=== PATIENT | female | born 1980 | race Caucasian/White ===

== ENCOUNTER 2017-06-01 10:01 | Emergency (ER) | payer OTHER ==
[~2017-06-01] VITALS: Ht 154.9 cm; Wt 78.9 kg
[~2017-06-01 10:01] MED LIST: MOBIC7.5 MG PO; NAPROXEN500 MG PO; NORCO 5-325 TA1 EACH PO
[2017-08-28] MEDS ORDERED: NORCO 5-325 TA1 EACH PO ×3 (14:32→14:46)
== END 2017-06-01 10:23 | disposition home or self-care (01) ==
LOC: ED 10:01
DX: Z00.8 Encounter for other general examination (principal)

== ENCOUNTER 2017-08-28 11:29 | Emergency (ER) | payer OTHER ==
[~2017-08-28] VITALS: Ht 154.9 cm; Wt 78.9 kg
[2017-08-28] MEDS ORDERED: NORCO 5-325 TA1 EACH PO ×5 (14:32→14:46)
== END 2017-08-28 11:49 | disposition home or self-care (01) ==
LOC: ED 11:29
DX: M79.672 Pain in left foot (principal); W22.8XXA Striking against or struck by other objects, initial encounter

== ENCOUNTER 2017-08-28 12:50 | Emergency (ER) | payer OTHER ==
[~2017-08-28] VITALS: Ht 154.9 cm; Wt 78.9 kg
[2017-08-28] MEDS ORDERED: NORCO 5-325 TA1 EACH PO ×5 (14:32→14:46)
== END 2017-08-28 15:28 | disposition home or self-care (01) ==
LOC: ED 12:50
DX: S92.355A Nondisplaced fracture of fifth metatarsal bone, left foot, initial encounter for closed fracture (principal); Z98.51 Tubal ligation status; W18.31XA Fall on same level due to stepping on an object, initial encounter; Y99.0 Civilian activity done for income or pay
CPT/HCPCS: 73630; 99283

== ENCOUNTER 2018-06-12 07:23 | Emergency (ER) | payer OTHER ==
[~2018-06-12] VITALS: Ht 154.9 cm; Wt 63.0 kg
--- OUTSIDE RECORDS SUMMARY | ~2018-06-12 | XMS | Clinical Summary ---
Demographics + + + | Address | [address] | | | [place] [address] | + + + | Home Phone [...] Author | [facility] | | | and Ianana | + + + | Organization | [facility] | | | and Ianana | + + + | Address | Unknown | + + + | Phone | Unavailable | + + + Support + + +---------+ + | Name | Relationship | Address | Phone | + + +---------+ + | Placido BESS | ECON | Unknown | | + + +---------+ + Care Team Providers + +------+ + | Care Stationary Engineer Name | Role | Phone | + +------+ + PP | Unavailable | + +------+ + Allergies Not on [...] | + + + Plan of Treatment + + + + + | Health Maintenance | Due Date | Last Done | Comments | + + + + + | Vaccine: | | | | | Dtap/Tdap/Td (1 - | 9 | | | | Tdap) | | | | + + + + + | Cervical Cancer | | | | | Screening (Pap) | 0 | | | + + + + + | Vaccine: Influenza | | | | | (#1) | 8 | | | + + + + + Results Not on filefrom Last 3 Months"
--- OUTSIDE RECORDS SUMMARY | ~2018-06-12 | XMS | Clinical Summary ---
Demographics + + + | Address | [address] | | | [place] [address] | + + + | Home Phone | | + + + | Preferred Language | Unknown | + + + | Marital Status | Single | + + + | Gnosticist Affiliation | 1041 | + + + | Race | Unknown | + + + | Ethnic Group | Unknown | + + + Author + + + | Author | [facility] | | | and Ianana | + + + | Organization | [facility] | | | and [...] Team Providers + +------+ + | Care Roll Or Tape Edge Machine Operator Name | Role | Phone [...]
[~2018-06-12 07:23] MED LIST changes: +CYCLOBENZAPRINE10 MG PO; +FERROUS SULFAT325 MG PO; +RED YEAST RICE600 MG PO; +VITAMIN C500 M5 PO
--- OUTSIDE RECORDS SUMMARY | 2018-06-12 07:28 | XMS ---
PreManage Notification: LAURA MAGDALENO Security Hunter Guide Events No recent Security Events currently on file CRITERIA MET - [facility] - 2 Visits in 30 Days CARE PROVIDERS Sara Mtz Primary Care Current [place] PHONE: Unknown Maryann has no Care Guidelines for this patient. E.Renee VISIT COUNT (12 MO.) 1 Sunday [facility] [address] [place] [address] TOTAL 4 NOTE: Visits indicate total known visits. ED/C VISIT TRACKING (12 MO.) 06/12/2018 07:24 [facility] [place] TYPE: Emergency COMPLAINT: - R KNEE PAIN/INJURY 06/01/2018 12:01 Sunday [facility] TYPE: Emergency 08/28/2017 12:50 [facility] [place] TYPE: Emergency COMPLAINT: - FOOT INJURY DIAGNOSES: - Fall on same level due to stepping on an object, initial encounter - Unspecified injury of left foot, initial encounter - Nondisplaced fracture of fifth metatarsal bone, left foot, initial encounter for closed fracture - Civilian activity done for income or pay - Tubal ligation status 08/28/2017 11:[address] [facility] [place] TYPE: Emergency COMPLAINT: - L FOOT PAIN/INJURY/MSE DIAGNOSES: - Striking against or struck by other objects, initial encounter - Pain in left foot INPATIENT VISIT TRACKING (12 MO.) No inpatient visits to display in this time frame [email or web address]
[2018-06-12] MEDS ORDERED: IBUPROFEN600 MG PO ×2 (07:33→07:43)
[2018-06-12] MEDS ORDERED: GEMFIBROZIL600 MG PO (07:33)
== END 2018-06-12 08:08 | disposition home or self-care (01) ==
LOC: ED 07:23
DX: S89.91XA Unspecified injury of right lower leg, initial encounter (principal); Z88.8 Allergy status to other drugs, medicaments and biological substances; Z79.899 Other long term (current) drug therapy; X50.9XXA Other and unspecified overexertion or strenuous movements or postures, initial encounter; Y92.89 Other specified places as the place of occurrence of the external cause; Y99.0 Civilian activity done for income or pay
CPT/HCPCS: 73560; 99283

== ENCOUNTER 2018-11-08 18:33 | Emergency (ER) | payer OTHER ==
[~2018-11-08] VITALS: Ht 154.9 cm; Wt 62.1 kg
[~2018-11-08 18:33] MED LIST changes: +GEMFIBROZIL600 MG PO; +IBUPROFEN600 MG PO; +ULTRAM50 MG PO
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
[2018-11-08] MEDS ORDERED: CYCLOBENZAPRINE10 MG PO (18:44)
== END 2018-11-08 20:27 | disposition home or self-care (01) ==
LOC: ED 18:33
DX: G89.29 Other chronic pain (principal); M54.2 Cervicalgia; M54.6 Pain in thoracic spine; Z79.899 Other long term (current) drug therapy
CPT/HCPCS: 99283

== ENCOUNTER 2018-12-21 17:30 | Emergency (ER) | payer OTHER ==
[~2018-12-21] VITALS: Ht 154.9 cm; Wt 61.2 kg
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
--- OUTSIDE RECORDS SUMMARY | ~2018-12-21 | XMS | Encounter Summary ---
Demographics + + + | Address | [address] | | | [place] [address] | + + + | Home Phone | | + + + | Preferred Language | Unknown | + + + | Marital Status | Single | + + + | Yarsani Affiliation | 1041 | + + + | Race | Unknown | + + + | Ethnic Group | Unknown | + + + Author + + + | Author | [facility] | | | and Ianana | + + + | Organization | [facility] | | | and Ianana [...] Team Providers + +------+ + | Care Tactical Air Control Party Name | Role | Phone | + +------+ + PCP | Unavailable | + +------+ + Encounter Details +--------+ + + + + | Date | Type | Department | Care Team | Description | +--------+ + + + + | 10/02/ | Imaging | [facility] | Provider, | | | 2019 | Exam | MED CTR EXTERNAL | MD [address] | | | | | IMAGING | [place] | | | | | [phone] | [place] [address] | | +--------+ + + + + [...] 2018 | Visit | and Rehabilitation | [address] | | | | | | [place] | | | | | | [address] | | | | | | | | +--------+---------+ + + + as of this encounter Procedures + +--------+ [...] section. | + +--------+ + + + in this encounter Results MRI Shoulder Left wo Contrast (10/02/2018714) + + + | Narrative | Performed [...]
--- OUTSIDE RECORDS SUMMARY | ~2018-12-21 | XMS | Clinical Summary ---
Demographics + + + | Address | [address] | | | [place] [address] | + + + | Home Phone | | + + + | Preferred Language | Unknown | + + + | Marital Status | Single | + + + | Uatsdin Affiliation | 1041 | + + + | Race | Unknown | + + + | Ethnic Group | Unknown | + + + Author + + + | Author | [facility] | | | and Ianana | + + + | Organization | [facility] | | | and Ianana [...] Team Providers + +------+ + | Care Computer Operations Analyst Name | Role | Phone | + [...] [place] | | | | | | [address] | | | | | | | [...] | STATE [employer] | STATE | [id number] | Indemn | [phone] | | | | FARM | | [...] | [address] | | | Green Party | | 1979 | [phone] | [place] [address] | | | Liabil | | | [phone] | | | | ity | | | | | + +--------+ +--------+ + + | MARINE LAGOS | Person | Self | [birth year] | Home: | [address] | | | al/Fam | | 1979 | [phone] | [place] | | | [place] | | | [phone] | [phone] | + +--------+ +--------+ + +"
--- OUTSIDE RECORDS SUMMARY | ~2018-12-21 | XMS | Encounter Summary ---
Demographics + + + | Address | [address] | | | [place] [address] | + + + | Home Phone | | + + + | Preferred Language | Unknown | + + + | Marital Status | Single | + + + | Taoist Affiliation | 1041 | + + + | Race | Unknown | + + + | Ethnic Group | Unknown | + + + Author + + + | Author | [facility] | | | and Ianana | + + + | Organization | [facility] | | | and Ianana [...] Team Providers + +------+ + | Care Concrete Wall Grinder Operator Name | Role | Phone | [...] Verito [place] | | | | | [phone] | [place] [address] | | +--------+ + + + + [...] | | | | | [place] | | | | | | [address] | | | | | | | [...]
--- OUTSIDE RECORDS SUMMARY | ~2018-12-21 | XMS | Encounter Summary ---
Demographics + + + | Address | [address] | | | [place] [address] | + + + | Home Phone | | + + + | Preferred Language | Unknown | + + + | Marital Status | Single | + + + | Mosque Affiliation | 1041 | + + + | Race | Unknown | + + + | Ethnic Group | Unknown | + + + Author + + + | Author | [facility] | | | and Ianana | + + + | Organization | [facility] | | | and Ianana | [...] Team Providers + +------+ + | Care Appraisal Technician Name | Role | Phone | + +------+ + PCP | Unavailable | + +------+ + Encounter Details +--------+ + + + + | Date | Type | Department | Care Team | Description | +--------+ + + + + | 09/24/ | Imaging | [facility] | Provider, | | | 2019 | Exam | MED CTR EXTERNAL | MD [address] | | | | | IMAGING | [place] | | | | | [phone] | [place] [address] | | +--------+ + + + + [...] | | | | | [place] | | | | | | [address] | | | | | | | [...] + + + in this encounter Results CT Cervical Spine wo Contrast (09/24/2018 1335) [...]
--- OUTSIDE RECORDS SUMMARY | ~2018-12-21 | XMS | Encounter Summary ---
Demographics + + + | Address | [address] | | | [place] [address] | + + + | Home Phone | | + + + | Preferred Language | Unknown | + + + | Marital Status | Single | + + + | Yarsanism Affiliation | 1041 | + + + | Race | Unknown | + + + | Ethnic Group | Unknown | + + + Author + + + | Author | [facility] | | | and Ianana | + + + | Organization | [facility] | | | and Ianana | [...] Team Providers + +------+ + | Care Consulting Psychologist Name | Role | Phone | + [...] IMAGING | | | | | | [phone] | | | +--------+ + + + [...] [place] | | | | | | [address] | | | | | | | | +--------+---------+ + + + as of this encounter Visit Diagnoses Not on filein this encounter"
--- OUTSIDE RECORDS SUMMARY | ~2018-12-21 | XMS | Encounter Summary ---
Demographics + + + | Address | [address] | | | [place] [address] | + + + | Home Phone [...] + | Author | [facility] | | | and Ianana | + + + | Organization | [facility] | | | and [...] Team Providers + +------+ + | Care Bilingual Research Interviewer Name | Role | Phone | + [...] IMAGING | | | | | | [phone] | | | +--------+ + + + [...] [place] | | | | | | [address] | | | | | | | | +--------+---------+ + + + as of this encounter Visit Diagnoses Not on filein this encounter"
--- OUTSIDE RECORDS SUMMARY | ~2018-12-21 | XMS | Encounter Summary ---
Demographics + + + | Address | [address] | | | [place] [address] | + + + | Home Phone | | + + + | Preferred Language | Unknown | + + + | Marital Status | Single | + + + | Episcopalian Affiliation | 1041 | + + + | Race | Unknown | + + + | Ethnic Group | Unknown | + + + Author + + + | Author | [facility] | | | and Ianana | + + + | Organization | [facility] | | | and Ianana [...] Team Providers + +------+ + | Care Bell Neck Hammerer Name | Role | Phone | + [...] Verito [place]ILLOS | | | | | [phone] | [place] [address] | | +--------+ + + + + [...] Visit | and Rehabilitation | [address] | | | | | | [place] | | | | | | [address] | | | | | | | [...] + CT Cervical Spine wo Contrast (09/24/2018 7005) + + + | Narrative | Performed [...] XR Cervical Spine 2 or 3 Views (09/03/20188) + + + | Narrative | Performed [...]
--- OUTSIDE RECORDS SUMMARY | ~2018-12-21 | XMS | Encounter Summary ---
Demographics + + + | Address | [address] | | | [place] [address] | + + + | Home Phone | | + + + | Preferred Language | Unknown | + + + | Marital Status | Single | + + + | Adventism Affiliation | 1041 | + + + | Race | Unknown | + + + | Ethnic Group | Unknown | + + + Author + + + | Author | [facility] | | | and Ianana | + + + | Organization | [facility] | | | and [...] Team Providers + +------+ + | Care Material Mover Name | Role | Phone | + [...] Verito BUSTILLOS | | | | | [phone] | [place] [address] | | +--------+ + + + + [...] | | | | | [place] | | | | | | [address] | | | | | | | [...]
--- OUTSIDE RECORDS SUMMARY | ~2018-12-21 | XMS | Encounter Summary ---
Demographics + + + | Address | [address] | | | [place] [address] | + + + | Home Phone | | + + + | Preferred Language | Unknown | + + + | Marital Status | Single | + + + | Hindu Affiliation | 1041 | + + + | Race | Unknown | + + + | Ethnic Group | Unknown | + + + Author + + + | Author | [facility] | | | and Ianana | + + + | Organization | [facility] | | [...] Team Providers + +------+ + | Care Sugar Cane Planting Equipment Operator Name | Role | Phone | [...] | MED CTR EXTERNAL | MD Elpidio [address] | | | | | IMAGING | Verito BUSTILLOS | | | | | [phone] | [place] [address] | | +--------+ + + + + [...] Visit | and Rehabilitation | [address] | | | | | | [place] | | | | | | [address] | | | | | | | [...] + CT Cervical Spine wo Contrast (09/24/2018 8724) + + + | Narrative | Performed [...]
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
[2018-12-21] MEDS ORDERED: GABAPENTIN300 MG PO (17:45)
[2018-12-21] MEDS ORDERED: PREDNISONE20 MG PO ×2 (17:58→18:23)
[2018-12-21] MEDS ORDERED: BENADRYL25 MG PO (17:58)
== END 2018-12-21 18:35 | disposition home or self-care (01) ==
LOC: ED 17:30
DX: L50.0 Allergic urticaria (principal); Z79.899 Other long term (current) drug therapy
CPT/HCPCS: 99282; J7512

== ENCOUNTER 2018-12-25 18:48 | Emergency (ER) | payer OTHER ==
[~2018-12-25] VITALS: Ht 154.9 cm; Wt 61.2 kg
--- OUTSIDE RECORDS SUMMARY | ~2018-12-25 | XMS | Encounter Summary ---
Demographics + + + | Address | [address] | | | [place] [address] | + + + | Home Phone | | + + + | Preferred Language | Unknown | + + + | Marital Status | Single | + + + | Orthodox Affiliation | 1041 | + + + | Race | Unknown | + + + | Ethnic Group | Unknown | + + + Author + + + | Author | [facility] | | | and Ianana | + + + | Organization | [facility] | | | and Ianana [...] Team Providers + +------+ + | Care Molecular Technologist Name | Role | Phone | + +------+ + | Hai Webb MD | PCP | | + +------+ + Encounter Details +--------+ + + + + | Date | Type | Department | Care Team | Description | +--------+ + + + + | 12/10/ | Ancillary | [facility] | Provider, | | | 2019 | Orders | [facility] EXTER[facility] | MD El[id number] | | | | | IMAGING | Verito BUSTILLOS | | | | | [phone] | [place] [address] | | +--------+ + + + + [...] on file | | + + + as of this encounter Plan of Treatment +--------+---------+ + + + | Date | Type | Specialty | Care Team | Description | +--------+---------+ + + + | 02/05/ | Office | Physical Medicine | Robert Castillo, | | | 2018 | Visit | and Rehabilitation | [address] | | | | | | [place] | | | | | | [address] | | | | | | | | +--------+---------+ + + + as of this encounter Results MRI Shoulder Left wo Contrast (10/02/201815) [...] + CT Cervical Spine wo Contrast (09/24/2018 8534) + + + | Narrative | Performed [...] | | | + +---------+ + + XR Shoulder Left 2 + Vw (09/09/20181649) + + + | Narrative | Performed [...] | | | + +---------+ + + XR Cervical Spine 2 or 3 Views (09/03/20181) + + + | Narrative | Performed [...] | | | + +---------+ + + XR Cervical Spine 2 or 3 Views (10/23/20161919) + + + | Narrative | Performed [...] | | | + +---------+ + + in this encounter Visit Diagnoses Not on filein this encounter"
--- OUTSIDE RECORDS SUMMARY | ~2018-12-25 | XMS | Encounter Summary ---
Demographics + + + | Address | [address] | | | [place] [address] | + + + | Home Phone | | + + + | Preferred Language | Unknown | + + + | Marital Status | Single | + + + | Spiritism Affiliation | 1041 | + + + | Race | Unknown | + + + | Ethnic Group | Unknown | + + + Author + + + | Author | [facility] | | | and Ianana | + + + | Organization | [facility] | | | and Ianana [...] Team Providers + +------+ + | Care Rn Stars Name | Role | Phone | + [...] Verito BUSTILLOS | | | | | [phone] | [place] [address] | | +--------+ + + + + [...] Visit | and Rehabilitation | [address] | | | | | | [place] | | | | | | [address] | | | | | | | [...] + CT Cervical Spine wo Contrast (09/24/2018 3987) + + + | Narrative | Performed [...] XR Cervical Spine 2 or 3 Views (09/03/20186) + + + | Narrative | Performed [...]
--- OUTSIDE RECORDS SUMMARY | ~2018-12-25 | XMS | Clinical Summary ---
Demographics + + + | Address | [address] | | | [place] [address] | + + + | Home Phone | | + + + | Preferred Language | Unknown | + + + | Marital Status | Single | + + + | Spiritism Affiliation | 1041 | + + + | Race | Unknown | + + + | Ethnic Group | Unknown | + + + Author + + + | Author | [facility] | | | and Ianana | + + + | Organization | [facility] | | | and Ianana [...] Team Providers + +------+ + | Care Occ Therapy Asst Name | Role | Phone | + [...] | | 2018 | Visit | | MD [address] | | | | | | [place] | | | | | | [address] | | | | | | | [...] Months Results MRI Shoulder Left wo Contrast (10/02/2018714) [...] | STATE [employer] | STATE | [id number] | Indemn | [phone] | | | | FARM | | [...] | [address] | | | [employer] | | 1979 | +- | [place] [address] | | | [place] | | | [address] | | | | ity | | | | | + +--------+ +--------+ + + | MARINE LAGOS | Person | Self | [birth year] Home: | [address] | | | al/Fam | | 1979 | +- | [place] | | | conrad | | | [phone] | [phone] | + +--------+ +--------+ + +"
--- OUTSIDE RECORDS SUMMARY | ~2018-12-25 | XMS | Encounter Summary ---
Demographics + + + | Address | [address] | | | [place] [address] | + + + | Home Phone | | + + + | Preferred Language | Unknown | + + + | Marital Status | Single | + + + | Restorationism Affiliation | 1041 | + + + | Race | Unknown | + + + | Ethnic Group | Unknown | + + + Author + + + | Author | [facility] | | | and Ianana | + + + | Organization | [facility] | | | and [...] Providers + +------+ + | Care Senior Fire Protection Engineer Name | Role | Phone | + +------+ + | Hai Webb MD | PCP | | + +------+ + Encounter Details +--------+ + + + + | Date | Type | Department | Care Team | Description | +--------+ + + + + | 12/10/ | Procedure | [facility] | | | | 2018 | Pass | MED CTR EXTERNAL | | | | | | IMAGING | | | | | | [phone] | | | +--------+ + + + [...] Medicine | Robert Castillo, | | | 2019 | Visit | and Rehabilitation | MD [address] | | | | | | [place] | | | | | | [address] | | | | | | | | +--------+---------+ + + + as of this encounter Visit Diagnoses Not on filein this encounter"
--- OUTSIDE RECORDS SUMMARY | ~2018-12-25 | XMS | Encounter Summary ---
Demographics + + + | Address | [address] | | | [place] [address] | + + + | Home Phone | | + + + | Preferred Language | Unknown | + + + | Marital Status | Single | + + + | Rastafarian Affiliation | 1041 | + + + | Race | Unknown | + + + | Ethnic Group | Unknown | + + + Author + + + | Author | [facility] | | | and Ianana | + + + | Organization | [facility] | | | and [...] Team Providers + +------+ + | Care Quality Assurance Specialist Name | Role | Phone | + [...] Verito BUSTILLOS | | | | | [phone] | [place] [address] | | +--------+ + + + + [...] | | | | | [place] | | | | | | [address] | | | | | | | [...]
--- OUTSIDE RECORDS SUMMARY | ~2018-12-25 | XMS | Encounter Summary ---
Demographics + + + | Address | [address] | | | [place] [address] | + + + | Home Phone [...] Author | [facility] | | | and Ianana | + + + | Organization | [facility] | | | [...] Team Providers + +------+ + | Care Bank Accountant Name | Role | Phone | + [...] IMAGING | | | | | | [phone] | | | +--------+ + + + [...] [place] | | | | | | [address] | | | | | | | | +--------+---------+ + + + as of this encounter Visit Diagnoses Not on filein this encounter"
--- OUTSIDE RECORDS SUMMARY | ~2018-12-25 | XMS | Encounter Summary ---
Demographics + + + | Address | [address] | | | [place] [address] | + + + | Home Phone [...] Author + + + | Author | [facility] | | | and Ianana | + + + | Organization | [facility] | | | and Ianana [...] Team Providers + +------+ + | Care Toll Testboard Worker Name | Role | Phone | [...] Verito BUSTILLOS | | | | | [phone] | [place] [address] | | +--------+ + + + + [...] | | | | | [place] | | | | | | [address] | | | | | | | [...]
--- OUTSIDE RECORDS SUMMARY | ~2018-12-25 | XMS | Clinical Summary ---
Demographics + + + | Address | [address] | | | [place] [address] | + + + | Home Phone [...] + + + | Author | [facility] | | | and Ianana | + + + | Organization | [facility] | | | and Ianana [...] Team Providers + +------+ + | Care Big Data Software Engineer Name | Role | Phone | [...] [place] | | | | | | [address] | | | | | | | [...] | STATE [employer] | STATE | [id number] | Indemn | [phone] | | | | FARM | | [...] | [employer] | | 1979 | +- | [place] [address] | | | [place] | | | [address] | | | | ity | | | | | + +--------+ +--------+ + + | MARINE LAGOS | Person | Self | [birth year] | Home: | [address] | | | al/Fam | | 1979 | +- | [place] | | | [place] | | | [phone] | [phone] | + +--------+ +--------+ + +"
[~2018-12-25 18:48] MED LIST changes: +BENADRYL25 MG PO; +GABAPENTIN300 MG PO; +PREDNISONE20 MG PO
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
[2018-12-25] MEDS ORDERED: DAYTIME-COLD N1 EACH PO (19:22)
[2018-12-25] MEDS ORDERED: MEDROL4 M1 PO (20:26)
== END 2018-12-25 20:38 | disposition home or self-care (01) ==
LOC: ED 18:48
DX: L50.9 Urticaria, unspecified (principal); Z79.52 Long term (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 systemic steroids; Z79.899 Other long term (current) drug therapy
CPT/HCPCS: 99282

== ENCOUNTER 2019-09-16 10:49 | Emergency (ER) | payer OTHER ==
[~2019-09-16] VITALS: Ht 154.9 cm; Wt 60.3 kg
--- OUTSIDE RECORDS SUMMARY | ~2019-09-16 | XMS | Encounter Summary ---
Demographics + + + | Address | [address] | | | [place] [address] | + + + | Home Phone | | + + + | Preferred Language | Unknown | + + + | Marital Status | Single | + + + | Sabianist Affiliation | [id number] | + + + | Race | Unknown | + + + | Ethnic Group | Unknown | + + + Author + + + | Author | [facility] | | | and [place] | + + + | Organization | [facility] | | | and [place] | + + + | Address | Unknown | + + + | Phone | Unavailable | + + + Support + + +---------+ + | Name | Relationship | Address | Phone | + + +---------+ + | Placido Thakur | ECON | Unknown | | + + +---------+ + Care Team Providers + +------+ + | Care Member Certification Manager Name | Role | Phone | + +------+ + | Hai Webb MD | PCP | | + +------+ + Reason for Referral Evaluate & Treat (Routine) +--------+ + + + + + | Status | Reason | Specialty | Diagnoses / | Referred By | Referred To | | | | | Procedures | Contact | Contact | +--------+ + + + + + | Closed | Specialty | Psychology | Diagnoses | Jonathan | [facility] | | | Services | | Situational | Robert Thakkar MD | HELPING | | | Required | | anxiety | [address] | | | | | | [address] | [place] | | | | | | [place], | [address] | | | | | | [place] [address] | [place], | | | | | | Phone: | [place] [address] | | | | | | [phone] | Phone: | | | | | | Fax: | [phone] | | | | | | [phone] | Fax: | | | | | | | [phone] | +--------+ + + + + + Diagnostic/Screening (Routine) +--------+--------+ + + + + | Status | Reason | Specialty | Diagnoses / | Referred By | Referred To | | | | | Procedures | Contact | Contact | +--------+--------+ + + + + | Closed | | Radiology | Diagnoses | Castillo, | [facility] | | | | | Intractable | Robert Thakkar MD | [address] | | | | | migraine | [address] | [place], | | | | | with aura | [address] | [place] | | | | | without | [place], | [address] | | | | | status | [place] [address] | Phone: | | | | | migrainosus | Phone: | [phone] | | | | | Chronic | [phone] | Fax: | | | | | daily | Fax: | [phone] | | | | | headache | [phone] | | | | | | Procedures | | | | | | | MRI Brain wo | | | | | | | Contrast | | | +--------+--------+ + + + + Diagnostic/Screening (Routine) +--------+--------+ + + + + | Status | Reason | Specialty | Diagnoses / | Referred By | Referred To | | | | | Procedures | Contact | Contact | +--------+--------+ + + + + | Closed | | Radiology | Diagnoses | Castillo, | [facility] | | | | | Cervicalgia | Robert Thakkar MD | [address] | | | | | Numbness | [address] | [place], | | | | | of left hand | [address] | [place] | | | | | Chronic | [place], | [address] | | | | | left | [place] [address] | Phone: | | | | | shoulder | Phone: | [phone] | | | | | pain | [phone] | Fax: | | | | | Procedures | Fax: | [phone] | | | | | MRI Cervical | [phone] | | | | | | Spine wo | | | | | | | Contrast | | | +--------+--------+ + + + + Encounter Details +--------+---------+ + + + | Date | Type | Department | Care Team | Description | +--------+---------+ + + + | 03/18/ | Office | [facility] | Robert Castillo, | Intractable migraine | | 2019 | Visit | PHYSIATRY [address] | MD [address] | with aura without | | | | [address] [place], | [place], [place] | status migrainosus | | | | [place] [address] | [address] | (Primary Dx); | | | | [phone] | | Situational anxiety; | | | | | | Cervicalgia; | | | | | | Numbness of left | | | | | | hand; Chronic daily | | | | | | headache; Chronic | | | | | | left shoulder pain | +--------+---------+ + + + Social History + +-------+ +--------+------+ | Tobacco Use | Types | Packs/Day | Years | Date | | | | | Used | | + +-------+ +--------+------+ | Never Smoker | | | | | + +-------+ +--------+------+ + +---+---+---+ | Smokeless Tobacco: | | | | | Never Used | | | | + +---+---+---+ + + +---------+ + | Alcohol Use | Drinks/Week | oz/Week | Comments | + + +---------+ + | Not Currently | | | | + + +---------+ + + + + | Sex Assigned at | Date Recorded | | | | + + + | Not on file | | + + + + + + + | Job Start Date | Occupation | Industry | + + + + | Not on file | Not on file | Not on file | + + + + + + + + | Travel History | Travel Start | Travel End | + + + + + + | No recent travel history available. | + + documented as of this encounter Last Filed Vital Signs + + + + + | Vital Sign | Reading | Time Taken | Comments | + + + + + | Blood Pressure | 111/69 | 03/18/2019 10:42 AM | | | | | PDT | | + + + + + | Pulse | 68 | 03/18/2019 10:42 AM | | | | | PDT | | + + + + + | Temperature | - | - | | + + + + + | Respiratory Rate | - | - | | + + + + + | Oxygen Saturation | - | - | | + + + + + | Inhaled Oxygen | - | - | | | Concentration | | | | + + + + + | Weight | 61.7 kg (136 lb) | 03/18/2019 10:42 AM | | | | | PDT | | + + + + + | Height | 154.9 cm (5' 1") | 03/18/2019 10:42 AM | | | | | PDT | | + + + + + | Body Mass Index | 25.7 | 03/18/2019 10:42 AM | | | | | PDT | | + + + + + documented in this encounter Patient Instructions Patient Instructions Valery Aguirre, Indoor Landscape Architect - 03/18/2019 10:20 AM PDTDiscon tinue the use of Caffeine. Take Topamax as prescribed. A MRI has been requested. Please complete the requested imaging. Within one week, you hever akanksha receive a call to schedule your MRI. If you have not heard from anyone within one week, please call the clinic. The results of your MRI will be reviewed at your next appointment. If your MRI demonstrates any emergent results, the clinic will contact you. Laboratory tests have been requested. Please go to the lab to complete your laboratory sagar ting. The results of your laboratory testing will be reviewed at your next appointment. If your labratory results demonstrate any emergent results the clinic will contact you. Risks of Botox injection include, but are not limited to: bruising, bleeding, infection, da mage to adjacent structures, disability and . There is risk of developing upper respira tory symptoms (e.g. Rhinorrhea). There is risk of focal weakness and/or generalized weaknes s. There is risk of developing immunity to botulinum toxin with repeat injections. There i s risk of respiratory failure, need for hospitalization and being placed on a ventilator. T here is risk of dysphagia, aspiration and the possible need for alternative mechanism of fee ding (e.g. Feeding tube). There is risk of developing an asymmetric facial features. There is risk of disconjugate gaze and double vision. There is risk of dysphonia. The effects of botulinum toxin take several days to take effect (approximately one week). T he effects of botulinum toxin usually reach peak effect at one month after injection. The e ffects of botulinum toxin are semi-permanent. This means that once botulinum toxin is injec lula there is no way to reverse the effects of the botulinum toxin. The effects of botulinum toxin may last from three to six months, (four months on average). documented in this encounter Progress Notes Robert Castillo MD - 03/18/2019 10:20 AM PDTFormatting of this note might be different fro m the original. Robert Castillo MD [address] [place] [address], [address] [place] [address] FAX: PHYSICAL MEDICINE AND REHABILITATION H&P CHIEF COMPLAINT: No chief complaint on file. HISTORY OF PRESENT ILLNESS: Marine Lagos is a 38 y.o. female being seen today in follow-up for complaints of headach es, neck and shoulder pain. Marine Lagos was last seen on 03/09/19. Previously it was recommended that she return to clinic to evaluate for botox injections. Marine Lagos reports daily headaches. She reports headaches 7 times per week located in the frontal lobe worse on the right. Marine Lagos reports nausea with headaches. Marine Lagos reports vision changes with headaches. Marine Lagos reports that she has disconti nued the use of abortive medications. Marine Lagos reports that headaches are there all day everyday. Marine Lagos reports that headaches are worse in the evening. Marine Lagos reports that she is using her CPAP machine for the treatment of sleep apnea. Marine Lagos reports that she has been using CP AP machine for a couple of months. Marine Lagos reports left shoulder pain. Marine Lagos reports that she is not able to lift left upper extremity without pain. Marine Lagos reports that physical therapy has h elped improve neck pain. Marine Lagos reports left upper extremity hand numbness. Marine Lagos's medications, allergies, past medical, surgical, social and family histori es were reviewed and updated as appropriate. CURRENT MEDICATIONS: Current Outpatient Medications Medication Sig Dispense Refill citalopram (CELEXA) 10 mg tablet Take 1 tablet by mouth Daily. 30 tablet 1 diclofenac (VOLTAREN) 75 mg EC tablet LORazepam (ATIVAN) 1 mg tablet Take 1 tablet 30 minutes before procedure. If still ner vous take second tablet 10 minutes before procedure. 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 2 tablet 0 No current facility-administered medications for this visit. ALLERGIES: No Known Allergies REVIEW OF SYSTEMS: ROS GENERALLY: No fever, no night sweats, no anemia, no fatigue, no recent profound weight ch anges. EYES: No eye problems, no use of corrective lenses, no eye injury, no double vision, no bl indness. EARS, NOSE, AND THROAT: No changes in taste or smell, no hearing difficulty, no ringing in the ears, no ear drainage, no dizziness, no voice changes, no difficulty swallowing, no sig nificant snoring, no sleep apnea, no sinus problems, no major dental work. NEUROLOGICALLY:The patient has + numbness/pain of arms, no numbness/pain of legs, no awake with numbness/pain, no weakness, no muscle aching, no coordination difficulty, no change in walk, no head injury, no neck injury, no back injury, + pain in neck, no pain in back, no st roke, no fainting spells, no loss of consciousness, no tremor/shaking, no seizures, no heada ches, no migraine, no memory loss, no speech difficulty, no confusion and no numbness of fac e. PSYCHIATRIC: No depression, no sleep disorders, no anxiety, no bipolar disorder, no psycho tic episodes. CARDIOVASCULAR: No heart attacks, no heart murmur, no heart fluttering, no chest pain, no ankle swelling. LUNG DISEASE: No shortness of breath, no cough, no tuberculosis, no bloody cough, no asth ma, no emphysema/COPD. GASTROINTESTINAL: No bowel disease, no nausea or vomiting, no rectal bleeding, no constipa tion, no stool incontinence, no liver disease, no gallbladder disease, no abdominal pain, no ulcers. KIDNEY DISEASE: No urinary frequency, no painful or difficult urination, no incontinence. ENDOCRINE: No diabetes, no thyroid disease, no osteopenia or osteoporosis, no breast drain age. SKIN: No breast lumps, no skin changes, no rashes, no itches. HEMATOLOGIC/LYMPHATIC: No enlarged lymph nodes, no easy or unusual bleeding, no personal h istory of cancer. RHEUMATOLOGIC: No joint arthritis, no rheumatoid arthritis. PHYSICAL EXAMINATION: Blood pressure 111/69, pulse 68, height 1.549 m (5' 1"), weight 61.7 kg (136 lb). Body mass index is 25.7 kg/m. GENERAL: The patient is well developed and well nourished. HEENT: Normocephalic and atraumatic. Normal sclerae without icterus. NECK (ANTERIOR): There is no apparent cervical lymphadenopathy or thyromegaly. PULMONARY: The patient is in no acute respiratory distress with unlabored respirations. CARDIOVASCULAR: Regular rate and rhythm. ABDOMEN: Non-distended. SKIN: Limited skin exam shows no significant rashes or lesions. NEUROLOGIC: The patient is awake, alert, and oriented. She follows simple and complex commands. Her speech is fluent. She comprehends speech well. She has no apparent deficits with short or intermediate memory. The cranial nerves appear grossly intact. MUSCULOSKELETAL : Anterior neck posture Marine Lagos sits with left shoulder abducted impingement positive left shoulder DATABASE: Shoulder MRI completed 10/02/18 was reviewed personally by me in detail during today's visi t. I concur with the results as reported by the Radiologist. Cervical CT and x-rays were reviewed by me. No brain imaging available for review. Concur and defer to radiology repor ts. ASSESSMENT: 1. Intractable migraine with aura without status migrainosus 2. Situational anxiety 3. Cervicalgia 4. Numbness of left hand 5. Chronic daily headache 6. Chronic left shoulder pain PLAN: 1. Marine Lagos presents to clinic today to discuss botox injections for the treatment o f chronic daily headaches. Marine Lagos has tried occipital nerve blocks in the past. Zuly Lagos has persisting chronic daily headaches, 15+ headache days per month. Headache i s constant in nature. 2. Order for brain MRI was placed today to evaluate for underlying condition that may be co ntributing to Intractable migraine with aura without status migrainosus. Pain is interfering with quality of life and function. 3. Today we discussed the risks of Botox injection including, but are not limited to: bruis ing, bleeding, infection, damage to adjacent structures, disability and . There is risk of developing upper respiratory symptoms (e.g. Rhinorrhea). There is risk of focal weaknes s and/or generalized weakness. There is risk of developing immunity to botulinum toxin with repeat injections. There is risk of respiratory failure, need for hospitalization and bein g placed on a ventilator. There is risk of dysphagia, aspiration and the possible need for alternative mechanism of feeding (e.g. Feeding tube). There is risk of developing an asymme tric facial features. There is risk of disconjugate gaze and double vision. There is risk of dysphonia. 4. We discussed that the effects of botulinum toxin take several days to take effect (appro ximately one week). The effects of botulinum toxin usually reach peak effect at one month af ter injection. Marine Lagos was advised effects of botulinum toxin are semi-permanent, meaning that once botulinum toxin is injected there is no way to reverse the effects of the botulinum toxin. The effects of botulinum toxin may last from three to six months, (four mo nths on average). We may consider botox injections in the future if headaches persist follow ing physical therapy and medication treatment options. 5. Marine Lagos was advised to discontinue intake of caffeine as caffeine may be a contr ibuting factor to headaches. Discussed that initially headaches may be worse. Marine thakkar has only used abortive medication intermittently for severe headache. Marine Lagos was advised to limit the use of abortive medications to no more than 3 doses per week and no mor e than 9 doses per month. In hopes of reducing severity and frequency of headaches Topamax 25 mg was prescribed today . Marine Lagos will have a CMP to establish a baseline bicarbonate level, as Topamax ma y cause a decrease in bicarbonate, which may lead to osteoporosis later in life. 6. There may be component of cervical strain and cervical radiculopathy contributing to cer vical dystonia. Marine Lagos was encouraged to continue with at home exercises as outline d by physical therapy and completed physical therapy. Today we emphasized the importance of maintaining range of motion. Pain is not a marker for damage. The damage that was done with initial injury will become worse with guarding due to pain. Today we discussed pathology of cervical strain. Recovery is variable, though research sugg ests 6 month recovery pattern. 7. Marine Lagos indicates anxiety with driving. Today we discussed the importance of ad dressing situational anxiety. Order for counseling was placed today. 8. Marine Lagos should return to clinic as scheduled to review medication and imaging. Marine Lagos reports that she is not . She reports no plans on becoming pregnan t. We reviewed that Topamax is not safe during . We discussed that if she is plan ruthie to get or thinks she might be she needs to let her doctors know immed iately. She was informed that she needs to use contraception while taking Topamax. Marine Lagos has chronic daily, intractable migraine with aura, without status migranous . Her headaches are likely cervicogenic in nature secondary to cervical strain and cervical dystonia. Since she is having localized continuous head pain that never lets up she has be en asked to complete brain MRI, to make sure she does not have intracranial pathology, such as tumor contributing to her head pain. Marine Lagos has pain, numbness into left arm. She has neck pain and limited neck range of motion. Cervical radiculopathy is likely based off of clinical presentation. She has h ad physical therapy. She has tried NSAIDs. She has completed neck x-rays. Her current sym ptoms are effecting function and quality of life. Cervical MRI has been requested to evalua te for disc herniation, neural foraminal narrowing or other etiologies that could be causing her cervical radiculopathy symptoms. Marine Lagos for now declines Botox for chronic daily headaches and cervical dystonia. She would like to see how much better she gets with continued physical therapy and time. Raymond tanner may consider Botox in the future. Today we reviewed the risks of Botox. If she had Botox we would use 200 units of Botox and we would inject head in standard migraine pattern, but we would include neck muscles, more on the left to treat associated cervical dystonia. In effort to better manage her headaches she will start Topamax at low dose and taper up. She will have CMP at baseline before starting Topamax. Marine Lagos reports anxiety associated with driving. She reports feeling panicky when there is a car stopped on a cross road. She reports that Celexa has been helpful, but she i s still routinely anxious when driving. She has been encouraged to have psychology consult to evaluate for PTSD or situational anxiety. I spent 45 minutes in visit with Marine Lagos today with the majority of time spent coun seling the patient on her diagnosis, options for her care, and coordinating her care. I, Robert Castillo MD personally performed the services described in this documentation, as scribed by in my presence, KRISHNA Aguirre and are both accurate and complete. Robert Castillo MD - 03/18/2019 documented in this en counter Plan of Treatment +--------+---------+ + + + | Date | Type | Specialty | Care Team | Description | +--------+---------+ + + + | 09/25/ | Office | Neurosurgery | Jim Mckoy | | | 2020 | Visit | | MD Ish [address] | | | | | | [address] | | | | | | [place] [address] | | | | | | [phone] | | | | | | | | +--------+---------+ + + + + + +--------+ + + | Name | Type | Priori | Associated Diagnoses | Order Schedule | | | | ty | | | + + +--------+ + + | Psychology, External | Outpatient | Routin | Situational | Ordered: 03/18/2019 | | - AMB Referral | Referral | e | anxiety | | + + +--------+ + + documented as of this encounter Results Comprehensive Metabolic Panel (04/06/2019 10:22 AM PDT) + + + + + + | Component | Value | Ref Range | Performed | Pathologist | | | | | At | Signature | + + + + + + | Na | 137 | 136 - 145 | [facility] | | | | | mmol/L | [facility] | | | | | [facility] | | | | | [facility] - | | | | | | LABORATORY | | + + + + + + | K | 3.6 | 3.4 - 5.1 | [facility] | | | | | mmol/L | [facility] | | | | | | [facility] | | | | | | [facility] - | | | | | | LABORATORY | | + + + + + + | Cl | 109 (H) | 98 - 107 mmol/L | [facility] | | | | | | [facility] | | | | | | [facility] | | | | | | [facility] - | | | | | | LABORATORY | | + + + + + + | CO2 | 26 | 20 - 31 mmol/L | [facility] | | | | | | [facility] | | | | | | [facility] | | | | | [facility] - | | | | | | LAB[facility]ATORY | | + + + + + + | Anion Gap | 2 (L) | 3 - 16 mmol/L | [facility] | | | | | | [facility] | | | | | [facility] | | | | | [facility] - | | | | | | LAB[facility]ATORY | | + + + + + + | Glucose | 74 | 60 - 106 mg/dL | [facility] | | | | | | [facility] | | | | | | [facility] | | | | | | [facility] - | | | | | | LABORATORY | | + + + + + + | BUN | 14 | 9 - 23 mg/dL | [facility] | | | | | | [facility] | | | | | | [facility] | | | | | | [facility] - | | | | | | LABORATORY | | + + + + + + | Creatinine | 0.49 (L) | 0.55 - 1.02 | [facility] | | | | | mg/dL | [facility] | | | | | | [facility] | | | | | | [facility] - | | | | | | LABORATORY | | + + + + + + | eGFR if not | >60Comment: GLOMERULAR | >=60 | [facility] | | | | FILTRATION | mL/min/1.73m2 | [facility] | | | [place] | RATE,ESTIMATED | | MEDICAL | | | | mL/min/1.24o6Sdgk than | | CENTER - | | | | 60 Chronic kidney | | LABORATORY | | | | disease,if found over a | | | | | | 3-month period.Less than | | | | | | 15 Kidney failureFor | | | | | | | | | | | | Americans,multiply the | | | | | | calculated GFR by 1.21. | | | | | | | | | | + + + + + + | Calcium | 9.0 | 8.7 - 10.4 | [facility] | | | | | mg/dL | [facility] | | | | | | [facility] | | | | | | [facility] - | | | | | | LABORATORY | | + + + + + + | Albumin | 4.1 | 3.2 - 4.8 g/dL | [facility] | | | | | | [facility] | | | | | | [facility] | | | | | | [facility] - | | | | | | LABORATORY | | + + + + + + | Bilirubin | 0.3 | 0.3 - 1.2 mg/dL | [facility] | | | Total | | | [facility] | | | | | | [facility] | | | | | | [facility] - | | | | | | LABORATORY | | + + + + + + | Total | 6.6 | 5.7 - 8.2 g/dL | [facility] | | | Protein | | | [facility] | | | | | | [facility] | | | | | | [facility] - | | | | | | LABORATORY | | + + + + + + | AST | 15 | 0 - 34 U/L | [facility] | | | | | | [facility] | | | | | | [facility] | | | | | | [facility] - | | | | | | LABORATORY | | + + + + + + | ALT | 14 | 10 - 49 U/L | [facility] | | | | | | [facility] | | | | | | [facility] | | | | | | [facility] - | | | | | | LABORATORY | | + + + + + + | Alkaline | 82 | 46 - 116 U/L | [facility] | | | Phosphatase | | | [facility] | | | | | | [facility] | | | | | | [facility] - | | | | | | LABORATORY | | + + + + + + | Globulin | 2.5 | 2.1 - 3.8 g/dL | [facility] | | | | | | [facility] | | | | | | [facility] | | | | | | [facility] - | | | | | | LABORATORY | | + + + + + + | Albumin/Mary Lou | 1.6 | 0.8 - 1.9 | [facility] | | | bulin Ratio | | | [facility] | | | | | | [facility] | | | | | | [facility] - | | | | | | LABORATORY | | + + + + + + | BUN/Creatin | 28.6 | | [facility] | | | ine Ratio | | | [facility] | | | | | | [facility] | | | | | | [facility] - | | | | | | LABORATORY | | + + + + + + + + | Specimen | + + | Blood | + + + + + + + | Performing | Address | City/State/Zipcode | Phone Number | | Organization | | | | + + + + + | [facility] | [address] | [place] | [phone] | | [facility] | | [address] | | | - LABORATORY | | | | + + + + + MRI Brain wo Contrast (04/06/2019 9:56 AM PDT) + + | Specimen | + + | | + + + + + | Narrative | Performed At | + + + | TECHNIQUE: MRI of the brain with sequences to include sagittal | [facility] | | T1, axial diffusion-weighted imaging and ADC maps, axial T2, axial T2 | | | FLAIR, axial susceptibility weighted imaging. CLINICAL | | | INFORMATION: chronic daily headaches COMPARISON: None available. | | | FINDINGS: Evaluation is limited due to metallic artifact related | | | to braces. Imaged paranasal sinuses and mastoid air cells are | | | clear. No intracranial blood product or abnormal extra-axial | | | fluid collection. No evidence of intracranial mass or mass effect. | | | No hydrocephalus. The cerebellar tonsils extend inferiorly through | | | the foramen magnum approximately 14 mm with associated crowding of | | | the posterior fossa and foramen magnum. Otherwise normal appearance | | | of the midline developmental anatomy. Normal signal | | | characteristics of the jay and white matter. GRE, diffusion | | | weighted imaging and ADC maps are nondiagnostic due to metallic | | | artifact. No focal vascular abnormality identified. 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 Artifact limits | | | evaluation as described above. Dictated and Signed by: Shlomo | | | MD Wm Electronically signed: 04/06/2019 11:08 AM | | + + + + + | Procedure Note | + + | Contreras, Rad Results In 04/06/2019 11:11 AM PDT | | TECHNIQUE: MRI of the brain with sequences to include sagittal T1, axial | | diffusion-weighted imaging and ADC maps, axial T2, axial T2 FLAIR, axial | | susceptibility weighted imaging. | | | | CLINICAL INFORMATION: chronic daily headaches | | | | COMPARISON: None available. | | | | FINDINGS: | | Evaluation is limited due to metallic artifact related to braces. | | | | Imaged paranasal sinuses and mastoid air cells are clear. | | | | No intracranial blood product or abnormal extra-axial fluid collection. No | | evidence of intracranial mass or mass effect. | | | | No hydrocephalus. The cerebellar tonsils extend inferiorly through the foramen | | magnum approximately 14 mm with associated crowding of the posterior fossa and | | foramen magnum. Otherwise normal appearance of the midline developmental | | anatomy. Normal signal characteristics of the jay and white matter. | | | | GRE, diffusion weighted imaging and ADC maps are nondiagnostic due to metallic | | artifact. | | | | No focal vascular abnormality identified. 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 | | | | Artifact limits evaluation as described above. | | | | Dictated and Signed by: Shlomo Burk MD | | Electronically signed: 04/06/2019 11:08 AM | + + + +---------+ + + | Performing | Address | City/State/Zipcode | Phone Number | | Organization | | | | + +---------+ + + | [facility] | | | | + +---------+ + + MRI Cervical Spine wo Contrast (04/06/2019 9:52 AM PDT) + + | Specimen | + + | | + + + + + | Narrative | Performed At | + + + | TECHNIQUE: MRI of the cervical spine with sequences to include | [facility] | | sagittal T2, sagittal T1, sagittal STIR, coronal T1 and axial T2. | | | CLINICAL INFORMATION: Neck pain COMPARISON: CT dated 09/24/2018 and | | | radiographs 09/03/2018 FINDINGS: Chiari type I malformation. | | | No evidence of hydrosalpinx. Normal signal characteristics of | | | the cervical spinal cord. Metallic artifact limits evaluation of | | | the anterior margin of C1, C2, and C3 on multiple sequences. No | | | bone marrow edema, fracture, or listhesis. Normal height of the | | | vertebral bodies. C2-3: No significant spinal canal or neural | | | foraminal stenosis. C3-4: No significant spinal canal or neural | | | foraminal stenosis. C4-5: No significant spinal canal or neural | | | foraminal stenosis. C5-6: No significant spinal canal or neural | | | foraminal stenosis. C6-7: No significant spinal canal or neural | | | foraminal stenosis. C7-T1: No significant spinal canal or neural | | | foraminal stenosis. No focal paraspinal soft tissue abnormality. | | | IMPRESSION - No significant cervical spondylosis. No spinal | | | canal or neural foraminal stenosis. Chiari type I malformation | | | without evidence of syrinx. Dictated and Signed by: Shlomo | | | MD Wm Electronically signed: 04/06/2019 11:16 AM | | + + + + + | Procedure Note | + + | Contreras, Rad Results In - 04/06/2019 11:19 AM PDT | | TECHNIQUE: MRI of the cervical spine with sequences to include sagittal T2, | | sagittal T1, sagittal STIR, coronal T1 and axial T2. | | | | CLINICAL INFORMATION: Neck pain | | | | COMPARISON: CT dated 09/24/2018 and radiographs 09/03/2018 | | | | FINDINGS: | | | | Chiari type I malformation. No evidence of hydrosalpinx. | | | | Normal signal characteristics of the cervical spinal cord. | | | | Metallic artifact limits evaluation of the anterior margin of C1, C2, and C3 on | | multiple sequences. No bone marrow edema, fracture, or listhesis. Normal | | height of the vertebral bodies. | | | | C2-3: No significant spinal canal or neural foraminal stenosis. | | | | C3-4: No significant spinal canal or neural foraminal stenosis. | | | | C4-5: No significant spinal canal or neural foraminal stenosis. | | | | C5-6: No significant spinal canal or neural foraminal stenosis. | | | | C6-7: No significant spinal canal or neural foraminal stenosis. | | | | C7-T1: No significant spinal canal or neural foraminal stenosis. | | | | No focal paraspinal soft tissue abnormality. | | | | | | IMPRESSION - | | No significant cervical spondylosis. No spinal canal or neural foraminal | | stenosis. | | | | Chiari type I malformation without evidence of syrinx. | | | | Dictated and Signed by: Shlomo Burk MD | | Electronically signed: 04/06/2019 11:16 AM | + + + +---------+ + + | Performing | Address | City/State/Zipcode | Phone Number | | Organization | | | | + +---------+ + + | [facility] | | | | + +---------+ + + documented in this encounter Visit Diagnoses + + | Diagnosis | + + | Intractable migraine with aura without status migrainosus - Primary Migraine with | | aura, with intractable migraine, so stated, without mention of status migrainosus | + + | Situational anxiety Other anxiety states | + + | Cervicalgia | + + | Numbness of left hand | + + | Chronic daily headache Headache | + + | Chronic left shoulder pain Pain in joint, shoulder region | + + documented in this encounter
--- OUTSIDE RECORDS SUMMARY | ~2019-09-16 | XMS | Encounter Summary ---
Demographics + + + | Address | [address] | | | [place] [address] | + + + | Home Phone | | + + + | Preferred Language | Unknown | + + + | Marital Status | Single | + + + | Temple Affiliation | 1041 | + + + | Race | Unknown | + + + | Ethnic Group | Unknown | + + + Author + + + | Author | [facility] | | | and [place] | + + + | Organization | [facility] | | | and [place] [...] Team Providers + +------+ + | Care Aging Box Hand Name | Role | Phone | + +------+ + | Hai Webb MD | PCP | | + +------+ + Reason for Visit + + + | Reason | Comments | + + + | Medication Refill | | | Assistance | | + + + Encounter Details +--------+ + + + + | Date | Type | Department | Care Team | Description | +--------+ + + + + | 03/10/ | Telephone | [facility] [place] | Talib White, | Medication Refill | | 2019 | | [address]SIATRY [address] | PA-C [address] | Assistance | | | | [place], | [address] [place] | | | | | [place] [address] | [place] [address] | | | | | [phone] | [phone] | | | | | | | | +--------+ + + + + Social History + +-------+ [...] + + documented as of this encounter Plan of Treatment +--------+---------+ + + + | Date | Type | Specialty | Care Team | Description | +--------+---------+ + + + | 09/25/ | Office | Neurosurgery | Jim Mckoy | | | 2019 | Visit | | MD Ish [address] | | | | | | [address] [place] | | | | | | [place] [address] | | | | | | [phone] | | | | | | | | +--------+---------+ + + + documented as of this encounter Visit Diagnoses Not on filedocumented in this encounter"
--- OUTSIDE RECORDS SUMMARY | ~2019-09-16 | XMS | Clinical Summary ---
Demographics + + + | Address | [address] | | | [place] [address] | + + + | Home Phone | | + + + | Preferred Language | Unknown | + + + | Marital Status | Single | + + + | Jehovah'S Witness Affiliation | Unknown | + + + | Race | Unknown | + + + | Ethnic Group | Other Race | + + + Author + + + | Author | [facility] | + + + | Organization | [facility] | + + + | Address | Unknown | + + + | Phone | Unavailable | + + + Care Team Providers + +------+ + | Care Reversing Mill Roller Name | Role | Phone | + +------+ + PCP | Unavailable | + +------+ + Source Comments LIZANDRO is fully live on both [facility] and [facility]Patient.[facility] Allergies Not on File Medications Not on file Active Problems Not on file Social History + +-------+ +--------+------+ | Tobacco Use | Types | Packs/Day | Years | Date | | | | | Used | | + +-------+ +--------+------+ | Never Assessed | | | | | + +-------+ +--------+------+ + + + | Sex Assigned at [...] recent travel history available. | + + Last Filed Vital Signs Not on file Plan of Treatment Not on file Results Not on filefrom Last 3 Months Insurance + +--------+ +--------+-------+---------+--------+ | Payer | Benefi | Subscriber | Effect | Phone | Address | Type | | | t Plan | ID | ryne | | | | | | / | | Dates | | | | | | Group | | | | | | + +--------+ +--------+-------+---------+--------+ | STICKER OPERATOR MEDICAID | STICKER OPERATOR | [id number] | Effect | | | Medica | | | EASTER | | ryne | | | id | | | N [place] | | for | | | | | | | | all | | | | | | | | dates | | | | + +--------+ +--------+-------+---------+--------+ + +--------+ +--------+ + + | Guarantor Name | Accoun | Relation to | Date | Phone | Billing Address | | | t Type | Patient | of | | | | | | | | | | + +--------+ +--------+ + + | Marine [place] | Person | Self | [birth year] | [address] | | | al/Fam | | 1980 | [phone] | [place] | | | [place] | | | [address] (Home) | [address] | + +--------+ +--------+ + +"
--- OUTSIDE RECORDS SUMMARY | ~2019-09-16 | XMS | Encounter Summary ---
Demographics + + + | Address | [address] | | | [place] [address] | + + + | Home Phone | | + + + | Preferred Language | Unknown | + + + | Marital Status | Single | + + + | Jain Affiliation | 1041 | + + + | Race | Unknown | + + + | Ethnic Group | Unknown | + + + Author + + + | Author | [facility] | | | and [place] | + + + | Organization | [facility] | | | and [place] | [...] Team Providers + +------+ + | Care Baseboard Heating Installer Name | Role | Phone | + +------+ + | Argelia Lim | PCP | | + +------+ + Reason for Visit + + + | Reason | Comments | + + + | Medication Refill | | + + + Encounter Details +--------+--------+ + + + | Date | Type | Department | Care Team | Description | +--------+--------+ + + + | 07/29/ | Refill | [facility] [place] | Robert Castillo, | Medication Refill | | 2019 | | [address]RY [address] | MD [address] | | | | | [place], | [place], [place] | | | | | [place] [address] | [address] | | | | | [phone] | | | +--------+--------+ + + + Social History + +-------+ [...] | | | | | | [address] [place] | | | | | | [place] [address] | | | | | | [phone] | | | | | | | | +--------+---------+ + + + documented as of this encounter Visit Diagnoses Not on filedocumented in this encounter"
--- OUTSIDE RECORDS SUMMARY | ~2019-09-16 | XMS | Encounter Summary ---
Demographics + + + | Address | [address] | | | [place] [address] | + + + | Home Phone | | + + + | Preferred Language | Unknown | + + + | Marital Status | Single | + + + | Church Affiliation | 1041 | + + + | Race | Unknown | + + + | Ethnic Group | Unknown | + + + Author + + + | Author | [facility] | | | and [place] | + + + | Organization | [facility] | | | and [place] [...] Team Providers + +------+ + | Care Collection Advisor Name | Role | Phone | + [...] [address] | | | | | [address] | [address] | | | | | [phone] | [place] [address] | | +--------+ + + + + [...] | | | | | [place] [address] | | | | | | [phone] | | | | | | | | +--------+---------+ + + + documented as of this encounter Procedures + +--------+ + + + | Procedure Name | Priori | Date/Time | Associated Diagnosis | Comments | | | ty | | | | + +--------+ + + + | XR CERVICAL SPINE 2 | Routin | 10/23/2016 | | Results for this | | OR 3 VIEWS | e | 7:20 PM | | procedure are in the | | | | PST | | results section. | + +--------+ + + + documented in this encounter Results XR Cervical Spine 2 or 3 Views (10/23/2016 7:20 PM PST) + + | Specimen | + [...]
--- OUTSIDE RECORDS SUMMARY | ~2019-09-16 | XMS | Encounter Summary ---
Demographics + + + | Address | [address] | | | [place] [address] | + + + | Home Phone | | + + + | Preferred Language | Unknown | + + + | Marital Status | Single | + + + | Restoration Affiliation | 1041 | + + + | Race | Unknown | + + + | Ethnic Group | Unknown | + + + Author + + + | Author | [facility] | | | and [place] | + + + | Organization | [facility] | | | and [place] [...] Team Providers + +------+ + | Care Pai Gow Manager Name | Role | Phone | [...] [address] [place] | | | | | [phone] | [place] [address] | | +--------+ + + + + [...] | | | | | [place] [address] | | | | | | [phone] | | | | | | | | +--------+---------+ + + + documented as of this encounter Procedures + +--------+ + + + | Procedure Name | Priori | Date/Time | Associated Diagnosis | Comments | | | ty | | | | + +--------+ + + + | XR CERVICAL SPINE 2 | Routin | 09/03/2018 | | Results for this | | OR 3 VIEWS | e | 6:45 PM | | procedure are in the | | | | PST | | results section. | + +--------+ + + + documented in this encounter Results XR Cervical Spine 2 or 3 Views (09/03/2018 6:45 PM PST) + + | Specimen | [...]
--- OUTSIDE RECORDS SUMMARY | ~2019-09-16 | XMS | Encounter Summary ---
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 If you have any ques tions regarding the care of your patient please don't hesitate to call. Approximately 60 minutes was spent face to face with Marine Lagos, over half of which wa s spent formulating and discussing their medical treatment plan. I, Robert Castillo MD personally performed the services described in this documentation, as scribed by in my presence, Roseline Monson RN and are both accurate and complete. Robert Castillo MD - 01/20/2019 Cc: Jaugar Matthews MD, Hai Webb MD documented in this en counter Plan of Treatment +--------+---------+ + + + | Date | Type | Specialty | Care Team | Description | +--------+---------+ + + + | 09/25/ | Office | Neurosurgery | Jim Mkcoy | | | 2019 | Visit | | MD Maxime Deng [address] | | | | | | [place] | | | | | | [place] [address] | | | | | | [phone] | | | | | | | | +--------+---------+ + + + + + +--------+ + + | Name | Type | Priori | Associated Diagnoses | Order Schedule | | | | ty | | | + + +--------+ + + | * [facility] [place] | Outpatient | Routin | Chronic daily | Ordered: 01/20/2019 | | Physiatry - AMB | Referral | e | headache Concussion | | | Referral | | | without loss of | | | | | | consciousness, | | | | | | subsequent encounter | | | | | | Migraine with aura | | | | | | and without status | | | | | | migrainosus, not | | | | | | intractable | | | | | | Medication overuse | | | | | | headache | | | | | | Post-concussion | | | | | | headache Bilateral | | | | | | occipital neuralgia | | | | | | Strain of neck | | | | | | muscle, subsequent | | | | | | encounter Cervical | | | | | | dystonia Memory | | | | | | deficit Emotional | | | | | | lability Insomnia | | | | | | due to medical | | | | | | condition | | | | | | Post-concussion | | | | | | vertigo | | + + +--------+ + + | Physical Therapy - | Outpatient | Routin | Chronic daily | Ordered: 01/20/2019 | | Ambulatory Referral | Referral | e | headache Concussion | | | | | | without loss of | | | | | | consciousness, | | | | | | subsequent encounter | | | | | | Migraine with aura | | | | | | and without status | | | | | | migrainosus, not | | | | | | intractable | | | | | | Medication overuse | | | | | | headache | | | | | | Post-concussion | | | | | | headache Bilateral | | | | | | occipital neuralgia | | | | | | Strain of neck | | | | | | muscle, subsequent | | | | | | encounter Cervical | | | | | | dystonia Memory | | | | | | deficit Emotional | | | | | | lability Insomnia | | | | | | due to medical | | | | | | condition | | | | | | Post-concussion | | | | | | vertigo | | + + +--------+ + + documented as of this encounter Visit Diagnoses + + | Diagnosis | + + | Chronic daily headache - Primary Headache | + + | Concussion without loss of consciousness, subsequent encounter | + + | Migraine with aura and without status migrainosus, not intractable Migraine with | | aura, without mention of intractable migraine without mention of status migrainosus | + + | Medication overuse headache Drug induced headache, not elsewhere classified | + + | Post-concussion headache Post-traumatic headache, unspecified | + + | Bilateral occipital neuralgia Other syndromes affecting cervical region | + + | Strain of neck muscle, subsequent encounter | + + | Cervical dystonia Spasmodic torticollis | + + | Memory deficit Memory loss | + + | Emotional lability | + + | Insomnia due to medical condition Insomnia due to medical condition classified | | elsewhere | + + | Post-concussion vertigo Postconcussion syndrome | + + documented in this encounter
--- OUTSIDE RECORDS SUMMARY | ~2019-09-16 | XMS | Encounter Summary ---
Demographics + + + | Address | [address] | | | [place] [address] | + + + | Home Phone | | + + + | Preferred Language | Unknown | + + + | Marital Status | Single | + + + | Sabianist Affiliation | 1041 | + + + | Race | Unknown | + + + | Ethnic Group | Unknown | + + + Author + + + | Author | [facility] | | | and Ianana | + + + | Organization | [facility] | | | and Ianana [...] Team Providers + +------+ + | Care Diecast Machine Operator Name | Role | Phone | + +------+ + | Hai Webb MD | PCP | | + +------+ + Reason for Referral Evaluate & Treat (Routine) + + + + + + + | Status | Reason | Specialty | Diagnoses / | Referred By | Referred To | | | | | Procedures | Contact | Contact | + + + + + + + | Authorized | Specialty | Neurosurgery | Diagnoses | Jonathan | Nadine Dykes | | | Services | | Deon | Robert Norris MD | Neurosurgery | | | Required | | malformation | [address] | | | | | type I | [address] | [address] | | | | | ([facility]) | [place], | [place], | | | | | | [place] [address] | [place] [address] | | | | | | Phone: | Phone: | | | | | | [phone] | [phone] | | | | | | Fax: | Fax: | | | | | | [phone] | [phone] | + + + + + + + Reason for Visit + + + | Reason | Comments | + + + | Results, Imaging | | + + + Encounter Details +--------+ + + + + | Date | Type | Department | Care Team | Description | +--------+ + + + + | 04/06/ | Telephone | [facility] [place] | Robert Castillo, | Results, Imaging | | 2019 | | PHYSIATRY [address] | MD [address] | | | | | [place], | [place], [place] | | | | | [place] [address] | [address] | | | | | [phone] | | | +--------+ + + + [...] | | | | | [place] [address] | | | | | | [phone] | | | | | | | | +--------+---------+ + + + + + +--------+ + + | Name | Type | Priori | Associated Diagnoses | Order Schedule | | | | ty | | | + + +--------+ + + | * [facility] [place] | Outpatient | Routin | Chiari | Ordered: 04/14/2019 | | Neurosurgery - AMB | Referral | e | malformation type I | | | Referral | | | (HCC) | | + + +--------+ + + documented as of this encounter Visit Diagnoses + + | Diagnosis | + + | 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
--- OUTSIDE RECORDS SUMMARY | ~2019-09-16 | XMS | Encounter Summary ---
Demographics + + + | Address | [address] | | | [place] [address] | + + + | Home Phone | | + + + | Preferred Language | Unknown | + + + | Marital Status | Single | + + + | Uatsdin Affiliation | 1041 | + + + | Race | Unknown | + + + | Ethnic Group | Unknown | + + + Author + + + | Author | [facility] | | | and Ianana | + + + | Organization | [facility] | | | and Ianana [...] Team Providers + +------+ + | Care Refrigerator Cabinetmaker Name | Role | Phone | + [...] [place] | | | | | [phone] | [place] [address] | | +--------+ + + + + [...] | | | | | [place] [address] | | | | | | [phone] | | | | | | | [...]
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
--- OUTSIDE RECORDS SUMMARY | ~2019-09-16 | XMS | Encounter Summary ---
Demographics + + + | Address | [address] | | | [place] [address] | + + + | Home Phone | | + + + | Preferred Language | Unknown | + + + | Marital Status | Single | + + + | Mormon Affiliation | Unknown | + + + | Race | Unknown | + + + | Ethnic Group | Other Race | + + + Author + + + | Author | [facility] | + + + | Organization | [facility] | + + + | Address | Unknown | + + + | Phone | Unavailable | + + + Care Team Providers + +------+ + | Care Change Analyst Name | Role | Phone | [...] | PATHOLOGY [address] | MD [place] | | | | | [address] | Ortho & Fractur | | | | | [place], [place] | [address] | | | | | [address] | [place] [address] | | | | | | [phone] | | | | | | | [...] PathologistPathology, | | | | | | [facility] | | | | | | [facility] electronic | | | [...] | Institution: [facility] | | DEPARTMENT | | | | [facility], | | | | | | [place] [address] | | PATHOLOGY | | | | Accession Number: | | | | | | [id number] | | | | | | Collection [...] | + + + + + | [facility] | [address] | [place] [address] | | | PATHOLOGY | [address] | | | + + + + + documented in this encounter Visit Diagnoses + + | Diagnosis | + + | Neoplasm of uncertain behavior of connective and other soft tissue | + + documented in this encounter"
--- OUTSIDE RECORDS SUMMARY | ~2019-09-16 | XMS | Encounter Summary ---
Demographics + + + | Address | [address] | | | [place] [address] | + + + | Home Phone | | + + + | Preferred Language | Unknown | + + + | Marital Status | Single | + + + | Jainism Affiliation | 1041 | + + + | Race | Unknown | + + + | Ethnic Group | Unknown | + + + Author + + + | Author | [facility] | | | and Ianana | + + + | Organization | [facility] | | | and Ianana | [...] Team Providers + +------+ + | Care Nutrition Internship Name | Role | Phone | + [...] | | | | type I | [address] | [address] | | | | | ([facility]) | [place], | [place], | | | | | | [place] [address] | [place] [address] | | | | | | Phone: | Phone: | | | | | | [phone] | [phone] | | | | | | Fax: | Fax: | | | | | | [phone] | [phone] | + + + + + + [...] PHYSIATRY [address] | MD [address] | | | | | [place], | [place], [place] | | | | | [place] [address] | [address] | | | | | [phone] | | | +--------+ + + + [...] | | | | | [place] [address] | | | | | | [phone] | | | | | | | [...]
--- OUTSIDE RECORDS SUMMARY | ~2019-09-16 | XMS | Encounter Summary ---
Demographics + + + | Address | [address] | | | [place] [address] | + + + | Home Phone [...] Author | [facility] | | | and Ianana | + + + | Organization | [facility] | | | and Ianana | [...] Team Providers + +------+ + | Care Credit Authorizer Name | Role | Phone | + [...] | Robert Norris MD | [address] | | | | | Numbness | [address] | [place], | | | | | of left hand | [address] | [place] | | | | | Chronic | [place], | [address] | | | | | left | [place] [address] | Phone: | | | | | shoulder | Phone: | [phone] | | | | | pain | [phone] | Fax: | | | | | Procedures | Fax: | [phone] | | | | | MRI Cervical | [phone] | | | | | | Spine [...] | Robert Norris MD | [address] | | | | | Numbness | [address] | [place], | | | | | of left hand | [address] | [place] | | | | | Chronic | [place], | [address] | | | | | left | [place] [address] | Phone: | | | | | shoulder | Phone: | [phone] | | | | | pain | [phone] | Fax: | | | | | Procedures | Fax: | [phone] | | | | | MRI Cervical | [phone] | | | | | | Spine wo | | | | | | | Contrast | | | +--------+--------+ + + + + Encounter Details +--------+ + + + + | Date | Type | Department | Care Team | Description | +--------+ + + + + | 04/06/ | Hospital | [facility] | Robert Castillo, | Cervicalgia; | | 2019 | Encounter | MED CTR MRI [address] | MD [address] | Numbness of left | | | | [address] [place], | [place], [place] | hand; Chronic left | | | | [place] [address] | [address] | shoulder pain | | | | [phone] | | | +--------+ + + + [...] | | | 19 | | | capsule | | | | | | + + + +---------+ + + | topiramate | 1 capsule by mouth | 90 | 1 | 03/18/20 | | | (TOPAMAX) 25 mg | at bedtime for 7 | tablet | | 19 | | | tablet | days; then 2 [...] | | | | | [place] [address] | | | | | | [phone] | | | | | | | [...] | Procedure Note | + + | Ignacio Chairez Results In - 04/06/2019 11:19 AM PDT [...]
--- OUTSIDE RECORDS SUMMARY | ~2019-09-16 | XMS | Encounter Summary ---
Demographics + + + | Address | [address] | | | [place] [address] | + + + | Home Phone | | + + + | Preferred Language | Unknown | + + + | Marital Status | Single | + + + | Scientology Affiliation | 1041 | + + + | Race | Unknown | + + + | Ethnic Group | Unknown | + + + Author + + + | Author | [facility] | | | and Ianana | + + + | Organization | [facility] | | | and Ianana [...] Team Providers + +------+ + | Care Store Receiving Clerk Name | Role | Phone | [...] | Robert Norris MD | [address] | | | | | Numbness | [address] | [place], | | | | | of left hand | [address] | [place] | | | | | Chronic | [place], | [address] | | | | | left | [place] [address] | Phone: | | | | | shoulder | Phone: | [phone] | | | | | pain | [phone] | Fax: | | | | | Procedures | Fax: | [phone] | | | | | MRI Cervical | [phone] | | | | | | Spine [...] | Robert Norris MD | [address] | | | | | Numbness | [address] | [place], | | | | | of left hand | [address] | [place] | | | | | Chronic | [place], | [address] | | | | | left | [place] [address] | Phone: | | | | | shoulder | Phone: | [phone] | | | | | pain | [phone] | Fax: | | | | | Procedures | Fax: | [phone] | | | | | MRI Cervical | [phone] | | | | | | Spine wo | | | | | | | Contrast | | | +--------+--------+ + + + + Encounter Details +--------+ + + + + | Date | Type | Department | Care Team | Description | +--------+ + + + + | 04/06/ | Hospital | [facility] | Robert Castillo, | Cervicalgia; | | 2019 | Encounter | MED CTR MRI [address] | MD [address] | Numbness of left | | | | [address] [place], | [place], [place] | hand; Chronic left | | | | [place] [address] | [address] | shoulder pain | | | | [phone] | | | +--------+ + + + [...] | | | | | [place] [address] | | | | | | [phone] | | | | | | | [...]
--- OUTSIDE RECORDS SUMMARY | ~2019-09-16 | XMS | Encounter Summary ---
Demographics + + + | Address | [address] | | | [place] [address] | + + + | Home Phone | | + + + | Preferred Language | Unknown | + + + | Marital Status | Single | + + + | Hoahaoism Affiliation | 1041 | + + + | Race | Unknown | + + + | Ethnic Group | Unknown | + + + Author + + + | Author | [facility] [place] | | | and Ianana | + + + | Organization | [facility] | | | and Ianana [...] Team Providers + +------+ + | Care Contact Representative Name | Role | Phone | + +------+ + | Hai Webb MD | PCP | | + +------+ + Encounter Details +--------+ + + + + | Date | Type | Department | Care Team | Description | +--------+ + + + + | 01/13/ | Abstract | [facility] | Matt, | | | 2019 | | PHYSIATRY [address] | [address] | | | | | [place], | [place] | | | | | [place] [address] | [place] [address] | | | | | [phone] | | | +--------+ + + + + Social History + +-------+ +--------+------+ | Tobacco Use | Types | Packs/Day | Years | Date | | | | | Used | | + +-------+ +--------+------+ | Never Smoker | | | | | + +-------+ +--------+------+ + + +---------+ + | Alcohol Use [...] | | | | | [place] [address] | | | | | | [phone] | | | | | | | | +--------+---------+ + + + documented as of this encounter Visit Diagnoses Not on filedocumented in this encounter"
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
--- OUTSIDE RECORDS SUMMARY | ~2019-09-16 | XMS | Encounter Summary ---
Demographics + + + | Address | [address] | | | [place] [address] | + + + | Home Phone | | + + + | Preferred Language | Unknown | + + + | Marital Status | Single | + + + | Anglican Affiliation | 1041 | + + + | Race | Unknown | + + + | Ethnic Group | Unknown | + + + Author + + + | Author | [facility] | | | and Ianana | + + + | Organization | [facility] | | | and Ianana [...] Providers + +------+ + | Care Senior Hr Manager Name | Role | Phone | [...] [place] | | | | | [phone] | [place] [address] | | +--------+ + + + + [...] | | | | | [place] [address] | | | | | | [phone] | | | | | | | [...]
--- OUTSIDE RECORDS SUMMARY | ~2019-09-16 | XMS | Encounter Summary ---
Demographics + + + | Address | [address] | | | [place] [address] | + + + | Home Phone | | + + + | Preferred Language | Unknown | + + + | Marital Status | Single | + + + | Sabianist Affiliation | 1041 | + + + | Race | Unknown | + + + | Ethnic Group | Unknown | + + + Author + + + | Author | [facility] | | | and Ianana | + + + | Organization | [facility] | | | and Ianana [...] Team Providers + +------+ + | Care Product Management Manager Name | Role | Phone | + +------+ + PCP | Unavailable | + +------+ + Encounter Details +--------+ + + + + | Date | Type | Department | Care Team | Description | +--------+ + + + + | 09/25/ | Hospital | [facility] | | | | 2000 | Encounter | [facility] EMERGENCY | | | | | | CENTER [address] | | | | | | [place] | | | | | | [address] | | | | | | [phone] | | | +--------+ + + + [...] | | | | | [place] [address] | | | | | | [phone] | | | | | | | | +--------+---------+ + + + documented as of this encounter Visit Diagnoses Not on filedocumented in this encounter"
--- OUTSIDE RECORDS SUMMARY | ~2019-09-16 | XMS | Encounter Summary ---
Demographics + + + | Address | [address] | | | [place] [address] | + + + | Home Phone | | + + + | Preferred Language | Unknown | + + + | Marital Status | Single | + + + | Anabaptism Affiliation | 1041 | + + + | Race | Unknown | + + + | Ethnic Group | Unknown | + + + Author + + + | Author | [facility] | | | and Ianana | + + + | Organization | [facility] | | | and Ianana [...] Team Providers + +------+ + | Care Allied Health Instructor Name | Role | Phone | + +------+ + | Hai Webb MD | PCP | | + +------+ + Reason for Visit + + + | Reason | Comments | + + + | Procedure | BGONB | + + + Evaluate & Treat [...] | Medicine and | Chronic | Robert E MD Jr | E MD Jr [address] | | | Required | Rehabilitatio | daily | [address] | | | | n | headache | [address] | [place], | | | | | Concussion | [place], | [place] [address] | | | | | without loss | [place] [address] | Phone: | | | | | of | Phone: | [phone] | | | | | consciousnes | [phone] | Fax: | | | | | s, | Fax: | [phone] | | | | | subsequent | [phone] | | | | | | encounter [...] | +--------+ + + + + + Encounter Details +--------+ + + + + | Date | Type | Department | Care Team | Description | +--------+ + + + + | 01/27/ | Procedure | [facility] | Robert Castillo, | Bilateral occipital | | 2019 | visit | PHYSIATRY [address] | [address] | neuralgia (Primary | | | | [place] [address] [place], | [place] | Dx) | | | | [place] [address] | [id number] | | | | | [phone] | | | +--------+ + + + [...] +---------+ + + | Blood Pressure | 118/70 | 01/27/2019 1:14 PM | | | | | PDT | | + +---------+ + + | Pulse | 70 | 01/27/2019 1:14 PM | | | | | PDT [...] encounter Patient Instructions Patient Instructions Valery Aguirre, Spa Attendant - 01/27/2019 1:00 PM PDTIf you develop any signs of infection (e.g. Fever, chills, redness, warmth, drainage) seek emergen t medical attention and inform the clinic. Feel free to use ice, massage, and stretch after your injections today. Please avoid direct heat, over the injections site, for 3 days foll owing injection. documented in this encounter Progress Notes Robert Castillo MD - 01/27/2019 1:00 PM PDTPM&R PROCEDURE NOTE Diagnosis: Bilateral Greater Occipital Neuralgia Procedure: Bilateral Greater Occipital Nerve Blocks Procedure Detail: Informed consent was obtained. Risks, benefits, and alterative treatments were reviewed. Risks reviewed included but not limited to: bruising, bleeding, infection, damage to adjacen t structures, disability and . Risk of spinal block, need for hospitalization, and sheridan tilation was reviewed. Risk of stroke was reviewed. Risk of skin discoloration was reviewe d. Once informed consent was obtained two separate syringes were prepared. Each syringe containing 2 ml of lidocaine 1%, 2 ml of ropivacaine 0.5%, and 1 ml of Celesto ne 6 mg/ml. Each syringe contained a total medication volume of 5 ml. The left greater occipital nerve was identified anatomically, by palpation and reproduction of headache symptoms. The contents of the first syringe was injected into the proximity of the left greater occipital nerve using a 25 gauge 1-1/2 inch needle. The injection was edmund erated without complication. The right greater occipital nerve was identified anatomically, by palpation and reproductio n of headache symptoms. The contents of the second syringe was injected into the proximity of the right greater occipital nerve using a 25 gauge 1-1/2 inch needle. The injection was tolerated without complication. The patient was observed in the clinic for a total of 30 minutes after the injections were completed. Their vital signs remained stable. Anesthesia of the bilateral greater occipita l nerves was obtained. The patient was discharged from the clinic with the instructions molly t; should they have any alarming symptoms they should seek emergent medical care as well as inform me in my clinic. [place]os was encouraged to continue working toward breaking the rebound medication c ycle. She reports stopping abortive medications after her last visit. Robert Castillo MD (Jr.) documented in this en counter Plan of Treatment +--------+---------+ + + + | Date | Type | Specialty | Care Team | Description | +--------+---------+ + + + | 09/25/ | Office | Neurosurgery | Jim Mckoy | | | 2020 | Visit | | MD Ish [address] | | | | | | [address] [place] | | | | | | [place] [address] | | | | | | [phone] | | | | | | | | +--------+---------+ + + + documented as of this encounter Visit Diagnoses + + | Diagnosis | + + | Bilateral occipital neuralgia - Primary Other syndromes affecting cervical region | + + documented in this encounter Administered Medications + + + +-------+------+ + | Medication Order | MAR | Action | Dose | Rate | Site | | | Action | Date | | | | + + + +-------+------+ + | betamethasone (CELESTONE | Given by | 01/29/20 | 12 mg | | Other | | SOLUSPAN) injection 12 mg 12 mg, | Other | 19 9:16 | | | (Comment | | Intramuscular, ONCE, Sat01/27/19 | | AM PDT | | | ) | | at 1815, For 1 dose, Shake well. | | | | | | | Not for IV use., | | | | | | + + + +-------+------+ + +---+---+ | | | +---+---+ + + + +-------+---+ + | lidocaine (PF) 1% injection 4 | Given by | 01/29/20 | 4 mLs | | Other | | mL 4 mL, Intramuscular, ONCE, | Other | 19 9:18 | | | (Comment | | Sat01/27/19 at 1815, For 1 dose | | AM PDT | | | ) | + + + +-------+---+ + +---+---+ | | | +---+---+ + + + +-------+---+ + | ropivacaine (NAROPIN) 5 mg/mL | Given by | 01/29/20 | 4 mLs | | Other | | (0.5%) injection 4 mL 4 mL, | Other | 19 9:19 | | | (Comment | | Infiltration, ONCE, Yolanda 01/27/19 at | | AM PDT | | | ) | | 1815, For 1 dose | | | | | | + + + +-------+---+ + +---+---+ | | | +---+---+ documented in this encounter"
--- OUTSIDE RECORDS SUMMARY | ~2019-09-16 | XMS | Encounter Summary ---
Demographics + + + | Address | [address] | | | [place] [address] | + + + | Home Phone [...] + | Author | [facility] | | | and Ianana | + + + | Organization | [facility] | | [...] Team Providers + +------+ + | Care Materials And Processes Manager Name | Role | Phone | [...] Verito BUSTILLOS | | | | | [phone] | [place] [address] | | +--------+ + + + + [...] | | | | | [place] [address] | | | | | | [phone] | | | | | | | [...] this | | CONTRAST | e | 1:35 PM | | procedure are in the | | | | PST | | results section. | + +--------+ + + + documented in this encounter Results CT Cervical Spine wo Contrast (09/24/2018 1:35 PM PST) + + | Specimen | [...]
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
--- OUTSIDE RECORDS SUMMARY | ~2019-09-16 | XMS | Encounter Summary ---
Demographics + + + | Address | [address] | | | [place] [address] | + + + | Home Phone | | + + + | Preferred Language | Unknown | + + + | Marital Status | Single | + + + | Sikhism Affiliation | 1041 | + + + | Race | Unknown | + + + | Ethnic Group | Unknown | + + + Author + + + | Author | [facility] | | | and Ianana | + + + | Organization | [facility] | | | and Ianana | [...] Team Providers + +------+ + | Care Clerk Operator Name | Role | Phone | [...] | Specialty | Neurosurgery | Diagnoses | Castillo, | [facility] [place] | | | Services | | Deon | Robert Norris MD | Neurosurgery | | | Required | | malformation | [address] | | | | | type I | [address] | [address] | | | | | ([facility]) | [place], | [place], | | | | | | [place] [address] | [place] [address] | | | | | | Phone: | Phone: | | | | | | [phone] | [phone] | | | | | | Fax: | Fax: | | | | | | [phone] | [phone] | + + + + + + + Encounter Details +--------+---------+ + + + | Date | Type | Department | Care Team | Description | +--------+---------+ + + + | 04/28/ | Office | [facility] | Leelee, Jim | Slade | | 2019 | Visit | NEUROSURGERY [address] | MD Ish [address] | syndrome (HCC) | | | | [address] | [address] [place] | (Primary Dx); Acute | | | | [place], [place] | [place] [address] | deep vein thrombosis | | | | [address] | [phone] | (DVT) of right | | | | [phone] | | lower extremity, | | | [...] encounter Patient Instructions Patient Instructions Mayte Wills Senior Developer - 04/28/2019 8:30 AM PDT 1. 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 2. Please contact us once you have healed from your knee surgery and have resolved the bloo d clots. 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 CRANIAL NERVES: II: Acuity is intact. [...] Intrinsics 5 5 Ulnar Intrinsics 5 5 Sewer Maintenance Supervisor Strength 5 5 Hip Flexion 5 5 [...] it is both accurate and complete. Jim Mcoky MD 04/28/19 ELECTRONICALLY SIGNED BY: Jim Mckoy [...] | | | | | | [place] [address] | | | | | | [phone] | | | | | | | [...]
--- OUTSIDE RECORDS SUMMARY | ~2019-09-16 | XMS | Encounter Summary ---
Demographics + + + | Address | [address] | | | [place] [address] | + + + | Home Phone | | + + + | Preferred Language | Unknown | + + + | Marital Status | Single | + + + | Bahai Affiliation | 1041 | + + + | Race | Unknown | + + + | Ethnic Group | Unknown | + + + Author + + + | Author | [facility] | | | and Ianana | + + + | Organization | [facility] | | | and Ianana [...] Team Providers + +------+ + | Care Occupational Health Technician Name | Role | Phone | [...] | daily | [address] | | | | n | headache | [address] | [place], | | | | | Concussion | [place], | [place] [address] | | | | | without loss | [place] [address] | Phone: | | | | | of | Phone: | [phone] | | | | | consciousnes | [phone] | Fax: | | | | | s, | Fax: | [phone] | | | | | subsequent | [phone] | | | | | | encounter [...] | 01/27/ | Procedure | [facility] | Robert Castillo, | Bilateral occipital | | 2019 | visit | PHYSIATRY [address] | [address] | neuralgia (Primary | | | | [place], | [place] | Dx) | | | | [place] [address] | [id number] | | | | | [phone] | | | +--------+ + + + [...] encounter Patient Instructions Patient Instructions Valery Aguirre, Technical Operator - 01/27/2019 1:00 PM PDTIf you develop [...] | | | | | | [place] [address] | | | | | | [phone] | | | | | | | [...]
--- OUTSIDE RECORDS SUMMARY | ~2019-09-16 | XMS | Encounter Summary ---
Demographics + + + | Address | [address] | | | [place] [address] | + + + | Home Phone | | + + + | Preferred Language | Unknown | + + + | Marital Status | Single | + + + | Yarsani Affiliation | Unknown | + + + | Race | Unknown | + + + | Ethnic Group | Other Race | + + + Author + + + | Author | [facility] | + + + | Organization | [facility] | + + + | Address | Unknown | + + + | Phone | Unavailable | + + + Care Team Providers + +------+ + | Care Senior Data Integration Developer Name | Role | Phone | + +------+ + PCP | Unavailable | + +------+ + Encounter Details +--------+ + + + + | Date | Type | Department | Care Team | Description | +--------+ + + + + | 04/06/ | Lab | LAB SURGICAL | Jaguar Matthews, | | | 2018 | Requisition | PATHOLOGY [address] | MD [place] | | | | | [address] | Ortho & Fractur | | | | | [place], [place] | [address] | | | | | [address] | [place] [address] | | | | | | [phone] | | | | | | | [...] PathologistPathology, | | | | | | [facility] | | | | | | [facility] electronic | | | | | | [...] [facility] | | | Received | Institution: [facility] | | DEPARTMENT | | | | [facility], | | | | | | [place] [address]Hxefvdu | | PATHOLOGY | | | | Accession Number: | | | | | | [id number] | | | | | | Collection [...] | + + + + + | [facility] | [address] | [place] [address] | | | PATHOLOGY | [address] | | | + + + + + documented in this encounter Visit Diagnoses + + | Diagnosis | + + | Neoplasm of uncertain behavior of connective and other soft tissue | + + documented in this encounter"
--- OUTSIDE RECORDS SUMMARY | ~2019-09-16 | XMS | Encounter Summary ---
Demographics + + + | Address | [address] | | | [place] [address] | + + + | Home Phone [...] Author + + + | Author | [facility] | | | and Ianana | + + + | Organization | [facility] | | | and Ianana [...] Team Providers + +------+ + | Care Lead Maintenance Technician Name | Role | Phone | [...] Verito [place]USTILL[place] | | | | | [phone] | [place] [address] | | +--------+ + + + + [...] | | | | | [place] [address] | | | | | | [phone] | | | | | | | [...]
--- OUTSIDE RECORDS SUMMARY | ~2019-09-16 | XMS | Encounter Summary ---
Demographics + + + | Address | [address] | | | [place] [address] | + + + | Home Phone | | + + + | Preferred Language | Unknown | + + + | Marital Status | Single | + + + | Baptism Affiliation | 1041 | + + + | Race | Unknown | + + + | Ethnic Group | Unknown | + + + Author + + + | Author | [facility] | | | and Ianana | + + + | Organization | [facility] | [...] Team Providers + +------+ + | Care Workers Compensation Claims Assistant Name | Role | Phone | [...] | | impairment | [place], | [address] | | | | | | [place] [address] | Phone: | | | | | | Phone: | [phone] | | | | | | [phone] | Fax: | | | | | | Fax: | [phone] | | | | | | [phone] | | +--------+ + + + + [...] | occipital | [address] | | | | n | neuralgia | [address] | [place], | | | | | Neck pain | [address] | [place] [address] | | | | | Post | [place], | Phone: | | | | | concussion | [place] [address] | [phone] | | | | | syndrome | Phone: | Fax: | | | | | Chronic | [phone] | [phone] | | | | | migraine | Fax: | | | | | | Cervical | [phone] | | | | | | dystonia [...] + + | 03/09/ | [facility] | Christopher, Talib, | Neck pain (Primary | | 2019 | Visit | PHYSIATRY [address] | PA-C [address] | Dx); Bilateral | | | | [place], | [address] [place] | occipital neuralgia; | | | | [place] [address] | [place] [address] | Post concussion | | | | [phone] | [phone] | syndrome; Chronic | | | | [...] resting in a quiet place and imagi urthie a peaceful scene. Relax your muscles by soaking in a hot bath or taking a hot shower. Take [id number] acetaminophen to relieve headache pain. Take them [...] treatment y ou need. Date Last Reviewed: 09/23/201719999942-0277 [employer]. [address], [place] [address]. All righ ts reserved. This information is not intended as a substitute for professional medical care. Always follow your healthcare professional's instructions. documented in this encounter Progress Notes Talib White PA-C - 03/09/2019 1:40 PM PDTFormatting of this note might be different fro m the original. Talib White PA-C [address] [place], [place] [id number] FAX: CHIEF COMPLAINT: Chief Complaint Patient presents [...] tablet 10 minutes before procedure. Must have front loader residential driver. 2 tablet 0 No current facility-administered [...] has no apparent deficits with short or exterminator termite memory. She has appropriate fund of knowledge [...] | | | | | | [place] [address] | | | | | | [phone] | | | | | | | [...]
--- OUTSIDE RECORDS SUMMARY | ~2019-09-16 | XMS | Encounter Summary ---
Demographics + + + | Address | [address] | | | [place] [address] | + + + | Home Phone | | + + + | Preferred Language | Unknown | + + + | Marital Status | Single | + + + | Jainism Affiliation | 1041 | + + + | Race | Unknown | + + + | Ethnic Group | Unknown | + + + Author + + + | Author | [facility] | | | and Ianana | + + + | Organization | [facility] | | | and Ianana [...] Providers + +------+ + | Care Director Of Home Health Services Name | Role | Phone | + +------+ + PCP | Unavailable | + +------+ + Encounter Details +--------+ + + + + | Date | Type | Department | Care Team | Description | +--------+ + + + + | 09/25/ | Hospital | [facility] | | | | 2000 | Encounter | MED CTR EMERGENCY | | | | | | CENTER [address] | | | | | | [place] | | | | | | [address] | | | | | | [phone] | | | +--------+ + + + [...] | | | | | [place] [address] | | | | | | [phone] | | | | | | | | +--------+---------+ + + + documented as of this encounter Visit Diagnoses Not on filedocumented in this encounter"
--- OUTSIDE RECORDS SUMMARY | ~2019-09-16 | XMS | Encounter Summary ---
Demographics + + + | Address | [address] | | | [place] [address] | + + + | Home Phone | | + + + | Preferred Language | Unknown | + + + | Marital Status | Single | + + + | Holiness Affiliation | 1041 | + + + | Race | Unknown | + + + | Ethnic Group | Unknown | + + + Author + + + | Author | [facility] | | | and Ianana | + + + | Organization | [facility] | | | and Ianana | [...] Team Providers + +------+ + | Care Apartment Maintenance Supervisor Name | Role | Phone | [...] Verito BUSTILLOS | | | | | [phone] | [place] [address] | | +--------+ + + + + [...] | | | | | [place] [address] | | | | | | [phone] | | | | | | | [...]
--- OUTSIDE RECORDS SUMMARY | ~2019-09-16 | XMS | Encounter Summary ---
Demographics + + + | Address | [address] | | | [place] [address] | + + + | Home Phone | | + + + | Preferred Language | Unknown | + + + | Marital Status | Single | + + + | Methodist Affiliation | 1041 | + + + | Race | Unknown | + + + | Ethnic Group | Unknown | + + + Author + + + | Author | [facility] | | | and Ianana | + + + | Organization | [facility] | [...] Team Providers + +------+ + | Care Furnace Operator And Tender Name | Role | Phone | + [...] | Robert Norris MD | [address] | | | | | migraine | [address] | [place], | | | | | with aura | [address] | [place] | | | | | without | [place], | [address] | | | | | status | [place] [address] | Phone: | | | | | migrainosus | Phone: | [phone] | | | | | Chronic | [phone] | Fax: | | | | | daily | Fax: | [phone] | | | | | headache | [phone] | | | | | | Procedures [...] | Robert Norris MD | [address] | | | | | migraine | [address] | [place], | | | | | with aura | [address] | [place] | | | | | without | [place], | [address] | | | | | status | [place] [address] | Phone: | | | | | migrainosus | Phone: | [phone] | | | | | Chronic | [phone] | Fax: | | | | | daily | Fax: | [phone] | | | | | headache | [phone] | | | | | | Procedures | | | | | | | MRI Brain wo | | | | | | | Contrast | | | +--------+--------+ + + + + Encounter Details +--------+ + + + + | Date | Type | Department | Care Team | Description | +--------+ + + + + | 04/06/ | Hospital | [facility] | Robert Castillo, | Intractable migraine | | 2019 | Encounter | MED CTR MRI [address] | MD [address] | with aura without | | | | [address] [place], | [place], [place] | status migrainosus; | | | | [place] [address] | [address] | Chronic daily | | | | [phone] | | headache | +--------+ + + [...] | | | | | [place] [address] | | | | | | [phone] | | | | | | | [...]
--- OUTSIDE RECORDS SUMMARY | ~2019-09-16 | XMS | Encounter Summary ---
Demographics + + + | Address | [address] | | | [place] [address] | + + + | Home Phone [...] | Author | [facility] | | | and Ianana | + + + | Organization | [facility] | [...] Team Providers + +------+ + | Care Livestock Handler Name | Role | Phone | + [...] [place] | | | | | [place] [address] | [place] [address] | | | | | [phone] | | | +--------+ + + + [...] | | | | | [place] [address] | | | | | | [phone] | | | | | | | | +--------+---------+ + + + documented as of this encounter Visit Diagnoses Not on filedocumented in this encounter"
--- OUTSIDE RECORDS SUMMARY | ~2019-09-16 | XMS | Encounter Summary ---
Demographics + + + | Address | [address] | | | [place] [address] | + + + | Home Phone [...] | Author | [facility] | | | and Ianana | + + + | Organization | [facility] | | | and [...] PHYSIATRY [address] | MD [address] | | | | | [place], | [place], [place] | | | | | [place] [address] | [address] | | | | | [phone] | | | +--------+--------+ + + + [...] | | | | | [place] [address] | | | | | | [phone] | | | | | | | | +--------+---------+ + + + documented as of this encounter Visit Diagnoses Not on filedocumented in this encounter"
--- OUTSIDE RECORDS SUMMARY | ~2019-09-16 | XMS | Encounter Summary ---
Demographics + + + | Address | [address] | | | [place] [address] | + + + | Home Phone [...] | Author | [facility] | | | and Ianana | + + + | Organization | [facility] | | | and [...] Team Providers + +------+ + | Care Cross Cut Sawyer Name | Role | Phone | + +------+ + | Argelia Lim | PCP | | + +------+ + Reason for Visit + + + | Reason | Comments | + + + | Procedure | | + + + Encounter Details +--------+ + + + + | Date | Type | Department | Care Team | Description | +--------+ + + + + | 08/31/ | Telephone | [facility] [place] | Jim Mckoy | Procedure | | 2019 | | [address] | MD Ish [address] | | | | [address] | [address] [place] | | | | | [place], [place] | [place] [address] | | | | | [address] | [phone] | | | | | [phone] | | | +--------+ + + + [...] | | | | | | [address] [place] | | | | | | [place] [address] | | | | | | [phone] | | | | | | | | +--------+---------+ + + + documented as of this encounter Visit Diagnoses Not on filedocumented in this encounter"
--- OUTSIDE RECORDS SUMMARY | ~2019-09-16 | XMS | Encounter Summary ---
Demographics + + + | Address | [address] | | | [place] [address] | + + + | Home Phone [...] Author | [facility] | | | and Ianana | + + + | Organization | [facility] | | | and [...] Team Providers + +------+ + | Care Grinder Operator External Tool Name | Role | Phone | + [...] | Psychology | Diagnoses | Jonathan | [employer] | | | Services | | Situational | Robert Thkakar MD | HELPING | | | Required | | anxiety | [address] | [address] AT | | | | | | [address] | [place] | | | | | | [place], | [address] | | | | | | [place] [address] | [place], | | | | | | Phone: | [place] [address] | | | | | | [phone] | Phone: | | | | | | Fax: | [phone] | | | | | | [phone] | Fax: | | | | | | | [phone] | +--------+ + + + + + [...] | Robert Thakkar MD | [address] | | | | | migraine | [address] | [place], | | | | | with aura | [address] | [place] | | | | | without | [place], | [address] | | | | | status | [place] [address] | Phone: | | | | | migrainosus | Phone: | [phone] | | | | | Chronic | [phone] | Fax: | | | | | daily | Fax: | [phone] | | | | | headache | [phone] | | | | | | Procedures [...] | Robert Thakkar MD | [address] | | | | | Numbness | [address] | [place], | | | | | of left hand | [address] | [place] | | | | | Chronic | [place], | [address] | | | | | left | [place] [address] | Phone: | | | | | shoulder | Phone: | [phone] | | | | | pain | [phone] | Fax: | | | | | Procedures | Fax: | [phone] | | | | | MRI Cervical | [phone] | | | | | | Spine wo | | | | | | | Contrast | | | +--------+--------+ + + + + Encounter Details +--------+---------+ + + + | Date | Type | Department | Care Team | Description | +--------+---------+ + + + | 03/18/ | Office | [facility] | Robert Castillo, | Intractable migraine | | 2019 | Visit | PHYSIATRY [address] | MD [address] | with aura without | | | | [place], | [place], [place] | status migrainosus | | | | [place] [address] | [address] | (Primary Dx); | | | | [phone] | | Situational anxiety; | | | [...] encounter Patient Instructions Patient Instructions Valery Aguirre, Geothermal Installer - 03/18/2019 10:20 AM PDTDiscon tinue the [...] fro m the original. Robert Castillo MD [address] [place] [address], [address] [place] [address] FAX: PHYSICAL MEDICINE AND REHABILITATION [...] tablet 10 minutes before procedure. Must have set key driver. 2 tablet 0 No current facility-administered [...] has no apparent deficits with short or senior living memory. The cranial nerves appear grossly intact. 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 | | | [facility] | RATE,ESTIMATED | | MEDICAL | | | | mL/min/1.78d2Ihhe than | | CENTER - | | [...] [address] | [place] | [phone] | | [facility] | | [address] | | | - LABORATORY | | [...]
--- OUTSIDE RECORDS SUMMARY | ~2019-09-16 | XMS | Encounter Summary ---
Demographics + + + | Address | [address] | | | [place] [address] | + + + | Home Phone | | + + + | Preferred Language | Unknown | + + + | Marital Status | Single | + + + | Scientology Affiliation | 1041 | + + + | Race | Unknown | + + + | Ethnic Group | Unknown | + + + Author + + + | Author | [facility] | | | and Ianana | + + + | Organization | [facility] | | | and [...] Team Providers + +------+ + | Care Wireless Sales Consultant Name | Role | Phone | [...] [place]ito [place] | | | | | [phone] | [place] [address] | | +--------+ + + + + [...] | | | | | [place] [address] | | | | | | [phone] | | | | | | | [...]
--- OUTSIDE RECORDS SUMMARY | ~2019-09-16 | XMS | Encounter Summary ---
Demographics + + + | Address | [address] | | | [place] [address] | + + + | Home Phone [...] + + + | Author | [facility] | | | and Ianana | + + + | Organization | [facility] | | | and [...] Team Providers + +------+ + | Care Drug Worker Name | Role | Phone | [...] | | | | type I | [address] | [address] | | | | | ([facility]) | [place], | [place], | | | | | | [place] [address] | [place] [address] | | | | | | Phone: | Phone: | | | | | | [phone] | [phone] | | | | | | Fax: | Fax: | | | | | | [phone] | [phone] | + + + + + + [...] (Primary Dx); Acute | | | | [place], [place] | [place] [address] | deep vein thrombosis | | | | [address] | [phone] | (DVT) of right | | | | [phone] | | lower extremity, | | | [...] encounter Patient Instructions Patient Instructions Mayte Wills Solderer Assembler - 04/28/2019 8:30 AM PDT 1. 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 2. Please contact us once you have healed from your knee surgery and have resolved the bloo d clots. documented in this encounter Progress Notes Jim Mckoy MD - 04/28/2019 8:30 AM PDT Jim Mckoy MD [address] [place] [address], [address] [place] [id number] FAX: [phone] NEUROSURGERY HISTORY AND PHYSICAL EXAMINATION CHIEF COMPLAINT: [...] SURGERY Left 12/2017 KNEE SURGERY Right 03/25/2019 [facility] OVARIAN CYST REMOVAL Right 2008 TUBAL LIGATION [...] has no apparent deficits with short or middle or intermediate school principal memory. CRANIAL NERVES: II: Acuity is intact. [...] Intrinsics 5 5 Ulnar Intrinsics 5 5 Pouncer Strength 5 5 Hip Flexion 5 5 [...] | | | | | | [place] [address] | | | | | | [phone] | | | | | | | [...]
--- OUTSIDE RECORDS SUMMARY | ~2019-09-16 | XMS | Encounter Summary ---
Demographics + + + | Address | [address] | | | [place] [address] | + + + | Home Phone [...] + + + | Author | [facility] | | | and Ianana | + + + | Organization | [facility] | | | and [...] Team Providers + +------+ + | Care Rider Ticket Worker Name | Role | Phone | [...] Verito [place] | | | | | [phone] | [place] [address] | | +--------+ + + + + [...] | | | | | [place] [address] | | | | | | [phone] | | | | | | | [...]
--- OUTSIDE RECORDS SUMMARY | ~2019-09-16 | XMS | Encounter Summary ---
Demographics + + + | Address | [address] | | | [place] [address] | + + + | Home Phone | | + + + | Preferred Language | Unknown | + + + | Marital Status | Single | + + + | Cheondoism Affiliation | 1041 | + + + | Race | Unknown | + + + | Ethnic Group | Unknown | + + + Author + + + | Author | [facility] | | | and Ianana | + + + | Organization | [facility] | | | and Ianana [...] Team Providers + +------+ + | Care Home Energy Consultant Name | Role | Phone | [...] | | | | | headache | [place] [address] | [address] | | | | | Concussion | [place], | [place] | | | | | without loss | [place] [address] | [place], [place] | | | | | of | Phone: | [phone] | | | | | consciousnes | [phone] | Phone: | | | | | s, | Fax: | [phone] | | | | | subsequent | [phone] | Fax: | | | | | encounter | | [phone] | | | | | Migraine | [...] | daily | [address] [place] [address] | | | | n | headache | [place] [address] | [place], | | | | | Concussion | [place], | [place] [address] | | | | | without loss | [place] [address] | Phone: | | | | | of | Phone: | [phone] | | | | | consciousnes | [phone] | Fax: | | | | | s, | Fax: | [phone] | | | | | subsequent | [phone] | | | | | | encounter [...] | Blurred | [address] [place] [address] | | | | n | vision | Edita [address] | [place], | | | | | | [place], | [place] [address] | | | | | | [place] | Phone: | | | | | | [address] | [phone] | | | | | | Phone: | Fax: | | | | | | [phone] | [phone] | | | | | | Fax: | | | | | | | [phone] | | +--------+--------+ + + + + Encounter Details +--------+---------+ + + + | Date | Type | Department | Care Team | Description | +--------+---------+ + + + | 01/20/ | Office | [facility] | Robert Castillo, | Chronic daily | | 2019 | Visit | PHYSIATRY [address] | [address] [place] [address] | headache (Primary | | | | [place], | [place], [place] | Dx); Concussion | | | | [place] [address] | [address] | without loss of | | | | [phone] | | consciousness, | | | | [...] fro m the original. Robert Castillo MD [address] [place] [address], [address] [place], [place] [address] FAX: PHYSICAL MEDICINE AND REHABILITATION H&P Referring [...] the headaches are usually frontal, occipital, parietal, mandaen, orbital, re tro-orbital and band-like. The headaches [...] not remember that the nations [place] is [place], [place]). Concentration: Able to maintain concentration with [...] Extension 5 5 Finger Abduction 5 5 Manager Heavy Equipment Strength 5 5 Hip Flexion 5 5 [...] | | | | | [place] [address] | | | | | | [phone] | | | | | | | [...]
--- OUTSIDE RECORDS SUMMARY | ~2019-09-16 | XMS | Encounter Summary ---
Demographics + + + | Address | [address] | | | [place] [address] | + + + | Home Phone | | + + + | Preferred Language | Unknown | + + + | Marital Status | Single | + + + | Latter Day Affiliation | 1041 | + + + | Race | Unknown | + + + | Ethnic Group | Unknown | + + + Author + + + | Author | [facility] | | | and Ianana | + + + | Organization | [facility] | | | [...] Team Providers + +------+ + | Care Freight Elevator Erector Name | Role | Phone | + [...] Verito [place] | | | | | [phone] | [place] [address] | | +--------+ + + + + [...] | | | | | [place] [address] | | | | | | [phone] | | | | | | | [...]
--- OUTSIDE RECORDS SUMMARY | ~2019-09-16 | XMS | Encounter Summary ---
Demographics + + + | Address | [address] | | | [place] [address] | + + + | Home Phone | | + + + | Preferred Language | Unknown | + + + | Marital Status | Single | + + + | Confucianist Affiliation | 1041 | + + + | Race | Unknown | + + + | Ethnic Group | Unknown | + + + Author + + + | Author | [facility] | | | and Ianana | + + + | Organization | [facility] | | [...] Team Providers + +------+ + | Care General Road Production Manager Name | Role | Phone | [...] [address] [place] | | | | | [place], [place] | [place] [address] | | | | | [address] | [phone] | | | | | [phone] | | | +--------+ + + + [...] | | | | | [place] [address] | | | | | | [phone] | | | | | | | | +--------+---------+ + + + documented as of this encounter Visit Diagnoses Not on filedocumented in this encounter"
--- OUTSIDE RECORDS SUMMARY | ~2019-09-16 | XMS | Clinical Summary ---
Demographics + + + | Address | [address] | | | [place] [address] | + + + | Home Phone | | + + + | Preferred Language | Unknown | + + + | Marital Status | Single | + + + | Mu-Ism Affiliation | Unknown | + + + [...] + +------+ + | Care Director Of Strategic Marketing Name | Role | Phone | + +------+ + PCP | Unavailable | + +------+ + Source Comments LIZANDRO is fully live on both [facility] Ambulatory and [facility] InPatient.[facility] Allergies Not on File Medications [...] | | | + +--------+ +--------+-------+---------+--------+ | SAMPLE STEAMER MEDICAID | SAMPLE STEAMER | [id number] | Effect | | | [...] conrad | | | 1 (Home) | [id number] | + +--------+ +--------+ + +"
--- OUTSIDE RECORDS SUMMARY | ~2019-09-16 | XMS | Encounter Summary ---
Demographics + + + | Address | [address] | | | [place] [address] | + + + | Home Phone | | + + + | Preferred Language | Unknown | + + + | Marital Status | Single | + + + | Caodaism Affiliation | 1041 | + + + | Race | Unknown | + + + | Ethnic Group | Unknown | + + + Author + + + | Author | [facility] | | | and Ianana | + + + | Organization | [facility] | | | and Ianana [...] Team Providers + +------+ + | Care Clinical Counselor Name | Role | Phone | + [...] [address] | Assistance | | | | [place], | [address] [place] | | | | | [place] [address] | [place] [address] | | | | | [phone] | [phone] | | | | | | | [...] | | | | | [place] [address] | | | | | | [phone] | | | | | | | | +--------+---------+ + + + documented as of this encounter Visit Diagnoses Not on filedocumented in this encounter"
--- OUTSIDE RECORDS SUMMARY | ~2019-09-16 | XMS | Encounter Summary ---
Demographics + + + | Address | [address] | | | [place] [address] | + + + | Home Phone | | + + + | Preferred Language | Unknown | + + + | Marital Status | Single | + + + | Druze Affiliation | 1041 | + + + | Race | Unknown | + + + | Ethnic Group | Unknown | + + + Author + + + | Author | [facility] | | | and Ianana | + + + | Organization | [facility] | | | and Ianana [...] Team Providers + +------+ + | Care C Consultant Name | Role | Phone | [...] | Robert Norris MD | [address] | | | | | migraine | [address] | [place], | | | | | with aura | [address] | [place] | | | | | without | [place], | [address] | | | | | status | [place] [address] | Phone: | | | | | migrainosus | Phone: | [phone] | | | | | Chronic | [phone] | Fax: | | | | | daily | Fax: | [phone] | | | | | headache | [phone] | | | | | | Procedures [...] | Robert Norris MD | [address] | | | | | migraine | [address] | [place], | | | | | with aura | [address] | [place] | | | | | without | [place], | [address] | | | | | status | [place] [address] | Phone: | | | | | migrainosus | Phone: | [phone] | | | | | Chronic | [phone] | Fax: | | | | | daily | Fax: | [phone] | | | | | headache | [phone] | | | | | | Procedures | | | | | | | MRI Brain wo | | | | | | | Contrast | | | +--------+--------+ + + + + Encounter Details +--------+ + + + + | Date | Type | Department | Care Team | Description | +--------+ + + + + | 04/06/ | Hospital | [facility] | Robert Castillo, | Intractable migraine | | 2019 | Encounter | [facility] MRI [address] | MD [address] | with aura without | | | | [address] [place], | [place], [place] | status migrainosus; | | | | [place] [address] | [address] | Chronic daily | | | | [phone] | | headache | +--------+ + + [...] | | | | | [place] [address] | | | | | | [phone] | | | | | | | [...]
[~2019-09-16 10:49] MED LIST changes: +CELECOXIB200 MG PO; +CITALOPRAM HBR10 MG PO; +DAYTIME-COLD N1 EACH PO; +DICLOFENAC SODI75 MG PO; +HYDROCODON-ACE1 EA11 PO; +MEDROL4 M1 PO; +TOPAMAX25 M1 PO; +XARELTO15 MG PO; +XARELTO20 MG PO
--- OUTSIDE RECORDS SUMMARY | 2019-09-16 10:52 | XMS ---
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 Care History Medical/Surgical 11/10/2018 [facility] - Patient is currently established with [facility]. If patient is seen in the ED during business hours. Please contact [facility] at [facility]. Care Recommendation: This patient has had 5 [...] providing care. E.D. VISIT COUNT (12 MO.) 5 [facility] TOTAL 5 NOTE: Visits indicate total known visits. ED/UCC VISIT TRACKING (12 MO.) 09/16/2019 10:49 [facility] [place] TYPE: Emergency COMPLAINT: - DIZZINESS 03/29/2019 10:23 [facility] [place] TYPE: Emergency COMPLAINT: - POST OP PROBLEM, RIGHT KNEE PAIN DIAGNOSES: - Pain in right knee - Personal history of nicotine dependence - Acute embolism and thombos unsp deep veins of r low extrem 12/25/2018 18:48 [facility] [place] TYPE: Emergency COMPLAINT: - RASH DIAGNOSES: - Rash and other nonspecific skin eruption - Urticaria, unspecified - Other residential (current) drug therapy - detention (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 systemic steroids 12/21/2018 17:30 [facility] [place] TYPE: Emergency COMPLAINT: - RASH ON ARMS DIAGNOSES: - Other intermodal dispatcher (current) drug therapy - Rash and other nonspecific skin eruption - Allergic urticaria 11/08/2018 18:34 [facility] [place] TYPE: Emergency COMPLAINT: - SHOULDER/BACK PAIN DIAGNOSES: - Pain in thoracic spine - Cervicalgia - Other intermodal dispatcher (current) drug therapy - Other chronic pain - Pain in left shoulder INPATIENT VISIT TRACKING (12 MO.) No inpatient visits to display in this time frame [email or web address]
[2019-09-16] MEDS ORDERED: CYMBALTA60 MG PO (11:02)
[2019-09-16] MEDS ORDERED: PROPRANOLOL HCL10 MG PO (11:02)
[2019-09-16] MEDS ORDERED: HYDROXYZINE HCL25 MG PO (11:03)
[2019-09-16] MEDS ORDERED: CATAPRES0.1 MG PO (11:03)
[2019-09-16] MEDS ORDERED: VALIUM10 MG PO (14:19)
== END 2019-09-16 14:36 | disposition home or self-care (01) ==
LOC: ED 10:49
DX: R42 Dizziness and giddiness (principal)
CPT/HCPCS: 80053; 81001; 83690; 84703; 85025; 96361; 96374; 96375; 99284-25; J2405; J3360; J7030

== ENCOUNTER 2019-11-10 20:32 | Inpatient (IN) | payer OTHER ==
[~2019-11-10] VITALS: Ht 154.9 cm; Wt 72.6 kg
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
[~2019-11-10 20:32] MED LIST changes: +CATAPRES0.1 MG PO; +CYMBALTA60 MG PO; +HYDROXYZINE HCL25 MG PO; +PROPRANOLOL HCL10 MG PO; +VALIUM10 MG PO
--- OUTSIDE RECORDS SUMMARY | 2019-11-10 20:36 | XMS ---
PreManage Notification: LAURA MAGDALENO Security Forensics Analyst Events No recent Security Events currently on file CRITERIA MET - [facility] Guidelines - [facility] LISA HERMOSILLO [facility] 11/10/2018-Current PHONE: [phone] RIYA KUMAR Physician Real Estate Closing Coordinator 09/17/2019-Current PHONE: [phone] [facility] Jayne Guzman PHONE: Unknown Guidelines Source: [facility] Guidelines Date: 09/18/2019 Care Coordination: Mental health services are being provided by [facility].\T\nbsp; Please contact [facility] with mental health concerns.\T\nbsp; [place]: \T\nbsp; Nettie: [phone]. Mark VISIT COUNT (12 MO.) 5 [facility] [place] TOTAL 5 NOTE: Visits indicate total known visits. ED/UCC VISIT TRACKING (12 MO.) 11/10/2019 20:33 [facility] [place] TYPE: Emergency COMPLAINT: - CHILLS, NAUSEA 09/16/2019 10:49 [facility] [place] TYPE: Emergency COMPLAINT: - DIZZINESS DIAGNOSES: - Dizziness and giddiness 03/29/2019 10:23 [facility] [place] TYPE: Emergency COMPLAINT: - POST OP PROBLEM, RIGHT KNEE PAIN DIAGNOSES: - Pain in right knee - Personal history of nicotine dependence - Acute embolism and thombos unsp deep veins of r low extrem 12/25/2018 18:48 [facility] [place] TYPE: Emergency COMPLAINT: - RASH DIAGNOSES: - Rash and other nonspecific skin eruption - Urticaria, unspecified - Other alf (current) drug therapy - detention (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 systemic steroids 12/21/2018 17:30 [facility] [place] TYPE: Emergency COMPLAINT: - RASH ON ARMS DIAGNOSES: - Other long term care administrator (current) drug therapy - Rash and other nonspecific skin eruption - Allergic urticaria INPATIENT VISIT TRACKING (12 MO.) No inpatient visits to display in this time frame [email or web address]
[2019-11-10] MEDS ORDERED: TRAZODONE HCL50 MG PO (20:44)
--- NOTE | 2019-11-11 00:10 | NUR ---
PT ADMITTED FROM ED, A/O, SELF TRANSFERED FROM STRETCHER TO BED. ACCOMPAINIED BY MOTHER, AND SISTER. DENIES NAUSEA, STATES PAIN IS OK AT THIS TIME.
[2019-11-11] MEDS ORDERED: FLAGYL500 MG PO (00:22)
--- NOTE | 2019-11-11 02:10 | NUR ---
ROUNDED ON PT, PT WITH EYES CLOSED, RESP EVEN AND UNLABORED. PT FAMILY MEMBER ASLEEP ON THE COUCH.
--- NOTE | 2019-11-11 03:33 | NUR ---
ROUNDED ON PT. PT WITH EYES CLOSED, RESP 16.
--- NOTE | 2019-11-11 08:30 | NUR ---
REPORT RECEIEVED FROM ANA SALGADO. WHITE BOARD UPDATED BY RITA MAURICIO. PATIENT AWAKE AT 0830. LAST BM REPORTED YESTERDAY. NO DIARRHEA. DENIES NAUSEA AND PAIN AT THIS TIME. IVF INFUSING. MOTHER AT BEDSIDE. NO NEEDS AT THIS TIME.
--- NOTE | 2019-11-11 10:51 | NUR ---
REPORTS 8/10 PAIN IN RLQ ABD. HEAT PACK AND TORADOL GIVEN. LIGHTS DIMMED. BELONGINGS AND CALL LIGHT WITHIN REACH. DENIES NAUSEA.
--- NOTE | 2019-11-11 11:15 | NUR ---
Spoke kiki Hawthorne. She lives in [place] with her children and sister. Uses a CPAP, denies other equipment. 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 Plans on discharging to home when discharged. States she has good family support.
--- NOTE | 2019-11-11 12:42 | NUR ---
PT SITTING UP IN BED SMILING, LAUGHING. ON TELEPHONE AT THIS TIME. PROVIDED CHAPSTICK.
--- NOTE | 2019-11-11 16:24 | NUR ---
PT SLEEPING WITH LIGHTS OFF IN ROOM. 3 FAMILY MEMBERS AT BEDSIDE. ASKED FAMILY IF THEY NEEDED ANYTHING. DENIED ANY NEEDS.
--- NOTE | 2019-11-11 17:58 | NUR ---
PATIENT RESTING IN BED. FAMILY IN ROOM. VITAL SIGNS AND I&O DONE. PATIENT DID NOT VOID DURING THIS PERIOD. RN NOTIFIED. CALL LIGHT WITHIN REACH. NO OTHER NEEDS AT THIS TIME
[2019-11-11] MEDS ORDERED: HYDROXYZINE HCL25 MG PO (18:11)
--- NOTE | 2019-11-11 18:19 | NUR ---
DILAUDID X1, TORADOL X1. NO NAUSEA. TOLERATING CLEAR LIQUIDS. NPO AT MIDNIGHT FOR COLONOSCOPY. PLAN FOR 2 TAP WATER ENEMAS PRIOR TO PROCEDURE TOMORROW. BM TODAY. CONSENT ON CHART. INDEPENDENT IN ROOM. FAMILY AT BEDSIDE.
[2019-11-11] MEDS ORDERED: REPLESTA50000 UNIT PO (18:23)
--- NOTE | 2019-11-11 20:44 | NUR ---
ROUNDED CHARGE. PATIENT IS RESTING IN BED. IV FLUIDS HOOKED BACK UP. PATIENT IS REQUESTING PAIN AND NAUSEA MEDICATION. NOTIFIED JAE PRIMARY RN. NO FURTHER NEEDS NOTED. CALL LIGHT IN REACH.
--- NOTE | 2019-11-11 20:45 | NUR ---
c/o 04/01 abd pain and feeliing nauseated, med with zofran 8mgiv
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
--- NOTE | 2019-11-11 21:59 | NUR ---
Coop with assessment, no further c/o n/v. Medicated with scheduled Tylenol 1000mg. Up to br, voided, back to bed, ivf infusing. Trazadone 100mg po scheduled given per insomnia. Pt aware of NPO status after midnight
--- NOTE | 2019-11-12 00:49 | NUR ---
RESTING, NO FURTHER C/O PAIN OR N/V, IVF INFUSING, W/O PROBLEMS, PT NPO FOR AM PROCEDURE
--- NOTE | 2019-11-12 02:41 | NUR ---
Awakens easily, denies c/o pain or n/v, NPO, IVF infusing w/o problems. call light at bedside, scds in place. family rooming in
--- NOTE | 2019-11-12 05:00 | NUR ---
Up to br, voided, large amounts of dark yellow urine. No furhter c/o pain or n/v. 1st of 2 tap water enemas completed. Procedure explained. Cooperative.350cc tap water inerted. return water came back clean. no bm smears noted in tube. BSC at bedside. call ight at hands reach
--- NOTE | 2019-11-12 05:23 | NUR ---
Pt c/o abd cramping, was medicated with Toradol, effecive, c/o dry heaving, Zofran given, effective, takes tRAZADONE FOR SLEEPING, EFFECTIVE, HAS SLEPT OFF AND ON, AWAKES EASILY. NO DISTRESS. ivf INFUSING, NO C/O ADVERSE REACTION TO ABX. PT HAS BEEN NPO SINCE MIDNIGHT FOR AM COLONOSCOPY. HAS BEEN ABLE TO TOLERATE 350CC LUKEWARM TAP WATER ENEMA SINCE 0500. NO RESULTS YET. PT IS TO RECEIVED 2 TAP WATER ENEMAS PRIOR TO 0900 AM ABD XR. PROCEDURE EXPLAINED PT WAS VERY COOP, WILL COANTIUE TO WAIT FOR RESULTS AND DO SECOND ENEMA PRIOR TO ONCOMING SHIFT/PRIOR TO XRAY. PT SBA. FAMILY IN ROOM
--- NOTE | 2019-11-12 07:02 | NUR ---
HAD 600CC URINE AND SCANT AMOUNT OF LIQUID BM NOTED, BACK TO BED
--- NOTE | 2019-11-12 07:22 | NUR ---
REPORT RECEIVED FROM DAMIAN ROWE. PT RESTING IN BED, BED RAILS UP. PT DENIES REQUESTS OR COMPLAINTS. PT UPDATED ON PLAN OF CARE. NO REQUESTS OR COMPLAINTS AT THIS TIME. CALL LIGHT WITHIN REACH.
--- NOTE | 2019-11-12 08:09 | NUR ---
MORNING ASSESSMENT AND MEDICATION DUE. PT RESTING WITH EYES CLOSED. AWAKENS TO MOVMENT IN ROOM. TAP WATER ENEMA GIVEN, APROXIMATELY 800ML WARM TAP WATER INSTILLED PT ERPOTS 4/10 DISCOMFORT WITH PROCEEDURE BUT DENIES NEED FOR PAIN MEDICAITION. ASSESSMENT DONE. BOWEL TONES HYPOACTIVE. ABDOMEN SOFT, PAINFUL IN LEFT UPPER QUADRANT WITH PALPITATION. VITALS TAKEN. MEDICATIONS GIVEN WITH A SMALL SIP OF WATER. PT ABLE TO HOLD TAP WATER IN. NO ADDITIONAL REQUESTS OR COMPLAINTS. PT UPDATED ON PLAN OF CARE. PT VERBALIZES UNDERSTANDING. CALL LIGHT WITHIN REACH. MOTHER AT BEDSIDE.
--- NOTE | 2019-11-12 09:14 | NUR ---
PT SALINE LOCK TO LEAVE FLOOR FOR IMAGING.
--- NOTE | 2019-11-12 09:48 | NUR ---
Med rec completed.
--- NOTE | 2019-11-12 10:18 | NUR ---
THIS RN TO ROOM TO CHECK ON PT. PT REPORTS 5/10 PAIN AND DECLINES FURTHER PAIN MEDICAITON. PT REPORTS STOOLS ARE LOOSE AND RELITIVELY CLEAR, THIS RN HAS NOT YET VIEWED STOOLS. CATTLE BROKER WORKING WITH PT. PT DECLINES ADDITIONAL REQUESTS OR COMPLAINTS.
--- NOTE | 2019-11-12 11:12 | NUR ---
PT TO ENDOSCOPY. REPORT GIVEN TO DAMIAN CARR.
--- NOTE | 2019-11-12 12:10 | NUR ---
11/12/19 1210 [facility],[place] [id number]-PT ARRIVES TO PACU ON 2 L VIA NC. PT RESPONSIVE TO VERBAL STIMULUS. PT REPORTS SOME CRAMPING IN ABD. ENC PT TO PASS GAS AND PT ABLE TO PASS SOME AND REPORTS DECREASE IN ABD CRAMPING. VSS
--- NOTE | 2019-11-12 12:45 | NUR ---
PT ARRIVED FROM COLOSTOMY. PT AMBULATES WITH SBA TO RESTROOM. FEELS URGE TO HAVE BOWEL MOVMENT. MINIMAL RESULTS. PT PASSING GAS. PT UPDATED ON PLAN OF CARE. FAMILY TO BEDSIDE. VITALS TAKEN. ASSESSMENT DONE. PT REPORTS 9/10 "CRAMPING, STABBING" PAIN AND NAUSEA. SEE MAR FOR MEDICATION GIVEN. BOWEL TONES HYPO ACTIVE. PT CONTINUES TO REPEAT HER QUESTIONS ABOUT PLAN OF CARE. EDUCATION REINFORCED. FLUIDS RESTARTED (SEE MAR). NO ADDITIONAL REQUESTS OR COMPLAINTS AT THIS TIME. CALL LIGHT WITHIN REACH.
--- NOTE | 2019-11-12 12:57 | NUR ---
WENT TO CHECK ON PT-SHE HAS BEEN TAKEN TO OR FOR SCOPE. WILL CONTINUE TO FOLLOW NEEDED
--- NOTE | 2019-11-12 14:04 | NUR ---
MEDICATION ARRIVED FROM PHARMACY. VITALS DUE. PT RESTING IN BED. REPORTS PAIN IS "MUCH BETTER." NOW 11/30. PT DENIES NEED FOR ADDITIONAL PAIN MEDICATION. MIRLAX MIXED IN GATORADE GIVEN. PT SIPPING ON MEDICATION AND VERBALIZES UNDERSTANDING THAT SHE WILL TRY TO FINISH MEDICAITON BY DINNER TIME. NO ADDITIONAL REQUESTS OR COMPLAINTS AT THIS TIME. CALL LIGHT WITHIN REACH.
--- NOTE | 2019-11-12 16:22 | NUR ---
Spoke with Marine. She is resting with mom in room. Denies needs. States she is sleepy.
--- NOTE | 2019-11-12 16:27 | NUR ---
Pt. cont. with prep for possible further surgery. Denies nausea.
--- NOTE | 2019-11-12 16:37 | NUR ---
AFTERNOON ASSESSMENT DUE. PT HAS REPORTED DIFFICULTY SLEEPING IN CURRENT ROOM (119). PT MOVED TO ROOM 113 TO ALLOW FOR COMFORT AT NIGHT AND A BETTER VIEW. PT REPORTS 4/10 "CRAMPING, GASSY" PAIN. PT DENIES NEED FOR PAIN MEDICATION. PT ENCORUAGED TO AMBULATE. PT AMBUALTES TO NEW ROOM AND REPORTS FEELING BETTER AND NEEDING TO USE THE RESTROOM. PT UP TO SHOWER IN NEW ROOM. IV SALINE LOCKED FOR SHOWER. ASSESSMENT DONE. BOWEL TONES HEARD IN UPPER QUADRANTS BUT NOT IN LOWER QUADRANTS. PT DENIES NAUSEA AND ASKS FOR CLEAR LIQUIDS. CLEAR LIQUID TRAY ORDERED FOR PT. NO ADDITIONAL REQUESTS OR COMPLAINTS AT THIS TIME. CALL LIGHT WITHIN REACH.
--- NOTE | 2019-11-12 17:49 | NUR ---
COLONOSCOPY DONE THIS SHIFT. PT STARTING BOWEL PREP FOR POSSIBLE COLECTOMY TOMORROW. TOLERATING BOWEL PREP AT THIS TIME. PRN PAIN MEDICATION GIVEN FOR 3-9/10 PAIN. AMBULATION AND SHOWER THIS SHIFT. IV HYDRATION, CLEAR LIQUID DIET, NPO AT MIDNIGHT. FAMILY AT BEDSIDE. VOIDING QUANTITY SUFFICIENT. PT USES CALL LIGHT APPROPRIATLY.
--- NOTE | 2019-11-12 18:34 | NUR ---
MEDICATIONS DUE. PT WORKING ON BOWEL PREP, NOW ABOUT 75% DONE WITH PREP. PT HAS YET TO HAVE BOWEL MOVEMENT. PO ABX GIVEN. NO ADDITIONAL REQUESTS OR COMPLAINTS AT THIS TIME. CALL LIGHT WITHIN REACH. FAMILY AT BEDSIDE.
--- NOTE | 2019-11-12 19:30 | NUR ---
c/o dry heaving, medicated with Phenergan 12.5mg IV. On room air, on clear liquids, awre of NPO after midnight for am procedure. call light at [facility], family rooming in
--- NOTE | 2019-11-12 20:33 | NUR ---
EMPTIED THE URINE FROM PT'S HAT. SHE NEEDS NOTHING MORE AT THIS TIME.
--- NOTE | 2019-11-12 22:33 | NUR ---
PT RESTING, AWAKES EASILY, COOP WITH ASSESSMENT, TOOK MEDS W/O PROBLEMS. IVF INFUSING, TOLERATING BOWEL PREP WELL, GETS UP TO B INDEPENDENT. HAD LIQUID BROWN-CLEAR COLORED BM. NO C/O PAIN. SCHEDULED TYLENOL. NO FURTHER C/O N/V. TURNS SELF IN BED. INFORMATION GIVEN VERBALLY AND WRITTEN R/T COLECTOMY VS COLOSTOMY. STATED UNDERSTANDING
--- NOTE | 2019-11-13 00:36 | NUR ---
Up to br, completed bowel prep, voiding and very liquid very lightly brown stools noted, No further c/o abd pain or n/v. IVf infusing, NPO at this time
--- NOTE | 2019-11-13 01:57 | NUR ---
RESTING, EYES CLOSED, NO RESP DISTRESS, IVF INFUSING, CALL LIGHT AT BEDSIDE. NO C/O OR S/SX PAINFAMILY IN ROOM
--- NOTE | 2019-11-13 02:27 | NUR ---
PT HAD EXPLOSSIVE SEMI LIQUID SOFT LARGE BROWN COLORED DIARRHEA. SHOWERED. BACK TO BED. HYPERACTIVE BT'S AUSCULTATED. DENIES C/O PAIN OR N/V AT THIS TIME. NPO FOR AM PROCEDURE, WILL LEVE SCDS OFF TO PREVENT ACCIDENTAL FALL WHEN SHE GETS OUT OF BED TO USE BSC THAT WAS PLACED AT BEDSIDE AT THIS TIME.
--- NOTE | 2019-11-13 04:32 | NUR ---
RESATING, EYES CLOSED, NO DISTRESS, NPO . CALL LIT AT BEDSIDE, IVF INFUSING
--- NOTE | 2019-11-13 06:52 | NUR ---
Resting, awakes easily, Up to br, had another soft semiliquid bm. Has been NPO since midnight. Does own mouth care. IV leaking, will restart.
--- NOTE | 2019-11-13 07:38 | NUR ---
PT IS AWAKE, IV RESTARTED EARLIER, PT DENIES ANY DISCOMFORT OR NEEDS AT THIS TIME. REMAINS NPO. CALL LIGHT IN EASY REACH.
--- NOTE | 2019-11-13 08:34 | NUR ---
CHECKED ON PATIENT. PATIENT IS SLEEPING. RECORDED THE VOID. WILL CHECK BACK LATER.
--- NOTE | 2019-11-13 11:19 | NUR ---
PT SITTING UP IN BED, DAMIAN RIZO IN. INTRO SELF, WILL RETURN
--- NOTE | 2019-11-13 11:26 | NUR ---
INTO BATHROOM AND HAD LARGE BROWN LOOSE STOOL, STATES SHE IS BEGINNING TO HAVE INCREASED CRAMPING, NO NAUSEA, TORADOL IV GIVEN, REMAINS NPO. FAMILY IN ROOM VISITING.
--- NOTE | 2019-11-13 13:52 | NUR ---
PT IS NAPPING ON BED, NO FURTHER C/O DISCOMFORT, FAMILY WATCHING TV IN ROOM.
--- NOTE | 2019-11-13 17:06 | PATH ---
[facility] [address] [place], [place] [address] Signed SPECIMEN(S): A SIGMOID SPECIMEN SOURCE: A. SIGMOID CLINICAL HISTORY: Left lower quadrant pain. MICROSCOPIC DESCRIPTION: Sections reveal a biopsy of colonic mucosa. The epithelial surface is intact and has retained mucus secreting ability. The basement membrane is not thickened. The glands are simple and tubular and reach all of the way to the muscularis mucosae. The lamina propria is not expanded and contains small numbers of plasma cells, lymphocytes and infrequent eosinophils. No acute inflammatory cells, excess intraepithelial lymphocytes, crypt abscesses, areas of fibrosis, granulomas or pseudomembranes are seen. There is no evidence of malignancy or atypia. LJA:cml FINAL PATHOLOGIC DIAGNOSIS: Mucosa, sigmoid colon, biopsy: - No microscopic pathologic diagnosis. LJA:cml:C2NR GROSS DESCRIPTION: The specimen, labeled "SB, 1" and "sigmoid" on the requisition, is received in formalin and consists of a 0.2 cm soft fountain tissue fragment that is submitted in toto in cassette A1. SS (under the direct supervision of a pathologist) The Gross Description was prepared using a voice recognition system. The report was reviewed for accuracy; however, sound-alike word errors, addition and/or deletions may occur. If there is any question about this report, please contact Client Services. PERFORMING LABORATORY: The technical component was performed by [facility], [address] [place] [id number] ([facility] [employer] Technician: Annette Sky MD; CLIA# [id number]). [facility] [address] [address] (CLIA# [id number]). PATIENT NAME: LAURA MAGDALENO PATHOLOGY DATE OF : [birth year] REPORT #: [id number] PHYSICIAN: MARY PATHOLOGY PCP: RIYA KUMAR PA-C REPORT IS CONFIDENTIAL AND NOT TO BE RELEASED WITHOUT AUTHORIZATION [address] [place], [place] [address] Signed Diagnostician: Manuel Matthews MD Pathologist Electronically Signed 11/13/2019 Copies: ~ PATIENT NAME: LAURA MAGDALENO PATHOLOGY DATE OF : [birth year] REPORT #: [id number] PHYSICIAN: MARY PATHOLOGY PCP: RIYA KUMAR PA-C REPORT IS CONFIDENTIAL AND NOT TO BE RELEASED WITHOUT AUTHORIZATION
--- NOTE | 2019-11-13 17:11 | NUR ---
DR LICONA IN TO SEE PT, DECISION TO ADVANCE TO CLEAR LIQUIDS FOR TONIGHT, PT CONT. TO HAVE LOOSE LIQUID STOOL. PT VISITING WITH FAMILY, DENIES ANY NEEDS AT THIS TIME.
--- NOTE | 2019-11-13 18:49 | NUR ---
TOLERATING CLEAR LIQUIDS, DENIES ANY NEEDS, VISITING WITH FAMILY
--- NOTE | 2019-11-13 19:21 | NUR ---
SHIFT REPORT RECIEVED FROM SALLIE SALGADO. PT SITTING ON BED, VISITING WITH FAMILY. PT DENIES PAIN. IV FLUIDS INFUSING PER ORDER. IV WNL. NO OTHER NEEDS, CALL LIGHT IN REACH.
--- NOTE | 2019-11-13 21:11 | NUR ---
ASSESSMENT COMPLETED. FAMILY IN ROOM. ABD SOFT, MILDLY DISTENDED, TENDER. PT REPORTS LIQUID STOOLS. LUNGS CLEAR. PT REPORTS PAIN 7-8/10 AND NAUSEA. PRN PAIN AND NAUSEA MED PROVIDED. SCHEDULED MEDS PROVIDED. PT DECLINES TO WEAR SCDs. NO OTHER NEEDS AT THIS TIME. CALL LIGHT IN REACH.
--- NOTE | 2019-11-13 21:55 | NUR ---
VITALS AND I&OS DONE AND CHARTED. FRESH ICE WATER GIVEN. BEDSIDE TABLE AND CALL LIGHT IN REACH.
--- NOTE | 2019-11-13 23:16 | NUR ---
SCHEDULED MEDS PROVIDED. NO OTHER NEEDS, CALL LIGHT IN REACH.
--- NOTE | 2019-11-14 00:36 | NUR ---
PT RESTING IN BED, EYES CLOSED RR 14, EVEN, UNLABORED. MOTHER SLEEPING IN ROOM. IV INFUSING PER ORDER, CALL LIGHT IN REACH.
--- NOTE | 2019-11-14 02:25 | NUR ---
PT RESTING IN BED, EYES CLOSED. MOTHER SLEEPING IN ROOM. RR 14, EVEN, UNLABORED. CALL LIGHT IN REACH.
--- NOTE | 2019-11-14 04:25 | NUR ---
PT RESTING IN BED, EYES CLOSED. RR 12, EVEN, UNLABORED. CALL LIGHT IN REACH.
--- NOTE | 2019-11-14 05:30 | NUR ---
PT SLEPT WELL THIS SHIFT. PAIN AND NAUSEA MANAGED BY PRN MEDS. STOOLS HAVE BEEN LIQUID. PT HAS BEEN NPO SINCE MIDNIGHT. NO REPORTS OF VERTIGO. VSS. UO SUFFICIENT.
--- NOTE | 2019-11-14 06:49 | NUR ---
SCHEDULED MED PROVIDED. NEW BAG IV FLUIDS PROVIDED. PT DENIES PAIN OR NAUSEA. ASSESSMENT COMPLETED. NO OTHER NEEDS, CALL LIGHT IN REACH.
--- NOTE | 2019-11-14 07:39 | NUR ---
PATIENT TAKING A SHOWER. REI AND RN IN ROOM. LINENS CHANGED. CALL LIGHT WITHIN REACH. NO OTHER NEEDS AT THIS TIME
--- NOTE | 2019-11-14 08:01 | NUR ---
PT ALERT AND INTERACTIVE DURING BEDSIDE REPORT. UP TO SHOWER AND PREP FOR SURGERY. PT DENIES QUESTIONS AT THIS TIME. MOTHER REMAINS IN THE ROOM. PT DENIES PAIN, NAUSEA, OR OTHER DISCOMFORTS
--- NOTE | 2019-11-14 09:27 | NUR ---
DR LICONA IN TO SEE PT QUESTIONS ANSWERED PLANS DISCUSSED PT DENIES CONCERNS OR FURTHER QUESTIONS
--- NOTE | 2019-11-14 09:39 | NUR ---
PT TO O/R VIA A BED
--- NOTE | 2019-11-14 10:05 | NUR ---
PATIENT IN SURGERY. I&O DONE.
--- NOTE | 2019-11-14 13:40 | NUR ---
11/14/19 1340 [address] 1322- PT ARRIVES TO PACU EASILY AROUSABLE TO VOICE. RESP EVEN AND UNLABORED. OXYGEN SAT HIGH 90'S TO 100% ON 6L VIA MASK. PT STATES, "I HURT A LOT" WHEN ASKED ABOUT HER PAIN. BESSY LY AVIATION SUPPORT EQUIPMENT REPAIRER AT THE BEDSIDE AND AWARE. GOING TO HANG IV TYLENOL. 1326- IV TYLENOL. SEE BLUE SHEET. 1329- PT IS INTERMITTENTLY RESTING WITH HER EYES CLOSED. WHEN PT AROUSES SHE STATES HER PAIN IS LESSENING, RATES IT A 9/10.
--- NOTE | 2019-11-14 14:20 | NUR ---
PT BACK FROM O/R SLEEPY BUT ALERT ANSWERS TO VOICE FOLLOWS COMMANDS. SATS 98% 02 REMOVED, PULSE OX IN PLACE./ PT FAMILY PRESENT X2 MET WITH DR LICONA FOR REPORT QUESTIONS ANSWERED
--- NOTE | 2019-11-14 14:51 | NUR ---
PT SATS 89-90% REPLACED 02 AT 1LPM SATS 100%. PT DOZING AT THIS TIME MORPHINE GIVEN SHE STATES IT DID NOT HELP. TORDOL ADMINISTERED, PT RESTING EYES CLOSED. SCD'S IN PLACE
--- NOTE | 2019-11-14 15:08 | NUR ---
PT CONTINUES RESTING EYES CLOSED FAMILY PRESENT IN THE ROOM. PT APPEARS RELAXED AND COMFORTABLE. SATS 100% PULSE OX IN PLACE
--- NOTE | 2019-11-14 16:57 | NUR ---
PT IS SLEEPING SOUNDLY AFTER ASSISTING HER TO HER SIDE AND APPLYING HEAT TO HER BACK APPEARS COMFORTABLE
--- NOTE | 2019-11-14 17:30 | NUR ---
PATIENT RESTING IN BED. FAMILY IN ROOM. VITAL SIGNS DONE. CALL LIGHT WITHIN REACH. NO OTHER NEEDS AT THIS TIME
--- NOTE | 2019-11-14 18:30 | NUR ---
ASSISTED PT TO STAND FOR A TIME, THEN RETURNS TO BED. WELL TOLERATED. MEDICATED FOR PAIN, PT TALKING ON THE PHONE, VISTORS REMAIN IN THE ROOM. PT TOLERATING ICE CHIPS. SATS HIGH 90'S ON RA, PULSE OX STILL IN PLACE
--- NOTE | 2019-11-14 19:15 | NUR ---
SHIFT REPORT RECIEVED FROM JERMAN SALGADO. TRANSPORTATION ENGINEERING TECHNICIAN NOT IN ROOM RN AND RESTAURANT DELIVERY DRIVER DECIDED NOT TO USE IT BECAUSE SHE HAS MS Q30M PRN. PT IN 06/02 PAIN. WARM PACK PROVIDED AND PT REPOSITIONED. RN WILL PROVIDE PRN PAIN MED. NO OTHER NEEDS, CALL LIGHT IN REACH.
--- NOTE | 2019-11-14 19:42 | NUR ---
PT COMPLAINS OF 9/10 ABD PAIN. PRN PAIN MED PROVIDED. NO OTHER NEEDS, CALL LIGHT IN REACH.
--- NOTE | 2019-11-14 20:05 | NUR ---
PT CALLED FOR ASSISTANCE BACK TO BED FROM BATHROOM. SHE WAS UNABLE TO VOID AT THIS TIME. MORE APPLEJUICE PROVIDED AND WARM BLANKET. SHE DENIES FURTHER NEEDS AT THIS TIME. CALL LIGHT IS CLOSE.
--- NOTE | 2019-11-14 21:07 | OR ---
[facility] [address] [facility] [place] [address] Signed DATE OF OPERATION: 11/12/2019 SURGEON: Bessy Licona MD PREOPERATIVE DIAGNOSES: 1. Left lower abdominal pain, progressive, chronic, with CT findings suggestive of possible intussusception or segmental colitis. 2. Morbid obesity. POSTOPERATIVE DIAGNOSES: 1. Incomplete intussusception of sigmoid colon. 2. Diverticular changes of sigmoid. 3. Morbid obesity. PROCEDURES PERFORMED: 1. Colonoscopy with biopsy. 2. Application of spot tattoo to colon. ANESTHESIA: Intravenous sedation, fentanyl 100 mcg, Versed 3.5 mg. INDICATION: This morbidly obese woman presents to the emergency room on November 10, 2019, with left lower abdominal pain. A CT scan was performed, which demonstrated a thickened area of sigmoid, some associated diverticula, and inflammatory changes of the colon proximal to the area. Consideration was made by Dr. Gamez, radiologist, that this may represent intussusception. The patient was admitted and given intravenous antibiotics on a presumption this may represent diverticulitis. She has a persistent discomfort, but no nausea or vomiting. No sign of complete colonic dilation. I have reviewed the CT scan findings with Dr. Huddleston, which indeed confirms a high possibility of intussusception or neoplasm. She is now to undergo colonoscopy to the extent possible as a means of differentiating the underlying problem. Risks of bleeding, infection, perforation have been reviewed with her. She understands and wished to proceed. Preparation for this involved only two tap water enemas. Electronically Signed By: BESSY LICONA MD 11/14/19 2107 PATIENT NAME: LAURA MAGDALENO OPERATIVE REPORT DATE OF : [birth year] REPORT #: [id number] PHYSICIAN: BESSY LICONA MD PCP: RIYA KUMAR PA-C REPORT IS CONFIDENTIAL AND NOT TO BE RELEASED WITHOUT AUTHORIZATION [facility] [address] [place], [place] [address] Signed FINDINGS: The colon is well prepped up to the level of in question at about 30 cm. There was indeed a finding suggestive of intussusception. There appeared to be a somewhat bulky submucosal abnormality with smooth mucosa over it. There also was an area that had some adenomatous appearance and there was some was surrounding diverticula. With all due care and manipulation and irrigation, the intussusception was able to be somewhat reduced and the scope passed around it. There was a fair amount of solid stool in the left colon and with various manipulations passage could be undertaken to some extent, but certainly total colonoscopy to cecum was not accomplished. The site in question was marked with Endomark tattoo dye anticipating probable resection in the near future. DESCRIPTION OF PROCEDURE: The patient was brought to the endoscopy suite and placed in lateral decubitus position, given intravenous sedation to the point of slurred speech and nystagmus. Digital rectal examination was normal. An Olympus video colonoscope was passed into the rectum and manipulated in the rectosigmoid to the cecum. There were diverticula noted in the sigmoid, but there did not appear to be any other abnormality. At approximately 30 cm from the anal verge was an area of a tanned bulging wall of the colon highly suggestive of intussusception. Upon approaching the area, was somewhat obstructed and with various manipulations including the irrigation, the scope was manipulated beyond this area showing semi-formed stool. Clearly, scope would pass beyond the area of intussusception. Scope was advanced as far as possible, but clearly in the left transverse colon enough stool burden was such that no further passage could be undertaken. The scope was then withdrawn and careful inspection in the area of the presumed intussusception undertaken. There was one glimpse of what appeared to be a polypoid change, but certainly did not appear to be a pedunculated polyp per se. The area in question was rather bulky. A biopsy was taken of the area to assess for inflammatory change of the mucosa mindful that submucosal nodularity including possibility of lymphoma, lipoma, or other lead point for intussusception would not be likely seen with it. Using a sclerotherapy needle, three point injection was undertaken in the region of the intussusception anticipating probable resection in the near future. The scope was further withdrawn. Retroflex view in the rectum showed mild inflammation, but no other problems. The scope was removed and the patient was taken to recovery room in good condition. CONCLUDING DIAGNOSES: Electronically Signed By: BESSY LICONA MD 11/14/192106 PATIENT NAME: LAURA MAGDALENO OPERATIVE REPORT DATE OF : [birth year] REPORT #: [id number] PHYSICIAN: BESSY LICONA MD PCP: RIYA KUMAR PA-C REPORT IS CONFIDENTIAL AND NOT TO BE RELEASED WITHOUT AUTHORIZATION [facility] [address] [place] [id number] Signed 1. Indeed probable intussusception without complete obstruction currently. Reducible with various manipulations. It may be related to submucosal nodule with overlying mucosal lesion. 2. Diverticulosis without obvious diverticulitis; no evidence of colitis. PLAN: Resection of this area is most likely going to be necessary whatever the underlying etiology is. On that basis, we will attempt a gentle bowel prep from above as incomplete intussusception has been noted. This may allow for segmental resection of the offending lesion without need for diverting ileostomy or colostomy under the circumstances of resection without bowel prep. MD HUE Corbett/YARELI /[id number] cc: EARLENE Christensen MD Charles R Leusner, MD Copies: RIYA KUMAR PA-C, CYNTHIA SUE MD LEUSNER, CHARLES R MD ~ Electronically Signed By: BESSY LICONA MD 11/14/19 2107 PATIENT NAME: LAURA MAGDALENO OPERATIVE REPORT DATE OF : [birth year] REPORT #: [id number] PHYSICIAN: BESSY LICONA MD PCP: RIYA KUMAR PA-C REPORT IS CONFIDENTIAL AND NOT TO BE RELEASED WITHOUT AUTHORIZATION
--- NOTE | 2019-11-14 21:07 | OR ---
[facility] [address] [place], [place] [address] Signed DATE OF OPERATION: 11/14/2019 SURGEON: Bessy Licona MD PREOPERATIVE DIAGNOSES: 1. Intussusception of sigmoid colon, incomplete colon obstruction. 2. Morbid obesity. POSTOPERATIVE DIAGNOSES: 1. Intussusception of sigmoid colon, incomplete colon obstruction. 2. Morbid obesity. 3. 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 No evidence of mucosal carcinoma. PROCEDURES: 1. Exploration of abdomen with anterior resection of sigmoid and rectum with side-to-end coloproctostomy. 2. Splenic flexure mobilization. ANESTHESIA: General endotracheal; Bessy Bell CRNA. INDICATION: This 39-year-old woman presented to the hospital on November 10, 2019 with complaints of left lower abdominal pain. She clinically had findings suggestive of diverticulitis. A CT scan was performed, which showed inflammatory thickening of the distal sigmoid and proximal thickening of the colon. It was unclear if this represented possible intussusception versus colitis versus diverticulitis. She was admitted to my service for presumptive diagnosis of acute diverticulitis and given intravenous antibiotics, bowel rest, and so on. She had no palpable mass, but she does have a very large abdominal wall pannus consistent with her morbid obesity. Review of the CT scan with Dr. Huddleston proved it was highly consistent with actual intussusception, however uncommon that is. There is no sign of mass described per se. On that basis, she underwent tap water enemas x2 and subsequent colonoscopy two days ago identifying indeed probable intussusception based on characteristic findings. With various manipulations, the scope was passed beyond the intussusception itself more proximally to unprepped bowel. A plan was made for resectional therapy yesterday. However, the bowel prep that we had Electronically Signed By: BESSY LICONA MD 11/14/19 2107 PATIENT NAME: LAURA MAGDALENO OPERATIVE REPORT DATE OF : [birth year] REPORT #: [id number] PHYSICIAN: BESSY LICONA MD PCP: RIYA KUMAR PA-C REPORT IS CONFIDENTIAL AND NOT TO BE RELEASED WITHOUT AUTHORIZATION [facility] [address] [place], [place] [address] Signed undertaken including a MiraLAX base prep and oral antibiotics was still ongoing at time of planned operation yesterday and therefore, she was deferred to operation today. Her prep is now considered complete and the obstructive process of the sigmoid colon unresolved. She is now to undergo resection of the colon and because of avoidance of tolerating a reasonable bowel prep, less chance of diverting ileostomy or colostomy itself allowing for planned primary anastomosis. The risks of bleeding, infection, anastomotic failure, cardiopulmonary complications, and other unforeseen complications were reviewed with her in detail. She understands and wished to proceed. FINDINGS: The dense mass was quite fibrotic and at initial evaluation highly suggestive of malignancy actually. Wide resection was undertaken including mesenteric resection on the presumption that this did represent malignancy with intussusception. Mobilization of the splenic flexure was undertaken with good result and a tension-free anastomosis was noted from the mid descending colon to the mid rectum. The gallbladder was somewhat distended but not chronically inflamed. There were no palpable stones. The liver was normal as were other intraabdominal organs including the small bowel. The ovaries and tubes were identified as normal as was the uterus. The specimen upon opening did NOT show mucosal malignancy to my surprise, but did show intussusception as previously noted and what appeared to be an intramural lipoma --likely forming the lead point for the intussussception. DESCRIPTION OF PROCEDURE: The patient was brought to the operating room, given a general endotracheal anesthetic. A Arzola catheter was placed. Sequential compression device stockings used and heparin already subcutaneously administered. A preoperative bowel prep had been undertaken including oral antibiotics and MiraLAX prep. The abdomen was prepared with a chlorhexidine solution and draped sterilely. She had a very dysmorphic abdomen due to large rolls of adipose tissue. An incision was made above the umbilicus extending around to it inferiorly. A very thick abdominal pannus was encountered. The midline fascia was incised. The abdomen was entered without problem. There was no sign of carcinomatosis. There was a small amount of intraabdominal fluid. The small bowel was entirely normal. There was no sign of dilation. The more proximal colon was not particularly dilated -- at least not pathologically so. It was free of any solid fecal matter. Palpation of the sigmoid showed a very firm hard and somewhat fixed to the left pelvic sidewall.This was highly suggestive of malignancy. A Bookwalter retractor was affixed to the table. Omental adhesions to the lower abdomen were taken down with electrocautery. The small bowel was packed to the right side of Electronically Signed By: BESSY LICONA MD 11/14/19 6043 PATIENT NAME: LAURA MAGDALENO OPERATIVE REPORT DATE OF : [birth year] REPORT #: [id number] PHYSICIAN: BESSY LICONA MD PCP: RIYA KUMAR PA-C REPORT IS CONFIDENTIAL AND NOT TO BE RELEASED WITHOUT AUTHORIZATION [address] [address] Signed the abdomen and omentum and transverse colon, were reflected cephalad. Mobilization of the white line of Toldt was undertaken with all due care using blunt and electrocautery dissection. Special care was taken in this area to avoid injury to surrounding left pelvic structures. The uterus, tubes, and ovaries were well out of harm's way. With considerable amount of time and effort, the sigmoid colon was freed from its pelvic dense attachments, maintaining an oncologic-type resection on the probability this represented a cancer. The sigmoid was then reflected medially and the sigmoid mesentery well identified. Previous application of Endo Roger tattoo dye during endoscopy to roger the lesion was notable and was found both within the colon wall and in the retroperitoneal soft tissues. Ultimately, the left iliac artery was well identified as was a crossing ureter, which was well out of harm's way. The white line of Toldt was mobilized using blunt electrocautery dissection. Special care taken in the region of the splenic hilum to allow for a tension-free anastomosis. Once the entire left colon, sigmoid and proximal rectum was mobilized to the midline, an area of the left colon far enough from the primary process from an oncologic perspective was defined and a LEON stapling device used to transect the mid to distal descending colon. The mesentery was scored with electrocautery and sequential application of hemostats and heavy Florecita clamps were applied to the mesentery to allow wide mesenteric resection. The root of the mesentery for sigmoidal complex was secured with heavy Florecita clamps and ligated with 0 silk ties doubly applied. Dissection was further taken in the presacral face area anticipating an anterior resection. The mid rectum was ultimately defined well and a right angle bronchus clamp applied over it. The abdominal cavity and pelvis were isolated with laparotomy packs and the colon transected in the mid rectum and passed off the table. The circulating nurse was able to open the specimen and its peculiar anatomy was consistent with intussusception. Further incision revealed that there was no mucosal lesion as had been suspected but rather an intramural lipomatous-appearing mass, most likely a lead point for intussusception after all. Attention was then turned towards anastomosis. Since the splenic flexure had been well mobilized, a side-to-end coloproctostomy was undertaken without tension. This was accomplished in a two-layer technique of interrupted 3-0 silk suture. The more proximal colon did have some residual fecal matter, but none of it was solid and she would be considered to having been quite well prepped overall. Isolating laparotomy packs were removed at Electronically Signed By: BESSY LICONA MD 11/14/19 2107 PATIENT NAME: LAURA MAGDALENO OPERATIVE REPORT DATE OF : [birth year] REPORT #: [id number] PHYSICIAN: BESSY LICONA MD PCP: RIYA KUMAR PA-C REPORT IS CONFIDENTIAL AND NOT TO BE RELEASED WITHOUT AUTHORIZATION [address] [address] Signed conclusion of the anastomosis, and gloves were changed to the entire operating team. Irrigation was undertaken in the low pelvis. Through a separate stab incision, a 7 mm Bowen drain was placed in the presacral space directed to the pelvis. Mesenteric defect was reapproximated with interrupted 2-0 and 3-0 silk sutures. The small bowel was allowed to return to its natural anatomic configuration. The omentum replaced of the abdominal contents. Attention was turned toward closure. The liver and gallbladder were inspected and found to be normal, although the gallbladder was somewhat distended and did not have inflammation and no palpable stones. The midline fascia was reapproximated with running bidirectional #1 PDS suture. Subcutaneous tissue irrigated with sterile saline once again and skin closed in a running subcuticular 3-0 Vicryl. Several 2-0 nylon sutures were used to secure areas of maximal tension at the ends of the wound and in the region of the umbilicus due to her thick abdominal wall pannus. A conforming dressing was applied to the wound. The drain had been secured to the skin with nylon suture and attached to bulb suction. Blood loss was estimated 100 mL. Sponge, needle, and instrument counts reported as correct x3. The operation was prolonged, complicated, and difficult lasting from 10:24 a.m. to 1:20 p.m. MD HUE Corbett/MODL /[id number] cc: MD Feroz Dailey MD Chloe K Norris, PA-C Copies: ALBINO SPENCER MD Electronically Signed By: BESSY LICONA MD 11/14/19 2107 PATIENT NAME: LAURA MAGDALENO OPERATIVE REPORT DATE OF : [birth year] REPORT #: [id number] PHYSICIAN: BESSY LICONA MD PCP: RIYA KUMAR PA-C REPORT IS CONFIDENTIAL AND NOT TO BE RELEASED WITHOUT AUTHORIZATION [facility] [address] [place], [place] [address] Signed FEROZ HUDDLESTON MD, CHLOE K PA-C ~ Electronically Signed By: BESSY LICONA MD 11/14/19 2107 PATIENT NAME: LAURA MAGDALENO OPERATIVE REPORT DATE OF : [birth year] REPORT #: [id number] PHYSICIAN: BESSY LICONA MD PCP: RIYA KUMAR PA-C REPORT IS CONFIDENTIAL AND NOT TO BE RELEASED WITHOUT AUTHORIZATION
--- NOTE | 2019-11-14 21:42 | NUR ---
PT CALLED IN PAIN. ADMINISTERED IV MORPHINE AND REMINDED PT TO CALL IN 30-45 MIN IF SHE NEEDS MORE. SHE DENIES FURTHER NEEDS AT THIS TIME. CALL LIGHT IS CLOSE.
--- NOTE | 2019-11-14 22:43 | NUR ---
ASSESSMENT COMPLETED. ABD PAIN 10/10 PRN PAIN MEDS PROVIDED. SCHEDULED MEDS PROVIDED. IV FLIUDS INFUSING PER ORDER. IV CDI, WNL, FLUSHED WELL. ABD TENDER, FIRM. INCISIONS CDI. SHAVON DRAIN SEROSANGUINOUS OUTPUT, WNL. NO OTHER NEEDS CALL LIGHT IN REACH.
--- NOTE | 2019-11-15 00:23 | NUR ---
16 IT[place] CONLEY CATHETER PLACED, NO RETURN. BLADDER SCAN SHOWS 609 ML. CATHETER FLUSHED BY ASCENCION SALGADO. URINE RETURN PRESENT. CLEAR AND LIGHT YELLOW. PT TOLERATED PROCEDURE WELL. NO OTHER NEEDS, CALL LIGHT IN REACH.
--- NOTE | 2019-11-15 01:22 | NUR ---
AFTER SEVERAL HOURS OF ATTEMPTING TO GET MOLD COOLER STARTED, IT WAS DETERMINED BY INSURANCE PLAN SPECIALIST AND PHARMACY THAT THE BARCODE ON THE MS WAS NOT READING. SEVERAL MOLD COOLER UNITS WERE TRIED AND 2 DIFFERENT MS VIALS SUPPLIED BY PHARMACY WERE TRIED. PT IS CURRENTLY RESTING COMFORTABLY WITH PRN PAIN MEDS MANAGING PAIN. RN WILL NOTIFY MD IN THE MORNING OF EQUIPMENT FAILURE.
--- NOTE | 2019-11-15 02:06 | NUR ---
PT CALLS STATING SHE HAS 6/10 ABD PAIN, PRN PAIN MED PROVIDED. SCHEDULED MED PROVIDED. HOT PACKS PROVIDED BY December. NEW BAG OF IV FLUIDS PROVIDED. VS AND I&O COMPLETED. NO OTHER NEEDS, CALL LIGHT IN REACH.
--- NOTE | 2019-11-15 03:41 | NUR ---
ADMINSTERED MORPHINE FOR PAIN. DISCUSSED PAIN MEDICINE OPTIONS. PT DENIES FURTHER NEEDS AT THIS TIME. CALL LIGHT IS CLOSE.
--- NOTE | 2019-11-15 04:40 | NUR ---
PT STATES SHE HAS 8/10 ABD PAIN. PRN PAIN MED PROVIDED. ASSESSMENT COMPLETED. ABD FIRM AND TENDER. BOWEL TONES ACTIVE. BANDAGES CDI. SHAVON WNL. CPOX TREDNING IN UPPER 90s ON RA. NO OTHER NEEDS, CALL LIGHT IN REACH.
--- NOTE | 2019-11-15 04:43 | NUR ---
PT HAS TOLERATED CLEARS AND SCDs WELL. PAIN HAS BEEN MODERATELY MANAGED WITH PRN PAIN MEDS. WHEN PROVIDED TYLENOL, TORADOL AND MS TOGETHER, PAIN IS WELL MANAGED FOR ABOUT 6 HOURS. AFTER THAT TIME, UP TO THE NEXT AVAILABLE DOSE OF TORADOL AND TYLENOL, PAIN IS MODERATELY MANAGED WITH MS BEING PROVIDED AT PT REQUEST, ABOUT HOURLY. FRUIT HARVESTER WAS NOT AVAILABLE DUE TO BARCODES NOT READING ON THE FRUIT HARVESTER UNIT. CONLEY WAS REPLACED PER MD ORDER AND UO HAS BEEN SUFFICIENT. DRESSINGS ARE CDI, WNL. SHAVON WNL WITH SANGUINOUS TO SEROSANGUINOUS OUTPUT OF 70 ML THIS SHIFT. VSS. ABD FIRM AND TENDER. PT HAD ONE REPORTED EPISODE OF NAUSEA, PRN NAUSEA MED PROVIDED. PT WAS AMBULATORY TO BR ONCE THIS SHIFT. CPOX HAS BEEN RANGING IN THE HIGH 90s, RA. IV CDI, WNL, FLUSHED WELL. PT TOLERATED IV FLUIDS AND MEDS WELL. PT DENIES PASSING GAS YET.
--- NOTE | 2019-11-15 05:25 | NUR ---
PT HAS THE HICCUPS AND COMPLAINS OF NAUSEA. PRN NAUSEA MED PROVIDED. NO OTHER NEEDS AT THIS TIME. CALL LIGHT IN REACH.
--- NOTE | 2019-11-15 05:56 | NUR ---
PT STATES PAIN IS 8/10 IN ABD. PRN AND SCHEDULED PAIN MEDS PROVIDED. HICCUPS HAVE STOPPED. IV FLUIDS INFUSING PER ORDER. NO OTHER NEEDS, CALL LIGHT IN REACH.
--- NOTE | 2019-11-15 06:41 | NUR ---
NOTIFIED OF POTASH FLAKER NOT BEING USED. ORDERED "HAVE PHARMACY GET ON IT RIGHT AWAY THIS MORNING." NOTE SENT TO PHARMACY.
--- NOTE | 2019-11-15 06:52 | NUR ---
SUJATHA FROM PHARMACY ARRIVES. NOTIFIED HER VERBALLY OF NEED FOR MANUAL EQUIPMENT MECHANIC MEDICATION WITH CORRECT BARCODES. SUJATHA AFFIRMS SHE IS HERE TO WORK ON IT IMMEDIATELY.
--- NOTE | 2019-11-15 07:53 | NUR ---
PATIENT RESTING IN BED. MOM IN ROOM. CALL LIGHT WITHIN REACH.
--- NOTE | 2019-11-15 08:16 | NUR ---
PT RESTING IN BED AWAKE, STATES SHE DOESN'T THINK MORPHINE IS HELPING HER PAIN. AGREES TORDOL AND TYLENOL HAVE BEEN HELPFUL. PT TOLERATING SIPS OF H20 DENIES NAUSEA.
--- NOTE | 2019-11-15 09:37 | NUR ---
PATIENT SITTING UP IN CHAIR. MOM IN ROOM. VITAL SIGNS AND I&O DONE. CALL LIGHT WITHIN REACH. NO OTHER NEEDS AT THIS TIME
--- NOTE | 2019-11-15 10:07 | NUR ---
PT AMBULATES ONE LAP BECOMES NAUSEATED UPON RETURN TO HER ROOM. PT SITS UP IN THE CHAIR, PHENERGAN GIVEN. NAUSEA PASSES, PT RETURNS TO RESTING IN BED. SCD'S IN PLACE, CONLEY DRAINING CLEAR YELLOW URINE, PULSE OX AT 94%
--- NOTE | 2019-11-15 13:09 | NUR ---
PATIENT RESTING IN BED. ELVIN SIGNS AND I&O DONE. LOW BLOOD PRESSURE. RN NOTIFIED. CALL LIGHT WITHIN REACH. NO OTHER NEEDS AT THIS TIME
--- NOTE | 2019-11-15 14:28 | NUR ---
PATIENT AMBULATING IN THE HALLWAY. ONE PERSON ASSISTING. PATIENT BACKS TO BED. CALL LIGHT WITHIN REACH. NO OTHER NEEDS AT THIS TIME
--- NOTE | 2019-11-15 14:29 | NUR ---
PT UP AMBULATES THE RICO, WELL TOLERATED. NO NAUSEA OR INCREASED PAIN. PT HAS USED SMALL ARMS ARTILLERY REPAIRER 3X ONLY SO FAR THIS SHIFT. VISITORS IN THE ROOM
--- NOTE | 2019-11-15 15:46 | NUR ---
DR LICONA IN TO SEE PT ADVANCES DIET TO FULL LIQUIDS. PT HAS ONLY USED 10 MG OF MORPHINE ENTIRE SHIFT. SHE HAS BEEN UP TO THE CHAIR AND AMBULATED THE HALLS SEVERAL TIMES. PT USING I/S APPROPRIATELY AND AT REGULAR INTERVALS
--- NOTE | 2019-11-15 17:35 | NUR ---
PATIENT SITTING UP IN BED. FAMILY AND RN IN ROOM. VITAL SIGNS AND I&O DONE. CALL LIGHT WITHIN REACH. NO OTHER NEEDS AT THIS TIME
--- NOTE | 2019-11-15 17:52 | NUR ---
PT UP TO AMBULATE THE RICO AGAIN, HAS SOME NAUSEA BUT IT PASSES WHEN SHE SITS IN THE CHAIR. IV SITE REPLACED PER HER REQUEST TO THE OTHER ARM. FAMILY REMAIN IN THE ROOM. PT AGREES SHE IS COMFORTABLE.
--- NOTE | 2019-11-15 19:10 | NUR ---
BEDSIDE REPORT RECEIVED FROM DAMIAN STOLL. SBA FROM CHAIR TO BED. IVF INFUSING WNL ORDERED. pt C/O 06/02 PAIN W MOVEMENT "PRESSURE, SHARP PAIN IN LOWER ABDOMEN, LIKE SOMETHING IS SPLITTING". HITTING LIBRARY SERVICES COORDINATOR BUTTON AT THIS TIME. SPO2 WNL ON RA, CPOX IN PLACE. ICE PACK PROVIDED FOR pt. CALL LIGHT IN REACH.
--- NOTE | 2019-11-15 21:00 | NUR ---
ROUNDED CHARGE. PATIENTS QUESTIONS ANSWERED ABOUT ACCOUNT MANAGEMENT ASSISTANT AND PAIN MANAGEMENT. PATIENT DENIES ANY FURTHER QUESTIONS. NO NEEDS NOTED. CALL LIGHT IN REACH.
--- NOTE | 2019-11-15 22:01 | NUR ---
pt ASSESSMENT COMPLETE. BOWEL TONES ACTIVE THROUGHOUT, ABD SOFT, TENDER THROUGHOUT W PALPATION. pt C/O NAUSEA, PRN MEDICATION ADMINISTERED. PRN TORADOL ADMINISTERED FOR 8/10 ABD PAIN. IV FLUSHED, INFUSING WNL ORDERED. WARM BLANKET, ICE PACKS PROVIDED. SHAVON DRAIN W SS DRAINAGE, TUBING STRIPPED. CALL LIGHT IN REACH.
--- NOTE | 2019-11-15 22:56 | NUR ---
PATIENT IN BED WITH EYES CLOSED, APPEARS ASLEEP. COMFORTABLE.
--- NOTE | 2019-11-16 02:43 | NUR ---
pt SLEEPING, AWAKENS TO VOICE. IV ANTIBIOTIC INFUSING WNL ORDERED. ASSESSMENT COMPLETE. pt RATES PAIN "REALLY LOW" 3/10 IN LOWER ABD. INCISION CDI. SHAVON DRAIN EMPTIED, 10 MLS SS FLUID. BOWEL TONES ACTIVE THROUGHOUT, ABD SOFT, TENDER W PALPATION. CONLEY EMPTIED. CALL LIGHT IN REACH.
--- NOTE | 2019-11-16 04:47 | NUR ---
CHECKED ON pt. RESTING IN BED WITH EYES CLOSED. SPO2 WNL ON RA. LIGHTS OFF IN ROOM. BREATHING IS UNLABORED.
--- NOTE | 2019-11-16 05:13 | NUR ---
pt RESTED WELL THIS SHIFT. PRN TORADOL, SCHEDULED TYLENOL FOR PAIN CONTROL. MORPHINE COMPRESSOR OPERATOR IN PLACE FOR BREAKTHROUGH PAIN. DRESSING CDI, NO DRAINAGE NOTED. SHAVON DRAIN WITH SS DRAINAGE. CONLEY IN PLACE, QS OUTPUT. CPOX IN PLACE, SPO2 WNL THROUGHOUT SHIFT ON RA. pt PASSING GAS, ACTIVE BOWEL TONES, ABMULATING SBA.
--- NOTE | 2019-11-16 06:11 | NUR ---
COMPLETE BED CHANGE. pt ASSISTED IN SHOWER BY HANG SELBY AND DAMIAN ESCALONA. IT WAS LOWER BODY SHOWER? pt DID NOT COMPLAIN OF TOO MUCH PAIN AT THIS TIME.
--- NOTE | 2019-11-16 06:32 | NUR ---
IN pt ROOM FOR SCHEDULED MEDICATION ADMINISTRATION. pt AWAKENS TO VOICE. RATES PAIN 3/10 AT REST. LARGE LIQUID INCONTINENCEN OF STOOL NOTED. ATTENDS, CHUX, LINENS, GOWN CHANGED. CONLEY CARE COMPLETE. SHAVON DRAIN EMPTIED, 5 MLS SS FLUID. pt RATES PAIN 6/10 W AMBULATION, RECEIVING WEIGHER PUMP IN USE, NEW SYRINGE IN PLACE. CALL LIGHT IN REACH. ICE WATER PROVIDED.
--- NOTE | 2019-11-16 07:12 | NUR ---
PHONE CALL TO MD, TELEPHONE ORDER TO D/C IV CEFOXITIN REPEATED BACK, PRN PO MEDICATION REPEATED BACK.
--- NOTE | 2019-11-16 07:42 | NUR ---
PT IN BED AT THIS TIME, RESP EVEN AND NON LABORED. PT'S RESP EVEN AND NON LABORED, SAT LEVEL 96% ON RA. 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 PT REPORTS PAIN IN ABD IT TOLERABLE. PT HAS NO NEEDS AT THIS TIME. PT'S MOM AT BEDSIDE. CALL LIGHT WITHIN REACH.
--- NOTE | 2019-11-16 09:32 | NUR ---
HYDROXAZINE 25MG PO ADMIN FOR REPORTS OF ANXIETY.
--- NOTE | 2019-11-16 10:15 | NUR ---
CONLEY CATHETER REMOVED AT THIS TIME PER DOC ORDER. REMOVED 9ML SALINE FROM CATHETER BALLOON. CATHETER TIP INTACT UPON REMOVAL. PT TOLERATED WELL. PT NOW DUE TO VOID. ABDOMINAL INCISION IS CDI. SHAVON DRAIN PATENT WITH SAROSANG DRAINAGE NOTED.
--- NOTE | 2019-11-16 10:19 | NUR ---
PATIENT UP TO BATHROOM AND BACK TO CHAIR, SBA. RN IN ROOM TO LAURENCE CONLEY. PATIENT DID AM AND ORAL CARE AT SINK. CALL LIGHT IN REACH. NO FURTHER NEEDS AT THIS TIME.
--- NOTE | 2019-11-16 10:49 | NUR ---
ADMIN ZOFRAN 4MG IVP FOR REPORTS OF NAUSEA.
--- NOTE | 2019-11-16 11:30 | NUR ---
Spoke with Marine. She is working on homework for college. States she is very busy with going to school, working, and raising two teenagers. Brother arrives and states she never sleeps. She denies needs. States she is feeling ok. Encourage to rest if she can.
--- NOTE | 2019-11-16 12:23 | NUR ---
ADMIN MOTRIN 600MG PO FOR REPORTS OF 6/10 ABD PAIN.
--- NOTE | 2019-11-16 13:19 | NUR ---
PT SITTING IN CHAIR, WORKING ON COMPUTER. APPEARED TO BE VERY OCCUPIED WITH WHAT SHE WAS DOING. PT ALERT AND ORIENTED, GAVE BLESSING, WILL ALSO FOLLOW NEEDED
--- NOTE | 2019-11-16 15:05 | NUR ---
PATIENT UP TO BATHROOM AND BACK TO BED, SBA. VISITORS IN ROOM. CALL LIGHT IN REACH. NO FURTHER NEEDS AT THIS TIME.
--- NOTE | 2019-11-16 15:45 | NUR ---
PT IN BED RESTING AT THIS TIME, EYES CLOSED, RESP EVEN AND NON LABORED. MEDICAL LABORATORY TECHNOLOGIST STILL IN USE, CONT IV FLUIDS RUNNING. CALL LIGHT WITHIN REACH. NO NEEDS AT THIS TIME.
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
--- NOTE | 2019-11-16 18:01 | NUR ---
ADMIN ZOFRAN 4MG IVP FOR C/O NAUSEA.
--- NOTE | 2019-11-16 18:04 | NUR ---
CLEARED SORTING GRAPPLE OPERATOR AT THIS TIME; 20MG TOTAL.
--- NOTE | 2019-11-16 18:20 | NUR ---
PATIENT RESTING IN BED. MOM IN ROOM. VITAL SIGNS AND I&O DONE. CALL LIGHT WITHIN REACH.NO OTHER NEEDS AT THIS TIME
--- NOTE | 2019-11-16 19:03 | NUR ---
admin ibuprofen 600mg po for reports of 5/10 abd pain.
--- NOTE | 2019-11-16 19:10 | NUR ---
BEDSIDE REPORT RECEIVED FROM DAMIAN SCHMID. PRN MOTRIN ADMINISTERED AT THIS TIME. pt UP AMBULATING IN HALLWAY SBA. ICE WATER PROVIDED.
--- NOTE | 2019-11-16 19:54 | NUR ---
PHONE CALL TO , NOTIFIED OF BRIDGE CREW MEMBER SYRINGE BEING OUT OF STOCK, PHARMACY TO COME IN. TELEPHONE ORDERS RECEIVED PO MEDICATION, REPEATED BACK, TO D/C BRIDGE CREW MEMBER. OKAY TO REMOVE DRESSING AND SHOWER.
--- NOTE | 2019-11-16 21:30 | NUR ---
pt ASSESSMENT COMPLETE. pt RATES PAIN 8/10 IN ABDOMEN AT INCISION SITE. PRN MEDICATION ADMINISTERED. DENIES NAUSEA. SHAVON DRAIN STRIPPED, SS DRAINAGE, 40 MLS EMPTIED. pt BACK IN BED AFTER VOID. SCDS ON. BOWEL TONES ACTIVE, ABD SOFT, NON-TENDER. IVF INFUSING WNL ORDERED. CALL LIGHT IN REACH. ICE PACK PROVIDED.
--- NOTE | 2019-11-17 00:09 | NUR ---
CHECKED ON pt. RESTING IN BED WITH EYES CLOSED, BREATHING UNLABORED. SCDS REMOVED BY pt AT THIS TIME.
--- NOTE | 2019-11-17 02:22 | NUR ---
CHECKED ON pt. RESTING IN BED WITH EYES CLOSED, RR 16.
--- NOTE | 2019-11-17 02:50 | NUR ---
CALL LIGHT ANSWERED. SBA TO RESTROOM AND BACK TO BED. pt STATES "I'M REALLY HURTING" RATES PAIN 8/10 IN ABDOMEN. PRN ANXIETY AND PAIN MEDICATION ADMINISTERED. ICE PACK PROVIDED AND IN PLACE. ASSESSMENT COMPLETE. BOWEL TONES ACTIVE X 4, ABD SOFT, TENDER W PALPATION. NO DRAINAGE NOTED ON DRESSING. CALL LIGHT IN REACH. SCDS ON.
--- NOTE | 2019-11-17 05:14 | NUR ---
pt RESTING IN BED, AWAKENS EASILY TO VOICE, RATES ABD PAIN 5/10 AT INCISION. DRESSING REMOVED FOR SHOWER THIS AM. STERI STRIPS IN PLACE, SCANT DRIED SANGUINOUS DRAINAGE, SUTURES, INCISION WELL APPROXIMATED. SHAVON EMPTIED 20 MLS SS FLUID. CALL LIGHT IN REACH. IVF INFUSING WNL. SCDS ON. VSS.
--- NOTE | 2019-11-17 06:05 | NUR ---
pt RESTED WELL THIS SHIFT. AMBULATING IN HALLWAY, SBA. PRN AND SCHEDULED PO MEDICATIONS ADMINISTERED. BOWEL TONES ACTIVE X 4, ABD SOFT, TENDER THROUGHOUT. SHAVON DRAIN WITH 83 MLS SS FLUID THIS SHIFT. DRESSING REMOVED ON ABDOMEN, INCISION WELL APPROXIMATED WITH STERI STRIPS, SUTURES. IVF INFUSING WNL THROUGHOUT SHIFT. LOOSE BM THIS SHIFT.
--- NOTE | 2019-11-17 07:39 | NUR ---
PT UP IN SHOWER AT THIS TIME. WILL CONTINUE TO MONITOR.
--- NOTE | 2019-11-17 10:30 | NUR ---
Spoke with Marine, she is tired today. Iv pain meds were changed to po and she states she is somewhat painful. She has not requested further po meds. Reminded to not wait and let her pain get out of control. Nurse notified of need for pain meds. Denies further needs at this time.
--- NOTE | 2019-11-17 10:36 | NUR ---
ADMIN ONE TAB OF PERCOCET 7.5/325MG PO FOR REPORTS OF 5/10 ABD PAIN.
--- NOTE | 2019-11-17 10:40 | NUR ---
PATIENT IN BED WATCHING TV. FRESH WATER GIVEN. PATIENT TOOK SHOWER THIS MORNING. CALL LIGHT IN REACH. NO FURTHER NEEDS AT THIS TIME.
--- NOTE | 2019-11-17 10:44 | NUR ---
PT WALKED IN THE HALLWAY, X1 LAP AROUND NURSES STATION WITH SBA. PT TOLERATED WELL. PT BACK TO BED AND REQUESTING TO TAKE A SMALL NAP AT THIS TIME. PERSONAL SUPPLIES AND CALL LIGHT WITHIN REACH. NO NEEDS AT THIS TIME.
--- NOTE | 2019-11-17 12:31 | NUR ---
ADMIN ONE TAB PERCOCET 7.25/325MG PO FOR REPORTS OF 6/10 ABD PAIN.
--- NOTE | 2019-11-17 12:35 | NUR ---
ADMIN HYDROXYZine 25mg po for reports of anxiety.
--- NOTE | 2019-11-17 13:52 | NUR ---
PATIENT IN BED EATING LUNCH, MOM IN ROOM. FRESH WATER GIVEN. CALL LIGHT IN REACH. NO FURTHER NEEDS AT THIS TIME.
--- NOTE | 2019-11-17 15:34 | PATH ---
[facility] [address], [place] [address] Signed SPECIMEN(S): A SIGMOID, INTUSSUSCEPTION SPECIMEN SOURCE: A. SIGMOID, INTUSSUSCEPTION CLINICAL HISTORY: Intussusception of sigmoid colon. FINAL PATHOLOGIC DIAGNOSIS: Colon, sigmoid, intussusception, resection: - Diverticulitis with abscess formation. - Serosal fibrous adhesions. - Previous biopsy site with reactive changes and tattoo ink. - Viable surgical margins with no histopathologic abnormality. - Three lymph nodes with no evidence of malignancy. - Negative for dysplasia or malignancy. COMMENT: The history of intussusception is noted; the specimen was received previously opened. Gross and microscopic examinations reveal diverticulitis with two areas of yulissa-diverticular abscesses. A third abscess cavity is present and associated with mucosal ulceration, granulation tissue formation and pericolonic fibrosis. The third abscess cavity is present at the site of previously opened wall, precluding evaluation of abscess to diverticulum. No dysplasia or malignancy is seen. As part of [facility]' Quality Improvement Program, a selected slide of this case was reviewed by another member of our pathology staff. NAL:cml:C2NR MICROSCOPIC EXAMINATION: Histologic sections of all submitted blocks are examined by light microscopy. These findings, together with the gross examination, support the pathologic diagnosis. GROSS DESCRIPTION: The specimen, labeled "SB, A" and "sigmoid colon" on the requisition, is received in formalin and consists of a 23 x 4 cm segment of colon with attached adipose tissue. The specimen has been previously opened. One surgical margin appears open (marked blue), while the opposite is secured by a staple line. The serosa demonstrates multiple PATIENT NAME: LAURA MAGDALENO PATHOLOGY DATE OF : 80 REPORT #: [id number] PHYSICIAN: MARY PATHOLOGY PCP: RIYA KUMAR PA-C REPORT IS CONFIDENTIAL AND NOT TO BE RELEASED WITHOUT AUTHORIZATION [facility] [address], [place] [address] Signed adhesions. There is an area of the bowel wall that shows black tattooing. This area measures 2.5 x 2 x 1.2 cm, and is located 3.2 cm from the blue inked surgical margin. The mucosa in this area demonstrates a 1 x 0.8 cm brown, crusted defect that is located 3.1 cm from the blue inked surgical margin. Located 0.6 cm from this crusted area is a 3.2 cm linear tear of the bowel wall. This tear is located 4.8 cm from the open surgical margin. This area is focally tattooed black, and does not show any associated blood clot. The mucosa otherwise is fountain with the normal intestinal folds, and numerous diverticula. There are two diverticula that communicate with two separate abscess cavities that measure 1.2 x 1 x 0.8 cm and 4.4 x 1.3 x 1.2 cm. Both abscess cavities traverse along the wall of the bowel within 7.5 cm of the secured margin and 8.5 cm of the open margin. Located along the wall of bowel that has been previously opened, is a 3 x 1.1 x 0.5 cm apparent abscess cavity containing soft fountain red material. This lesion is located 7 cm from the secured surgical margin. The bowel wall in this area measures up to 1.4 cm. The attached adipose tissue demonstrates occasional rubbery fountain to jay lymph nodes that measure up to 0.8 cm. Second Baker sections are submitted as follows: A1-open surgical margin A2-surgical margin M4-E4-ilchomv defect of mucosa A5-enrollment representative sections of tear of bowel wall V3-J5-aqncabbrnhdofa sections of diverticula that perforate and communicate with the two abscess cavities A8-enrollment representative section of exposed apparent abscess cavity A9-random section of colon O72-bndrvsiteryvyp lymph nodes. SS (under the direct supervision of a pathologist) The Gross Description was prepared using a voice recognition system. The report was reviewed for accuracy; however, sound-alike word errors, addition and/or deletions may occur. If there is any question about this report, please contact Client Services. PERFORMING LABORATORY: The technical component was performed by [facility], [address] [place] [id number] (Special Needs Librarian: Annette Sky MD; CLIA# [id number]). Professional interpretation was performed by PATIENT NAME: LAURA MAGDALENO PATHOLOGY DATE OF : [birth year] REPORT #: [id number] PHYSICIAN: MARY EGAN PCP: RIYA KUMAR PA-C REPORT IS CONFIDENTIAL AND NOT TO BE RELEASED WITHOUT AUTHORIZATION [facility] [address], [place] [address] Signed [facility] branch, [address] [facility]. [address] [place] [id number] (CLIA# [id number]). Diagnostician: No Escoto MD Pathologist Electronically Signed 11/17/2019 Copies: ~ PATIENT NAME: LAURA MAGDALENO PATHOLOGY DATE OF : [birth year] REPORT #: [id number] PHYSICIAN: MARY PATHOLOGY PCP: RIYA KUMAR PA-C REPORT IS CONFIDENTIAL AND NOT TO BE RELEASED WITHOUT AUTHORIZATION
--- NOTE | 2019-11-17 15:40 | NUR ---
ADMIN IBUPROFEN 600MG PO FOR REPORTS OF 6/10 ABD PAIN.
--- NOTE | 2019-11-17 15:45 | NUR ---
PT WALKED IN THE HALLWAY SBA; TOLERATED WELL.
--- NOTE | 2019-11-17 16:05 | NUR ---
TIM FROM DR. LICONA TO ADVANCE DIET TO REGULAR AND TO START GIVING SCHEDULED TYLENOL. WILL MONITOR TO NOT EXCEED TYLENOL DAILY DOSE LIMITS PT HAS SCHEDULED TYLENOL AND PECOCET.
--- NOTE | 2019-11-17 18:16 | NUR ---
PT AMBULATED IN HALLWAY WITH THIS RN, VIJAYA. PT TOLERATED WALK WELL. PESONAL SUPPLIES AND CALL LIGHT WITHIN REACH.
--- NOTE | 2019-11-17 18:24 | NUR ---
ADMIN MORPHINE 2MG IVP FOR 7/10 ABD PAIN.
--- NOTE | 2019-11-17 19:35 | NUR ---
BEDSIDE REPORT RECEIVED FROM DAMIAN SCHMID. pt AMBULTING IN HALLWAY, BACK IN ROOM, SITTING IN CHAIR. RATES PAIN 4/10 AT REST, 6/10 WITH AMBULATION. DENIES NEED FOR PRN MEDICATION AT THIS TIME. IVF INFUSING WNL ORDERED.
--- NOTE | 2019-11-17 21:22 | NUR ---
pt ASSESSMENT COMPLETE. BOWEL TONES ACTIVE X 4, ABD TENDER W PALPATION, MILD DISTENTION. SHAVON DRAIN EMPTIED 10 MLS SS FLUID. RATES PAIN 8/10 IN ABDOMEN. PRN AND SCHEDULED MEDICATION ADMINISTERED. CALL LIGHT IN REACH. ICE WATER PROVIDED. VSS.
--- NOTE | 2019-11-17 22:54 | NUR ---
CHECKED ON pt. RESTING IN BED WITH EYES CLOSED. BREATHING UNLABORED. LIGHTS OFF IN ROOM.
--- NOTE | 2019-11-18 00:46 | NUR ---
CALL LIGHT ANSWERED. pt RATES PAIN 6/10 IN ABDOMEN. PRN MOTRIN ADMINISTERED. SBA TO RESTROOM FOR VOID AND BACK TO BED. CALL LIGHT IN REACH. ICE PACK FOR ABDOMEN.
--- NOTE | 2019-11-18 01:45 | NUR ---
CHECKED ON pt. RESTING IN BED WITH EYES CLOSED. BREATHING UNLABORED.
--- NOTE | 2019-11-18 02:58 | NUR ---
CALL LIGHT ANSWERED. pt C/O PAIN WAKING HER UP. 03/02 IN ABDOMEN. PRN MEDICATION ADMINISTERED. ASSESSMENT COMPLETE. SHAVON DRAIN W SMALL AMT SS DRAINAGE IN BULB. DRESSING CDI, NO DRAINAGE NOTED. BOWEL TONES ACTIVE X 4. DENIES NAUSEA. CALL LIGHT IN REACH. IVF INFUSING WNL ORDERED. pt REQUESTING BREAK FROM SCDS.
--- NOTE | 2019-11-18 04:37 | NUR ---
CALL LIGHT ANSWERED. IV PUMP ALARMING DISTAL OCCLUSION, INFUSING WNL. VSS. pt RATES PAIN 6/10 IN ABDOMEN. ICE PACK AND SCHEDULED TYLENOL ADMINISTERED. pt REFUSING TO AMBULATE AT THIS TIME, REQUESTING TO REST. SHAVON EMPTIED 40 MLS SS FLUID. CALL LIGHT IN REACH.
--- NOTE | 2019-11-18 05:20 | NUR ---
pt AMBULATING IN HALLWAY AT START OF SHIFT. ABDOMINAL INCISION INTACT, WELL APPROXIMATED, NO DRAINAGE. SHAVON DRAIN WITH 75 MLS SS DRAINAGE THIS SHIFT. BOWEL TONES ACTIVE. THREE SEMI SOFT SMALL GREEN BMS THIS SHIFT. TOLERATING REGULAR DIET. SCHEDULED AND PRN PAIN MEDICATIONS FOR PAIN CONTROL. VOIDING QS.
--- NOTE | 2019-11-18 06:09 | NUR ---
PT AMBULATED 1 LOOP AROUND UNIT.
--- NOTE | 2019-11-18 07:15 | NUR ---
PT RESTING IN BED EYES CLOSED AND REPSIRATIONS EVEN AND UNLABORED ON VAPOTHERM PER RT AT 20L AND 30% FIO2. CALL LIGHT AND H2O IN REACH. NO NEEDS OR CONCERNS VOICED. BEDSIDE REPORT RECEIVED FROM DAMIAN ESCALONA.
--- NOTE | 2019-11-18 09:29 | NUR ---
PT SITTING UP IN CHAIR, ALERT AND ORIENTED. PT REPORTS PAIN OF 7/10 PER SALLIE RN PRN PO ANALGESIC RECENTLY ADMINISTERED. PT AGREES TO USE CALL LIGHT IF PAIN PERSISTS OR WORSENS. ASSESSMENT COMPLETED. CALL LIGHT AND H2O IN REACH. STUDENT NURSE AND INSTRUCTOR AT BEDSIDE ADMINISTERING AM MEDICATIONS. NO FURTHER NEEDS OR CONCERNS VOICED.
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
--- NOTE | 2019-11-18 12:42 | NUR ---
PT REPORTS 6/10 CONSTANT ACHING PAIN TO ABDOMEN. PRN PO ANALGESIC ADMINISTERED PER PT REQEUST. PT EDUCATED ON SIDE EFFECTS OF MED AND PT VERBALIZED UNDERSTANDING. CALL LIGHT AND H2O IN REACH. NO FURTHER NEEDS OR CONCERNS VOICED.
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
--- NOTE | 2019-11-18 14:35 | NUR ---
Pt back to bed from working with pt. Pt alert and oriented assessment completed. pt states pain now tolerable. No needs or concerns voiced. Call light and fresh h2o in reach.
--- NOTE | 2019-11-18 17:10 | NUR ---
PT REPORTS 9/10 SHARP ACHING PAIN TO ABDOMEN. PT REQUESTED AND RECEIVED PRN IV ANALGESIC ALONG WITH PRN PO IBUPROFEN. CALL LIGHT AND H2O IN REACH. NO NEEDS OR CONCERNS VOICED.
--- NOTE | 2019-11-18 18:10 | NUR ---
PT RESTING IN SEMIFOWLERS POSITION IN BED ALERT AND ORIENTED. CALL LIGHT AND H2O IN REACH. PT STATES PAIN IS TOLERABLE AND DENIES OTHER NEEDS OR CONCERNS.
--- NOTE | 2019-11-18 19:05 | NUR ---
SHIFT REPORT RECIEVED FROM RITA SALGADO. PT RESTING IN BED, EYES CLOSED. RR EVEN, UNLABORED. FAMILY IN ROOM. CALL LIGHT IN REACH.
--- NOTE | 2019-11-18 21:18 | NUR ---
ASSESSMENT, VS AND I&O COMPLETED. INCISIONS WNL, OPEN TO AIR. SHAVON WNL. IV CDI, WNL, FLUSHED WELL. NEW BAG OF IV FLUIDS PROVIDED. IV FLUIDS INFUSING PER ORDER. ICE WATER PROVIDED. NO OTHER NEEDS, CALL ILANA BEAVERS.
--- NOTE | 2019-11-18 23:25 | NUR ---
PT RESTING IN BED, EYES CLOSED. RR EVEN, UNLABORED. IV FLUIDS INFUSING PER ORDER. MOTHER IN ROOM. CALL LIGHT IN REACH.
--- NOTE | 2019-11-19 01:36 | NUR ---
PT RESTING IN BED, EYES CLOSED. RR EVEN, UNLABORED. MOM IN ROOM. SCDs ON. IV FLUIDS INFUSING PER ORDER. CALL LIGHT IN REACH.
--- NOTE | 2019-11-19 02:09 | NUR ---
PT CALLED. STATED SHE HAD EMPTIED HER SHAVON, AND NEEDED TO EMPTY MORE. HAD TOTAL OF 160 OUT AT THIS TIME. EVAN-ORANGE COLOR. HAS SOME MINOR DISCOMFORT R SIDE. VOIDED WITHOUT DIFFICULTY. NO OTHER NEEDS.
--- NOTE | 2019-11-19 03:13 | NUR ---
PT RESTING IN BED, EYES CLOSED. RR EVEN, UNLABORED. MOTHER IN ROOM. CALL LIGHT IN REACH.
--- NOTE | 2019-11-19 05:18 | NUR ---
PT COMPLAINS OF 4/10 ABD PAIN. PRN PAIN MED PROVIDED. VS, I&O AND ASSESSMENT COMPLETED. INCISIONS WNL. SHAVON EMPTIED OF SS FLUID. NO OTHER NEEDS, CALL LIGHT IN REACH.
--- NOTE | 2019-11-19 07:15 | NUR ---
PT RESTING SUPINE IN BED, EYES CLOSED AND RESPIRATIONS EVEN AND UNLABORED. CALL LGIHT AND H2O IN REACH. PT APPEARS TO BE SLEEPING COMFORTABLY. BEDSIDE REPORT RECEIVED FROM DAMIAN JOYCE.
--- NOTE | 2019-11-19 09:33 | NUR ---
PT RESTING SUPINE IN BED ALERT AND ORIENTED. PT DENIES NEEDS OR CONCERNS. PT DENIES PAIN, NAUSEA, DIZZINESS, SOB OR ANY OTHER SYMPTOMS. CALL LIGHT AND H2O IN REACH. PT TOLERATED HER BREAKFAST VERY WELL. PT STATES "I HOPE I GET TO GO HOME SOON". PT ASSESSMENT COMPLETED AND SHAVON DRAIN EMPTIED OF 25MLS OF SS.
--- NOTE | 2019-11-19 10:30 | NUR ---
Spoke with Marine. States she is feeling well today. No nausea and tolerating food. Wants to go home today and plans on dc when Dr. Solorzano writes orders. Denies any needs for equipment. Will dc home with family.
[2019-11-19] MEDS ORDERED: IBUPROFEN600 MG PO (10:44)
[2019-11-19] MEDS ORDERED: OFIRMEV1000 MG/10 IV (10:44)
[2019-11-19] MEDS ORDERED: OXYCODON-ACETA1 EAC2 PO (10:44)
--- NOTE | 2019-11-19 10:56 | NUR ---
SET PATIENT UP FOR A SHOWER. SHE ALREADY BRUSHED HER TEETH AND WASHED HER FACE. WHEN I DID PATIENT'S VITALS THIS MORNING PATIENT WAS SLEEPING. TOOK HER BREAKFAST TRAY OUT.
--- NOTE | 2019-11-19 11:06 | NUR ---
PT REQEUSTED IV BE REMOVIED SHE WOULD LIKE TO SHOWER PRIOR TO DISCHARGING. MD DISCHARGE ORDER IN SO IV DC'D, [facility]AS INTACT. PT UP TO SHOWER AND AGREES TO USE CALL LIGHT IF NEEDED. NO FURTHER NEEDS OR CONCERNS VOICED.
[2019-11-19] MEDS ORDERED: TYLENOL EXTRA500 MG PO (11:15)
== END 2019-11-19 12:30 | disposition home or self-care (01) | DRG 330 ==
LOC: ED 20:32 → MS 20:34
PROVIDERS: ADMIT Surgery
PROC: 0DBN8ZX Excision of Sigmoid Colon, Via Natural or Artificial Opening Endoscopic, Diagnostic (ICD-10-PCS; 2019-11-12)
PROC: 3E0H8KZ Introduction of Other Diagnostic Substance into Lower GI, Via Natural or Artificial Opening Endoscopic (ICD-10-PCS; 2019-11-12)
PROC: 0DBN0ZZ Excision of Sigmoid Colon, Open Approach (ICD-10-PCS; principal; 2019-11-14 10:30)
DX: K56.1 Intussusception (principal); K57.20 Diverticulitis of large intestine with perforation and abscess without bleeding; E66.01 Morbid (severe) obesity due to excess calories; F41.9 Anxiety disorder, unspecified; F43.10 Post-traumatic stress disorder, unspecified; Q07.00 Arnold-Chiari syndrome without spina bifida or hydrocephalus; V89.2XXS Person injured in unspecified motor-vehicle accident, traffic, sequela; Z79.899 Other long term (current) drug therapy; Z68.30 Body mass index [BMI] 30.0-30.9, adult
CPT/HCPCS: 00790; 36415; 51702; 51798; 74018; 74177; 80048; 80053; 81001; 83735; 84703; 85025; 87502; 88304; 88305; 94760; 94762; 96361; 96376; 99153; 99285-25; A9270; G0378; G0500; J0131; J0694; J1100; J1170; J1644; J1885; J2250; J2270; J2405; J2550; J2704; J3010; J7030; J7121; Q9967

== ENCOUNTER 2019-12-01 23:52 | Observation (INO) | payer OTHER ==
[~2019-12-01] VITALS: Ht 154.9 cm; Wt 73.9 kg
--- NOTE | ~2019-12-01 | HP ---
[facility] [address], [place] [address] Draft ADMISSION DATE: 12/01/2019 REASON FOR ADMISSION: Early small bowel obstruction. HISTORY OF PRESENT ILLNESS: This 39-year-old morbidly obese woman underwent operation by me on November 14, 2019 for intussusception of the sigmoid. Segmental resection with anastomosis was accomplished as a full bowel prep ultimately could be undertaken following the colonoscopic decompression of the colon. She had been doing well since her discharge on November 19, but last night began having mid abdominal and some left lower abdominal pain. Oral food intake did not help things and she began with frequent vomiting. She presented to the emergency room at approximately midnight where she was evaluated by Dr. Selby. A CT scan was performed showing what was considered possibly early small-bowel obstruction. A nasogastric tube was placed and she was admitted for further evaluation and care. She was noted to have a normal white count of 10.2, hematocrit 37.6, and electrolytes, which were normal. At present, the only thing bothering her is a nasogastric tube, which was in place. Notably, it has had essentially no output. A chest x-ray was used to confirm its presence in the stomach, which is noted. PAST MEDICAL HISTORY: Significant for Arnold-Chiari malformation, for which neurosurgical intervention is anticipated based on headaches related to it. MEDICATIONS: At time of admission included Percocet as well as taking Valium 10 mg every 8 hours as needed for vertigo. ALLERGIES: She has no known drug allergies. REVIEW OF SYSTEMS: She denies any chest pain or shortness of breath. She has had no hematemesis or blood per rectum. Denies any dysuria or hematuria. PHYSICAL EXAMINATION: PATIENT NAME: LAURA MAGDALENO HISTORY AND PHYSICAL DATE OF : 80 REPORT #: [id number] PHYSICIAN: BESSY LICONA MD PCP: ARGELIA LIM PA-C REPORT IS CONFIDENTIAL AND NOT TO BE RELEASED WITHOUT AUTHORIZATION [facility] [address], [place] [address] Draft GENERAL: A morbidly obese, white woman, who looks to be in no severe distress at this time. VITAL SIGNS: Her temperature is 97.7, pulse 65, blood pressure 133/76, pulse oximetry is 100% on room air. NECK: Shows no thyromegaly or cervical adenopathy. Trachea is midline. HEENT: Mucous membranes are reasonably moist. A nasogastric tube was in place, but shows no sign of output from it. Chest x-ray was reviewed, confirming the tube to be in the stomach. Plain x-ray shows no sign of distended loops of air-fluid levels or anything of that sort. CT scan was reviewed additionally showing area of small bowel dilation, particularly the right side of the abdomen. There are inflammatory changes of the incision as would be expected at this time since her operation. There is no sign of large bowel obstruction by any means. No sign of intraabdominal fluid or fluid collection. ABDOMEN: Examination shows a markedly obese abdomen. Midline incision is healing well. No sign of infection. Certainly, no sign of hernia. She has mild diffuse tenderness currently. EXTREMITIES: Show no clubbing, cyanosis, or edema. LABORATORY DATA: Lab studies at admission showed a white count of 10.2, hematocrit of 32.6, platelets 535,000. Electrolytes are normal. Creatinine 0.52, glucose 112. Liver enzymes are normal. Lipase is 12. Beta-hCG is negative. Urinalysis; specific gravity 1.037, otherwise normal. ASSESSMENT: The patient does appear to have an early postoperative bowel obstruction. She was doing quite well until yesterday. Inflammatory changes in the incision are indicative of what would be expected this time out from operation (essentially 19 days postop). The nasogastric tube decompression is showing no fluid being decompressed, but of course swallowed air is decompressed and that may be beneficial, allowing for resolution of her obstruction without operative intervention. We will continue with IV fluids, nasogastric tube for now, initiate ambulation for stimulation of the bowel. If things are not improving, a small-bowel follow-through with Gastrografin-based contrast may be a consideration. Bessy Licona MD PATIENT NAME: LAURA MAGDALENO HISTORY AND PHYSICAL DATE OF : 80 REPORT #: [id number] PHYSICIAN: BESSY LICONA MD PCP: ARGELIA LIM PA-C REPORT IS CONFIDENTIAL AND NOT TO BE RELEASED WITHOUT AUTHORIZATION [facility] [address], [place] [address] Draft HUE/YARELI /[id number] cc: Argelia Lim PA-C Copies: ARGELIA LIM PA-C ~ PATIENT NAME: LAURA MAGDALENO HISTORY AND PHYSICAL DATE OF : 80 REPORT #: [id number] PHYSICIAN: BESSY LICONA MD PCP: ARGELIA LIM PA-C REPORT IS CONFIDENTIAL AND NOT TO BE RELEASED WITHOUT AUTHORIZATION
[~2019-12-01 23:52] MED LIST changes: +FLAGYL500 MG PO; +OFIRMEV1000 MG/10 IV; +OXYCODON-ACETA1 EAC2 PO; +REPLESTA50000 UNIT PO; +TRAZODONE HCL50 MG PO; +TYLENOL EXTRA500 MG PO
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
--- NOTE | 2019-12-04 12:25 | EKG ---
[facility] [address] [facility] [place], [place] [address] Signed Normal sinus rhythm Normal ECG No previous ECGs available Confirmed by CJ CRAMER MD ([id number]) on 12/04/2019 12:25:29 PM Electronically Signed By: CJ CRAMER MD 12/04/19 1225 PATIENT NAME: LAURA MAGDALENO Electrocardiogram DATE OF : 80 PHYSICIAN: CJ CRAMER MD REPORT #: [id number] REPORT IS CONFIDENTIAL AND NOT TO BE RELEASED WITHOUT AUTHORIZATION
== END 2019-12-04 10:45 | disposition home or self-care (01) ==
LOC: ED 23:52 → MS 23:54
PROVIDERS: ADMIT Surgery
DX: K56.609 Unspecified intestinal obstruction, unspecified as to partial versus complete obstruction (principal); R07.9 Chest pain, unspecified; F41.9 Anxiety disorder, unspecified; F43.10 Post-traumatic stress disorder, unspecified; Z79.899 Other long term (current) drug therapy
CPT/HCPCS: 36415; 43752; 71045; 74018; 74177; 80053; 81001; 83690; 83735; 84484; 84703; 85025; 92950; 93005; 93010; 96361; 96372; 96375; 96376; 99285-25; A9270; G0378; J1170; J1644; J1885; J2060; J2405; J7040; J7121; Q0177; Q9967

== ENCOUNTER 2019-12-11 12:25 | Emergency (ER) | payer OTHER ==
[~2019-12-11] VITALS: Ht 154.9 cm; Wt 73.9 kg
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
--- NOTE | 2019-12-11 20:40 | EKG ---
[facility] [address] [facility] [place], [place] [address] Signed Normal sinus rhythm Normal ECG When compared with ECG of 02-DEC-2019 17:54, No significant change was found Confirmed by NELLA JOSEPH DO ([id number]) on 12/11/2019 8:40:05 PM Electronically Signed By: NELLA JOSEPH DO 12/11/192039 PATIENT NAME: LAURA MAGDALENO Electrocardiogram DATE OF : 80 PHYSICIAN: NELLA JOSEPH DO REPORT #: [id number] REPORT IS CONFIDENTIAL AND NOT TO BE RELEASED WITHOUT AUTHORIZATION
== END 2019-12-11 16:35 | disposition home or self-care (01) ==
LOC: ED 12:25
DX: R10.13 Epigastric pain (principal)
CPT/HCPCS: 74177; 80053; 81001; 83690; 84703; 85025; 93005; 93010; 99284-25; J2270; J2405; Q9967

== ENCOUNTER 2020-04-05 21:45 | Emergency (ER) | payer OTHER ==
[~2020-04-05] VITALS: Ht 154.9 cm; Wt 73.9 kg
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
--- OUTSIDE RECORDS SUMMARY | ~2020-04-05 | XMS | Encounter Summary ---
Demographics + + + | Address | [address] | | | [place] [address] | + + + | Home Phone | | + + + | Preferred Language | Unknown | + + + | Marital Status | Single | + + + | Faith Affiliation | 1041 | + + + | Race | Unknown | + + + | Ethnic Group | Unknown | + + + Author + + + | Author | [facility] | | | and [place] | + + + | Organization | [facility] | | | and [place] | + + + | Address | Unknown | + + + | Phone | Unavailable | + + + Support + + +---------+ + | Name | Relationship | Address | Phone | + + +---------+ + | Placdio Thakur | ECON | Unknown | | + + +---------+ + Care Team Providers + +------+ + | Care Band Reamer Machine Operator Name | Role | Phone | + +------+ + | Hai Webb MD | PCP | | + +------+ + Encounter Details +--------+ + + + + | Date | Type | Department | Care Team | Description | +--------+ + + + + | 12/10/ | Imaging | [facility] | Provider, | | | 2019 | Exam | [facility] | MD [address] | | | | | IMAGING [address] | [address] | | | | | [address] [place] | [place] [address] | | | | | [place] [address] | | | | | | [phone] | | | +--------+ + + + [...] [place] | | | | | | [place] [address] | | | | | | [phone] | | | | | | | | +--------+---------+ + + + | 05/04/ | Office | Neurosurgery | Jim Mckoy | | | 2019 | Visit | | MD Maxime Deng | | | | | | [address] [place] | | | | | | [place] [address] | | | | | | [phone] | | | | | | | | +--------+---------+ + + + documented as of this encounter Procedures + +--------+ + + + | Procedure Name | Priori | Date/Time | Associated Diagnosis | Comments | | | ty | | | | + +--------+ + + + | MRI SHOULDER LEFT WO | Routin | 10/02/2018 | | Results for this | | CONTRAST | e | 7:15 AM | | procedure are in the | | | | PST | | results section. | + +--------+ + + + documented in this encounter Results MRI Shoulder Left wo Contrast (10/02/2018 7:15 AM PST) + + | Specimen | + + | | + + + + + | Narrative | Performed At | + + + | External films for comparison only | [facility] | | | | | No results will be in the chart. | | + + + + +---------+ + + | Performing | Address | City/State/Zipcode | Phone Number | | Organization | | | | + +---------+ + + | [facility] | | | | + +---------+ + + documented in this encounter Visit Diagnoses Not on filedocumented in this encounter"
--- OUTSIDE RECORDS SUMMARY | ~2020-04-05 | XMS | Encounter Summary ---
Demographics + + + | Address | [address] | | | [place] [address] | + + + | Home Phone | | + + + | Preferred Language | Unknown | + + + | Marital Status | Single | + + + | Adventist Affiliation | 1041 | + + + | Race | Unknown | + + + | Ethnic Group | Unknown | + + + Author + + + | Author | [facility] | | | and [place] | + + + | Organization | [facility] | | | and [place] | [...] Team Providers + +------+ + | Care Ice Sculptor Name | Role | Phone | + +------+ + | Argelia Lim | PCP | | + +------+ + Encounter Details +--------+ + + + + | Date | Type | Department | Care Team | Description | +--------+ + + + + | 03/16/ | Preadmit | [facility] | Jim Mckoy | Chronic migraine; | | 2019 | Visit | [facility] | MD [facility] [address] | [place] | | | | CLINIC [address] | [address] [place] | malformation (HCC); | | | | [place], [place] | [place] [address] | Tinnitus of both | | | | [address] | [phone] | ears; Bilateral | | | | [phone] | | occipital neuralgia; | | | | | | Acute deep vein | | | | | | thrombosis (DVT) of | | | | | | right lower | | | | | | extremity, | | | | | | unspecified vein | | | | | | (HCC); Bilateral | | | | | | tinnitus; Vertigo | +--------+ + + + + Social [...] | Visit | | MD Maxime Deng Rene GARCÍA | | | | | | [address] [place] | | | | | | [place] [address] | | | | | | [phone] | | | | | | | | +--------+---------+ + + + | 05/04/ | Office | Neurosurgery | Jim Mckoy | | | 2019 | Visit | | MD Maxime Deng | | | | | | [address] [place] | | | | | | [place] [address] | | | | | | [phone] | | | | | | | | +--------+---------+ + + + documented as of this encounter Procedures + +--------+ + + + | Procedure Name | Priori | Date/Time | Associated Diagnosis | Comments | | | ty | | | | + +--------+ + + + | CULTURE, MRSA | Routin | 03/16/2020 | Chronic migraine | Results for this | | | e | 12:49 PM | Arnold-Chiari | procedure are in the | | | | PDT | malformation (HCC) | results section. | | | | | Tinnitus of both | | | | | | ears Bilateral | | | | | | occipital neuralgia | | + +--------+ + + + | PTT | Routin | 03/16/2020 | Chronic migraine | Results for this | | | e | 12:49 PM | Acute deep vein | procedure are in the | | | | PDT | thrombosis (DVT) of | results section. | | | | | right lower | | | | | | extremity, | | | | | | unspecified vein | | | | | | (HCC) Bilateral | | | | | | occipital neuralgia | | | | | | Bilateral tinnitus | | | | | | Vertigo | | + +--------+ + + + | PROTIME INR | Routin | 03/16/2020 | Chronic migraine | Results for this | | | e | 12:49 PM | Acute deep vein | procedure are in the | | | | PDT | thrombosis (DVT) of | results section. | | | | | right lower | | | | | | extremity, | | | | | | unspecified vein | | | | | | (HCC) Bilateral | | | | | | occipital neuralgia | | | | | | Bilateral tinnitus | | | | | | Vertigo | | + +--------+ + + + | CBC WITH | Routin | 03/16/2020 | Chronic migraine | Results for this | | DIFFERENTIAL | e | 12:49 PM | Acute deep vein | procedure are in the | | | | PDT | thrombosis (DVT) of | results section. | | | | | right lower | | | | | | extremity, | | | | | | unspecified vein | | | | | | (HCC) Bilateral | | | | | | occipital neuralgia | | | | | | Bilateral tinnitus | | | | | | Vertigo | | + +--------+ + + + | BASIC METABOLIC | Routin | 03/16/2020 | Arnold-Chiari | Results for this | | PANEL | e | 12:49 PM | malformation (HCC) | procedure are in the | | | | PDT | | results section. | + +--------+ + + + documented in this encounter Results CBC with Differential (03/16/2020 12:49 PM PDT) + + + + + + | Component | Value | Ref Range | Performed | Pathologist | | | | | At | Signature | + + + + + + | White Blood | 7.5 | 4.0 - 11.0 K/uL | [facility] | | | Cells | | | [facility] | | | | | | [facility] | | | | | | [facility] - | | | | | | LABORATORY | | + + + + + + | Red Blood | 4.73 | 3.70 - 5.20 | [facility] | | | Cells | | M/uL | [facility] | | | | | | [facility] | | | | | | C[facility] - | | | | | | LABORATORY | | + + + + + + | Hemoglobin | 9.7 (L) | 11.5 - 16.0 | [facility] | | | | | g/dL | [facility] | | | | | | [facility]ICAL | | | | | | CENTER - | | | | | | LABORATORY | | + + + + + + | Hematocrit | 32.2 (L) | 34.0 - 47.0 % | [facility] | | | | | | [facility] | | | | | | [facility] | | | | | | C[facility] - | | | | | | LABORATORY | | + + + + + + | MCV | 68.1 (L) | 83.0 - 101.0 fL | [facility] | | | | | | [facility] | | | | | | [facility] | | | | | | [facility] - | | | | | | LABORATORY | | + + + + + + | MCH | 20.5 (L) | 28.0 - 35.0 pg | [facility] | | | | | | [facility] | | | | | | [facility]ICAL | | | | | | CENTER - | | | | | | LABORATORY | | + + + + + + | MCHC | 30.1 (L) | 32.0 - 36.0 | [facility] | | | | | g/dL | [facility] | | | | | | MEDICAL | | | | | | CENTER - | | | | | | LABORATORY | | + + + + + + | RDW-CV | 19.4 (H) | <15.0 % | [facility] | | | | | | [facility] | | | | | | [facility] | | | | | | C[facility] - | | | | | | LABORATORY | | + + + + + + | RDW-SD | 45.5 | 35.1 - 46.3 fL | [facility] | | | | | | [facility] | | | | | | [facility] | | | | | | [facility] - | | | | | | LABORATORY | | + + + + + + | Platelet | 310 | 140 - 440 K/uL | [facility] | | | Count | | | [facility] | | | | | | [facility] | | | | | | CENTER - | | | | | | LABORATORY | | + + + + + + | MPV | 10.3 | 6.5 - 12.4 fL | [facility] | | | | | | [facility] | | | | | | [facility] | | | | | | C[facility] - | | | | | | LABORATORY | | + + + + + + | % | 56.0 | 45.0 - 82.0 % | [facility] | | | Neutrophils | | | [facility] | | | | | | MEDICAL | | | | | | CENTER - | | | | | | LABORATORY | | + + + + + + | % | 30.2 | 20.0 - 45.0 % | [facility] | | | Lymphocytes | | | [facility] | | | | | | MEDICAL | | | | | | CENTER - | | | | | | LABORATORY | | + + + + + + | % Monocytes | 8.2 | 4.0 - 12.0 % | [facility] | | | | | | [facility] | | | | | | [facility]ICAL | | | | | | CENTER - | | | | | | LABORATORY | | + + + + + + | % | 4.4 | 0.0 - 5.0 % | [facility] | | | Eosinophils | | | [facility] | | | | | | MEDICAL | | | | | | CENTER - | | | | | | LABORATORY | | + + + + + + | % Basophils | 0.5 | 0.0 - 1.0 % | [facility] | | | | | | [facility] | | | | | | MEDICAL | | | | | | CENTER - | | | | | | LABORATORY | | + + + + + + | % Immature | 0.7 (H)Comment: | 0.0 - 0.4 % | [facility] | | | Granulocyte | Preliminary studies have | | [facility] | | | s | indicated the IG% | | MEDICAL | | | | and/or IG# show promise | | CENTER - | | | | as an early indicator | | LABORATORY | | | | for infection. For | | | | | | patients, use | | | | | | the special reference | | | | | | ranges listed below. | | | | + + + + + + | Absolute | 4.22 | 1.80 - 8.50 | [facility] | | | Neutrophils | | K/uL | [facility] | | | | | | MEDICAL | | | | | | CENTER - | | | | | | LABORATORY | | + + + + + + | Absolute | 2.28 | 0.60 - 3.20 | [facility] | | | Lymphocytes | | K/uL | [facility] | | | | | | [facility] | | | | | | CENTER - | | | | | | LABORATORY | | + + + + + + | Absolute | 0.62 | 0.00 - 1.00 | [facility] | | | Monocytes | | K/uL | [facility] | | | | | | MEDICAL | | | | | | CENTER - | | | | | | LABORATORY | | + + + + + + | Absolute | 0.33 | 0.00 - 0.40 | [facility] | | | Eosinophils | | K/uL | [facility] | | | | | | [facility]ICAL | | | | | | CENTER - | | | | | | LABORATORY | | + + + + + + | Absolute | 0.04 | 0.00 - 0.10 | [facility] | | | Basophils | | K/uL | [facility] | | | | | [facility] | | | | | | C[facility] - | | | | | | LABORATORY | | + + + + + + | Absolute | 0.05 (H)Comment: For | 0.00 - 0.03 | [facility] | | | Immature | patients, use | K/uL | [facility] | | | Granulocyte | the special reference | | MEDICAL | | | s | ranges listed below. | | CENTER - | | | | | | LABORATORY | | + + + + + + | % nRBC | 0 | 0 - 2 per 100 | [facility] | | | | | WBCs | [facility] | | | | | | MEDICAL | | | | | | CENTER - | | | | | | LABORATORY | | + + + + + + | Absolute | 0.00 | 0.00 - 0.01 | [facility] | | | nRBC | | K/uL | [facility] | | | | | | MEDICAL | | | | | | CENTER - | | | | | | LABORATORY | | + + + + + + + + | Specimen | + + | Blood | + + + + + | Narrative | Performed At | + + + | IMMATURE GRANULOCYTES - For patients, use the following | [facility] | | reference ranges: Trim. Absolute (K/uL) Percentage (%) | [facility] | | 1st 0.003-0.091 K/uL 0.0-0.9% 2nd 0.007-0.247 K/uL | [facility] | | 0.1-2.0% 3rd 0.018-0.456 K/uL 0.1-2.0% | - LABORATORY | + + + + + + + + | Performing | Address | City/State/Zipcode | Phone Number | | Organization | | | | + + + + + | [facility] | [address] | [place] | [phone] | | [facility] | | [address] | | | - LABORATORY | | | | + + + + + PTT (03/16/2020 12:49 PM PDT) + +-------+ + + + | Component | Value | Ref Range | Performed | Pathologist | | | | | At | Signature | + +-------+ + + + | aPTT | 28 | 22 - 36 seconds | [facility] | | | | | | [facility] | | | | | | MEDICAL | | | | | | CENTER - | | | | | | LABORATORY | | + +-------+ + + + + + | Specimen | + + | Blood | + + + + + + + | Performing | Address | City/State/Zipcode | Phone Number | | Organization | | | | + + + + + | [facility] | [address] | [place] | [phone] | | [facility] | | [address] | | | - LABORATORY | | | | + + + + + Protime INR (03/16/2020 12:49 PM PDT) + + + + + + | Component | Value | Ref Range | Performed | Pathologist | | | | | At | Signature | + + + + + + | Prothrombin | 12.3 | 11.3 - 13.9 | [facility] | | | Time | | seconds | [facility] | | | | | | MEDICAL | | | | | | CENTER - | | | | | | LABORATORY | | + + + + + + | INR | 0.9Comment: Usual Oral | 0.9 - 1.1 | [facility] | | | | Anticoagulation Range: | | [facility] | | | | 2.0 - 3.0High | | MEDICAL | | | | Level Oral | | CENTER - | | | | Anticoagulation Range: | | LABORATORY | | | | 2.5 - 3.5 | | | | + + + + + + + + | Specimen | + + | Blood | + + + + + + + | Performing | Address | City/State/Zipcode | Phone Number | | Organization | | | | + + + + + | [facility] | [address] | [place], [place] | [phone] | | [facility] | | [address] | | | - LABORATORY | | | | + + + + + Basic Metabolic Panel (03/16/2020 12:49 PM PDT) + + + + + + | Component | Value | Ref Range | Performed | Pathologist | | | | | At | Signature | + + + + + + | Na | 139 | 136 - 145 | [facility] | | | | | mmol/L | [facility] | | | | | | MEDICAL | | | | | | CENTER - | | | | | | LABORATORY | | + + + + + + | K | 3.7 | 3.4 - 5.1 | [facility] | | | | | mmol/L | [facility] | | | | | | MEDICAL | | | | | | CENTER - | | | | | | LABORATORY | | + + + + + + | Cl | 105 | 98 - 107 mmol/L | [facility] | | | | | | [facility] | | | | | | MEDICAL | | | | | | CENTER - | | | | | | LABORATORY | | + + + + + + | CO2 | 27 | 20 - 31 mmol/L | [facility] | | | | | | [facility] | | | | | | MEDICAL | | | | | | CENTER - | | | | | | LABORATORY | | + + + + + + | Anion Gap | 7 | 3 - 16 mmol/L | [facility] | | | | | | [facility] | | | | | | MEDICAL | | | | | | CENTER - | | | | | | LABORATORY | | + + + + + + | Glucose | 94 | 60 - 106 mg/dL | [facility] | | | | | | [facility] | | | | | | MEDICAL | | | | | | CENTER - | | | | | | LABORATORY | | + + + + + + | BUN | 10 | 9 - 23 mg/dL | [facility] | | | | | | [facility] | | | | | | MEDICAL | | | | | | CENTER - | | | | | | LABORATORY | | + + + + + + | Creatinine | 0.44 (L) | 0.55 - 1.02 | [facility] | | | | | mg/dL | [facility] | | | | | | MEDICAL | | | | | | CENTER - | | | | | | LABORATORY | | + + + + + + | eGFR if not | >60Comment: GLOMERULAR | >=60 | [facility] | | | | FILTRATION | mL/min/1.73m2 | [facility] | | | PANA[place]IAN | RATE,ESTIMATED | | MEDICAL | | | | mL/min/1.41l3Lefa than | | CENTER - | | [...] | | | | | mg/dL | [facility] | | | | | | MEDICAL | | | | | | CENTER - | | | | | | LABORATORY | | + + + + + + | BUN/Creatin | 22.7 | | [facility] | | | ine Ratio | | | [facility] | | | | | | [...] | + + + + + | [facility] | [address] | [place] | [phone] | | [facility] | | [address] | | | - LABORATORY | | | | + + + + + Culture, MRSA (03/16/2020 12:49 PM PDT) + + + + + + | Component | Value | Ref Range | Performed | Pathologist | | | | | At | Signature | + + + + + + | Culture | Negative for MRSA by | | [facility] | | | | chromogenic agar method. | | [facility] | | | | | | MEDICAL | | | | | | CENTER - | | | | | | LABORATORY | | + + + + + + + + | Specimen | + + | Tissue - Both | | anterior nares (body | | structure) | + + + + + + + | Performing | Address | City/State/Zipcode | Phone Number | | Organization | | | | + + + + + | [facility] | [address] | [place] | [phone] | | [facility] | | [address] | | | - LABORATORY | | | | + + + + + documented in this encounter Visit Diagnoses + + | Diagnosis | + + | Chronic migraine Chronic migraine without aura, without mention of intractable | | migraine without mention of status migrainosus | + + | Arnold-Chiari malformation (HCC) Spina bifida with hydrocephalus, unspecified region | + + | Tinnitus of both ears Unspecified tinnitus | + + | Bilateral occipital neuralgia Other syndromes affecting cervical region | + + | Acute deep vein thrombosis (DVT) of right lower extremity, unspecified vein (HCC) | + + | Bilateral tinnitus | + + | Vertigo Dizziness and giddiness | + + documented in this encounter"
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
--- OUTSIDE RECORDS SUMMARY | ~2020-04-05 | XMS | Encounter Summary ---
Demographics + + + | Address | [address] | | | [place] [address] | + + + | Home Phone | | + + + | Preferred Language | Unknown | + + + | Marital Status | Single | + + + | Faith Affiliation | 1041 | + + + | Race | Unknown | + + + | Ethnic Group | Unknown | + + + Author + + + | Author | [facility] [place] | | | and [place] | + + + | Organization | [facility] [place] | | | and [place] [...] Team Providers + +------+ + | Care Air Brake Mechanic Name | Role | Phone | + +------+ + | Argelia Lim | PCP | | + +------+ + Encounter Details +--------+ + + + + | Date | Type | Department | Care Team | Description | +--------+ + + + + | 01/07/ | Orders Only | [facility] [place] | Wolfgang Harper | | | 2019 | | NEUROSURGERY [address] | MD Anuj [address] | | | | | [address] | [address] | | | | | [place] | [place] | | | | | [address] | [address] | | | | | [phone] | | | +--------+ + + + [...] [address] | | | | | | [address] [place] | | | | | | [place] [address] | | | | | | [phone] | | | | | | | | +--------+---------+ + + + | 05/04/ | Office | Neurosurgery | Jim Mckoy | | | 2019 | Visit | | MD Ish [address] | | | | | | [address] [place] | | | | | | [place] [address] | | | | | | [phone] | | | | | | | | +--------+---------+ + + + documented as of this encounter Visit Diagnoses Not on filedocumented in this encounter"
--- OUTSIDE RECORDS SUMMARY | ~2020-04-05 | XMS | Encounter Summary ---
Demographics + + + | Address | [address] | | | [place] [address] | + + + | Home Phone | | + + + | Preferred Language | Unknown | + + + | Marital Status | Single | + + + | Jehovah'S Witness Affiliation | 1041 | + + + | Race | Unknown | + + + | Ethnic Group | Unknown | + + + Author + + + | Author | [facility] [place] | | | and [place] | + + + | Organization | [facility] [place] | | | and [place] [...] Team Providers + +------+ + | Care Project Manager Process Development Name | Role | Phone | + +------+ + | Hai Webb MD | PCP | | + +------+ + Reason for Visit + +--------+ + | Reason | Onset | Comments | | | Date | | + +--------+ + | Medication Refill | 03/10/ | | | Assistance | 2019 | | + +--------+ + Encounter Details +--------+ + + + + | Date | Type | Department | Care Team | Description | +--------+ + + + + | 03/10/ | Telephone | [facility] [place] | Talib White, | Medication Refill | | 2019 | | PHYSIATRY [address] | PA-C [address] | Assistance | | | | [address] | [address] [place] | | | | | [place], [place] | [place] [address] | | | | | [address] | [phone] | | | | | [phone] | | | +--------+ + + + [...] + + documented as of this encounter Miscellaneous Notes Telephone Encounter - Pam Burk - 03/10/2019 4:31 PM PDTFYI per patient would lik e RX sent to [facility] in [place] for future refills documented in this encounter Plan of Treatment +--------+---------+ + + + | Date | Type | Specialty | Care Team | Description | +--------+---------+ + + + | 04/07/ | Office | Neurosurgery | Jim Mckoy | | | 2019 | Visit | | MD Maxime Deng | | | | | | [address] [place] | | | | | | [place] [address] | | | | | | [phone] | | | | | | | | +--------+---------+ + + + | 05/04/ | Office | Neurosurgery | Jim Mckoy | | | 2019 | Visit | | MD Maxime Deng | | | | | | [address] [place] | | | | | | [place] [address] | | | | | | [phone] | | | | | | | | +--------+---------+ + + + documented as of this encounter Visit Diagnoses Not on filedocumented in this encounter"
--- OUTSIDE RECORDS SUMMARY | ~2020-04-05 | XMS | Encounter Summary ---
Demographics + + + | Address | [address] | | | [place] [address] | + + + | Home Phone | | + + + | Preferred Language | Unknown | + + + | Marital Status | Single | + + + | Scientology Affiliation | 1041 | + + + | Race | Unknown | + + + | Ethnic Group | Unknown | + + + Author + + + | Author | [facility] [place] | | | and [place] | + + + | Organization | [facility] [place] | | | and [place] [...] Team Providers + +------+ + | Care Box Closing Machine Operator Name | Role | Phone | + +------+ + | Argelia Lim | PCP | | + +------+ + Reason for Visit + +--------+ + | Reason | Onset | Comments | | | Date | | + +--------+ + | Procedure | 08/31/ | | | | 2019 | | + +--------+ + Encounter Details +--------+ + + + + | Date | Type | Department | Care Team | Description | +--------+ + + + + | 08/31/ | Telephone | [facility] [place] | Jim Mckoy | Procedure | | 2019 | | NEUROSURGERY [address] | MD Ish [address] | | | | | [address] | [address] [place] | | | | | [place], [place] | [place] [address] | | | | | [address] | [phone] | | | | | [phone] | | | +--------+ + + + [...] this encounter Miscellaneous Notes Telephone Encounter - Katrin Gore - 09/01/2019 11:23 AM PSTPatient scheduled for Sep. elephone Chidio Lucy Oconnor CMA - 09/01/2019 11:[address] Leelee youssef to schedule with or PA. PSJenny updated and will be scheduling an appointment. elephone Encounter - Lucy Celaya CMA - 08/31/2019 3:03 PM PSTCall from patient stating she has healed from her knee surgery and will be off of the Xarelto as of 09/29/19. She would like to get the Arnold-Chiari procedure scheduled once she is off the Xarelto. Dr. Mckoy, would you like her to come in for a follow up prior to scheduling the procedur e? documented in this en counter Plan of Treatment +--------+---------+ + + + | Date | Type | Specialty | Care Team | Description | +--------+---------+ + + + | 04/07/ | Office | Neurosurgery | Jim Mckoy | | | 2019 | Visit | | MD Maxime Deng | | | | | | [facility] [address] [place] | | | | | | [place] [address] | | | | | | [phone] | | | | | | | | +--------+---------+ + + + | 05/04/ | Office | Neurosurgery | Jim Mckoy | | | 2019 | Visit | | MD Maxime Deng | | | | | | [address] [place] | | | | | | [place] [address] | | | | | | [phone] | | | | | | | | +--------+---------+ + + + documented as of this encounter Visit Diagnoses Not on filedocumented in this encounter"
--- OUTSIDE RECORDS SUMMARY | ~2020-04-05 | XMS | Clinical Summary ---
Demographics + + + | Address | [address] | | | [place] [address] | + + + | Home Phone | | + + + | Preferred Language | Unknown | + + + | Marital Status | Single | + + + | Orthodoxy Affiliation | Unknown | + + + [...] Team Providers + +------+ + | Care Director Clinical Pharmacology Name | Role | Phone | + +------+ + PCP | Unavailable | + +------+ + Source Comments LIZANDRO is fully live on both [facility] and [facility] InPatient.[facility] Allergies Not on File Medications Not on [...] Signs Not on file Plan of Treatment + + + + + | Health Maintenance | Due Date | Last Done | Comments | + + + + + | Influenza (Flu) | | | | | vaccination (#1) | 9 | | | + + + + + | Pneumococcal | Aged Out | | No longer eligible | | vaccination | | | based on patient's | | | | | age to complete this | | | | | topic | + + + + + Results Not on filefrom Last 3 Months Insurance + +--------+ +--------+-------+---------+--------+ | Payer | Benefi | Subscriber | Effect | Phone | Address | Type | | | t Plan | ID | ryne | | | | | | / | | Dates | | | | | | Group | | | | | | + +--------+ +--------+-------+---------+--------+ | [employer]ICA[employer] | SADDLE MECH[employer]IC | xxxxxxxx | Effect | | | [...] conrad | | | 1 (Home) | [id number] | + +--------+ +--------+ + +"
--- OUTSIDE RECORDS SUMMARY | ~2020-04-05 | XMS | Encounter Summary ---
Demographics + + + | Address | [address] | | | [place] [address] | + + + | Home Phone [...] Organization | [facility] [place] | | | and [...] Team Providers + +------+ + | Care Import Export Manager Name | Role | Phone | + +------+ + | Hai Webb MD | PCP | | + +------+ + Reason for Referral Diagnostic/Screening (Routine) +--------+--------+ + + + + | Status | Reason | Specialty | Diagnoses / | Referred By | Referred To | | | | | Procedures | Contact | Contact | +--------+--------+ + + + + | Closed | | Radiology | Diagnoses | Castillo, | [facility] | | | | | Cervicalgia | Robert Norris MD | [address] | | | | | Numbness | [address] | [place], | | | | | of left hand | [address] | [place] | | | | | Chronic | [place], | [address] | | | | | left | [place] [address] | Phone: | | | | | shoulder | Phone: | [phone] | | | | | pain | [phone] | Fax: | | | | | Procedures | Fax: | [phone] | | | | | MRI Cervical | [phone] | | | | | | Spine wo | | | | | | | Contrast | | | +--------+--------+ + + + + Reason for Visit Diagnostic/Screening (Routine) +--------+--------+ + + + + | Status | Reason | Specialty | Diagnoses / | Referred By | Referred To | | | | | Procedures | Contact | Contact | +--------+--------+ + + + + | Closed | | Radiology | Diagnoses | Castillo, | [facility] | | | | | Cervicalgia | Robert Norris MD | [address] | | | | | Numbness | [address] | [place], | | | | | of left hand | [address] | [place] | | | | | Chronic | [place], | [address] | | | | | left | [place] [address] | Phone: | | | | | shoulder | Phone: | [phone] | | | | | pain | [phone] | Fax: | | | | | Procedures | Fax: | [phone] | | | | | MRI Cervical | [phone] | | | | | | Spine wo | | | | | | | Contrast | | | +--------+--------+ + + + + Encounter Details +--------+ + + + + | Date | Type | Department | Care Team | Description | +--------+ + + + + | 04/06/ | Hospital | [facility] | Robert Castillo, | Cervicalgia; | | 2019 | Encounter | [facility] MRI [address] | MD [address] | Numbness of left | | | | [address] [place], | [place], [place] | hand; Chronic left | | | | [place] [address] | [address] | shoulder pain | | | | [phone] | | | +--------+ + + + [...] + + documented as of this encounter Medications at Time of Discharge + + + +---------+ + + | Medication | Sig | Dispensed | Refills | Start | End Date | | | | | | Date | | + + + +---------+ + + | citalopram | Take 1 tablet by | 30 | 1 | 03/09/20 | | | (CELEXA) 10 mg | mouth Daily. | tablet | | 19 | 9 | | tablet | | | | | | + + + +---------+ + + | diclofenac | | | 0 | 01/15/20 | 08/06/201 | | (VOLTAREN) 75 mg EC | | | | 19 | 9 | | tablet | | | | | | + + + +---------+ + + | gabapentin | | | 0 | 03/25/20 | | | (NEURONTIN) 300 mg | | | | 19 | 0 | | capsule | | | | | | + + + +---------+ + + | topiramate | 1 capsule by mouth | 90 | 1 | 03/18/20 | | | (TOPAMAX) 25 mg | at bedtime for 7 | tablet | | 19 | 0 | | tablet | days; then 2 at | | | | | | | bedtime for 7 days; | | | | | | | then 1 qAM and 2 qHS | | | | | + + + +---------+ + + documented as of this encounter [...] | | | | | | [place] [address] | | | | | | [phone] | | | | | | | | +--------+---------+ + + + | 05/04/ | Office | Neurosurgery | Jim Mckoy | | | 2020 | Visit | | MD Maxime Deng | | | | | | [address] [place] | | | | | | [place] [address] | | | | | | [phone] | | | | | | | | +--------+---------+ + + + documented as of this encounter Procedures + +--------+ + + + | Procedure Name | Priori | Date/Time | Associated Diagnosis | Comments | | | ty | | | | + +--------+ + + + | MRI CERVICAL SPINE | Routin | 04/06/2019 | Cervicalgia | Results for this | | WO CONTRAST | e | 9:52 AM | Numbness of left | procedure are in the | | | | PDT | hand Chronic left | results section. | | | | | shoulder pain | | + +--------+ + + + documented in this encounter Results MRI Cervical Spine wo Contrast (04/06/2019 9:52 [...] + | Diagnosis | + + | Cervicalgia | + + | Numbness of left hand | + + | Chronic left shoulder pain Pain in joint, shoulder region | + + documented in this encounter"
--- OUTSIDE RECORDS SUMMARY | ~2020-04-05 | XMS | Encounter Summary ---
Demographics + + + | Address | [address] | | | [place] [address] | + + + | Home Phone | | + + + | Preferred Language | Unknown | + + + | Marital Status | Single | + + + | Congregation Affiliation | 1041 | + + + | Race | Unknown | + + + | Ethnic Group | Unknown | + + + Author + + + | Author | [facility] [place] | | | and [place] | + + + | Organization | [facility] [place] | | | and [place] [...] Team Providers + +------+ + | Care Filler Shredder Machine Name | Role | Phone | + +------+ + | Argelia Lim | PCP | | + +------+ + Encounter Details +--------+ + + + + | Date | Type | Department | Care Team | Description | +--------+ + + + + | 09/25/ | Orders Only | [facility] [place] | Jim Mckoy | [place] | | 2020 | | NEUROSURGERY [address] | MD Ish [address] | malformation (HCC) | | | | [address] | [address] [place] | (Primary Dx); | | | | [place], [place] | [place] [address] | Tinnitus of both | | | | [address] | [phone] | ears; Vertigo | | | | [phone] | | | +--------+ + + + [...] | | | | | [address] [place] | | | | | | [place] [address] | | | | | | [phone] | | | | | | | | +--------+---------+ + + + | 05/04/ | Office | Neurosurgery | Jim Mckoy | | | 2019 | Visit | | MD Ish [address] | | | | | | [address] [place] | | | | | | [place] [address] | | | | | | [phone] | | | | | | | | +--------+---------+ + + + documented as of this encounter Visit Diagnoses + + | Diagnosis | + + | 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
--- OUTSIDE RECORDS SUMMARY | ~2020-04-05 | XMS | Encounter Summary ---
Demographics + + + | Address | [address] | | | [place] [address] | + + + | Home Phone | | + + + | Preferred Language | Unknown | + + + | Marital Status | Single | + + + | Oriental Orthodox Affiliation | 1041 | + + + | Race | Unknown | + + + | Ethnic Group | Unknown | + + + Author + + + | Author | [facility] [place] | | | and [place] | + + + | Organization | [facility] [place] | | | and [...] Team Providers + +------+ + | Care Conference Service Coordinator Name | Role | Phone | + +------+ + | Argelia Lim | PCP | | + +------+ + Reason for Visit + + + | Reason | Comments | + + + | Pain Management | preop and DC MEDD (DOS SUPERVISOR TUNNEL HEADING) | + + + Encounter Details +--------+ + + + + | Date | Type | Department | Care Team | Description | +--------+ + + + + | 03/28/ | Documentati | [facility] | Jim Mckoy | Pain Management | | 2020 | on | NEUROSURGERY [address] | MD Ish [address] | (preop and DC MEDD | | | | [address] | [address] [place] | (DOS SUPERVISOR TUNNEL HEADING)) | | | | [place] | [place] [address] | | | | | [address] | [phone] | | | | | [phone] | | | +--------+ + + + [...] + + documented as of this encounter Progress Notes Muna Vega RN - 03/28/2020 7:59 AM PDTPatient to discharge home today. DC MEDD= 90 Oxycocodone 5mg Take 1-2 tablets by mouth every 4 hours as needed for Pain maximum of 12 t abs in 24 hours #100 dwa Muna jones RN - 03/28/2020 7:59 AM PDTPDMP check r/t 03/28/20 Arnrachelle - Deon decompression by Dr. Mckoy PREOP MEDD=0 The following information was obtained from https://secureaccess.[employer].gov/myAccess/saw/select .do on 03/28/20. No results from [place] 3 month SUPERVISOR TUNNEL HEADING query Results from [facility] 3 month SUPERVISOR TUNNEL HEADING query documented in this enco unter Plan of Treatment +--------+---------+ + + + | Date | Type | Specialty | Care Team | Description | +--------+---------+ + + + | 04/07/ | Office | Neurosurgery | Jim Mckoy | | 2019 | Visit | | MD Maxime Deng | | | | | | [address] | | | | | | [place] [address] | | | | | | [phone] | | | | | | | | +--------+---------+ + + + | 05/04/ | Office | Neurosurgery | Jim Mckoy | | 2019 | Visit | | MD Maxime Deng | | | | | | [address] [place] [address] [place] | | | | | | [place] [address] | | | | | | [phone] | | | | | | | | +--------+---------+ + + + documented as of this encounter Visit Diagnoses Not on filedocumented in this encounter"
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
--- OUTSIDE RECORDS SUMMARY | ~2020-04-05 | XMS | Encounter Summary ---
Demographics + + + | Address | [address] | | | [place] [address] | + + + | Home Phone | | + + + | Preferred Language | Unknown | + + + | Marital Status | Single | + + + | Rastafarian Affiliation | 1041 | + + + | Race | Unknown | + + + | Ethnic Group | Unknown | + + + Author + + + | Author | [facility] | | | and [place] | + + + | Organization | [facility] | | | and [place] [...] Team Providers + +------+ + | Care Senior Enterprise Architect Name | Role | Phone | + [...] | | | | Intractable | Robert Norris MD | [address] | | | | | migraine | [address] | [place], | | | | | with aura | [address] | [place] | | | | | without | [place], | [address] | | | | | status | [place] [address] | Phone: | | | | | migrainosus | Phone: | [phone] | | | | | Chronic | [phone] | Fax: | | | | | daily | Fax: | [phone] | | | | | headache | [phone] | | | | | | Procedures [...] | | | | Intractable | Robert Norris MD | [address] | | | | | migraine | [address] | [place], | | | | | with aura | [address] | [place] | | | | | without | [place], | [address] | | | | | status | [place] [address] | Phone: | | | | | migrainosus | Phone: | [phone] | | | | | Chronic | [phone] | Fax: | | | | | daily | Fax: | [phone] | | | | | headache | [phone] | | | | | | Procedures | | | | | | | MRI Brain wo | | | | | | | Contrast | | | +--------+--------+ + + + + Encounter Details +--------+ + + + + | Date | Type | Department | Care Team | Description | +--------+ + + + + | 04/06/ | Hospital | [facility] | Robert Castillo, | Intractable migraine | | 2019 | Encounter | MED CTR MRI [address] | MD [address] | with aura without | | | | [address] [place], | [place], [place] | status migrainosus; | | | | [place] [address] | [address] | Chronic daily | | | | [phone] | | headache | +--------+ + + + + Social [...] | | | 0 | 01/15/20 | | | (VOLTAREN) 75 mg EC | [...] | | | | | [place] [address] | | | | | | [phone] | | | | | | | | +--------+---------+ + + + | 05/04/ | Office | Neurosurgery | Jim Mckoy | | | 2020 | Visit | | MD Maxime Deng | | | | | | [address] [place] | | | | | | [place] [address] | | | | | | [phone] | | | | | | | | +--------+---------+ + + + documented as of this encounter Procedures + +--------+ + + + | Procedure Name | Priori | Date/Time | Associated Diagnosis | Comments | | | ty | | | | + +--------+ + + + | MRI BRAIN WO | Routin | 04/06/2019 | Intractable | Results for this | | CONTRAST | e | 9:56 AM | migraine with aura | procedure are in the | | | | PDT | without status | results section. | | | | | migrainosus Chronic | | | | | | daily headache | | + +--------+ + + + documented in this encounter Results MRI Brain wo Contrast (04/06/2019 9:56 AM [...] | Contreras, Rad Results In - 04/06/2019 11:11 AM PDT | | TECHNIQUE: [...] Intractable migraine with aura without status migrainosus Migraine with aura, with | | intractable migraine, so stated, without mention of status migrainosus | + + | Chronic daily headache Headache | + + documented in this encounter"
--- OUTSIDE RECORDS SUMMARY | ~2020-04-05 | XMS | Encounter Summary ---
Demographics + + + | Address | [address] | | | [place] [address] | + + + | Home Phone | | + + + | Preferred Language | Unknown | + + + | Marital Status | Single | + + + | Oriental Orthodox Affiliation | Unknown | + + + | Race | Unknown | + + + | Ethnic Group | Other Race | + + + Author + + + | Author | [facility] | + + + | Organization | [facility] | + + + | Address | Unknown | + + + | Phone | Unavailable | + + + Care Team Providers + +------+ + | Care Wood Crew Supervisor Name | Role | Phone | + +------+ + PCP | Unavailable | + +------+ + Encounter Details +--------+ + + + + | Date | Type | Department | Care Team | Description | +--------+ + + + + | 04/06/ | Lab | LAB SURGICAL | Jaguar Matthews, | | | 2018 | Requisition | PATHOLOGY [address] | MD [place] | | | | | [address] | Ortho & Fractur | | | | | [place], [place] | [address] | | | | | [address] | [place] [address] | | | | | | [phone] | | | | | | | [...] as of this encounter Plan of Treatment Not on filedocumented as of this encounter Procedures + +--------+ + + + | Procedure Name | Priori | Date/Time | Associated Diagnosis | Comments | | | ty | | | | + +--------+ + + + | PATHOLOGY CONSULT - | Routin | 03/25/2019 | Neoplasm of | Results for this | | REVIEW OUTSIDE | e | 7:00 PM | uncertain behavior | procedure are in the | | SLIDES | | PDT | of connective and | results section. | | | | | other soft tissue | | + +--------+ + + + documented in this encounter Results PATHOLOGY CONSULT - REVIEW OUTSIDE SLIDES (03/25/2019 7:00 PM PDT) + + + + + + | Component | Value | Ref Range | Performed | Pathologist | | | | | At | Signature | + + + + + + | Final | A. Right knee, synovial | | [facility] | Electronically | | Pathologic | mass, excision | | DEPARTMENT | signed by | | Diagnosis | ([id number]; 03/25/19):- | | OF | Kendra A | | | Tenosynovial giant cell | | PATHOLOGY | MD Pee on | | | tumor (giant cell tumor | | | 04/14/2019 at | | | of tendon sheath), see | | | 10:20 AM | | | comment.Comment: Thank | | | | | | you for allowing us to | | | | | | participate in this | | | | | | patient's care. I am in | | | | | | agreement with the | | | | | | interpretation of the | | | | | | outside pathologist. The | | | | | | provided H+E stained | | | | | | slide shows a nodular | | | | | | lesion composed of | | | | | | sheets of uniform | | | | | | mononuclear cells with | | | | | | numerous admixed | | | | | | osteoclast-like giant | | | | | | cells. Within the | | | | | | lesion, there are also | | | | | | aggregates of foamy | | | | | | histiocytes and | | | | | | hemosiderin deposits. | | | | | | The morphologic features | | | | | | are that of a | | | | | | tenosynovial giant cell | | | | | | tumor. Although the | | | | | | majority of | | | | | | intra-articular | | | | | | tenosynovial giant cell | | | | | | tumors are best | | | | | | classified as | | | | | | diffuse-type (pigmented | | | | | | villonodular synovitis), | | | | | | localized forms can | | | | | | occur. Clinical and | | | | | | radiographic correlation | | | | | | is recommended to | | | | | | further characterize the | | | | | | extent of involvement | | | | | | in this case. Case seen | | | | | | by:Kendra Glasgow MD - | | | | | | PathologistPathology, | | | | | | [facility] | | | | | | [facility] electronic | | | | | | signature indicates that | | | | | | I have personally | | | | | | reviewed all diagnostic | | | | | | slides, the gross and/or | | | | | | microscopic portion of | | | | | | this report and | | | | | | formulated the final | | | | | | diagnosis. | | | | + + + + + + | Materials | Specimen AReferring | | [facility] | | | Received | Institution: [facility] | | DEPARTMENT | | | | [facility], | | | | | | [place] [address] | | PATHOLOGY | | | | Accession Number: | | | | | | [id number] | | | | | | Collection Date: | | | | | | 03/25/2019Sublabeled H&E | | | | | | A1 1 | | | | + + + + + + | Ancillary | Analyte specific | | [facility] | | | Information | reagents are used in | | DEPARTMENT | | | | many laboratory tests | | OF | | | | necessary for standard | | PATHOLOGY | | | | medical care. This test | | | | | | was developed and its | | | | | | performance | | | | | | characteristics | | | | | | determined by [facility] | | | | | | laboratories. It has | | | | | | not been cleared or | | | | | | approved by the [place] Food | | | | | | and Drug Administration | | | | | | (FDA). FDA does not | | | | | | require this test to go | | | | | | through premarket FDA | | | | | | review. This test is | | | | | | used for clinical | | | | | | purposes. It should not | | | | | | be regarded as | | | | | | investigational or for | | | | | | research. This | | | | | | laboratory is certified | | | | | | under the Clinical | | | | | | Laboratory Improvement | | | | | | Amendments (CLIA) as | | | | | | qualified to perform | | | | | | high complexity clinical | | | | | | laboratory testing. | | | | + + + + + + + + | Specimen | + + | Slide-Block | + + + + + + + | Performing | Address | City/State/Zipcode | Phone Number | | Organization | | | | + + + + + | [facility] | [address] | [place] [address] | | | PATHOLOGY | [address] | | | + + + + + documented in this encounter Visit Diagnoses + + | Diagnosis | + + | Neoplasm of uncertain behavior of connective and other soft tissue | + + documented in this encounter"
--- OUTSIDE RECORDS SUMMARY | ~2020-04-05 | XMS | Encounter Summary ---
Demographics + + + | Address | [address] | | | [place] [address] | + + + | Home Phone | | + + + | Preferred Language | Unknown | + + + | Marital Status | Single | + + + | Mormon Affiliation | 1041 | + + + | Race | Unknown | + + + | Ethnic Group | Unknown | + + + Author + + + | Author | [facility] [place] | | | and [place] | + + + | Organization | [facility] | | | and [place] [...] Team Providers + +------+ + | Care Courier Name | Role | Phone | + +------+ + | Argelia Lim | PCP | | + +------+ + Reason for Visit +---------+--------+ + | Reason | Onset | Comments | | | Date | | +---------+--------+ + | Post Op | 04/04/ | | | | 2020 | | +---------+--------+ + Encounter Details +--------+ + + + + | Date | Type | Department | Care Team | Description | +--------+ + + + + | 04/04/ | Telephone | [facility] [place] | Jim Mckoy | Post Op | | 2020 | | NEUROSURGERY [address] | MD Ish [address] | | | | | [address] | [address] [place] | | | | | [place], [place] | [place] [address] | | | | | [address] | [phone] | | | | | [phone] | | | +--------+ + + + [...] + + documented as of this encounter Functional Status + + + + | Functional Status | Response | Date of Assessment | + + + + | Are you deaf or do you have serious | No | 04/01/2020 | | difficulty hearing? | | | + + + + | Are you blind or do you have serious | No | 04/01/2020 | | difficulty seeing, even when wearing | | | | glasses? | | | + + + + | Do you have serious difficulty walking or | No | 04/01/2020 | | climbing stairs? (5 years old or older) | | | + + + + | Do you have difficulty dressing or bathing? | No | 04/01/2020 | | (5 years old or older) | | | + + + + | Because of a physical, mental, or emotional | No | 04/01/2020 | | condition, do you have difficulty doing | | | | errands alone such as visiting a doctor's | | | | office or shopping? [15 years old or | | | | older)] | | | + + + + + + + + | Cognitive Status | Response | Date of Assessment | + + + + | Because of a physical, mental, or emotional | No | 04/01/2020 | | condition, do you have serious difficulty | | | | concentrating, remembering, or making | | | | decisions? (5 years old or older) | | | + + + + documented as of this encounter Miscellaneous Notes Telephone Encounter - Nereyda Sanchez RN - 04/04/2020 10:30 AM PDTCalled Marine to clarify h er sister's FMLA paperwork, see other telephone encounter. Marine asked about what temperature to be concerned about because she felt hot yesterday a nd that her head was hot. I informed her that anything above 100.4 F to call our office. She also complained of a pounding headache this morning, although she states that she did not t seymour any pain medication since yesterday evening. elephone Encounter - Nereyda Sanchez RN - 04/04/2020 9:58 AM PDTProce dure: OPERATE ON THE HEAD FOR A COMPRESSION OF THE FORAMEN MAGNUM WITH DURAPLASTY Surgeon: Dr. Mckoy Date of Surgery: 03/28/2020 Date of Discharge: 04/01 Postop instructions specific to the surgeon and the procedure performed are reviewed prior to call (Neurosurgeon preference comparison table; operative note; discharge summary: pain c are agreement) Operative note reviewed yes. Staple/ suture removal needed? yes. 04/07/2020 @ 0845 with Renee Mckoy Follow up appointments: 05/04/2020 @ [address] Mckoy Questions or concerns: FMLA Paperwork clarification: She states that her previous FMLA paperwork will work She states that she is doing okay, some minor pain, she feels that the medication she is ta raoul is not helping her pain. Although she removed her dressing and it has helped with her p ain. She has not noticed any redness, swelling, drainage. Was advised as to what to watch fo r. She has not had any difficulties with bowel or bladder. All questions answered at this time. Patient is encouraged to call or send a My Chart mess age with any questions or concerns. documented in this encou nter Plan of Treatment +--------+---------+ + + + | Date | Type | Specialty | Care Team | Description | +--------+---------+ + + + | 04/07/ | Office | Neurosurgery | Jim Mckyo | | 2019 | Visit | | MD Maxime Deng | | | | | | [address] [place] | | | | | | [place] [address] | | | | | | [phone] | | | | | | | | +--------+---------+ + + + | 05/04/ | Office | Neurosurgery | Jim Mckoy | | | 2020 | Visit | | MD Maxime Deng | | | | | | [address] [place] | | | | | | [place] [address] | | | | | | [phone] | | | | | | | | +--------+---------+ + + + documented as of this encounter Visit Diagnoses Not on filedocumented in this encounter"
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
--- OUTSIDE RECORDS SUMMARY | ~2020-04-05 | XMS | Encounter Summary ---
Demographics + + + | Address | [address] | | | [place] [address] | + + + | Home Phone | | + + + | Preferred Language | Unknown | + + + | Marital Status | Single | + + + | Buddhism Affiliation | 1041 | + + + | Race | Unknown | + + + | Ethnic Group | Unknown | + + + Author + + + | Author | [facility] [place] | | | and [place] | + + + | Organization | [facility] | | | and [place] [...] Providers + +------+ + | Care Manager Of Case Name | Role | Phone | + +------+ + | Argelia Lim | PCP | | + +------+ + Encounter Details +--------+ + + + + | Date | Type | Department | Care Team | Description | +--------+ + + + + | 10/01/ | Orders Only | [facility] | Jim Mckoy | Chronic migraine | | 2020 | | NEUROSURGERY [address] | MD Ish [address] | (Primary Dx); Acute | | | | [address] | [address] [place] | deep vein thrombosis | | | | [place], [place] | [place] [address] | (DVT) of right | | | | [address] | [phone] | lower extremity, | | | | [phone] | | unspecified vein | | | | | | (HCC); Bilateral | | | | | | occipital neuralgia; | | | | | | Bilateral tinnitus; | | | | | | Vertigo | +--------+ + + + + [...] | | | | | [place] [address] | | | | | | [phone] | | | | | | | | +--------+---------+ + + + | 05/04/ | Office | Neurosurgery | Jim Mckoy | | 2019 | Visit | | MD Ish [address] | | | | | | [address] [place] | | | | | | [place] [address] | | | | | | [phone] | | | | | | | | +--------+---------+ + + + documented as of this encounter Results Jesse INR (03/16/2020 12:49 PM PDT) + + [...] | | Anticoagulation Range: | | [facility] | | | | 2.0 - 3.0High [...] + | [facility] | [address] | [place] | [phone] | | [facility] | | [address] | | | - LABORATORY | | [...] | + + + + + | [facility] | [address] | [place] | [phone] | | [facility] | | [address] | | | - LABORATORY | | [...] | | | | | g/dL | . [facility] | | | | [...] | Lymphocytes | | K/uL | [facility] | | | | | | MEDICAL | | | | | | CENTER - | | | | | | LABORATORY | | + + + + + + | Absolute | 0.62 | 0.00 - 1.00 | [facility] | | | Monocytes | | K/uL | [facility] | | | | | | MEDICAL | | | | | | CENTER - | | | | | | LABORATORY | | + + + + + + | Absolute | 0.33 | 0.00 - 0.40 | [facility] | | | Eosinophils | | K/uL | [facility] | [...] | | | | WBCs | [facility] | | | | | | MEDICAL | | | | | | CENTER - | | | | | | LABORATORY | | + + + + + + | Absolute | 0.00 | 0.00 - 0.01 | [facility] | | | nRBC | | K/uL | [facility] | | [...] ranges: Trim. Absolute (K/uL) Percentage (%) | . [facility] | | 1st 0.003-0.091 K/uL 0.0-0.9% 2nd 0.007-0.247 K/uL | MEDICAL CENTER | | 0.1-2.0% 3rd 0.018-0.456 K/uL 0.1-2.0% | - LABORATORY | + + + + + + + + | Performing | Address | City/State/Zipcode | Phone Number | | Organization | | | | + + + + + | [facility] | [address] | [place] | [phone] | | [facility] | | [address] | | | - LABORATORY | | | | + + + + + documented in this encounter Visit Diagnoses + + | Diagnosis | + + | Chronic migraine - Primary Chronic migraine without aura, without mention of | | intractable migraine without mention of status migrainosus | + + | Acute deep vein thrombosis (DVT) of right lower extremity, unspecified vein (HCC) | + + | Bilateral occipital neuralgia Other syndromes affecting cervical region | + + | Bilateral tinnitus | + + | Vertigo Dizziness and giddiness | + + documented in this encounter"
--- OUTSIDE RECORDS SUMMARY | ~2020-04-05 | XMS | Encounter Summary ---
Demographics + + + | Address | [address] | | | [place] [address] | + + + | Home Phone [...] + | Organization | [facility] [place] | | | and [place] [...] Team Providers + +------+ + | Care Death Clearance Coordinator Name | Role | Phone | + +------+ + | Argelia Lim | PCP | | + +------+ + Reason for Visit + +--------+ + | Reason | Onset | Comments | | | Date | | + +--------+ + | Pre-op Question | 10/13/ | | | | 2020 | | + +--------+ + Encounter Details +--------+ + + + + | Date | Type | Department | Care Team | Description | +--------+ + + + + | 10/13/ | Telephone | [facility] [place] | Jim Mckoy | Pre-op Question | | 2020 | | NEUROSURGERY [address] | JMD [address] | | | | | [address] | [address] [place] | | | | | [place], [place] | [place] [address] | | | | | [address] | [phone] | | | | | [phone] | | | +--------+ + + + [...] Telephone Encounter - Nereyda Sanchez RN - 10/13/2019 1:52 PM PSTLOV: 09/25/2019 Dr. Mckoy Scheduled for an Arnold-Chiari Decompression on 12/15/2019 Marine Lagos called in with questions about taking online college classes. She was wonde ring if she would be able to take online classes after her surgery or if the screen may affe ct her. Spoke with Dr. Mckoy and he said that taking online classes would be completely up to her and what she thinks she will be capable of. Relayed this message to the patient, she stated an understanding and that she will play is by ear after her surgery. documented in this encounter Plan of Treatment +--------+---------+ + + + | Date | Type | Specialty | Care Team | Description | +--------+---------+ + + + | 04/07/ | Office | Neurosurgery | Jim Mckoy | | | 2019 | Visit | | MD Maxime Deng | | | | | | [place] [address] [place] | | | | | | [place] [address] | | | | | | [phone] | | | | | | | | +--------+---------+ + + + | 05/04/ | Office | Neurosurgery | Jim Mckoy | | | 2019 | Visit | | MD Maxime Deng | | | | | | [address] [place] | | | | | | [place] [address] | | | | | | [phone] | | | | | | | | +--------+---------+ + + + documented as of this encounter Visit Diagnoses Not on filedocumented in this encounter"
--- OUTSIDE RECORDS SUMMARY | ~2020-04-05 | XMS | Encounter Summary ---
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 Outcome: Ongoing, progressing 04/01/2020 1124 by César Bains RN Outcome: Ongoing, progressing Problem: Mobility Impairment Goal: Optimal Mobility 04/01/2020 1124 by César Bains RN Outcome: Ongoing, progressing 04/01/2020 1124 by César Bains RN Outcome: Ongoing, progressing Problem: Self-Care Deficit Goal: Improved Ability to Complete Activities of Daily Living 04/01/2020 112 by César Bains RN Outcome: Ongoing, progressing 04/01/2020 1124 by César Bains RN Outcome: Ongoing, progressing lan of Chris Fernando RRT - 04/01/2020 9:58 AM PDTSpO2: 94 % on room air and BS clear. Patient has CPAP at home, but did not wear ours last night. Instructed patient that she could bring her s in and we would assist with it and she responded that she is likely going home today.Elect ronically signed by Chris Medrano RRT at 04/01/2020 10:00 AM PDTPlan of Zeferino Van ra, RN - 04/01/2020 3:43 AM PDTPt aaox4 calls for needs,sba to br with fww voiding withou t problems. Bs present reports flatus bm meds given no results at this times. Drsg to back o f neck c/d/I cms intact except pt reports chronic numbness. 10mg oxycodone covering pain at this time and ice bags per c/o of headache. denies nausea. Vss on ra, no falls this shift, f requent rounding maintained. A M PDTPlan of Teena Henriquez RN - 03/31/2020 5:36 PM [id number]% on RA. BP elevated with pain. Decreases with pain control. Has been up with walker to bathroom and walked to door and back. C/O dizziness at times. Increased MCFADDEN this afternoon. States down to a 5 n ow. Denies passing flatus. Fluids encouraged. Has had intermittent nausea with movement. No emesis. Did shower today but did not wash hair. lan of Care - RollYaritza PT - 03/31/2020 4:31 PM PD T Physical Therapy Plan of Care Treatment Note/D/C Summary: Marine has been participating in physical therapy for treatment of gait disturb ance and weakness. Emphasis of session included bed mobility , transfers and gait. Patient demonstrates progress towards functional goals as evidenced by good stability and safety wi th transfers and gait on level and steps but functional capacity still limited by pain. Pt i s safe to D/C home with family assist when deemed medically stable , no further PT needed at this time. Pt with occasional dizziness and would benefit from nursing supervision when up to BR or if walking in lange. RN cleared patient for participation in therapy. Patient was agreeable to therapy. Patient participated without adverse reaction. Patient is encouraged to ambulate into hallway with [facility] staff. Recommended mobility with nursing: Day Night into the bathroom and into the hallway into the bathroom and into the hallway Front Wheel Walker Front Wheel Walker supervision supervision / set-up Remaining barriers to discharge and functional limitations include decreased functional act ivity tolerance, decreased functional gait distance, decreased gait velocity, stairs at home , not yet able to mobilize at level safe for home discharge, spinal precautions, and medical status. Marine will benefit from continued therapeutic intervention to address ongoing impairments and increase safety and independence with activities necessary for safe discharge. Refer pj villanueva for specific details regarding functional levels. Physical Therapy Discharge Recommendations are: Recommended discharge disposition: home with assist Post discharge physical therapy recommendation: Equipment Recommendations: Planned Interventions: balance training, gait training, strengthening, stair training, tra nsfer training Recommended Frequency: (2-3) Patient Status/Goals: Reflects last filed data and may be from multiple contributors. Gait pt walked to and from BR, declined walking in lange due to MCFADDEN Level of [place]: stand by assist Assistive Device: 2 wheeled walker (FWW) Distance (feet): 2 x 40 ft Gait Deviations: kaylyn decreased Stairs Number of Stairs: 4 Handrail Location: both sides Level of [place]: supervised, verbal cues required PT transported pt to stairs due to diminished functional capacity due to pain Transfers Sit-Stand, Level of [place]: modified independent Stand-Sit, Level of [place]: modified independent [id number], Assistive Device: 2 wheeled walker (FWW) Toilet, Level of [place]: modified independent Toilet, Assistive Device: 2 wheeled walker (FWW) Safety Issues: balance decreased during turns, step length decreased Impairments: strength decreased, impaired balance, pain Bed Mobility Assistive Device: none Scoot/Bridge, Level of [place]: modified independent Supine to Sit, Level of [place]: modified independent Sit to Supine, Level of [place]: modified independent Impairments: strength decreased Balance Sitting is good Static stand is good Dynamic stand is fair Functional Endurance limited by MCFADDEN pain Instructed pt to breathe vs holding breath when performing activities ROM WFL x 4 Strength grossly 4/5 PT Goal Review Date Most Recent Value STG Review Date 04/06/20 at 03/30/2020 1157 [id number] Goal Most Recent Value STG Status met at 03/31/2020 1628 STG [place] Level modified independent at 03/30/2020 1157 Gait Goal Most Recent Value STG Status progressing at 03/31/2020 1628 STG [place] Level modified independent at 03/30/2020 1157 STG Distance (feet) 300 ft at 03/30/2020 1157 Stair Goal Most Recent Value STG Status met at 03/31/2020 1628 STG [place] Level supervised at 03/30/2020 1157 STG Assistive Device 1 rail at 03/30/2020 1157 STG Number of Stairs 13 at 03/30/2020 1157 PT Time Calculation Individual Start Time: 1555 Individual Stop Time: 1615 Individual Total Time: 20 Missed Treatment Time: 0 PT Total Treatment Time: 20 Timed TX Code Minutes: 20 Electronically signed by: Yaritza Morgan PT, 03/31/2020 4:31 PM PDT lan Daniel Darin Guajardo, SILVER DESIGNER - 03/31 10:51 AM PDTSaritta was 92% on RA with clear BS and unlabored RR 18. She is not using CPAP. lan of Care - Josiane Ferrell MSW - 03/31/2020 10:17 AM PDTMet with patient at bedside to discuss disc harge plan. Patient will go home with [place] with kids, has all DME that she needs. Her b oyfriend or sister will provide transportation. Plan: Home when medically stable Electronically signed by: BRIEN Hernandez 03/31/2020 4:28 PM PDT lan of Care - Gabriela Hodges RN - 03/31 3:49 AM PDT Problem: Adult Inpatient Plan of Care Goal: Plan of Care Review Outcome: Ongoing, progressing Goal: Patient-Specific Goal Outcome: Ongoing, progressing Goal: Absence of Hospital-Acquired Illness or Injury Outcome: Ongoing, progressing Goal: Optimal Comfort and Wellbeing Outcome: Ongoing, progressing Goal: Readiness for Transition of Care Outcome: Ongoing, progressing Goal: Rounds/Family Conference Outcome: Ongoing, progressing Problem: Bleeding (Surgery Nonspecified) Goal: Absence of Bleeding Outcome: Ongoing, progressing Problem: Bowel Elimination Impaired (Surgery Nonspecified) Goal: Effective Bowel Elimination Outcome: Ongoing, progressing Problem: Infection (Surgery Nonspecified) Goal: Absence of Infection Signs/Symptoms Outcome: Ongoing, progressing Problem: Pain (Surgery Nonspecified) Goal: Acceptable Pain Control Outcome: Ongoing, progressing Problem: Discharge Planning Goal: Patient's discharge needs will be identified in a timely manner Outcome: Ongoing, progressing Goal: Patient will be discharged in a safe manner Outcome: Ongoing, progressing Problem: Skin Injury Risk Increased Goal: Skin Health and Integrity Outcome: Ongoing, progressing Problem: Fall Injury Risk Goal: Absence of Fall and Fall-Related Injury Outcome: Ongoing, progressing Problem: Mobility Impairment Goal: Optimal Mobility Outcome: Ongoing, progressing Problem: Self-Care Deficit Goal: Improved Ability to Complete Activities of Daily Living Outcome: Ongoing, progressing Pt A/O X4, LBM 7/5, BP has been fluctuating up and down throughout the night, otherwise VS S, pt maintaining adequate 02 saturation levels on RA, on cranial post op precautions, dress ing on back of head/neck CDI, 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 lan of [facility] - Teena Hernandez RN - 03/30/2020 6:55 PM PDTVSS. This am severe pain when moving or eveline vating her head. Increased Oxy to 10mg with much better relief. Ambulated with PT, then am bulated with her sister but did get light headed after 40feet. Raising HOB to eat this afte rnoon which she would not do this am. Dressing C/D/I. Denies numbness/tingling. A/O x4. E lectronically signed by Teena Hernandez RN at 03/30/2020 6:57 PM PDTPlan of [facility] - Gisela Connelly SILVER DESIGNER - 03/30/2020 5:27 PM PDTBreath sounds clear. She is on room air, SpO2: 92 % on room air. She uses CPAP at night at home and requested a hospital unit. Will adjust CPA P appliance so there is no pressure on the surgical site. lan of [facility] - Barb English OT - 03/30/2020 1:20 PM PDTFormatting of this note might be different from t he original. Occupational Therapy Plan of Care Initial Evaluation, Treatment Note Summary: Marine presents to occupational therapy with Mildly impaired ADls, decreased fu nctional mobility following decompressive occipital craniectomy & C1 laminectomy w/ duraplas ty of symptomatic Arnold- Chiari syndrome.. Objective exam reveals impairments with aerobic capacity/endurance, functional endurance/activity tolerance, muscle performance, ergonomics and body mechanics, social dynamics, gait, locomotion, and balance. Pt mobilizing w/ SBA, pain is primary barrier. Would benefit from 1-2 addt'l OT visits to confirm needs, determin e further DME, ensure safety. RN cleared patient for participation in therapy. Patient was agreeable to therapy. RN debri efed on therapy session and patient status. Patient is encouraged to ambulate into hallway w ith nursing staff. It is encouraged that the patient be up in chair for all meals. Recommended toileting with nursing: Day Night toilet toilet Front Wheel Walker Front Wheel Walker stand by assistance stand by assistance Barriers to discharge and functional limitations include decreased functional activity tole lucy, decreased bed mobility, decreased functional transfers, decreased ability to perform ADLs, decreased ability to perform IADLs, not yet able to mobilize at level safe for home di scharko, and medical status. Marine will benefit from therapeutic intervention to address impairments and increase safe ty and independence with activities necessary for safe discharge. Refer below for specific details regarding functional levels. Precautions/Limitations: falls Precaution Comment: HOB 35*. No other known precautions. Previous Level of Function: pt stated she has been using walker for past 4 months due to vertigo, pt lives with sons an d SO ,has 13 steps to enter. Works [employer] Potential available assistance at discharge: Living Environment/Accessibility: Living Arrangements: house Home Accessibility: no concerns Financial Concerns: none Transportation Available: family or friend will provide Living Environment Comment: N/A Patient/Family s Goals: HOping to go home. Rehabilitation potential: good, to achieve stated therapy goals Occupational Therapy Discharge Recommendations are: Recommended discharge disposition: home with assist Post discharge occupational therapy recommendation: no further OT Equipment Recommendations: 2 wheeled walker (FWW), shower chair Planned Interventions:ADL retraining, transfer training, discharge planning, balance traini ng, bed mobility training, patient/family education Recommended Frequency: (1-2 addt'l OT visits, anticipate only 1) Patient Status/Goals: Reflects last filed data and may be from multiple contributors. ADLs Slowly and w/ mild-mod effort, donned underwear. Close SBA but no physical assist. LB Dressing, Level of [place]: stand by assist, set up required Assistive Device: none LB Dressing Assess/Train, Position: sitting, standing LB Dressing Impairments: strength decreased, impaired balance, pain Slowly & w/ mild-mod effort but w/o physical assist completed hygiene. Toileting, Level of [place]: stand by assist, verbal cues required Assistive Device: (FWW) Toileting Assess/Train, Position: sitting, standing Toileting Impairments: strength decreased, impaired balance, pain, impaired functional endu lucy/activity tolerance Standing @ sink to wash hands. Grooming, Level of [place]: supervised Grooming Assess/Train, Position: standing Grooming Impairments: impaired functional endurance/activity tolerance, impaired balance, s trength decreased Functional Endurance Fair, pain related. Cognitive Alert & oriented. Bed Mobility Assistive Device: bed rails Supine to Sit, Level of [place]: supervised Safety Issues: decreased use of arms for pushing/pulling Impairments: strength decreased, impaired balance Transfers Mobilizing w/ FWW for stability- has hx of vertigo. Sets FWW aside @ transitions to sitting surfaces. Balance observed to be steady. Bed-Chair, Level of [place]: stand by assist [id number], Assistive Device: 2 wheeled walker (FWW) Sit-Stand, Level of [place]: supervised Stand-Sit, Level of [place]: supervised [id number], Assistive Device: 2 wheeled walker (FWW) Toilet, Level of [place]: stand by assist Toilet, Assistive Device: 2 wheeled walker (FWW) Safety Issues: balance decreased during turns, step length decreased Impairments: strength decreased, impaired balance, pain ROM L UE ROM: WFL R UE ROM: WFL Strength L UE Strength: WFL R UE Strength: WFL Vision: Vision Comments: Intact Coordination: Coordination Comments: Intact OT Goal Review Date Most Recent Value LTG Review Date 04/02/20 at 03/30/2020 1320 Additional Goals #1 OT Most Recent Value LTG Status new at 03/30/2020 1320 LTG Pt will complete light ADLs w/ supervision. at 03/30/2020 1320 Additional Goals #2 OT Most Recent Value LTG Status new at 03/30/2020 1320 LTG Pt will complete functional mobility w/ supervision. at 03/30/2020 1320 OT Time Calculation OT Individual Start Time: 1253 OT Individual Stop Time: 1320 OT Individual Total Time: 27 OT Total Treatment Time: 27 Timed TX Code Minutes: 12 Electronically signed by: Barb Buck OT, 03/30/2020 2:46 PM PDT lan of Care - Yaritza Tejeda, PT - 03/30/2020 12:06 PM PDTFormatting of this note might be different from t he original. Physical Therapy Plan of Care Initial Evaluation Note Summary: Marine presents to physical therapy with gait disturbance and weakness. Object ryne exam reveals impairments with aerobic capacity/endurance, gait, locomotion, and balance, Pt with Decompressive occipital craniectomy and C1 laminectomy, with duraplasty for treatm ent of symptomatic Arnold-Chiari syndrome. Pt presents with continued MCFADDEN but able to work wi th PT for short duration walk in room/bathroom without LOB, using walker. She will need to a ddress stairs prior to D/C home with family assist. Pt has walker at home which she's been u sing for past 4 week due to vertigo. Indications for the Procedure: Marine Lagos is a 39 year-old woman with intractable hea dache due to cerebellar tonsillar herniation down to the level of C1 (Arnold-Chiari syndrome ).. RN cleared patient for participation in therapy. Patient was agreeable to therapy. Patient participated without adverse reaction. RN debriefed on therapy session and patient status. P atient is encouraged to ambulate into hallway with nursing staff. It is encouraged that the patient be up in chair for all meals. Recommended mobility with nursing: Day Night into the bathroom and into the hallway into the bathroom and into the hallway Front Wheel Walker Front Wheel Walker stand by assistance stand by assistance Barriers to discharge and functional limitations include decreased functional activity tole lucy, decreased functional transfers, decreased functional gait distance, decreased gait ve locity, stairs at home, not yet able to mobilize at level safe for home discharge, spinal pr ecautions, and medical status. Marine will benefit from therapeutic intervention to address impairments and increase safe ty and independence with activities necessary for safe discharge. Refer below for specific details regarding functional levels. Precautions/Limitations: falls Precaution Comment: HOB 35 degrees Previous Level of Function: Prior Functional Level Comment: pt stated she has been using walker for past 4 months due t o vertigo, pt lives with sons and SO ,has 13 steps to enter Potential available assistance at discharge: Living Environment/Accessibility: Living Arrangements: house Home Accessibility: no concerns Financial Concerns: none Transportation Available: family or friend will provide Living Environment Comment: N/A Patient/Family s Goals: home with assists of family Rehabilitation potential: good, to achieve stated therapy goals Physical Therapy Discharge Recommendations are: Recommended discharge disposition: home with assist Post discharge physical therapy recommendation: Equipment Recommendations: Planned Interventions: balance training, gait training, strengthening, stair training, tra nsfer training Recommended Frequency: (2-3) Patient Status/Goals: Reflects last filed data and may be from multiple contributors. Gait pt walked to and from BR, declined walking in lange due to MCFADDEN Level of [place]: stand by assist Assistive Device: 2 wheeled walker (FWW) Distance (feet): 3 x 30 ft Gait Deviations: kaylyn decreased Transfers assist needed with IV pole Sit-Stand, Level of [place]: stand by assist Stand-Sit, Level of [place]: stand by assist [id number], Assistive Device: 2 wheeled walker (FWW) Safety Issues: balance decreased during turns, step length decreased Impairments: strength decreased, impaired balance, pain Bed Mobility Assistive Device: bed rails, HOB elevated Scoot/Bridge, Level of [place]: stand by assist Supine to Sit, Level of [place]: stand by assist Sit to Supine, Level of [place]: stand by assist Impairments: strength decreased, impaired balance Balance Static and dynamic Sitting is good Static stand is fair Dynamic stand is fair Functional Endurance Fair, limited by MCFADDEN ROM WFL x 4 Strength grossly 4/5 PT Goal Review Date Most Recent Value STG Review Date 04/06/20 at 03/30/2020 1157 [id number] Goal Most Recent Value STG Status new at 03/30/2020 1157 STG [place] Level modified independent at 03/30/2020 1157 Gait Goal Most Recent Value STG Status new at 03/30/2020 1157 STG [place] Level modified independent at 03/30/2020 1157 STG Distance (feet) 300 ft at 03/30/2020 1157 Stair Goal Most Recent Value STG Status new at 03/30/2020 1157 STG [place] Level supervised at 03/30/2020 1157 STG Assistive Device 1 rail at 03/30/2020 1157 STG Number of Stairs 13 at 03/30/2020 1157 PT Time Calculation Individual Start Time: 1105 Individual Stop Time: 1125 Individual Total Time: 20 Missed Treatment Time: 0 PT Total Treatment Time: 20 Electronically signed by: Yaritza Morgan PT, 03/30/2020 12:08 PM PDT lan of [facility] - Gabriela Hodges RN - 020 4:10 AM PDT Problem: Adult Inpatient Plan of Care Goal: Plan of Care Review Outcome: Ongoing, progressing Goal: Patient-Specific Goal Outcome: Ongoing, progressing Goal: Absence of Hospital-Acquired Illness or Injury Outcome: Ongoing, progressing Goal: Optimal Comfort and Wellbeing Outcome: Ongoing, progressing Goal: Readiness for Transition of Care Outcome: Ongoing, progressing Goal: Rounds/Family Conference Outcome: Ongoing, progressing Problem: Bleeding (Surgery Nonspecified) Goal: Absence of Bleeding Outcome: Ongoing, progressing Problem: Bowel Elimination Impaired (Surgery Nonspecified) Goal: Effective Bowel Elimination Outcome: Ongoing, progressing Problem: Infection (Surgery Nonspecified) Goal: Absence of Infection Signs/Symptoms Outcome: Ongoing, progressing Problem: Ongoing Anesthesia Effects (Surgery Nonspecified) Goal: Anesthesia/Sedation Recovery Outcome: Ongoing, progressing Problem: Pain (Surgery Nonspecified) Goal: Acceptable Pain Control Outcome: Ongoing, progressing Problem: Postoperative Nausea and Vomiting (Surgery Nonspecified) Goal: Nausea and Vomiting Relief Outcome: Ongoing, progressing Problem: Postoperative Urinary Retention (Surgery Nonspecified) Goal: Effective Urinary Elimination Outcome: Ongoing, progressing Problem: Discharge Planning Goal: Patient's discharge needs will be identified in a timely manner Outcome: Ongoing, progressing Goal: Patient will be discharged in a safe manner Outcome: Ongoing, progressing Problem: Skin Injury Risk Increased Goal: Skin Health and Integrity Outcome: Ongoing, progressing Problem: Fall Injury Risk Goal: Absence of Fall and Fall-Related Injury Outcome: Ongoing, progressing Pt A/O X4, VSS, LBM 7/5, MCFADDEN Pain being controlled with prn morphine 2mg, and prn oxycodne 5-10mg, Denies n/v, was put on 1L of 02, pt 02 saturation was between 86-91 w/o oxygen, nuria ntaining adequate 02 Saturation levels now with 1L, neuro checks intact, CGS to the bedside commode, is to d/c , calls appropriately, call light within reach, will continue to monitor. lan of [facility] - Louise Earl RN - 03/29/2020 10:42 AM PDT Problem: Discharge Planning Goal: Patient's discharge needs will be identified in a timely manner Outcome: Ongoing, progressing Goal: Patient will be discharged in a safe manner Outcome: Ongoing, progressing This CM visited with patient this AM at her bedside to discuss her d/c plan. She reports that she lives with her 2 sons, ages 16 & 18 in [place]. Either her sister or boyfriend will be transporting her home at discharge anticipating on T sday, per patient. She confirms her PCP is Magaly Lim and her pharmacy is [facility] both in [place]. She does use a CPAP nocs and gets her supplies from [facility]. She does not use any home 02 but does use her 4WW. She reports she is independent with all her ADL's and shower's standing in her step in tub shower with no issues. Dispo: Home anticipating with either her sister or her boyfriend transporting. CM to follow closer to discharge to see if any discharge needs are identified. Electronically signed by: Louise Earl RN 03/29/2020 10:48 AM PDT lan of Daniel - Marcia Segundo RN - 03/29/2020 5:58 AM PDTSarittariane has been alert and oriented x 4 tonight, she has also been lethargic after pain medication dose and nausea medication doses. Neuro check s Q1H continued though the night. She has had a headache 8/10 to 10/10 tonight. PRN Morphine helpful. She also has had nausea and occasional dry heaving with some emesis x 3 tonight. P RN nausea medications helpful. She has remain in bed tonight with head of bed flat due to ex periencing headache. She is voiding clear, yellow urine into an external pure wick catheter. 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 She does have some numbness in her hands bilaterally with no tingling. She does feel my fingers on her hands. She has mila ined clear liquid diet overnight due to frequent nausea and some vomiting. Cool cloth on for ehead and fan help with nausea. She remains free from falls at this time. Electronically sig yfn by Nicci Segundo RN at 03/29/2020 6:10 AM PDTOp Note - Jim Mckoy MD - 0 03/28/2020 9:55 AM [facility] OP Note Patient Name: Marine Lagos March 28, 2020 Patient : 1980 Pre-op Diagnosis: Arnold-Chiari syndrome Post-op Diagnosis: Same Surgeon: Jim Mckoy MD Cyber Security Specialist: Zaid Baires PA-C Procedure: Decompressive occipital craniectomy and C1 laminectomy, with duraplasty for leslie tment of symptomatic Arnold-Chiari syndrome Indications for the Procedure: Marine Lagos is a 39 year-old woman with intractable hea dache due to cerebellar tonsillar herniation down to the level of C1 (Arnold-Chiari syndrome ). I have offered her decompression of her occipital cervical junction. Findings at Operation: Both cerebellar tonsils were herniated down to the level of the C1 p osterior arch. No other abnormalities were identified. A satisfactory decompression was ob tained. Description of the Procedure: After the institution of satisfactory general endotracheal an esthesia, I secured the Huntington headrest to the patient's skull and then we turned her from supine on the gurney to prone on the operating table. Her neck was flexed, and then I clip ped away an inch wide section of hair to just above the inion. The skin was then sterilely prepared and draped. I anesthetized the skin of the neck with 20 mL of 1% Xylocaine contain ing epinephrine. A timeout was accomplished. I made an approximately 10 cm long midline incision from just above the inion to the spinou s processes of C2. Hemostasis was obtained and then I divided the dorsal fascia down to the occipital bone and C1, taking care to leave the muscular attachments on C2. I elevated the muscles away from the occipital bone and C1 and placed self-retaining retractors. I then d issected the dura at the foramen magnum and needs the posterior arch of C1. I then created a midline bur hole craniectomy and dissected the dura down to the foramen magnum from this b ur hole. I then used the craniotome to cut away an approximately 3 to 4 cm wide section of the occipital bone including the posterior margin of the foramen magnum, and divided the pos terior arch of C1 on either side. These bone fragments were then dissected free of the dura and removed. Epidural hemostasis was obtained and then I created a approximately 4 cm long midline durot olamide from the posterior fossa down almost to the superior border of C2. I then tailored a du ral patch graft in an elliptical fashion, and sewed it in with continuous sutures of 4-0 Mayte olon. I had the anesthesiologist simulate a Valsalva maneuver and placed a few more stitche s at the rostral border to obtain a watertight closure. I then covered the entirety of the exposed dura and the patch graft with Tisseel, and then covered that in turn with FloSeal. The self-retaining retractors were removed. The occipit al cervical musculature was built up in successive layers with heavy Vicryl sutures. Superf icial fascia was brought together with 2-0 Vicryl sutures and the subcutis approximated with 3-0 Vicryl sutures. Final skin closure was accomplished with stainless steel clips. A dry sterile silver impregnated dressing was applied. Blood loss was less than 100 mL and no bl ood was replaced. No specimens were harvested. The patient was stable throughout, and was sent to the recovery room in a satisfactory state. Time of operation was approximately 1-1/ 2 hours. Electronically Signed by: Jim Mckoy MD, 03/28/2020 9:56 AM PDT [facility] documented in this encounter Plan of Treatment +--------+---------+ + + + | Date | Type | Specialty | Care Team | Description | +--------+---------+ + + + | 04/07/ | Office | Neurosurgery | Jim Mckoy | | 2019 | Visit | | MD Maxime Deng | | | | | | [address] [place] | | | | | | [place] [address] | | | | | | [phone] | | | | | | | | +--------+---------+ + + + | 05/04/ | Office | Neurosurgery | Jim Mckoy | | | 2019 | Visit | | JMD Maxime | | | | | | [address] [place] | | | | | | [place] [address] | | | | | | [phone] | | | | | | | [...] | | Open | +---+--------+ + +--------+ +---+ + | POC GLUCOSE | Routin | 03/28/2020 | | Results for this | | | e | 6:56 AM | | procedure are in the | | | | PDT | | results section. | + +--------+ +---+ + | POCT TEST, | Routin | 03/28/2020 | | Results for this | | URINE, QUAL | e | 6:54 AM | | procedure are in the | | | | PDT | | results section. | + +--------+ +---+ + documented in this encounter Results POC Glucose (03/28/2020 6:56 AM PDT) + +---------+ + + + | Component | Value | Ref Range | Performed | Pathologist | | | | | At | Signature | + +---------+ + + + | Glucose, | 115 (H) | 70 - 109 mg/dL | [facility] | | | POC | | | [facility] | | | | [...] [address] | [address] | [phone] | | [facility] | | [address] | | | - LABORATORY | | [...] Specific | | | | | | [place], | | | | | | POC | | | | | + + + + + + | Lot Number | [id number] | | | | + + + + + + | Expiration | 2020-12-25 | | | | | Date | | | | | + + + + + + + + | Specimen | + + | Urine | + + documented in this encounter Visit Diagnoses + + | Diagnosis | + + | Arnold-Chiari malformation (HCC) Spina bifida with hydrocephalus, unspecified region | + + | Tinnitus of both ears Unspecified tinnitus | + + | Vertigo Dizziness and giddiness | + + documented in this encounter Admitting Diagnoses + + | Diagnosis | + + | Arnold-Chiari malformation (HCC) Spina bifida with hydrocephalus, unspecified region | + + | Vertigo Dizziness and giddiness | + + | Tinnitus of both ears Unspecified tinnitus | + + documented in this encounter Administered Medications + +--------+ + +------+------+ | Medication Order | MAR | Action | Dose | Rate | Site | | | Action | Date | | | | + +--------+ + +------+------+ | acetaminophen (TYLENOL) tablet | Given | 03/31/20 | 1,000 mg | | | | 1,000 mg 1,000 mg, Oral, EVERY 6 | | 20 3:54 | | | | | HOURS PRN, Pain, Fever, Starting | | PM PDT | | | | | 03/28/20 at 1150, Start 8 | | | | | | | hours after pre-op dose., | | | | | | | Post-op/Phase II | | | | | | + +--------+ + +------+------+ +-------+ + +---+---+ | Given | 03/31/20 | 1,000 mg | | | | | 20 8:31 | | | | | | AM PDT | | | | +-------+ + +---+---+ | Given | 03/30/20 | 1,000 mg | | | | | 20 1:10 | | | | | | PM PDT | | | | +-------+ + +---+---+ +---+---+ | | | +---+---+ + +-------+ +---------+---+ + | bacitracin injection PRN, | Given | 03/28/20 | 50,000 | | Surgical | | Starting Sat03/28/20 at 0856, | | 20 8:56 | Units | | Site | | Intra-op | | AM PDT | | | | + +-------+ +---------+---+ + + +---+ | | | + +---+ | diphenhydrAMINE (BENADRYL) 12.5 | | | mg/5 mL liquid 25 mg 25 mg, | | | Oral, EVERY 4 HOURS PRN, Itching, | | | Starting 03/28/20 at 1150, | | | Oral route is preferred., | | | Post-op/Phase II | | + +---+ | | | + +---+ | diphenhydrAMINE (BENADRYL) | | | injection 12.5 mg 12.5 mg, | | | Intravenous, EVERY 4 HOURS PRN, | | | Itching, Starting 03/28/20 at | | | 1150, Oral route is preferred., | | | Post-op/Phase II | | + +---+ | | | + +---+ | diphenhydrAMINE (BENADRYL) | | | tablet 25 mg 25 mg, Oral, EVERY | | | 4 HOURS PRN, Itching, Starting | | | 03/28/20 at 1150, Oral route is | | | preferred., Post-op/Phase II | | + +---+ | | | + +---+ + +-------+ +--------+---+---+ | docusate sodium (COLACE) | Given | 07/10/20 | 100 mg | | | | capsule 100 mg 100 mg, Oral, 2 | | 20 8:48 | | | | | TIMES DAILY, First dose on Mon | | AM PDT | | | | | 03/28/20 at 1215, First line agent | | | | | | | for constipation, Post-op/Phase | | | | | | | II | | | | | | + +-------+ +--------+---+---+ +-------+ +--------+---+---+ | Given | 03/31/20 | 100 mg | | | | | 20 8:16 | | | | | | PM PDT | | | | +-------+ +--------+---+---+ | Given | 03/31/20 | 100 mg | | | | | 20 8:25 | | | | | | AM PDT | | | | +-------+ +--------+---+---+ +---+---+ | | | +---+---+ + +-------+ +-------+---+---+ | DULoxetine (CYMBALTA) DR | Given | 04/01/20 | 60 mg | | | | capsule 60 mg 60 mg, Oral, | | 20 8:48 | | | | | DAILY, First dose on 03/28/20 | | AM PDT | | | | | at 1215, Do not open capsule., | | | | | | | Post-op/Phase II | | | | | | + +-------+ +-------+---+---+ +-------+ +-------+---+---+ | Given | 03/31/20 | 60 mg | | | | | 20 8:25 | | | | | | AM PDT | | | | +-------+ +-------+---+---+ | Given | 03/30/20 | 60 mg | | | | | 20 9:06 | | | | | | AM PDT | | | | +-------+ +-------+---+---+ +---+---+ | | | +---+---+ + +-------+ +-------+---+---+ | hydrOXYzine hydrochloride | Given | 04/01/20 | 25 mg | | | | (ATARAX) tablet 25 mg 25 mg, | | 20 8:48 | | | | | Oral, 2 TIMES DAILY, First dose | | AM PDT | | | | | on Sat03/28/20 at 1215, | | | | | | | Post-op/Phase II | | | | | | + +-------+ +-------+---+---+ +-------+ +-------+---+---+ | Given | 03/31/20 | 25 mg | | | | | 20 8:16 | | | | | | PM PDT | | | | +-------+ +-------+---+---+ | Given | 03/31/20 | 25 mg | | | | | 20 8:25 | | | | | | AM PDT | | | | +-------+ +-------+---+---+ +---+---+ | | | +---+---+ + +-------+ +------+---+---+ | labetalol (TRANDATE) 5 mg/mL | Given | 03/28/20 | 5 mg | | | | injection 5-15 mg 5-15 mg, | | 20 1:17 | | | | | Intravenous, EVERY 1 HOUR PRN, to | | PM PDT | | | | | control systolic blood pressure, | | | | | | | Starting 03/28/20 at 1150, | | | | | | | Hold if Heart Rate < 60. Goal for | | | | | | | SBP is less than 140., | | | | | | | Post-op/Phase II | | | | | | + +-------+ +------+---+---+ +---+---+ | | | +---+---+ + +---------+ +--------+-------+---+ | lactated ringers (LR) infusion | New Bag | 03/31/20 | 1,000 | 100 | | | at 100 mL/hr, Intravenous, | | 20 2:04 | mLs | mL/hr | | | CONTINUOUS, Starting 03/28/20 | | AM PDT | | | | | at 1215, Post-op/Phase II | | | | | | + +---------+ +--------+-------+---+ +---------+ +--------+-------+---+ | New Bag | 03/30/20 | | 100 | | | | 20 4:05 | | mL/hr | | | | PM PDT | | | | +---------+ +--------+-------+---+ | New Bag | 03/30/20 | 1,000 | 100 | | | | 20 6:19 | mLs | mL/hr | | | | AM PDT | | | | +---------+ +--------+-------+---+ +---+---+ | | | +---+---+ + +-------+ +--------+---+---+ | lactulose liquid 30 mL 30 mL, | Given | 03/31/20 | 30 mLs | | | | Oral, DAILY PRN, Constipation, | | 20 8:16 | | | | | Starting Sat03/28/20 at 1150, If | | PM PDT | | | | | docusate, senna, and polyethylene | | | | | | | glycol ineffective x 24 hours or | | | | | | | not ordered, Post-op/Phase II | | | | | | + +-------+ +--------+---+---+ +---+---+ | | | +---+---+ + +-------+ +-------+---+---+ | lamoTRIgine (laMICtal) tablet | Given | 04/01/20 | 25 mg | | | | 25 mg 25 mg, Oral, DAILY, First | | 20 8:48 | | | | | dose on Sat03/28/20 at 1215, | | AM PDT | | | | | Post-op/Phase II | | | | | | + +-------+ +-------+---+---+ +-------+ +-------+---+---+ | Given | 03/31/20 | 25 mg | | | | | 20 8:25 | | | | | | AM PDT | | | | +-------+ +-------+---+---+ | Given | 03/30/20 | 25 mg | | | | | 20 9:06 | | | | | | AM PDT | | | | +-------+ +-------+---+---+ +---+---+ | | | +---+---+ + +-------+ +--------+---+ + | lidocaine 1%-EPINEPHrine | Given | 03/28/20 | 20 mLs | | Surgical | | 1:100,000 injection PRN, | | 20 8:22 | | | Site | | Starting 03/28/20 at 0822, | | AM PDT | | | | | Intra-op | | | | | | + +-------+ +--------+---+ + +---+---+ | | | +---+---+ + +-------+ + +---+---+ | methocarbamol (ROBAXIN) tablet | Given | 03/31/20 | 1,500 mg | | | | 1,500 mg 1,500 mg, Oral, EVERY 6 | | 20 12:33 | | | | | HOURS PRN, Muscle spasms, | | PM PDT | | | | | Starting 03/28/20 at 1100, | | | | | | | Post-op/Phase II | | | | | | + +-------+ + +---+---+ +-------+ + +---+---+ | Given | 03/29/20 | 1,500 mg | | | | | 20 9:41 | | | | | | AM PDT | | | | +-------+ + +---+---+ +---+---+ | | | +---+---+ + +-------+ +-------+---+---+ | metoclopramide (REGLAN) 5 mg/mL | Given | 03/29/20 | 10 mg | | | | injection 10 mg 10 mg, | | 20 6:42 | | | | | Intravenous, EVERY 4 HOURS PRN, | | AM PDT | | | | | Nausea, Vomiting, Starting Mon | | | | | | | 03/28/20 at 1150, Use if | | | | | | | ondansetron and prochlorperazine | | | | | | | ineffective after 30 minutes or | | | | | | | not ordered Use PO option unless | | | | | | | NPO status or unable to tolerate. | | | | | | | Protect from light., | | | | | | | Post-op/Phase II | | | | | | + +-------+ +-------+---+---+ +-------+ +-------+---+---+ | Given | 03/29/20 | 10 mg | | | | | 20 2:29 | | | | | | AM PDT | | | | +-------+ +-------+---+---+ | Given | 03/28/20 | 10 mg | | | | | 20 10:22 | | | | | | PM PDT | | | | +-------+ +-------+---+---+ +---+---+ | | | +---+---+ + +-------+ +------+---+---+ | morphine injection 1-2 mg 1-2 | Given | 03/30/20 | 2 mg | | | | mg, Intravenous, EVERY 1 HOUR | | 20 6:24 | | | | | PRN, Pain, Starting 03/28/20 at | | AM PDT | | | | | 1150, If oral route not an | | | | | | | option. Slow IV push, not faster | | | | | | | than 2mg/minute. First dose must | | | | | | | be lowest dose, titrate to | | | | | | | effective dose by repeat of | | | | | | | lowest dose every 30 minutes prn | | | | | | | pain, may not exceed maximum dose | | | | | | | ordered per interval. Use | | | | | | | Pasero Sedation Scale., | | | | | | | Post-op/Phase II | | | | | | + +-------+ +------+---+---+ +-------+ +------+---+---+ | Given | 03/29/20 | 2 mg | | | | | 20 10:22 | | | | | | PM PDT | | | | +-------+ +------+---+---+ | Given | 03/29/20 | 2 mg | | | | | 20 8:35 | | | | | | PM PDT | | | | +-------+ +------+---+---+ +---+---+ | | | +---+---+ + +-------+ +------+---+---+ | ondansetron (ZOFRAN ODT) | Given | 03/31/20 | 4 mg | | | | disintegrating tablet 4 mg 4 mg, | | 20 2:12 | | | | | Oral, EVERY 6 HOURS PRN, Nausea, | | PM PDT | | | | | Vomiting, Starting 03/28/20 at | | | | | | | 1150, First line agent., | | | | | | | Post-op/Phase II | | | | | | + +-------+ +------+---+---+ +-------+ +------+---+---+ | Given | 03/29/20 | 4 mg | | | | | 20 4:05 | | | | | | AM PDT | | | | +-------+ +------+---+---+ | Given | 03/28/20 | 4 mg | | | | | 20 9:30 | | | | | | PM PDT | | | | +-------+ +------+---+---+ +---+---+ | | | +---+---+ + +-------+ +------+---+---+ | ondansetron (ZOFRAN) injection | Given | 03/29/20 | 4 mg | | | | 4 mg 4 mg, Intravenous, EVERY 6 | | 20 9:41 | | | | | HOURS PRN, Nausea, Vomiting, | | AM PDT | | | | | Starting 03/28/20 at 1150, | | | | | | | First line agent Use PO option | | | | | | | unless NPO status or unable to | | | | | | | tolerate., Post-op/Phase II | | | | | | + +-------+ +------+---+---+ +-------+ +------+---+---+ | Given | 03/28/20 | 4 mg | | | | | 20 3:13 | | | | | | PM PDT | | | | +-------+ +------+---+---+ +---+---+ | | | +---+---+ + +-------+ +-------+---+---+ | oxyCODONE (ROXICODONE) tablet | Given | 04/01/20 | 10 mg | | | | 5-10 mg 5-10 mg, Oral, EVERY 4 | | 20 12:40 | | | | | HOURS PRN, Pain, Starting Tue | | PM PDT | | | | | 03/29/20 at 0804 | | | | | | + +-------+ +-------+---+---+ +-------+ +-------+---+---+ | Given | 04/01/20 | 10 mg | | | | | 20 8:48 | | | | | | AM PDT | | | | +-------+ +-------+---+---+ | Given | 04/01/20 | 10 mg | | | | | 20 2:18 | | | | | | AM PDT | | | | +-------+ +-------+---+---+ +---+---+ | | | +---+---+ + +-------+ +-------+---+---+ | prochlorperazine (COMPAZINE) | Given | 03/29/20 | 10 mg | | | | injection 10 mg 10 mg, | | 20 1:54 | | | | | Intravenous, EVERY 6 HOURS PRN, | | AM PDT | | | | | Nausea, Vomiting, Starting Mon | | | | | | | 03/28/20 at 1150, Use if | | | | | | | ondansetron ineffective after 30 | | | | | | | minutes or not ordered. Use PO | | | | | | | option unless NPO status or | | | | | | | unable to tolerate., | | | | | | | Post-op/Phase II | | | | | | + +-------+ +-------+---+---+ +-------+ +-------+---+---+ | Given | 03/28/20 | 10 mg | | | | | 20 7:52 | | | | | | PM PDT | | | | +-------+ +-------+---+---+ +---+---+ | | | +---+---+ documented in this encounter
--- OUTSIDE RECORDS SUMMARY | ~2020-04-05 | XMS | Encounter Summary ---
Demographics + + + | Address | [address] | | | [place] [address] | + + + | Home Phone | | + + + | Preferred Language | Unknown | + + + | Marital Status | Single | + + + | Jew Affiliation | 1041 | + + + | Race | Unknown | + + + | Ethnic Group | Unknown | + + + Author + + + | Author | [facility] | | | and [place] | + + + | Organization | [facility] | | | and [place] [...] Team Providers + +------+ + | Care Lion Tamer Name | Role | Phone | + +------+ + | Argelia Lim | PCP | | + +------+ + Reason for Visit + +--------+ + | Reason | Onset | Comments | | | Date | | + +--------+ + | Surgery Appointment | 11/29/ | | | | 2020 | | + +--------+ + Encounter Details +--------+ + + + + | Date | Type | Department | Care Team | Description | +--------+ + + + + | 11/29/ | Telephone | [facility] [place] | Jim Mckoy | Surgery Appointment | | 2020 | | [address] | MD [address] | | | | | [address] | [address] [place] | | | | | [place], [place] | [place] [address] | | | | | [phone] | [phone] | | | | | [phone] | | | +--------+ + + + [...] this encounter Miscellaneous Notes Telephone Encounter - Cassy Mehta Wrapper Cashier - 12/08/2019 9:33 AM PDTPatient b rought in a letter from Dr. Solorzano: Ms. Lagos had abdominal surgery on November 14, 2019 an d she has recovered from that surgery. On November 30, 2009 she has also had a small bowel obst ruction that resolved without surgery. She is okay for surgery form an abdominal surgery [facility]. P DTTelephone Encounter - Cassy Mehta Wrapper Cashier - 12/07/2019 2:36 PM PDTCalled Fernie Solorzano's office and they stated a letter was created and given to patient so that she can give to us. They will not give us information since the patient has not filled out a release of information. Called patient to notify her we have not received this letter through email. No answer, voi cemail left to return our call. Patient is scheduled for pre-op tomorrow and can bring the l kusum to us at that time. Electronically signed by Janie Tan Assistant at 11/21 2:40 PM PDTTelephone Encounter - Muna Vega RN - 12/04/2019 9:[address] Lewis's office states the doctor is unavailable until Saturday12/07/19. They will call at that time and give medical clearance in relation to the procedure they completed only.Elect ronically signed by Muna Vega RN at 12/04/2019 9:25 AM PDTTelephone Encounter - Muna Vega RN - 12/03/2019 2:[address] contact Dr Lewis, office closed early. Lef t message for call back. Telephone Encounter - Maeve Arias - 12/03/2019 1:55 PM PDTPatient called stated she s poke to Dr. Solorzano's office and they just need our office to call them and they will give us verbal clearance. elepho ne Encounter - Cassy Mehta Wrapper Cashier - 12/02/2019 12:58 PM PDTCalled Marine to verify she received our email. No answer, left voicemail to return our call if email needed . elep rashaad Encounter - Cassy Mehta Wrapper Cashier - 12/01/2019 4:12 PM PDTSaritta notifie d that per Dr. Mckoy: Okay to proceed with surgery. She has contacted Dr. Solorzano's office a nd they will be sending over clearance as well. elephone Encounter - Cassy Mehta, Medical Assi marybetht - 12/01/2019 12:00 PM PDTPatient returned our call to verify she was cleared to procee d with surgery. I notified her that Dr. Mckoy is out of the office until 12/11/19 but that I would send this message over to our physician yard assistant Zaid Baires. I asked Marine ray hat she contact her surgeon Dr. Solorzano and request that he give her clearance to proceed with Chairi decompression surgery on 12/15/2019. Marine will request this information and have this emailed to us. eleph one Encounter - Cassy Mehta, Wrapper Cashier - 11/30/2019 4:13 PM PDTSarittariane called o ur office today to notify us that on 11/13/2019 she had surgery of the small and large intes sundar (exploration of abdominal with anterior resection of sigmoid and rectal with coloprocto stomy splenic flexure mobilization) due to her diverticulitis with Dr. Solorzano in [place] . She would like to know if she can proceed with scheduled surgery for Chiari decompression on 12/15/2019. Marine is scheduled for pre-op on 12/08/2019. Notified the patient I would s end Dr. Mckoy and return her call once I received an update. Patient verbalized understand ing. do cumented in this encounter Plan of Treatment +--------+---------+ + + + | Date | Type | Specialty | Care Team | Description | +--------+---------+ + + + | 04/07/ | Office | Neurosurgery | Jim Mckoy | | | 2019 | Visit | | MD Maxime Deng | | | | | | [address] [place] | | | | | | [place] [address] | | | | | | [phone] | | | | | | | | +--------+---------+ + + + | 05/04/ | Office | Neurosurgery | Jim Mckoy | | | 2019 | Visit | | MD Maxime Deng | | | | | | [address] [place] | | | | | | [place] [address] | | | | | | [phone] | | | | | | | | +--------+---------+ + + + documented as of this encounter Visit Diagnoses Not on filedocumented in this encounter"
--- OUTSIDE RECORDS SUMMARY | ~2020-04-05 | XMS | Encounter Summary ---
Demographics + + + | Address | [address] | | | [place] [address] | + + + | Home Phone | | + + + | Preferred Language | Unknown | + + + | Marital Status | Single | + + + | Orthodox Affiliation | 1041 | + + + | Race | Unknown | + + + | Ethnic Group | Unknown | + + + Author + + + | Author | [facility] | | | and [place] | + + + | Organization | [facility] | | [...] Team Providers + +------+ + | Care Tank Builder Name | Role | Phone | + +------+ + | Argelia Lim | PCP | | + +------+ + Reason for Visit + + + | Reason | Comments | + + + | Pain Management | Preop CARDIOPULMONARY TECHNICIAN AND EEG TECH | + + + Encounter Details +--------+ + + + + | Date | Type | Department | Care Team | Description | +--------+ + + + + | 12/06/ | Documentati | [facility] [place] | Jim Mckoy | Pain Management | | 2020 | on | NEUROSURGERY [address] | MD [address] | (Preop CARDIOPULMONARY TECHNICIAN AND EEG TECH) | | | | [address] | [address] [place] | | | | | [place], [place] | [place] [address] | | | | | [address] | [phone] | | | | | [phone] | | | +--------+ + + + [...] + documented as of this encounter Progress Chato Botello RN - 12/07/2019 3:52 PM PDTPMP check r/t 12/08/19 Preop appointment with Zaid Baires PREOP MEDD= 67.5 The following information was obtained from [email or web address] on 12/07/19. No results from [place] 3 month CARDIOPULMONARY TECHNICIAN AND EEG TECH query Results from [facility] 3 month CARDIOPULMONARY TECHNICIAN AND EEG TECH query Oxycodone 7.5/325 20 tabs(3days supply by Dr Galindo) last refill 11/19/19 documented in this encounter Plan of Treatment [...] | | | | | [place] [address] | | | | | | [phone] | | | | | | | | +--------+---------+ + + + | 05/04/ | Office | Neurosurgery | Jim Mckoy | | | 2020 | Visit | | MD [address]ime Deng | | | | | | [address] [place] | | | | | | [place] [address] | | | | | | [phone] | | | | | | | | +--------+---------+ + + + documented as of this encounter Visit Diagnoses Not on filedocumented in this encounter"
--- OUTSIDE RECORDS SUMMARY | ~2020-04-05 | XMS | Encounter Summary ---
Demographics + + + | Address | [address] | | | [place] [address] | + + + | Home Phone | | + + + | Preferred Language | Unknown | + + + | Marital Status | Single | + + + | Latter-Day Affiliation | 1041 | + + + | Race | Unknown | + + + | Ethnic Group | Unknown | + + + Author + + + | Author | [facility] | | | and [place] | + + + | Organization | [facility] | | | and [...] Team Providers + +------+ + | Care Pitching Coach Name | Role | Phone | + +------+ + | Argelia Lim | PCP | | + +------+ + Reason for Visit + + + | Reason | Comments | + + + | Pain Management | PO MEDD | + + + Encounter Details +--------+ + + + + | Date | Type | Department | Care Team | Description | +--------+ + + + + | 04/05/ | Documentati | [facility] | Jim Mckoy | Pain Management (PO | | 2020 | on | NEUROSURGERY [address] | MD Ish [address] | MEDD) | | | | [address] | [address] [place] | | | | | [place], [place] | [place] [address] | | | | | [address] | [phone] | | | | | [phone] | | | +--------+ + + + [...] documented as of this encounter Progress Notes Nereyda Sanchez I, DAMIAN - 04/05/2020 8:59 AM PDTPDMP check r/t OPERATE ON THE HEAD FOR A COMPRESS ION OF THE FORAMEN MAGNUM WITH DURAPLASTY Post op appointment with Dr. Mckoy MEDD= 90 Oxycocodone 5mg Take 1-2 tablets by mouth every 4 hours as needed for Pain maximum of 12 t abs in 24 hours #100 The following information was obtained from https://secureaccess.Notegraphy.gov/myAccess/saw/select .do on 04/05/20. Results from [facility] 3 month DULITE MACHINE BLUER query documented in this encou nter Plan of Treatment +--------+---------+ + + + | Date | Type | Specialty | Care Team | Description | +--------+---------+ + + + | 04/07/ | Office | Neurosurgery | Jim Mckoy | | 2019 | Visit | | MD Maxime Deng | | | | | | [place] [address] [place] | | | | | | [place] [address] | | | | | | [phone] | | | | | | | | +--------+---------+ + + + | 05/04/ | Office | Neurosurgery | Jim Mckoy | | 2019 | Visit | | MD Maxime Deng | | | | | | [facility] [address] | | | | | | [place] [address] | | | | | | [phone] | | | | | | | | +--------+---------+ + + + documented as of this encounter Visit Diagnoses Not on filedocumented in this encounter"
--- OUTSIDE RECORDS SUMMARY | ~2020-04-05 | XMS | Encounter Summary ---
Demographics + + + | Address | [address] | | | [place] [address] | + + + | Home Phone | | + + + | Preferred Language | Unknown | + + + | Marital Status | Single | + + + | Congregational Affiliation | 1041 | + + + | Race | Unknown | + + + | Ethnic Group | Unknown | + + + Author + + + | Author | [facility] | | | and [place] | + + + | Organization | [facility] | | | and [place] [...] Team Providers + +------+ + | Care Certified Physician Assistant Name | Role | Phone | + [...] | [address] [place] | [place] [address] | | | | | [place] [address] | | | | | | [phone] | | | +--------+ + + + [...] | | | | | [place] [address] | | | | | | [phone] | | | | | | | | +--------+---------+ + + + | 05/04/ | Office | Neurosurgery | Jim Mckoy | | | 2019 | Visit | | MD Maxime Deng | | | | | | [address] [place] | | | | | | [place] [address] | | | | | | [phone] | | | | | | | | +--------+---------+ + + + documented as of this encounter Procedures + +--------+ + + + | Procedure Name | Priori | Date/Time | Associated Diagnosis | Comments | | | ty | | | | + +--------+ + + + | XR SHOULDER LEFT 2 + | Routin | 09/09/2018 | | Results for this | | VW | e | 4:50 PM | | procedure are in the | | | | PST | | results section. | + +--------+ + + + documented in this encounter Results XR Shoulder Left 2 + Vw (09/09/2018 4:50 PM PST) + + | Specimen | [...]
--- OUTSIDE RECORDS SUMMARY | ~2020-04-05 | XMS | Clinical Summary ---
Demographics + + + | Address | [address] | | | [place] [address] | + + + | Home Phone | | + + + | Preferred Language | Unknown | + + + | Marital Status | Single | + + + | Samaritan Affiliation | Unknown | + + + [...] Team Providers + +------+ + | Care Distribution District Supervisor Name | Role | Phone | + +------+ + PCP | Unavailable | + +------+ + Source Comments LIZANDRO is fully live on both [facility] Ambulatory and [facility] InPatient.[facility] Allergies Not on File Medications Not on [...] | | | + +--------+ +--------+-------+---------+--------+ | HAND CANDLE MOLDER MEDICAID | HAND CANDLE MOLDER | xxxxxxxx | Effect | | | [...] conrad | | | 1 (Home) | [id number] | + +--------+ +--------+ + +"
--- OUTSIDE RECORDS SUMMARY | ~2020-04-05 | XMS | Encounter Summary ---
Demographics + + + | Address | [address] | | | [place] [address] | + + + | Home Phone [...] + | Author | [facility] | | | and [place] | + + + | Organization | [facility] | | | and [place] [...] Team Providers + +------+ + | Care Election Supervisor Name | Role | Phone | [...] [address] [place] | | | | | ([facility]) | | [place] | | | | | Tinnitus of | | [address] Phone: | | | | | both ears | | [phone] | | | | | Vertigo | | Fax: | | | | | Procedures | | [phone] | | | | | [place] SUBOCCIPT | | | | | | [...] + + | 03/28/ | Anesthesia | [facility] | Jerrod Rivera | | | 2019 | Event | MED CTR OR INTRA OP | DO Angel [address] | | | | | [address] | [address] [place] | | | | | [place] | [place] [address] | | | | | [address] | [phone] | | | | | [phone] | | | +--------+ + + + + Anesthesia Record + + + + + | Procedure Name | Responsible | Anesthesia Start | Anesthesia Stop Time | | | Anesthesiologist | Time | | + + + + + | OPERATE ON THE HEAD | Jerrod Rivera, | 03/28/20 0749 | 03/28/20 1012 | | FOR A COMPRESSION OF | DO | | | | THE FORAMEN MAGNUM | | | | | WITH DURAPLASTY | | | | | (Posterior Head) | | | | + + + + + +----+---+ + + | Da | T | Event | Comment | | te | i | | | | | m | | | | | e | | | +----+---+ + + | 07 | 0 | An Checkout | Pre-use anesthesia machine/equipment checkout. | | /0 | 7 | | | | 6/ | 3 | | | | 20 | 1 | | | | 20 | | | | +----+---+ + + | | 0 | | | | | 7 | | | | | 4 | | | | | 0 | | | +----+---+ + + | | 0 | An Start | Reassessment prior to anesthesia induction/procedure. | | | 7 | | | | | 4 | | | | | 9 | | | +----+---+ + + | | 0 | Preoxygenat | | | | 7 | ed | | | | 5 | | | | | 1 | | | +----+---+ + + | | 0 | An | | | | 7 | Induction | | | | 5 | | | | | 3 | | | +----+---+ + + | | 0 | An | | | | 7 | Intubation | | | | 5 | | | | | 5 | | | +----+---+ + + | | 0 | AN Bite | | | | 7 | Block | | | | 5 | | | | | 7 | | | +----+---+ + + | | 0 | Antibiotic | | | | 7 | Given | | | | 5 | | | | | 7 | | | +----+---+ + + | | 0 | [place] | | | | 8 | 43-degrees | | | | 1 | | | | | 9 | | | +----+---+ + + | | 0 | Pre-Procedu | | | | 8 | ral Timeout | | | | 1 | Completed | | | | 9 | | | +----+---+ + + | | 0 | First | | | | 8 | Inc/Proc St | | | | 2 | | | | | 2 | | | +----+---+ + + | | 0 | [place] off | | | | 9 | | | | | 5 | | | | | 4 | | | +----+---+ + + | | 1 | Oropharynx | | | | 0 | Suctioned | | | | 0 | | | | | 3 | | | +----+---+ + + | | 1 | Breathing | | | | 0 | Spontaneous | | | | 0 | ly | | | | 6 | | | +----+---+ + + | | 1 | AN No | TOF 4/4 with sustained tetanus. | | | 0 | Residual | | | | 0 | NMB | | | | 6 | | | +----+---+ + + | | 1 | Moving | | | | 0 | Purposefull | | | | 0 | y | | | | 7 | | | +----+---+ + + | | 1 | Extubation/ | | | | 0 | Airway LDA | | | | 0 | Removal | | | | 7 | | | +----+---+ + + | | 1 | an stop | | | | 0 | data | | | | 0 | | | | | 8 | | | +----+---+ + + | | 1 | An Stop | Patient handed off to recovery nurse. | | | 1 | | | | | 2 | | | +----+---+ + + +------+ | Meds | +------+ + + + | Name | Total | + + + | midazolam | 2 mg | + + + | fentaNYL injection (2 mL) | 150 mcg | + + + | lidocaine 2% | 100 mg | + + + | propofol (DIPRIVAN) injection | 280 mg | | (bolus) (20 mL) | | + + + | propofol | 180.73 mg | + + + | rocuronium | 60 mg | + + + | ondansetron | 4 mg | + + + | dexamethasone | 10 mg | + + + | HYDROmorphone | 0.6 mg | + + + | phenylephrine (BIORPHEN) | 750 mcg | | injection 0.1 mg/mL (5 mL ampule) | | + + + | sugammadex (BRIDION) injection (2 | 200 mg | | mL vial) | | + + + | remifentanil | 383.24 mcg | + + + | ceFAZolin (ANCEF, KEFZOL) 2 g in | 2 g | | sterile water 20 mL syringe (100 | | | mg/mL) | | + + + | lactated ringers (LR) infusion | 750 mL | + + + | lactated ringers (LR) infusion | 0 mL | + + + | sodium chloride 0.9% (NS) | 1,000 mL | | infusion | | + + + + + | Name | + + | N2O Flow Rate (L/Min) | + + | O2 Flow Rate (L/Min) | + + | Insp O2 | + + | Exp SEV | + + | Air Flow Rate (L/Min) | + + + + | No blood administrations on file. | + + +--------+ + + + | Type | Details | Placement | Removal | +--------+ + + + | Periph | 03/28/20; 0700; Left; Forearm; | 03/28/20 0700 by | 03/31/20 08 by | | eral | [id number] catheter system; | Sena Smallwood RN | Teena Hernandez RN | | IV | 18 gauge, 1 1/2 in length; 2; | | | | | right forearm x 2; distraction, | | | | | intradermal injection, tolerated | | | | | well; site symptomatic, | | | | | catheter/device intact; 03/31/20; | | | | | 0805 | | | +--------+ + + + | Airway | Placement Date: 03/28/20; | 03/28/20754 by | 03/28/20 1007 by | | | Placement Time: 754 (created via | Jerrod Rivera, | Jerrod Rivera, | | | procedure documentation); Mask | DO | DO | | | Ventilation: EZ; Airway Grade: 1; | | | | | Successful Technique: video | | | | | scope; Laryngoscope Blade Size: | | | | | 3; Attempts: 1; Airway Type: | | | | | endotracheal; Size: 6.5; Airway | | | | | Tube Secured At: 21; Trauma: | | | | | none; Other Equipment: stylette; | | | | | Placement Check: exhaled CO2 | | | | | detection device; Removal Date: | | | | | 03/28/20; Removal Time: 1007 | | | +--------+ + + + | Wound | 03/28/20; 943; Incision; head; | 03/28/20943 by | 03/31/20 110 by | | | (duplicate charting. Incision is | Manuel Pacheco RN | Teena Hernandez RN | | | to neck); 03/31/20; 1106 | | | +--------+ + + + | Wound | 03/28/20; 0944; Incision; neck; | 03/28/20 0944 by | 04/01/20 1304 by | | | Healing; 04/01/20; 1304 | Manuel Pacheco RN | César Bains RN | +--------+ + + + documented in this encounter Social History + +-------+ +--------+------+ | Tobacco [...] + + documented as of this encounter OR Notes Anesthesia Postprocedure Evaluation - Jerrod Rivera DO - 03/28/2020 11:37 AM PDTFor matting of this note might be different from the original. ANESTHESIA POSTANESTHESIA EVALUATION [place] 39 y.o. female 1980 [id number] Procedure(s) OPERATE ON THE HEAD FOR A COMPRESSION OF THE FORAMEN MAGNUM WITH DURAPLASTY (Posterior Head) Cooperates? Yes Mental Status Performs simple tasks. Respiratory Satisfactory - Airway patent (self maintained). Cardiovascular Satisfactory - Blood pressure and heart rate acceptable Temperature Satisfactory Pain Satisfactory N/V Control Satisfactory Hydration Satisfactory - No signs of dehydration Adverse Events ADVERSE EVENTS: No adverse events Vitals Value Taken Time Temp 36.3 C (97.3 F) 03/28/20 1011 Pulse 79 03/28/20 1120 Resp 18 03/28/20 1120 BP 108/67 03/28/20 1120 Arterial Line BP Arterial Line BP 2 SpO2 99 % 03/28/20 1120 Electronically signed by Jerrod Rivera DO 03/28/2020 11:[address] [facility] nesthesia Procedure Notes - Jerrod Rivera DO - 03/28/2020 7:59 AM PDTAssociated Order(s): Anesthesia Airway NoteAnesthesia Airway Placement 03/28/2020 7:55 AM Preprocedure check: patient identified, oxygen, airway assessed, patient reassessment prior to induction, airway equipment checked and suction Rapid Sequence Induction: no Mask ventilation: easy Successful technique: videoscope Laryngoscope blade size: 3 Airway grade: 1 (Full view of glottis) Other equipment: stylette Attempts: 1 Airway type: endotracheal Size: 6.5 Cuffed: cuffed Route, reference point: right side of mouth Tube depth: 21 cm Tube secured with: adhesive tape Trauma: none Tube placement verification: carbon dioxide detection Performing provider: Jerrod Rivera DO Authorizing provider: Jerrod Rivera DO Please see intraoperative grid for any additional medication documentation. nesthesia Prepr ocedure Evaluation - Jerrod Rivera DO - 03/27/2020 6:51 PM PDTFormatting of this no te might be different from the original. ANESTHESIA PREANESTHESIA EVALUATION [place] 39 y.o. female 1980 [id number] Procedure(s): Arnold - Chiari decompression (Posterior Head) Review of Systems / Med History Anesthesia History (+) PONV. Pulmonary (+) sleep apnea.(+) Sleep apnea history/interventions: known. Renal Lab Results Component Value Date CREA 0.44 (L) 03/16/2020 BUN 10 03/16/2020 NA 139 03/16/2020 K 3.7 03/16/2020 CL 105 03/16/2020 CO2 27 03/16/2020 . Endocrine (+) obesity: BMI (30-39) Hematology/Other Lab Results Component Value Date WBC 7.5 03/16/2020 HCT 32.2 (L) 03/16/2020 MCV 68.1 (L) 03/16/2020 PLT 310 03/16/2020 . (+) deep vein thrombosis. (+) anemia. Neuromuscular Arnold-Chiari malformation . (+) history of headaches, chronic pain. Psychology (+) psychiatric history of depression. Physical Exam Airway MP II, TM >3 FB, Mouth opening >2 FB. Neck: full ROM, extends >30 degrees. Jaw protrus ion normal. Dental Patient denies loose, chipped or missing teeth (+) age appropriate dentition. CV Rhythm regular. Rate normal. (-) murmur. Pulm Clear to auscultation bilaterally. Neuro grossly normal. Anesthesia Plan ASA: 3 (Arnold-Chiari malformation, anemia, obesity, ashly ) Type: General. Induction: Intravenous. Potential problems: None anticipated. Monitors: Standard ASA monitors. Consent statement: Anesthetic plan, alternatives, risks and benefits discussed with patient. discussed risks t o teeth, nausea, pain, perioperative CV events, respiratory events, sore throat Blood transfusion concerns: None. Consenting person understands and agrees to proceed. PARQ. Patient wishes to keep facial/upper lip piercing in place - discussed theoretical increased risk of burn injury and trauma due to prone positioning, she understands and wants it to re main in place. Will place soft tape over it after induction. . Electronically Signed by: Jerrod Rivera DO ESig date/time: 03/27/2020 6:51 PM PDT documented in th is encounter Miscellaneous Notes Anesthesia Post-op Handoff - Jerrod Rivera DO - 03/28/2020 10:11 AM PDTFormatting o f this note might be different from the original. ANESTHESIA HANDOFF NOTE [place] 39 y.o. female 1980 [id number] OPERATE ON THE HEAD FOR A COMPRESSION OF THE FORAMEN MAGNUM WITH DURAPLASTY (Posterior Hea d) HANDOFF NOTE Handoff Protocol Used: post-procedure handoff checklist completed The following were completed during the transfer of care: 1. Identification of patient 2. Identification of responsible practitioner (primary service) 3. Discussion of pertinent medical history 4. Discussion of the surgical/procedure course (procedure, reason for surgery, procedure pe rformed) 5. Intraoperative anesthetic management and issues/concerns 6. Expectations/plans for the early post-procedure period 7. Opportunity for questions and acknowledgement of understanding of report from receiving team Patient Location: Phase I Condition: sedated Airway/O2: other (see comments) Multimodal analgesia: multimodal analgesia used between 6 hours prior to anesthesia start t o PACU discharge Comments: Supplemental Oxygen used as necessary to maintain Oxygen Saturation at or above 9 2% The significant anesthesia concerns and VS in Epic were reviewed with the receiving team. Jerrod Rivera DO 03/28/2020 10:[address] [facility] documented in this encounter Plan [...] | | | | | | [place] [address] | | | | | | [phone] | | | | | | | | +--------+---------+ + + + | 05/04/ | Office | Neurosurgery | Jim Mckoy | | | 2020 | Visit | | MD Maxime Deng | | | | | | [address] [place] | | | | | | [place] [address] | | | | | | [phone] | | | | | | | [...] + + documented in this encounter Results Anesthesia Airway Note (03/28/2020 7:59 AM [...] medication documentation. | | + + + documented in this encounter Visit Diagnoses Not on filedocumented in this encounter Administered Medications + +---------+ +------+------+------+ | Medication Order | MAR | Action | Dose | Rate | Site | | | Action | Date | | | | + +---------+ +------+------+------+ | ceFAZolin (ANCEF, KEFZOL) 2 g | New Bag | 03/28/20 | 2 g | | | | in sterile water 20 mL syringe | | 20 8:09 | | | | | (100 mg/mL) 2 g, Intravenous, | | AM PDT | | | | | Prior to Incision, Starting Mon | | | | | | | 03/28/20 at 0616, For 1 dose, Keep | | | | | | | in refrigerator. Give IV push | | | | | | | over 3-5 minutes., Pre-op, | | | | | | | Indications: Surgical Prophylaxis | | | | | | + +---------+ +------+------+------+ +---+---+ | | | +---+---+ + +-------+ +-------+---+---+ | dexamethasone (PF) 10 mg/mL | Given | 03/28/20 | 10 mg | | | | injection Intravenous, PRN, | | 20 8:09 | | | | | Starting 03/28/20 at 0809, | | AM PDT | | | | | Anesthesia Intra-op | | | | | | + +-------+ +-------+---+---+ +---+---+ | | | +---+---+ + +-------+ +--------+---+---+ | fentaNYL (PF) injection | Given | 03/28/20 | 50 mcg | | | | Intravenous, PRN, Starting Mon | | 20 8:00 | | | | | 03/28/20 at 0752, Anesthesia | | AM PDT | | | | | Intra-op | | | | | | + +-------+ +--------+---+---+ +-------+ +---------+---+---+ | Given | 03/28/20 | 100 mcg | | | | | 20 7:52 | | | | | | AM PDT | | | | +-------+ +---------+---+---+ +---+---+ | | | +---+---+ + +-------+ +--------+---+---+ | HYDROmorphone (DILAUDID) 2 | Given | 03/28/20 | 0.6 mg | | | | mg/mL injection Intravenous, | | 20 8:37 | | | | | PRN, Starting 03/28/20 at 0837, | | AM PDT | | | | | Anesthesia Intra-op | | | | | | + +-------+ +--------+---+---+ +---+---+ | | | +---+---+ + +---------+ +---+---+---+ | lactated ringers (LR) infusion | New Bag | 03/28/20 | | | | | at 100 mL/hr, Intravenous, | | 20 9:44 | | | | | CONTINUOUS, Starting 03/28/20 | | AM PDT | | | | | at 0645, Pre-op | | | | | | + +---------+ +---+---+---+ +---+---+ | | | +---+---+ + +---------+ +---+---+---+ | lactated ringers (LR) infusion | New Bag | 03/28/20 | | | | | at 10-100 mL/hr, Intravenous, | | 20 7:15 | | | | | CONTINUOUS, Starting 03/28/20 | | AM PDT | | | | | at 0645, Use this instead of NS | | | | | | | unless patient is on dialysis., | | | | | | | Pre-op | | | | | | + +---------+ +---+---+---+ +---+---+ | | | +---+---+ + +-------+ +--------+---+---+ | lidocaine (PF) 2% injection | Given | 03/28/20 | 100 mg | | | | Intravenous, PRN, Starting Mon | | 20 7:52 | | | | | 03/28/20 at 0752, Anesthesia | | AM PDT | | | | | Intra-op | | | | | | + +-------+ +--------+---+---+ +---+---+ | | | +---+---+ + +-------+ +------+---+---+ | midazolam (VERSED) 1 mg/mL | Given | 03/28/20 | 2 mg | | | | injection Intravenous, PRN, | | 20 7:45 | | | | | Starting 03/28/20 at 0745, | | AM PDT | | | | | Anesthesia Intra-op | | | | | | + +-------+ +------+---+---+ +---+---+ | | | +---+---+ + +-------+ +------+---+---+ | ondansetron (ZOFRAN) injection | Given | 03/28/20 | 4 mg | | | | Intravenous, PRN, Starting Mon | | 20 9:23 | | | | | 03/28/20 at 0923, Anesthesia | | AM PDT | | | | | Intra-op | | | | | | + +-------+ +------+---+---+ +---+---+ | | | +---+---+ + +-------+ +---------+---+---+ | phenylephrine (BIORPHEN) 0.1 | Given | 03/28/20 | 100 mcg | | | | mg/mL injection Intravenous, | | 20 9:42 | | | | | PRN, Starting 03/28/20 at 0808, | | AM PDT | | | | | Anesthesia Intra-op | | | | | | + +-------+ +---------+---+---+ +-------+ +---------+---+---+ | Given | 03/28/20 | 150 mcg | | | | | 20 9:02 | | | | | | AM PDT | | | | +-------+ +---------+---+---+ | Given | 03/28/20 | 100 mcg | | | | | 20 8:57 | | | | | | AM PDT | | | | +-------+ +---------+---+---+ +---+---+ | | | +---+---+ + +-------+ +-------+---+---+ | propofol (DIPRIVAN) injection | Given | 03/28/20 | 20 mg | | | | Intravenous, PRN, Starting Mon | | 20 9:57 | | | | | 03/28/20 at 0753, Anesthesia | | AM PDT | | | | | Intra-op | | | | | | + +-------+ +-------+---+---+ +-------+ +-------+---+---+ | Given | 03/28/20 | 30 mg | | | | | 20 9:54 | | | | | | AM PDT | | | | +-------+ +-------+---+---+ | Given | 03/28/20 | 30 mg | | | | | 20 9:51 | | | | | | AM PDT | | | | +-------+ +-------+---+---+ +---+---+ | | | +---+---+ + +---------+ + +-------+---+ | propofol (DIPRIVAN) injection | New Bag | 03/28/20 | 25 | 13.1 | | | Intravenous, CONTINUOUS PRN, | | 20 8:11 | mcg/kg/m | mL/hr | | | Starting Sat03/28/20 at 0811, | | AM PDT | in | | | | Anesthesia Intra-op | | | | | | + +---------+ + +-------+---+ +---+---+ | | | +---+---+ + +---------+ + +-------+---+ | remifentanil (ULTIVA) injection | New Bag | 03/28/20 | 0.05 | 0.3 | | | Intravenous, CONTINUOUS PRN, | | 20 8:11 | mcg/kg/m | mL/hr | | | Starting Sat03/28/20 at 0811, | | AM PDT | in | | | | Anesthesia Intra-op | | | | | | + +---------+ + +-------+---+ +---+---+ | | | +---+---+ + +-------+ +-------+---+---+ | rocuronium (ZEMURON) injection | Given | 03/28/20 | 10 mg | | | | Intravenous, PRN, Starting Mon | | 20 8:02 | | | | | 03/28/20 at 0753, Anesthesia | | AM PDT | | | | | Intra-op | | | | | | + +-------+ +-------+---+---+ +-------+ +-------+---+---+ | Given | 03/28/20 | 50 mg | | | | | 20 7:53 | | | | | | AM PDT | | | | +-------+ +-------+---+---+ +---+---+ | | | +---+---+ + + + +---+---+---+ | sodium chloride 0.9% (NS) | Continue | 03/28/20 | | | | | infusion at 10-100 mL/hr, | d by | 20 7:15 | | | | | Intravenous, CONTINUOUS, Starting | Anesthes | AM PDT | | | | | 03/28/20 at 0645, TKO. Use | ia | | | | | | this instead of LR if patient is | | | | | | | on dialysis., Pre-op | | | | | | + + + +---+---+---+ +---------+ +---+-------+---+ | New Bag | 03/28/20 | | 100 | | | | 20 6:58 | | mL/hr | | | | AM PDT | | | | +---------+ +---+-------+---+ +---+---+ | | | +---+---+ + +-------+ +--------+---+---+ | sugammadex (BRIDION) injection | Given | 03/28/20 | 200 mg | | | | Intravenous, PRN, Starting Mon | | 20 9:48 | | | | | 03/28/20 at 0948, Anesthesia | | AM PDT | | | | | Intra-op | | | | | | + +-------+ +--------+---+---+ +---+---+ | | | +---+---+ documented in this encounter"
--- OUTSIDE RECORDS SUMMARY | ~2020-04-05 | XMS | Encounter Summary ---
Demographics + + + | Address | [address] | | | [place] [address] | + + + | Home Phone | | + + + | Preferred Language | Unknown | + + + | Marital Status | Single | + + + | Mandaen Affiliation | 1041 | + + + | Race | Unknown | + + + | Ethnic Group | Unknown | + + + Author + + + | Author | [facility] | | | and [place] | + + + | Organization | [facility] | | | and [place] [...] Team Providers + +------+ + | Care Spa Consultant Name | Role | Phone | + +------+ + | Argelia Lim | PCP | | + +------+ + Encounter Details +--------+ + + + + | Date | Type | Department | Care Team | Description | +--------+ + + + + | 02/10/ | Orders Only | [facility] [place] | Jim Mckoy | [place] | | 2020 | | NEUROSURGERY [address] | MD Ish [address] | malformation (HCC) | | | | [address] | [address] [place] | (Primary Dx); Preop | | | | [place] | [place] [address] | examination | | | | [address] | [phone] | | | | | [phone] | | | +--------+ + + + [...] | | | | | [address] [place] | | | | | | [place] [address] | | | | | | [phone] | | | | | | | | +--------+---------+ + + + | 05/04/ | Office | Neurosurgery | Jim Mckoy | | | 2019 | Visit | | MD Ish [address] | | | | | | [address] [place] | | | | | | [place] [address] | | | | | | [phone] | | | | | | | | +--------+---------+ + + + documented as of this encounter Results Coronavirus (COVID-19) NAAT (03/24/2020 8:28 AM PDT) [...] + + | Performed at: 01 - [facility] [address] [place], [place] | REFERENCE LAB | | [id number] Streetcar Repairer Helper: Jorge Bryant MD, Phone: [phone] | [facility] | + + + + + + + + | Performing | Address | City/State/Zipcode | Phone Number | | Organization | | | | + + + + + | REFERENCE LAB | [address] | [place], [place] | [phone] | | [facility] | [place] | [address] | | + + + + + documented in this encounter Visit Diagnoses + + | Diagnosis | + + | Arnold-Chiari malformation (HCC) - Primary Spina bifida with hydrocephalus, | | unspecified region | + + | Preop examination Preoperative examination, unspecified | + + documented in this encounter"
--- OUTSIDE RECORDS SUMMARY | ~2020-04-05 | XMS | Encounter Summary ---
Demographics + + + | Address | [address] | | | [place] [address] | + + + | Home Phone | | + + + | Preferred Language | Unknown | + + + | Marital Status | Single | + + + | Alevism Affiliation | 1041 | + + + | Race | Unknown | + + + | Ethnic Group | Unknown | + + + Author + + + | Author | [facility] | | | and [place] | + + + | Organization | [facility] | | | and [place] | + + + | Address | Unknown | + + + | Phone | Unavailable | + + + Support + + +---------+ + | Name | Relationship | Address | Phone | + + +---------+ + | Plaicdo Thakur | ECON | Unknown | | + + +---------+ + Care Team Providers + +------+ + | Care Training Development Manager Name | Role | Phone | [...] | | | | | headache | [address] | [address] | | | | | Concussion | [place] | [place] | | | | | without loss | [place] [address] | [place], [place] | | | | | of | Phone: | [phone] | | | | | consciousnes | [phone] | Phone: | | | | | s, | Fax: | [phone] | | | | | subsequent | [phone] | Fax: | | | | | encounter | | [phone] | | | | | Migraine | [...] | daily | [address] | | | | n | headache | [address] | [place], | | | | | Concussion | [place], | [place] [address] | | | | | without loss | [place] [address] | Phone: | | | | | of | Phone: | [phone] | | | | | consciousnes | [phone] | Fax: | | | | | s, | Fax: | [phone] | | | | | subsequent | [phone] | | | | | | encounter [...] | Blurred | [address] | | | | n | vision | [address] | [place], | | | | | | [place], | [place] [address] | | | | | | [place] | Phone: | | | | | | [address] | [phone] | | | | | | Phone: | Fax: | | | | | | [phone] | [phone] | | | | | | Fax: | | | | | | | [phone] | | +--------+--------+ + + + + Encounter Details +--------+---------+ + + + | Date | Type | Department | Care Team | Description | +--------+---------+ + + + | 01/20/ | [facility] | [facility] | Robert Castillo, | Chronic daily | | 2019 | Visit | PHYSIATRY [address] | [address] | headache (Primary | | | | [address] | [place] | Dx); Concussion | | | | [place] | [address] | without loss of | | | | [address] | | consciousness, | | | | [phone] | | subsequent | | | | [...] fro m the original. Robert Castillo MD [address] [facility], [address] [place] [address] FAX: [facility]YSICAL MEDICINE AND REHABILITATION H&P Referring Provider: Jaguar Matthews MD Date of Service: 01/20/19 Patient ID: 38 y.o. female with chief complaint of headaches. ALESSANDRA Lagos reports that they first starting having [...] the headaches are usually frontal, occipital, parietal, advent, orbital, re tro-orbital and band-like. The headaches [...] not remember that the nations [place] is [place], [place]). Concentration: Able to maintain concentration with [...] Extension 5 5 Finger Abduction 5 5 Radiology Technician Strength 5 5 Hip Flexion 5 5 [...] headaches prophylaxis and aid with sleep. Marine Lgaos was advised to taper up the dose [...] guard against the pain or stiffness. Marine aLgos is encouraged to maintain physical activity. We [...] complete. Robert Castillo MD - 01/20/2019 Cc: Jaguar Matthews MD, Hai Webb MD documented in [...] | | | | | | [place] [address] | | | | | | [phone] | | | | | | | | +--------+---------+ + + + | 05/04/ | Office | Neurosurgery | Jim Mckoy | | | 2020 | Visit | | MD Maxime [address] | | | | | | [address] [place] | | | | | | [place] [address] | | | | | | [phone] | | | | | | | | +--------+---------+ + + + + + +--------+ + + | Name | Type | Priori | Associated Diagnoses | Order Schedule | | | | ty | | | + + +--------+ + + | * [facility] | Outpatient | Routin | Chronic daily [...]
--- OUTSIDE RECORDS SUMMARY | ~2020-04-05 | XMS | Encounter Summary ---
Demographics + + + | Address | [address] | | | [place] [address] | + + + | Home Phone | | + + + | Preferred Language | Unknown | + + + | Marital Status | Single | + + + | Orthodoxy Affiliation | 1041 | + + + | Race | Unknown | + + + | Ethnic Group | Unknown | + + + Author + + + | Author | [facility] | | | and [place] | + + + | Organization | [facility] | | | and [place] | + + + | Address | Unknown | + + + | Phone | Unavailable | + + + Support + + +---------+ + | Name | Relationship | Address | Phone | + + +---------+ + | Placido Thkaur | ECON | Unknown | | + + +---------+ + Care Team Providers + +------+ + | Care Web Operations Administrator Name | Role | Phone | + +------+ + PCP | Unavailable | + +------+ + Encounter Details +--------+ + + + + | Date | Type | Department | Care Team | Description | +--------+ + + + + | 09/25/ | Hospital | [facility] | | | | 2000 | Encounter | [facility] | | | | | | CENTER [address] | | | | | | [place] | | | | | | [address] | | | | | | [phone] | | | +--------+ + + + [...] | | | | | [place] [address] | | | | | | [phone] | | | | | | | | +--------+---------+ + + + | 05/04/ | Office | Neurosurgery | Jim Mckoy | | | 2019 | Visit | | MD Maxime Deng | | | | | | [address] [place] | | | | | | [place] [address] | | | | | | [phone] | | | | | | | | +--------+---------+ + + + documented as of this encounter Visit Diagnoses Not on filedocumented in this encounter"
--- OUTSIDE RECORDS SUMMARY | ~2020-04-05 | XMS | Encounter Summary ---
Demographics + + + | Address | [address] | | | [place] [address] | + + + | Home Phone | | + + + | Preferred Language | Unknown | + + + | Marital Status | Single | + + + | Voodoo Affiliation | 1041 | + + + | Race | Unknown | + + + | Ethnic Group | Unknown | + + + Author + + + | Author | [facility] | | | and [place] | + + + | Organization | [facility] | | | and [place] [...] Team Providers + +------+ + | Care Audio Visual Manager Name | Role | Phone | [...] | daily | [address] | | | | n | headache | [address] | [place], | | | | | Concussion | [place], | [place] [address] | | | | | without loss | [place] [address] | Phone: | | | | | of | Phone: | [phone] | | | | | consciousnes | [phone] | Fax: | | | | | s, | Fax: | [phone] | | | | | subsequent | [phone] | | | | | | encounter [...] | 01/27/ | Procedure | [facility] | Robert Castillo, | Bilateral occipital | | 2019 | visit | [address]YSIATRY [address] | MD [address] | neuralgia (Primary | | | | [address] | [place] | Dx) | | | | [place] | [address] | | | | | [address] | | | | | | [phone] | | | +--------+ + + + [...] encounter Patient Instructions Patient Instructions Valery Aguirre, Foreign Clerk - 01/27/2019 1:00 PM PDTIf you develop [...] | | | | | [place] [address] | | | | | | [phone] | | | | | | | | +--------+---------+ + + + | 05/04/ | Office | Neurosurgery | Jim Mckoy | | | 2020 | Visit | | MD Maxime Deng | | | | | | [address] [place] | | | | | | [place] [address] | | | | | | [phone] | | | | | | | [...] | | (Comment | | Intramuscular, ONCE, 01/27/19 | | AM PDT | | | [...] 9:18 | | | (Comment | | Yolanda 01/27/19 at 1815, For 1 dose | | [...] | | (Comment | | Infiltration, ONCE, 01/27/19 at | | AM PDT | | | ) | | 1815, For 1 dose | | | | | | + + + +-------+---+ + +---+---+ | | | +---+---+ documented in this encounter"
--- OUTSIDE RECORDS SUMMARY | ~2020-04-05 | XMS | Encounter Summary ---
Demographics + + + | Address | [address] | | | [place] [address] | + + + | Home Phone | | + + + | Preferred Language | Unknown | + + + | Marital Status | Single | + + + | Congregational Affiliation | 1041 | + + + | Race | Unknown | + + + | Ethnic Group | Unknown | + + + Author + + + | Author | [facility] | | | and [place] | + + + | Organization | [facility] | | | and [place] [...] Team Providers + +------+ + | Care Brazer Induction Name | Role | Phone | + +------+ + | Argelia Lim | PCP | | + +------+ + Encounter Details +--------+ + + + + | Date | Type | Department | Care Team | Description | +--------+ + + + + | 02/08/ | Orders Only | [facility] [place] | Jim Mckoy | Chronic migraine | | 2019 | | NEUROSURGERY [address] | MD Ish [address] | (Primary Dx); | | | | [address] | [address] [place] | Arnold-Chiari | | | | [place], [place] | [place] [address] | malformation (HCC); | | | | [address] | [phone] | Tinnitus of both | | | | [phone] | | ears; Bilateral | | | | | | occipital neuralgia | +--------+ + + + + Social [...] | | | | | [place] [address] | | | | | | [phone] | | | | | | | | +--------+---------+ + + + | 05/04/ | Office | Neurosurgery | Jim Mckoy | | 2019 | Visit | | MD Ish [address] | | | | | | [address] [place] | | | | | | [place] [address] | | | | | | [phone] | | | | | | | | +--------+---------+ + + + documented as of this encounter Results Culture, MRSA (03/16/2020 12:49 PM PDT) + + + + + + | Component | Value | Ref Range | Performed | Pathologist | | | | | At | Signature | + + + + + + | Culture | Negative for MRSA by | | [facility] | | | | chromogenic agar method. | | [facility] | | | [...] + + + + + | [facility]FF [facility] | [address] | [place] | [phone] | | [facility] | | [address] | | | - LABORATORY | | [...]
--- OUTSIDE RECORDS SUMMARY | ~2020-04-05 | XMS | Encounter Summary ---
Demographics + + + | Address | [address] | | | [place] [address] | + + + | Home Phone | | + + + | Preferred Language | Unknown | + + + | Marital Status | Single | + + + | Roman Catholic Affiliation | 1041 | + + + | Race | Unknown | + + + | Ethnic Group | Unknown | + + + Author + + + | Author | [facility] | | | and [place] | + + + | Organization | [facility] | | | and [place] [...] Team Providers + +------+ + | Care Face Man Name | Role | Phone | + [...] | [address] [place] | [place] [address] | | | | | [place] [address] | | | | | | [phone] | | | +--------+ + + + [...] | | | | | | [address] [place] | | | | | | [place] [address] | | | | | | [phone] | | | | | | | | +--------+---------+ + + + | 05/04/ | Office | Neurosurgery | Jim Mckoy | | | 2019 | Visit | | MD Maxime Deng | | | | | | [address] [place] | | | | | | [place] [address] | | | | | | [phone] | | | | | | | [...]
--- OUTSIDE RECORDS SUMMARY | ~2020-04-05 | XMS | Encounter Summary ---
Demographics + + + | Address | [address] | | | [place] [address] | + + + | Home Phone | | + + + | Preferred Language | Unknown | + + + | Marital Status | Single | + + + | Sabianism Affiliation | 1041 | + + + | Race | Unknown | + + + | Ethnic Group | Unknown | + + + Author + + + | Author | [facility] | | | and [place] | + + + | Organization | [facility] | | | and [place] [...] Team Providers + +------+ + | Care Support Services Rep Name | Role | Phone | + +------+ + | Argelia Lim | PCP | | + +------+ + Reason for Visit + +--------+ + | Reason | Onset | Comments | | | Date | | + +--------+ + | Medication Screening | 10/01/ | NS medications to stop prior to surgery | | | 2020 | | + +--------+ + Encounter Details +--------+ + + + + | Date | Type | Department | Care Team | Description | +--------+ + + + + | 10/01/ | Telephone | [facility] | Jim Mckoy | Medication Screening | | 2019 | | [address] [place] [address] MD [address] | (NS medications to | | | | [address] | [address] [place] | stop prior to | | | | [place] | [place] [address] | surgery) | | | | [address] | [phone] | | | | | [phone] | | | +--------+ + + + [...] Telephone Encounter - Nereyda Sanchez RN - 03/16/2020 11:25 AM PDTUpdated medication list, ho ld ibuprofen and [id number]-[id number]-[id number] 7 days prior to surgery, provide COVID testing information elephone Enco bear - Muna Vega RN - 12/08/2019 11:40 AM PDTUpdated medication list-advised to hold i buprofen and supplements 7 days prior to surgery. Surgery on hold for now. Will update patie nt on reschedule and medication management at that time. elephone Encounter - Muna Vega RN - 10/01/2019 4:32 P M PSTReviewed the patient's medication list. The following medications that the patient is currently taking are listed on the medications to avoid before surgery form as medications t hat may need to be held prior to surgery. Per Dr Mckoy request, hold as indicated below: Xarelto is on the list, but per the OV note, she was stopping it 09/29/19 No other medications need to be held per the list provided. Please review medication list again at preop appointment to make sure medication list has n ot changed and update as needed. Post op pain management by neurosurgery is expected for up to 2 weeks following the planne d procedure. elephone En counter - Haydee Gutierrez Textile Worker - 10/01/2019 4:25 PM PSTThis patient was sched uled for a Arnold Chiari Decompression for 12/15/2019. Pre-op appointment is scheduled on 12/08/2019. Please indicate the length of the pain agreement and review medication list to determine wh ich medications will need to be discontinued prior to surgery. Thank you Electronically sig yfn by Haydee Gutierrez Textile Worker at 10/01/2019 4:27 PM PSTdocumented in this encoun ter Plan of Treatment +--------+---------+ + + + | Date | Type | Specialty | Care Team | Description | +--------+---------+ + + + | 04/07/ | Office | Neurosurgery | Jim Mckoy | | | 2019 | Visit | | MD Maxime Deng | | | | | | [address] [place] | | | | | | [place] [address] | | | | | | [phone] | | | | | | | | +--------+---------+ + + + | 05/04/ | Office | Neurosurgery | Jim Mckoy | | | 2019 | Visit | | MD Maxime Deng | | | | | | [address] [place] | | | | | | [place] [address] | | | | | | [phone] | | | | | | | | +--------+---------+ + + + documented as of this encounter Visit Diagnoses Not on filedocumented in this encounter"
--- OUTSIDE RECORDS SUMMARY | ~2020-04-05 | XMS | Encounter Summary ---
Demographics + + + | Address | [address] | | | [place] [address] | + + + | Home Phone | | + + + | Preferred Language | Unknown | + + + | Marital Status | Single | + + + | Yazidi Affiliation | 1041 | + + + | Race | Unknown | + + + | Ethnic Group | Unknown | + + + Author + + + | Author | [facility] [place] | | | and [place] | + + + | Organization | [facility] | | | and [place] | [...] Team Providers + +------+ + | Care Building Engineer Name | Role | Phone | + +------+ + | Argelia Lim | PCP | | + +------+ + Reason for Visit + +--------+ + | Reason | Onset | Comments | | | Date | | + +--------+ + | Headache | 01/04/ | | | | 2020 | | + +--------+ + Encounter Details +--------+ + + + + | Date | Type | Department | Care Team | Description | +--------+ + + + + | 01/04/ | Telephone | [facility] [place] | Lizbethmayur Jim | Headache | | 2020 | | NEUROSURGERY [address] | MD [address] | | | | | [address] | [address] [place] | | | | | [place], [place] | [place] [address] | | | | | [address] | [phone] | | | | | [phone] | | | +--------+ + + + [...] documented as of this encounter Miscellaneous Notes Addendum Note - Muna Marcelino RN - 01/20/2020 11:04 AM PDT Addended by: MUNA MARCELINO on: 01/20/2020 11:04 AM Modules accepted: Orders elephone Encounter - Muna Marcelino RN - 01/20/2020 10:49 AM PDTSacandacettariane called and asked if it was ok to take fi orinal with the diamox. I asked her how she was doing on the diamox and she said she is feel ing a little better, but still having headaches, so she went to her PCP and got the fiorinal . She said she had a rash on her upper arms, but doesn't think its related to the diamox as she had this happen last year about this same time. I advised her to call her pcp to have at followed up on and reminded her that the diamox could cause some skin sensitivity to the sun so to be careful with that. Discussed it with Dr Harper and he said it should be ok if shane tanner only takes the fiorinal a few times a day. He also advised that she would need a BMP in a couple weeks to check her electrolytes. Order placed for BMP at [facility] to be completed 02/03/20 approximately. Advised Marine to call if she develops any other symptoms or hers worsen. Shane tanner verbalized understanding. elephone Encounter - Muna Marcelino RN - 01/14/2020 11:48 AM PDTReceived a call from Sa nash, and she said she was unable to get the diamox. Explained it was sent to [facility] in [place], [place]. She was trying to get it from [facility]. She forgot she had changed it as her preferred. She will go get it now and let us know how she responds. She asked if we could c all her PCP to let them know we weren't prescribing a pain medication. Attempted to notify h er PCP, but there was no answer. Left message explaining that diamox was prescribed but no p ain medication was prescribed and to call the clinic if they had any questions.Electronicall y signed by Muna Marcelino RN at 01/14/2020 11:59 AM PDTTelephone Encounter - Wolfgang Harper MD - 01/08/2020 5:14 PM PDTI called [phone] to speak with Argelia Azar today. I s poke with the campus receptionist and gave her my cell phone number and she indicated that she woul d forward the message and have her call me back. I spoke with on the telephone this evening and she states that her headaches hav e gotten quite a bit more severe in the past few weeks. She is wearing sunglasses most of t he time because the light hurts her eyes. She does not complain of significant nausea vomit ing. No pain weakness numbness paresthesias in the extremities or difficulty with ambulatio n or coordination. No lethargy, vertigo or significant dizziness. She states that she has had the headaches for quite some time and usually tolerates them but they have become quite a bit worse recently. She states that she has been seen by ophthalmology approximately 6 mo nths ago and there was no mention of papilledema or increased intraocular pressure. She buitrago s not feel that she has any new visual symptoms except for the light sensitivity. I discuss ed with her the option of a trial of Diamox, which she states that she is not tried previous ly. I cautioned her regarding the small risk of the medication actually worsening her sympt oms and the risk of developing a neurologic deficit on the medication. The signs and sympto ms to watch for were discussed in detail. She appears to understand and states that she wou ld like to try the medication which we will start at a relatively low dose. She is to notif y office to let us know how she does with the medication within the next week, and is to not casey her physicians or come to the emergency room if any significant neurologic changes or sy mptoms occur. elephone Encount jose antonio - Maeve Arias - 01/06/2020 2:55 PM PDTPatient's PCP called stated she spoke to Zuly montes de oca and Madelyn stated that Dr Mckoy had told her he would not prescribe pain meds but wo uld be willing to discuss other options to help with her pain. Argelia Lim would like a clyde l back to discuss these options. Her office number is [phone] elephone Encounter - Zaid Baires PA-C - 12:45 PM PDTThat sounds apporiate. I am fairly confident that her description of f eeling like her eyeballs are going to pop out is not of particular significance for Arnold-C hiari syndrome. However, out of precaution I will route this message to Dr. Harper. If he fe els that this history is of particular concern, we will have her come back in for an evaluat ion and decide if her Arnold-Chiari pathology needs more urgent attention. Otherwise, as fa r as her pain concerns ago, I completely agree with your recommendation that she contact her primary care doctor. elephone Encounter - Muna Marcelino RN - 01/05/2020 11:25 AM PDTLOV: 12/08/19 preop with Zaid Baires Surgery scheduled for arnold-chiari decompression surgery was cancelled due to covid 19 res trictions Marine Lagos called and said her headaches are worsening. She said that she "feels like her eyeballs are gonna pop out" due to the pain, and she is having pain in her neck. She sa id it is a big knot in her neck. She denies any other issues or concerns. She asked if we co uld prescribe her something for the pain. She said she has too much anxiety to try acupunctu re, so that wasn't an option for her as requested by CORNELL at her last office visit. I explaine d that we typically don't manage pain except in the post op phase, so it would be more appro priate to contact her PCP for pain medication or muscle relaxants at this time and just expl ain, surgery was postponed. Advised to try conservative measures such as heat/ice, massage, stretching and OTC medications as tolerated in the meantime. She said she would try them and would make an appointment with her PCP for pain management as well. Encouraged her to let u s know if she had any worsening symptoms. She is really wanting to schedule surgery as soon as possible. Explained we would reschedule as soon as we were able to. She verbalized unders tanding. Please advise further. d ocumented in this encounter Plan of Treatment +--------+---------+ + + + | Date | Type | Specialty | Care Team | Description | +--------+---------+ + + + | 04/07/ | Office | Neurosurgery | Jim Mckoy | | | 2019 | Visit | | MD Maxime [address] | | | | | | [address] [place] | | | | | | [place] [address] | | | | | | [phone] | | | | | | | | +--------+---------+ + + + | 05/04/ | Office | Neurosurgery | Jim Mckoy | | | 2019 | Visit | | MD [address]ime [address] | | | | | | [address] [place] | | | | | | [place] [address] | | | | | | [phone] | | | | | | | | +--------+---------+ + + + documented as of this encounter Results Basic Metabolic Panel (03/16/2020 12:49 PM PDT) + + + + + + | Component | Value | Ref Range | Performed | Pathologist | | | | | At | Signature | + + + + + + | Na | 139 | 136 - 145 | [facility] | | | | | mmol/L | [facility] | | | | | | [facility] - | | | | | | LABORATORY | | + + + + + + | K | 3.7 | 3.4 - 5.1 | [facility] | | | | | mmol/L | [facility] | | | [facility] | | [facility] | | | | | | C[facility] - | | | | | | LABORATORY | | + + + + + + | Cl | 105 | 98 - 107 mmol/L | [facility] | | | | | | [facility] | | | | | | [facility] | | | | | | C[facility] - | | | | | | LABORATORY | | + + + + + + | CO2 | 27 | 20 - 31 mmol/L | [facility] | | | | | | [facility] | | | [facility] | | [facility] | | | | | | CENTER - | | | | | | LABORATORY | | + + + + + + | Anion Gap | 7 | 3 - 16 mmol/L | [facility] | | | | | | [facility] | | [...] 10 | 9 - 23 mg/dL | [facility] | | | | | | [facility] | | | | | | MEDICAL | | | | | | CENTER - | | | | | | LABORATORY | | + + + + + + | Creatinine | 0.44 (L) | 0.55 - 1.02 | [facility] | | | | | mg/dL | [facility] | [facility] | [facility] | | | | | | C[facility] - | | | | | | LABORATORY | | + + + + + + | eGFR if not | >60Comment: GLOMERULAR | >=60 | [facility] | | | | FILTRATION | mL/min/1.73m2 | [facility] | | | [facility] [facility] [place] | RATE,ESTIMATED | | MEDICAL | | | | mL/min/1.51z9Okfw than | | CENTER - | | [...] | | | | | mg/dL | [facility] | | | | | | MEDICAL | | | | | | CENTER - | | | | | | LABORATORY | | + + + + + + | BUN/Creatin | 22.7 | | [facility] | | | ine Ratio | | | [facility] | | | | | | MEDICAL [...] ST. | [address] | [place], [place] | [phone] | | [facility] | | [address] | | | - LABORATORY | | | | + + + + + documented in this encounter Visit Diagnoses + + | Diagnosis | + + | Arnold-Chiari malformation (HCC) - Primary Spina bifida with hydrocephalus, | | unspecified region | + + documented in this encounter
--- OUTSIDE RECORDS SUMMARY | ~2020-04-05 | XMS | Encounter Summary ---
Demographics + + + | Address | [address] | | | [place] [address] | + + + | Home Phone | | + + + | Preferred Language | Unknown | + + + | Marital Status | Single | + + + | Amish Affiliation | 1041 | + + + | Race | Unknown | + + + | Ethnic Group | Unknown | + + + Author + + + | Author | [facility] | | | and [place] | + + + | Organization | [facility] | | | and [place] [...] Team Providers + +------+ + | Care Veneer Jointer Name | Role | Phone | + +------+ + | Hai Webb MD | PCP | | + +------+ + Encounter Details +--------+ + + + + | Date | Type | Department | Care Team | Description | +--------+ + + + + | 01/13/ | Abstract | [facility] | Matt, | | | 2018 | | PHYSIATRY [address] | [address] | | | | | [address] | [address] | | | | | [place] | [place] [address] | | | | | [address] | | | | | | [phone] | | | +--------+ + + + [...] [address] | | | | | | [address] [address] [place] | | | | | | [place] [address] | | | | | | [phone] | | | | | | | | +--------+---------+ + + + | 05/04/ | Office | Neurosurgery | Jim Mckoy | | | 2019 | Visit | | MD Maxime Deng | | | | | | [address] [place] | | | | | | [place] [address] | | | | | | [phone] | | | | | | | | +--------+---------+ + + + documented as of this encounter Visit Diagnoses Not on filedocumented in this encounter"
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
--- OUTSIDE RECORDS SUMMARY | ~2020-04-05 | XMS | Encounter Summary ---
Demographics + + + | Address | [address] | | | [place] [address] | + + + | Home Phone [...] | [facility] [place] | | | and [place] | + + + | Organization | [facility] [place] | | | and [...] Team Providers + +------+ + | Care Knockout Worker Name | Role | Phone | + +------+ + | Argelia Lim | PCP | | + +------+ + Reason for Visit + +--------+ + | Reason | Onset | Comments | | | Date | | + +--------+ + | Paperwork | 12/07/ | FMLA | | | 2020 | | + +--------+ + Encounter Details +--------+ + + + + | Date | Type | Department | Care Team | Description | +--------+ + + + + | 12/07/ | Telephone | [facility] [place] | Jim Mckoy | Paperwork (FMLA ) | | 2019 | | [address] | MD [address] | | | | | [address] | [address] [place] | | | | | [place] | [place] [address] | | | | | [address] | [phone] | | | | | [phone] | | | +--------+ + + + [...] Encounter - Nereyda Sanchez RN - 04/04/2020 10:28 AM PDTCalled and spoke with Anya melo, her sister is no longer taking care of her, and we can shred the [place] paperwork elephone Encounter - Lucy Wright CMA - 03/28/2020 9:54 AM PDTLA forms were for the sister as a caregiver. Form s had been pre-filled with November and December dates. Once the patient has been discharged from the hospital we will verify if she still needs these forms completed and/or if they have new forms. elephone Encoun Cassy Moreno Geospatial Extractor Analysis - 12/08/2019 1:28 PM PDTFamily Medical Leave Act p aperwork received. Surgery has been postponed. Reminder set to follow up. Electronically sig yfn by Jnaie Tan Assistant at 12/08/2019 1:31 PM PDTdocumented in this encoun ter Plan of Treatment +--------+---------+ + + + | Date | Type | Specialty | Care Team | Description | +--------+---------+ + + + | 04/07/ | Office | Neurosurgery | Jim Mckoy | | 2019 | Visit | | MD Maxime Deng | | | | | | [address] | | | | | | [place] [address] | | | | | | [phone] | | | | | | | | +--------+---------+ + + + | 05/04/ | Office | Neurosurgery | Jim Mckoy | | 2019 | Visit | | MD Maxime Deng | | | | | | [facility] [address] [place] | | | | | | [place] [address] | | | | | | [phone] | | | | | | | | +--------+---------+ + + + documented as of this encounter Visit Diagnoses Not on filedocumented in this encounter"
--- OUTSIDE RECORDS SUMMARY | ~2020-04-05 | XMS | Encounter Summary ---
Demographics + + + | Address | [address] | | | [place] [address] | + + + | Home Phone | | + + + | Preferred Language | Unknown | + + + | Marital Status | Single | + + + | Restorationism Affiliation | 1041 | + + + | Race | Unknown | + + + | Ethnic Group | Unknown | + + + Author + + + | Author | [facility] [place] | | | and [place] | + + + | Organization | [facility] [place] | | | and [place] [...] Team Providers + +------+ + | Care Hvac Field Service Technician Name | Role | Phone | [...] | [address] [place] | [place] [address] | | | | | [place] [address] | | | | | | [phone] | | | +--------+ + + + [...] | | | | | [place] [address] | | | | | | [phone] | | | | | | | | +--------+---------+ + + + | 05/04/ | Office | Neurosurgery | Jim Mckoy | | | 2019 | Visit | | MD Maxime Deng | | | | | | [address] [place] | | | | | | [place] [address] | | | | | | [phone] | | | | | | | [...]
--- OUTSIDE RECORDS SUMMARY | ~2020-04-05 | XMS | Encounter Summary ---
Demographics + + + | Address | [address] | | | [place] [address] | + + + | Home Phone | | + + + | Preferred Language | Unknown | + + + | Marital Status | Single | + + + | Adventist Affiliation | 1041 | + + + | Race | Unknown | + + + | Ethnic Group | Unknown | + + + Author + + + | Author | [facility] [place] | | | and [place] | + + + | Organization | [facility] [place] | | | and [place] [...] Team Providers + +------+ + | Care Compounding Pharmacy Technician Name | Role | Phone | [...] | Specialty | Neurosurgery | Diagnoses | Jonathan, | [facility] | | | Services | | Chidereje | Robert Norris MD | Neurosurgery | | | Required | | malformation | [address] | | | | | type I | [address] | [address] | | | | | ([facility]) | [place], | [place], | | | | | | [place] [address] | [place] [address] | | | | | | Phone: | Phone: | | | | | | [phone] | [phone] | | | | | | Fax: | Fax: | | | | | | [phone] | [phone] | + + + + + + + Reason for Visit + +--------+ + | Reason | Onset | Comments | | | Date | | + +--------+ + | Results, Imaging | 04/06/ | | | | 2018 | | + +--------+ + Encounter Details +--------+ + + + + | Date | Type | Department | Care Team | Description | +--------+ + + + + | 04/06/ | Telephone | [facility] [place] | Robert Castillo, | Results, Imaging | | 2019 | | PHYSIATRY [address] | MD [address] | | | | | [address] | [place], [place] | | | | | [place], [place] | [address] | | | | | [address] | | | | | | [phone] | | | +--------+ + + + [...] this encounter Miscellaneous Notes Telephone Encounter - Valery Aguirre Housecalls Nurse - 04/14/2019 10:35 AM PDTCalle d to inform [place] of imaging results. Results were relayed. [place] verbal ized understanding. Electronically signed by Valery Aguirre Housecalls Nurse at 2018 10:43 AM PDTTelephone Encounter - Valery Aguirre Housecalls Nurse - 04/06/2019 1:45 PM PDTPlease also see the note attached to her brain MRI. Her neck MRI again shows ch iari malformation, but otherwise her cervical MRI is unremarkable. Thank you, Robert Castillo MD (Jr.) Called to inform [place] of imaging results. Could not leave a voicemail message as [place] voicemail box has not been set up yet. elephone Encounter - Contreras Aguirre, Housecalls Nurse - 04/06/2019 1:45 PM PDT----- Message from Robert Castillo MD sent at 04/06/2019 12:13 PDT ----- Roseline, Please let [place] know that I have reviewed her brain and neck MRIs. There are no emergent findings. The MRI demonstrates chiari malformation type 1. This means that her b rain sits a bit low in her skull and is moving a bit into the opening at the base of the sku ll. It is possible that chiari malformation can be responsible for headaches, weakness, num bness, etc. I would like her to see a neurosurgeon. If she is willing, please place neuros urgery consult. Please see if our local neurosurgeons are treating chiari, or if they would recommend a referral elsewhere. Thank you, Robert Castillo MD (Jr.) ----- Message ----- From: Ignacio Chairez Results In Sent: 04/06/2019 11:11 To: Robert Castillo MD do cumented in this encounter Plan of [...] | | | | | | [place] [address] | | | | | | [phone] | | | | | | | | +--------+---------+ + + + | 05/04/ | Office | Neurosurgery | Jim Mckoy | | | 2019 | Visit | | MD Maxime Deng [address] | | | | | | [address] [place] | | | | | | [place] [address] | | | | | | [phone] | | | | | | | [...]
--- OUTSIDE RECORDS SUMMARY | ~2020-04-05 | XMS | Encounter Summary ---
Demographics + + + | Address | [address] | | | [place] [address] | + + + | Home Phone | | + + + | Preferred Language | Unknown | + + + | Marital Status | Single | + + + | Rastafarian Affiliation | [id number] | + + + | Race | Unknown | + + + | Ethnic Group | Unknown | + + + Author + + + | Author | [facility] | | | and [place] | + + + | Organization | [facility] | | | and [place] [...] Team Providers + +------+ + | Care Destination Coordinator Name | Role | Phone | [...] | | | | i | | [address] | | | | | malformation | | [address] | | | | | ([facility]) | | [place] | | | | | Tinnitus of | | [id number] Phone: | | | | | both ears | | [phone] | | | | | Vertigo | | Fax: | | | | | Procedures | | [phone] | | | | | DC SUBOCCIPT | | | | | | [...] + + | 03/28/ | Hospital | [facility] | Jim Mckoy | Tinnitus of both | | 2019 - | Encounter | MED [facility] SUR[facility] | MD Ish [address] | ears; [place] | | | | [address] [place] | [facility] [address] [place] | malformation (HCC) | | 04/01/ | | [place] [address] | [place] [address] | | | 2019 | | [phone] | [phone] | | | | | | | [...] daily bilateral tinnitus. 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 Hospital Course, including Complications: The patient was [...] that might have slowed her DC in [facility] but over all is doing well as [...] new patch.. aka: TRANSDERM-SCOP Unchanged Medications Details aywoerdwri-qbhbych-mffrogwf 50-325-40 mg per capsule TAKE ONE CAPSULE [...] Discontinued Medications ibuprofen 600 MG tablet aka: TRANG HARDIN Condition on Discharge: Stable Follow-Up Plans: Follow-up: Follow up in 1 week for suture/staple removal Follow-up with primary care physician as needed. Diet: Resume home diet Activity: Continue to follow guidelines and precautions as previously discussed. Bracing: No brace is required Electronically signed by: Zaid Baires PA-C, 04/01/2020 9:38 AM PDT [facility] documented in thi s encounter Discharge [...] red and hot or drainage from incision Dquqcnh550.4F(38C)or higher, or as directed by your healthcare [...] incision, nose, or ear Changes in behavior [id number] last reviewed this educational content on 12/22/201719996012-9633 [employer]. [address] [place] [address], [place] [address]. All righ ts reserved. This information is [...] | 0 | 02/03/20 | | | ddvpjaaino-mlvgnlc-s | MOUTH FOUR TIMES | | | [...] might be different from the origi nal. 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 There are no new medical issues. Heent exam ok.Neck ok. Chest clear; regular rate and rhythm w/o murmurs. Abdomen is protuberant but soft and nontender. Extremities unremarkable. Neurologically intact. For decompression of cervicocranial junctio n. Nereyda Gutierrez RN - 03/16/2020 10:00 AM PDTPatient was [...] César Bains RN Outcome: Ongoing, progressing 04/01/2020 112 by César Bains RN Outcome: Ongoing, progressing Goal: Optimal Comfort and Wellbeing 04/01/20201123 by César Bains RN Outcome: Ongoing, progressing 04/01/20201123 by César Bains RN Outcome: Ongoing, progressing Goal: Readiness for Transition of Care 04/01/20201123 by César Bains RN Outcome: Ongoing, progressing 04/01/20201123 by César Bains RN Outcome: Ongoing, progressing Goal: Rounds/Family Conference 04/01/20201123 by César Bains RN Outcome: Ongoing, progressing 04/01/20201123 by César Bains RN Outcome: Ongoing, progressing Problem: Bleeding (Surgery Nonspecified) Goal: Absence of Bleeding 04/01/20201123 by César Bains RN Outcome: Ongoing, progressing 04/01/20201123 by César Bains RN Outcome: Ongoing, progressing Problem: Bowel Elimination Impaired (Surgery Nonspecified) Goal: Effective Bowel Elimination 04/01/20201123 by César Bains RN Outcome: Ongoing, progressing 04/01/20201123 by César Baisn RN Outcome: Ongoing, progressing Problem: Infection (Surgery [...] Increased Goal: Skin Health and Integrity 04/01/2020 112 by César Bains RN Outcome: Ongoing, progressing 04/01/2020 112 by César Bains RN Outcome: Ongoing, progressing Problem: Fall Injury Risk Goal: Absence of Fall and Fall-Related Injury 04/01/20201123 by César Bains RN Outcome: Ongoing, progressing 04/01/2020 1124 by César Bains RN Outcome: Ongoing, progressing Problem: Mobility Impairment Goal: Optimal Mobility 04/01/2020 1124 by César Bains RN Outcome: Ongoing, progressing 04/01/2020 112 by César Bains RN Outcome: Ongoing, progressing Problem: Self-Care Deficit Goal: Improved Ability to Complete Activities of Daily Living 04/01/20201123 by César Bains RN Outcome: Ongoing, [...] Teena Henriquez RN - 03/31/2020 5:36 PM SBD71-69% on RA. BP elevated with pain. Decreases with pain control. Has been up with walker to bathroom and walked to door and back. C/O dizziness at times. Increased MCFADDEN this afternoon. States down to a 5 n ow. Denies passing flatus. Fluids encouraged. Has had intermittent nausea with movement. No emesis. Did shower today but did not wash hair. lan of Daniel - Yaritza Morgan PT - 03/31/2020 4:31 PM PD T [...] is encouraged to ambulate into hallway with [facility]. Recommended mobility with nursing: Day Night [...] in lange due to MCFADDEN Level of Guadalupe: stand by assist Assistive Device: 2 wheeled walker (FWW) Distance (feet): 2 x 40 ft Gait Deviations: kaylyn decreased Stairs Number of Stairs: 4 Handrail Location: both sides Level of [place]: supervised, verbal cues required PT transported pt to stairs due to diminished functional capacity due to pain Transfers Sit-Stand, Level of [place]: modified independent Stand-Sit, Level of [place]: modified independent Ebl-Srbnf-Brx, Assistive Device: 2 wheeled walker (FWW) Toilet, Level of [place]: modified independent Toilet, Assistive Device: 2 wheeled walker (FWW) Safety Issues: balance decreased during turns, step length decreased Impairments: strength decreased, impaired balance, pain Bed Mobility Assistive Device: none Scoot/Bridge, Level of [place]: modified independent Supine to Sit, Level of [place]: modified independent Sit to Supine, Level of [place]: modified independent Impairments: strength decreased Balance Sitting is good Static stand is good Dynamic stand is fair Functional Endurance limited by MCFADDEN pain Instructed pt to breathe vs holding breath when performing activities ROM WFL x 4 Strength grossly 4/5 PT Goal Review Date Most Recent Value STG Review Date 04/06/20 at 03/30/2020 1157 Dky-Ebgej-Eyz Goal Most Recent Value STG Status met at 03/31/2020 1628 STG [place]upe Level modified independent at 03/30/2020 1157 Gait Goal Most Recent Value STG Status progressing at 03/31/2020 1628 STG [place] Level modified independent at 03/30/2020 1157 STG Distance (feet) 300 ft at 03/30/2020 1157 Stair Goal Most Recent Value STG Status met at 03/31/2020 1628 STG [place] Level supervised at 03/30/2020 1157 STG Assistive Device 1 rail at 03/30/2020 1157 STG Number of Stairs 13 at 03/30/2020 1157 PT Time Calculation Individual Start Time: 1555 Individual Stop Time: 1615 Individual Total Time: 20 Missed Treatment Time: 0 PT Total Treatment Time: 20 Timed TX Code Minutes: 20 Electronically signed by: Yaritza Morgan PT, 03/31/2020 4:31 PM PDT lan of Care - Darin Guajardo RRT - 03/31 10:51 AM PDTSaritta was 92% on RA with clear BS and unlabored RR 18. She is not using CPAP. lan of [facility] - Josiane Ferrell MSW - 03/31/2020 10:17 AM PDTMet with patient at bedside to discuss disc harge plan. Patient will go home with Kavya with kids, has all DME that she needs. Her b oyfriend or sister will provide transportation. Plan: Home when medically stable Electronically signed by: BRIEN Hernandez 03/31/2020 4:28 PM PDT lan of [facility] - Gabriela Hodges RN - 03/31 3:49 [...] dress ing on back of head/neck CDI, racing board marker moderate, dorsi/plantar flexion strong, pain being treat ed with prn oxycodone, slept well between cares, states she felt dizzy as she got up from th e bedside commode to the bed,Calls appropriately, call light within reach, will continue to monitor. lan of Teena Henriquez RN - 03/30/2020 6:55 PM PDTVSS. This [...] RN at 03/30/2020 6:57 PM PDTPlan of Care - Godwin, Gisela Kennedy, [employer] - 03/30/2020 5:27 PM PDTBreath sounds clear. She is on room air, SpO2: 92 % on room air. She uses CPAP at night at home and requested a hospital unit. Will adjust CPA P appliance so there is no pressure on the surgical site. lan of Daniel - Barb English OT - 03/30/2020 1:20 [...] mobilize at level safe for home [facility], and medical status. aMrine will benefit from therapeutic intervention to address [...] SO ,has 13 steps to enter. 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 LB Dressing, Level of Guadalupe: stand by assist, set up required Assistive Device: none LB Dressing Assess/Train, Position: sitting, standing LB Dressing Impairments: strength decreased, impaired balance, pain Slowly & w/ mild-mod effort but w/o physical assist completed hygiene. Toileting, Level of [place]upe: stand by assist, verbal cues required Assistive Device: (FWW) Toileting Assess/Train, Position: sitting, standing Toileting Impairments: strength decreased, impaired balance, pain, impaired functional endu lucy/activity tolerance Standing @ sink to wash hands. Grooming, Level of Guadalupe: supervised Grooming Assess/Train, Position: standing Grooming Impairments: impaired functional endurance/activity tolerance, impaired balance, s trength decreased Functional Endurance Fair, pain related. Cognitive Alert & oriented. Bed Mobility Assistive Device: bed rails Supine to Sit, Level of [place]: supervised Safety Issues: decreased use of arms for pushing/pulling Impairments: strength decreased, impaired balance Transfers Mobilizing w/ FWW for stability- has hx of vertigo. Sets FWW aside @ transitions to sitting surfaces. Balance observed to be steady. Bed-Chair, Level of Guadalupe: stand by assist Ufd-Kvrrs-Bsd, Assistive Device: 2 wheeled walker (FWW) Sit-Stand, Level of [place]adalupe: supervised Stand-Sit, Level of [place]: supervised Okt-Bkgoj-Xyl, Assistive Device: 2 wheeled walker (FWW) Toilet, Level of Guadalupe: stand by assist Toilet, Assistive Device: 2 [...] 2:46 PM PDT lan of Care - Karen gradyTamirYaritza Placido, PT - 03/30/2020 12:06 PM PDTFormatting of [...] in lange due to MCFADDEN Level of Guadalupe: stand by assist Assistive Device: 2 wheeled walker (FWW) Distance (feet): 3 x 30 ft Gait Deviations: kaylyn decreased Transfers assist needed with IV pole Sit-Stand, Level of [place]upe: stand by assist Stand-Sit, Level of [place]: stand by assist Vlk-Nrguv-Kop, Assistive Device: 2 wheeled walker (FWW) Safety Issues: balance decreased during turns, step length decreased Impairments: strength decreased, impaired balance, pain Bed Mobility Assistive Device: bed rails, HOB elevated Scoot/Bridge, Level of [place]: stand by assist Supine to Sit, Level of [place]: stand by assist Sit to Supine, Level of [place]: stand by assist Impairments: strength decreased, impaired balance Balance Static and dynamic Sitting is good Static stand is fair Dynamic stand is fair Functional Endurance Fair, limited by MCFADDEN ROM WFL x 4 Strength grossly 4/5 PT Goal Review Date Most Recent Value STG Review Date 04/06/20 at 03/30/2020 1157 Vio-Fpozb-Bgn Goal Most Recent Value STG Status new at 03/30/2020 1157 STG Gu[place]upe Level modified independent at 03/30/2020 1157 Gait Goal Most Recent Value STG Status new at 03/30/2020 1157 STG [place] Level modified independent at 03/30/2020 1157 STG Distance (feet) 300 ft at 03/30/2020 1157 Stair Goal Most Recent Value STG Status new at 03/30/2020 1157 STG [place]upe Level supervised at 03/30/2020 1157 STG Assistive Device 1 rail at 03/30/2020 1157 STG Number of Stairs 13 at 03/30/2020 1157 PT Time Calculation Individual Start Time: 1105 Individual Stop Time: 1125 Individual Total Time: 20 Missed Treatment Time: 0 PT Total Treatment Time: 20 Electronically signed by: Yaritza Morgan, PT, 03/30/2020 12:08 PM PDT lan of [facility] - Gabriela Hodges RN - 020 4:10 [...] reach, will continue to monitor. lan of Care - Louise Earl RN - 03/29/2020 10:42 [...] 2 sons, ages 16 & 18 in [place]. Either her sister or boyfriend will be transporting her home at discharge anticipating on T sday, per patient. She confirms her PCP is Magaly Lim and her pharmacy is [facility] both in [place]. She does use a CPAP nocs and [...] RN 03/29/2020 10:48 AM PDT lan of Care - Marcia Segundo RN - 03/29/2020 5:58 AM PDTSarijennifer has been alert and oriented x 4 [...] pure wick catheter. She has moderate hand racing board marker, otherwise is strong throughout. She does have [...] Mckoy MD - 0 03/28/2020 9:55 AM [facility] OP Note Patient Name: Mraine Lagos March 28, 2020 Patient : 1980 Pre-op Diagnosis: Arnold-Chiari syndrome Post-op Diagnosis: Same Surgeon: Jim Mckoy MD [employer] Apprentice: Zaid Baires PA-C Procedure: Decompressive occipital craniectomy [...] general endotracheal an esthesia, I secured the [place] headrest to the patient's skull and then [...] Jim Mckoy MD, 03/28/2020 9:56 AM PDT [facility] documented in this encounter Plan of Treatment +--------+---------+ + + + | Date | Type | Specialty | Care Team | Description | +--------+---------+ + + + | 04/07/ | Office | Neurosurgery | Jim Mckoy | | 2019 | Visit | | MD Maxime Deng [address] | | | | | | [address] [place] | | | | | | [place] [address] | | | | | | [phone] | | | | | | | | +--------+---------+ + + + | 05/04/ | Office | Neurosurgery | Jim Mckoy | | | 2019 | Visit | | MD Maxime Deng [address] | | | | | | [address] [place] | | | | | | [place] [address] | | | | | | [phone] | | | | | | | [...] ST. | [address] | [place] | [phone] | | [facility] | | [address] | | | - LABORATORY | | [...] Specific | | | | | | [place], | | | | | | POC | | | | | + + + + + + | Lot Number | [id number] | | | | + + + + + + | Expiration | 2020-12-25 | | | | | Date | | | | | + + + + + + + + | Specimen | + + | Urine | + + documented in this encounter Visit Diagnoses + + | Diagnosis | + + | Tinnitus of both ears Unspecified tinnitus | + + | Arnold-Chiari malformation (HCC) Spina bifida with hydrocephalus, unspecified region | + + | Vertigo Dizziness and giddiness | + + | Obstructive sleep apnea on CPAP Obstructive sleep apnea (adult) (pediatric) | + + | Anemia Anemia, unspecified | + + documented in this encounter [...] | acetaminophen (TYLENOL) tablet | Given | 03/28/20 | 1,000 mg | | | | 1,000 mg 1,000 mg, Oral, SEE | | 20 6:57 | | | | | ADMIN INSTRUCTIONS, Starting Mon | | AM PDT | | | | | 03/28/20 at 0616, For 1 dose, | | | | | | | Nursing to give 60 minutes before | | | | | | | time of surgery, Pre-op | | | | | | + +--------+ + +------+------+ +---+---+ | | | +---+---+ + +-------+ + +---+---+ | acetaminophen (TYLENOL) tablet | Given | [...] +---+---+ +-------+ + +---+---+ | Given | 03/31/20 [...] +---+---+ | | | +---+---+ + +-------+ +-----+---+---+ | ceFAZolin (ANCEF, KEFZOL) 2 g | Given | 03/28/20 | 2 g | | | | in sterile water 20 mL syringe | | 20 10:22 | | | | | (100 mg/mL) 2 g, Intravenous, | | PM PDT | | | | | EVERY 8 HOURS INTERVAL, First | | | | | | | dose on Sat03/28/20 at 1400, For 2 | | | | | | | doses, Start 8 hours after | | | | | | | previous dose. Last dose to be | | | | | | | given within 24 hours of surgery | | | | | | | end time Keep in refrigerator. | | | | | | | Give IV push over 3-5 minutes., | | | | | | | Post-op/Phase II, Indications: | | | | | | | Surgical Prophylaxis | | | | | | + +-------+ +-----+---+---+ +-------+ +-----+---+---+ | Given | 03/28/20 | 2 g | | | | | 20 2:44 | | | | | | PM PDT | | | | +-------+ +-----+---+---+ + +---+ | | | + +---+ [...] | docusate sodium (COLACE) | Given | 04/01/20 | 100 mg | | | | [...] + +-------+ +--------+---+---+ | fentaNYL (PF) injection 25-50 | Given | 03/28/20 | 25 mcg | | | | mcg 25-50 mcg, Intravenous, | | 20 10:46 | | | | | EVERY 5 MIN PRN, Pain, Initial | | AM PDT | | | | | postop urgent pain or escalating | | | | | | | pain, Starting 03/28/20 at | | | | | | | 1035, For 4 doses, (2 doses | | | | | | | maximum for opioid naive, 4 doses | | | | | | | maximum for opioid tolerant) | | | | | | | First dose must be lowest dose. | | | | | | | Use Pasero Sedation Scale. | | | | | | | [Opioid tolerant = One week or | | | | | | | longer, ketsjs-ywu-vtrpj use of | | | | | | | at least the following DAILY | | | | | | | dose: 60mg oral morphine, 60mg | | | | | | | oral hydrocodone, 30mg oral | | | | | | | oxycodone, 8mg oral | | | | | | | hydromorphone, fentanyl patch | | | | | | | 25mcg/hr, or equivalent dose of | | | | | | | another opioid], Recovery/Phase I | | | | | | + +-------+ +--------+---+---+ +-------+ +--------+---+---+ | Given | 03/28/20 | 25 mcg | | | | | 20 10:36 | | | | | | AM PDT | | | | +-------+ +--------+---+---+ +---+---+ | | | +---+---+ + +-------+ +---------+---+---+ | HYDROcodone-acetaminophen | Given | 03/28/20 | 2 | | | | (NORCO) 10-325 mg per tablet 1-2 | | 20 6:24 | tablets | | | | tablet 1-2 tablet, Oral, EVERY 4 | | PM PDT | | | | | HOURS PRN, Pain, Starting Mon | | | | | | | 03/28/20 at 1150, Post-op/Phase II | | | | | | + +-------+ +---------+---+---+ +-------+ +---------+---+---+ | Given | 03/28/20 | 2 | | | | | 20 1:21 | tablets | | | | | PM PDT | | | | +-------+ +---------+---+---+ +---+---+ | | | +---+---+ + +-------+ +-------+---+---+ | hydrOXYzine hydrochloride | Given | 04/01/20 | 25 mg | | | | (ATARAX) tablet 25 mg 25 mg, | | 20 8:48 | | | | | Oral, 2 TIMES DAILY, First dose | | AM PDT | | | | | on 03/28/20 at 1215, | | | | | [...] | | | | | | Starting Sat03/28/20 at 1150, | | | | | [...] | mL/hr | | | CONTINUOUS, Starting Sat03/28/20 | | AM PDT | | | [...] 8:16 | | | | | Starting 03/28/20 at 1150, If | | PM PDT [...] | | | +---+---+ + +---------+ + +--------+---+ | methocarbamol (ROBAXIN) 1,000 | New Bag | 03/28/20 | 1,000 mg | 146.7 | | | mg in sodium chloride 0.9% 100 mL | | 20 11:07 | | mL/hr | | | IVPB 1,000 mg, Intravenous, | | AM PDT | | | | | Administer over 45 Minutes, ONCE, | | | | | | | 03/28/20 at 1100, For 1 dose, | | | | | | | Give IV dose immediately postop, | | | | | | | Post-op/Phase II | | | | | | + +---------+ + +--------+---+ +---+---+ | | | +---+---+ + +-------+ + +---+---+ | methocarbamol (ROBAXIN) tablet | Given | 03/31/20 | 1,500 mg | | | | 1,500 mg 1,500 mg, Oral, EVERY 6 | | 20 12:33 | | | | | HOURS PRN, Muscle spasms, | | PM PDT | | | | | Starting Sat03/28/20 at 1100, | | | | | [...] | | +-------+ +------+---+---+ | Given | 07/07/20 | 2 mg | | | | [...] | oxyCODONE (ROXICODONE) tablet | Given | 07/10/20 | 10 mg | | | | [...] +---+---+ | | | +---+---+ + +---------+ +---------+---+ + | scopolamine (TRANSDERM-SCOP) 1 | Patch | 03/28/20 | 1 patch | | Ear-Behi | | mg/3 days 1 patch 1 patch, | Applied | 20 6:58 | | | nd Right | | Transdermal, ONCE, 03/28/20 at | | AM PDT | | | | | 0645, For 1 dose, PRN for adults | | | | | | | <65 y/o with hx of PONV. Hold for | | | | | | | patients with glaucoma, | | | | | | | dementia, altered mental status, | | | | | | | or hx of allergy scopolamine. | | | | | | | Apply to mastoid process behind | | | | | | | ear. Each patch is designed to | | | | | | | deliver 1 mg over 3 days. DO NOT | | | | | | | CUT patch., Pre-op | | | | | | + +---------+ +---------+---+ + +---+---+ | | | +---+---+ + +---------+ +---------+---+ + | scopolamine (TRANSDERM-SCOP) 1 | Patch | 03/31/20 | 1 patch | | Ear-Behi | | mg/3 days 1 patch 1 patch, | Applied | 20 2:11 | | | nd Left | | Transdermal, ONCE, [facility] 03/31/20 at | | PM PDT | | | | | 1430, For 1 dose, If prophylaxis | | | | | | | fails, do not repeat dose. Use | | | | | | | drug from a different class. Each | | | | | | | patch is designed to deliver 1 | | | | | | | mg over 3 days. DO NOT CUT | | | | | | | patch., | | | | | | + +---------+ +---------+---+ + +---+---+ | | | +---+---+ + [...] +---------+ +---+-------+---+ +---+---+ | | | +---+---+ documented in this encounter
--- OUTSIDE RECORDS SUMMARY | ~2020-04-05 | XMS | Encounter Summary ---
Demographics + + + | Address | [address] | | | [place] [address] | + + + | Home Phone | | + + + | Preferred Language | Unknown | + + + | Marital Status | Single | + + + | Orthodox Affiliation | 1041 | + + + | Race | Unknown | + + + | Ethnic Group | Unknown | + + + Author + + + | Author | [facility] | | | and [place] | + + + | Organization | [facility] | | | and [place] [...] Team Providers + +------+ + | Care Remote Pilot Operator Name | Role | Phone | + +------+ + | Argelia Lim | PCP | | + +------+ + Reason for Visit + +--------+ + | Reason | Onset | Comments | | | Date | | + +--------+ + | Procedure | 03/24/ | Confirmaton Call for Sx 03/28/20 | | | 2020 | | + +--------+ + Encounter Details +--------+ + + + + | Date | Type | Department | Care Team | Description | +--------+ + + + + | 03/24/ | Telephone | [facility] [place] | Jim Mckoy | Procedure | | 2020 | | DRE[address] D[address] MD [address] | (Confirmaton Call | | | | [address] | [address] [place] | for Sx 03/28/20) | | | | [place], [place] | [place] [address] | | | | | [address] | [phone] | | | | | [phone] | | | +--------+ + + + [...] this encounter Miscellaneous Notes Telephone Encounter - Lucy CelayaVILMA - 03/24/2020 11:52 AM PDTAll presurgical check-in i nstructions given Surgery date: 03/28/20 Check-in Time: 6am (OR Schedule states procedure start time 745am) No solids or liquids after midnight the night before surgery. Follow the cleansing instructions provided beginning the night before surgery after you hever wer or bathe. No showering the morning of surgery. Please do not wear jewelry, contact lenses, nail vietnamese (on fingers or toes), or make-up to surgery check-in. If you have dentures, hearing aids, or glasses please bring the cases with you to check-in. Medications instructions: ibuprofen and bdriprngbf-fjkttxk-zjbrskuh 7 days prior to surgery Surgical Admit Anticipated Disposition reviewed and correct: yes Confirmation of procedure/approval: yes Has patient been seen in the ED or had surgery since last seen in our office?: no Confirm local pharmacy: [facility] documented in this enco unter Plan of Treatment +--------+---------+ + + + | Date | Type | Specialty | Care Team | Description | +--------+---------+ + + + | 04/07/ | Office | Neurosurgery | Jim Mckoy | | 2019 | Visit | | MD Ish [address] | | | | | | [place] [address] [place] | | | | | | [place] [address] | | | | | | [phone] | | | | | | | | +--------+---------+ + + + | 05/04/ | Office | Neurosurgery | Jim Mckoy | | | 2019 | Visit | | MD Ish [address] | | | | | | [place] | | | | | | [place] [address] | | | | | | [phone] | | | | | | | | +--------+---------+ + + + documented as of this encounter Visit Diagnoses Not on filedocumented in this encounter"
--- OUTSIDE RECORDS SUMMARY | ~2020-04-05 | XMS | Encounter Summary ---
Demographics + + + | Address | [address] | | | [place] [address] | + + + | Home Phone | | + + + | Preferred Language | Unknown | + + + | Marital Status | Single | + + + | Zoroastrian Affiliation | 1041 | + + + | Race | Unknown | + + + | Ethnic Group | Unknown | + + + Author + + + | Author | [facility] | | | and [place] | + + + | Organization | [facility] [place] | | | and [place] [...] Team Providers + +------+ + | Care Wire Annealer Name | Role | Phone | + [...] | Psychology | Diagnoses | Jonathan | [employer] | | | Services | | Situational | Robert Thakkar MD | HELPING | | | Required | | anxiety | [address] | [address] AT | | | | | | [address] | [place] | | | | | | [place] | [address] | | | | | | [place] [address] | [place], | | | | | | Phone: | [place] [address] | | | | | | [phone] | Phone: | | | | | | Fax: | [phone] | | | | | | [phone] | Fax: | | | | | | | [phone] | +--------+ + + + + + [...] | Robert Thakkar MD | [address] | | | | | migraine | [address] | [place], | | | | | with aura | [address] | [place] | | | | | without | [place], | [address] | | | | | status | [place] [address] | Phone: | | | | | migrainosus | Phone: | [phone] | | | | | Chronic | [phone] | Fax: | | | | | daily | Fax: | [phone] | | | | | headache | [phone] | | | | | | Procedures [...] | Robert Thakkar MD | [address] | | | | | Numbness | [address] | [place], | | | | | of left hand | [address] | [place] | | | | | Chronic | [place], | [address] | | | | | left | [place] [address] | Phone: | | | | | shoulder | Phone: | [phone] | | | | | pain | [phone] | Fax: | | | | | Procedures | Fax: | [phone] | | | | | MRI Cervical | [phone] | | | | | | Spine wo | | | | | | | Contrast | | | +--------+--------+ + + + + Encounter Details +--------+---------+ + + + | Date | Type | Department | Care Team | Description | +--------+---------+ + + + | 03/18/ | Office | [facility] | Robert Castillo, | Intractable migraine | | 2019 | Visit | PHYSIATRY [address] | MD [address] | with aura without | | | | [address] | [place] | status migrainosus | | | | [place] | [address] | (Primary Dx); | | | | [address] | | Situational anxiety; | | | | [phone] | | Cervicalgia; | | | | [...] encounter Patient Instructions Patient Instructions Valery Aguirre, Garageman - 03/18/2019 10:20 AM PDTDiscon tinue the use of Caffeine. Take Topamax as prescribed. A MRI has been requested. Please complete the requested imaging. Within one week, you hever vale receive a call to schedule your MRI. [...] m the original. Robert Castillo MD [address] [facility] [address] [place] [address] FAX: PHYSICAL MEDICINE AND REHABILITATION H&P CHIEF [...] reports left upper extremity hand numbness. Marine Jacksons medications, allergies, past medical, surgical, social and [...] tablet 10 minutes before procedure. Must have charter driver. 2 tablet 0 No current facility-administered [...] has no apparent deficits with short or fci memory. The cranial nerves appear grossly intact. [...] gets with continued physical therapy and time. Sh flores may consider Botox in the future. Today [...] have CMP at baseline before starting Topamax. Marnie Lagos reports anxiety associated with driving. She [...] [address] | | | | | | [place] [address] [place] | | | | | | [place] [address] | | | | | | [phone] | | | | | | | | +--------+---------+ + + + | 05/04/ | Office | Neurosurgery | Jim Mckoy | | 2019 | Visit | | MD Maxime Deng | | | | | | [address] [place] | | | | | | [place] [address] | | | | | | [phone] | | | | | | | [...] | | | | mg/dL | [facility] | | | | | | MEDICAL | | | | | | CENTER - | | | | | | LABORATORY | | + + + + + + | eGFR if not | >60Comment: GLOMERULAR | >=60 | [facility] | | | | FILTRATION | mL/min/1.73m2 | [facility] | | | SLOVENIAN | RATE,ESTIMATED | | MEDICAL | | | | mL/min/1.67l5Jspi than | | CENTER - | | [...] | | | | mg/dL | [facility] | | | | | | MEDICAL | | | | | | CENTER - | | | | | | LABORATORY | | + + + + + + | Albumin | 4.1 | 3.2 - 4.8 g/dL | [facility] | | | | | | [facility] | | | | | | MEDICAL | | | | | | CENTER - | | | | | | LABORATORY | | + + + + + + | Bilirubin | 0.3 | 0.3 - 1.2 mg/dL | [facility] | | | Total | | | [facility] | | [...] [address] | [place] | [phone] | | [facility] | | [address] | | | - LABORATORY | | [...] described above. Dictated and Signed by: Shlomo Hahn | | MD Wm Electronically signed: 04/06/2019 [...]
--- OUTSIDE RECORDS SUMMARY | ~2020-04-05 | XMS | Encounter Summary ---
Demographics + + + | Address | [address] | | | [place] [address] | + + + | Home Phone [...] + | Organization | [facility] | | | and [...] Team Providers + +------+ + | Care Four [place] Former Machine Operator Name | Role | Phone | + +------+ + | Argelia Lim | PCP | | + +------+ + Reason for Visit + + + | Reason | Comments | + + + | Screening For | pre op | | Communicable Disease | | + + + Encounter Details +--------+ + + + + | Date | Type | Department | Care Team | Description | +--------+ + + + + | 03/24/ | Clinical | [facility] [place] [facility] | Jim Bahena | Kamaljit-Deon | | 2020 | Support | CARE [address] | PATRICIA Wilkerson [address] | malformation ([facility]); | | | | [place] | [address] [place] | Preop examination | | | | [address] | [place] [address] | | | | | [phone] | [phone] | | | | | | | [...] + + + | Blood Pressure | - | - | | + + + + + | Pulse | 84 | 03/24/2020 8:30 AM | | | | | PDT | | + + + + + | Temperature | 36.7 C (98.1 F) | 03/24/2020 8:30 AM | | | | | PDT | | + + + + + | Respiratory Rate | - | - | | + + + + + | Oxygen Saturation | 99% | 03/24/2020 8:30 AM | | | | | PDT | | + + + + + | Inhaled Oxygen | - | - | | | Concentration | | | | + + + + + | Weight | - | - | | + + + + + | Height | - | - | | + + + + + | Body Mass Index | - | - | | + + + + + documented in this encounter Progress Notes Deann Rooney, Gis Developer - 03/24/2020 8:30 AM PDTPRE-PROCEDURE COVID TEST Affix Patient Label [] Photo ID Verified Patient Name:Marine Lagos Provider:TARSHA CHANG URGENT NURSE :1980 Date:03/24/20 MyChart: Activated Symptom Screen: Are you experiencing any of the following symptoms? [] Cough: duration of cough? ___ days ? If symptoms or cough >10 days, send to for provider evaluation [] Shortness of breath ? Confer with provider or send in to if obviously having labored breathing [] Fever >100.4 [] Chills and/or repeated shaking with chills [] Sore Throat [] Body Aches or Muscle Pain [] Headache [] Chest Pain, warm hand transfer to RN inside (Room 1 for triage) [] Abdominal Pain [] Nausea [] Vomiting [] Diarrhea [] Change in Sense of Smell and/or Taste Testing Protocol: MA/RN Proceed to testing if ANY of the following conditions are present: DRIVE THRU SWAB SCREENING [x] Asymptomatic, regardless of age, pre-procedure screening only [] Asymptomatic - testing requested by authorized [facility] personnel, [facility] Infection Prevention Nurse or Caregiver Health [] Asymptomatic, regardless of age, pre-travel screening only [] Age 15-70 with any symptoms indicated in MA screening [] Age >70 with Temp <100.4 F, O2 sat >95%, Pulse <100 bpm, without cough, Hx of fever, ch ills, chest pain, SOB, abdominal pain, vomiting or diarrhea. If only symptom is sore throat, body aches, headache and change in taste or smell ok for drive thru testing. PROVIDER EVALUATION REQUIRED [] Patient Requested [] Temp >102 F [] O2 Sat ? 95% [] Pulse > 100 [] Symptomatic with any listed comorbidities [] Dominant sore throat with little or no cough (strep rule out) [] Age <15 years old with symptoms Discharge: [x] Social Distancing/Quarantine Guidelines documented in this encounter Plan of Treatment +--------+---------+ + + + | Date | Type | Specialty | Care Team | Description | +--------+---------+ + + + | 04/07/ | Office | Neurosurgery | Jim Mckoy | | | 2019 | Visit | | MD Maxime [address] | | | | | | [address] [place] | | | | | | [place] [address] | | | | | | [phone] | | | | | | | | +--------+---------+ + + + | 05/04/ | Office | Neurosurgery | Jim Mckoy | | | 2019 | Visit | | MD Maxime [address] | | | | | | [address] [place] | | | | | | [place] [address] | | | | | | [phone] | | | | | | | | +--------+---------+ + + + documented as of this encounter Procedures + +--------+ + + + | Procedure Name | Priori | Date/Time | Associated Diagnosis | Comments | | | ty | | | | + +--------+ + + + | CORONAVIRUS | Routin | 03/24/2020 | Slade | Results for this | | (COVID-19) NAAT | e | 8:28 AM | malformation (HCC) | procedure are in the | | | | PDT | Preop examination | results section. | + +--------+ + + + documented in this encounter Results Coronavirus (COVID-19) NAAT (03/24/2020 [...] + + | Performed at: 01 - [facility] [address] [place], [place] | REFERENCE LAB | | [id number] Stripping Shovel Oiler: Jorge Bryant MD, Phone: [phone] | [facility] | + + + + + + + + | Performing | Address | City/State/Zipcode | Phone Number | | Organization | | | | + + + + + | REFERENCE LAB | [address] | [place], [place] | [phone] | | [facility] | [place] | [address] | | + + + + + documented in this encounter Visit Diagnoses + + | Diagnosis | + + | Arnold-Chiari malformation (HCC) Spina bifida with hydrocephalus, unspecified region | + + | Preop examination Preoperative examination, unspecified | + + documented in this encounter"
--- OUTSIDE RECORDS SUMMARY | ~2020-04-05 | XMS | Encounter Summary ---
Demographics + + + | Address | [address] | | | [place] [address] | + + + | Home Phone [...] | [facility] | | | and [place] | [...] Team Providers + +------+ + | Care Red Mud Thickener Operator Name | Role | Phone | [...] | [address] [place] | [place] [address] | | | | | [place] [address] | | | | | | [phone] | | | +--------+ + + + [...] | | | | | [place] [address] | | | | | | [phone] | | | | | | | | +--------+---------+ + + + | 05/04/ | Office | Neurosurgery | Jim Mckoy | | | 2019 | Visit | | MD Maxime Deng | | | | | | [address] [place] | | | | | | [place] [address] | | | | | | [phone] | | | | | | | [...]
--- OUTSIDE RECORDS SUMMARY | ~2020-04-05 | XMS | Encounter Summary ---
Demographics + + + | Address | [address] | | | [place] [address] | + + + | Home Phone | | + + + | Preferred Language | Unknown | + + + | Marital Status | Single | + + + | Mandaen Affiliation | 1041 | + + + | Race | Unknown | + + + | Ethnic Group | Unknown | + + + Author + + + | Author | [facility] | | | and [place] | + + + | Organization | [facility] | | | and [...] Team Providers + +------+ + | Care Classics Professor Name | Role | Phone | + +------+ + | Argelia Lim | PCP | | + +------+ + Reason for Visit + + + | Reason | Comments | + + + | Pain Management | PreOp MEDD | + + + Encounter Details +--------+ + + + + | Date | Type | Department | Care Team | Description | +--------+ + + + + | 03/14/ | Documentati | [facility] [place] | Zaid Baires, | Pain Management | | 2020 | on | NEUROSURGERY [address] | PA-C [address] | (PreOp MEDD) | | | | [address] | [address] [place] | | | | | [place], [place] | [place] [address] | | | | | [address] | [phone] | | | | | [phone] | | | +--------+ + + + [...] of this encounter Progress Notes Nereyda Sanchez RN - 03/14/2020 3:58 PM PDTPDMP check r/t Arnrachelle - Akhilari decompression Pre op appointment with Zaid PLATTOP MEDD= 0 The following information was obtained from [email or web address]://[email or web address]/myAccess/[email or web address]/select [email or web address] on 03/14/20. Results from [facility] 3 month GASOLINE ENGINE INSPECTOR query documented in this encou nter Plan of Treatment +--------+---------+ + + + | Date | Type | Specialty | Care Team | Description | +--------+---------+ + + + | 04/07/ | Office | Neurosurgery | Jim Mckoy | | | 2019 | Visit | | MD Maxime eDng | | | | | | [address] [place] | | | | | | [place] | | | | | | [phone] | | | | | | | | +--------+---------+ + + + | 05/04/ | Office | Neurosurgery | Jim Mckoy | | | 2019 | Visit | | MD Maxime Deng | | | | | | [address] [place] | | | | | | [place] [address] | | | | | | [phone] | | | | | | | | +--------+---------+ + + + documented as of this encounter Visit Diagnoses Not on filedocumented in this encounter"
--- OUTSIDE RECORDS SUMMARY | ~2020-04-05 | XMS | Encounter Summary ---
Demographics + + + | Address | [address] | | | [place] [address] | + + + | Home Phone | | + + + | Preferred Language | Unknown | + + + | Marital Status | Single | + + + | Buddhism Affiliation | Unknown | + + + | Race | Unknown | + + + | Ethnic Group | Other Race | + + + Author + + + | Author | [facility] | + + + | Organization | [facility] | + + + | Address | Unknown | + + + | Phone | Unavailable | + + + Care Team Providers + +------+ + | Care Consumer Affairs Director Name | Role | Phone | + +------+ + PCP | Unavailable | + +------+ + Encounter Details +--------+ + + + + | Date | Type | Department | Care Team | Description | +--------+ + + + + | 04/06/ | Lab | LAB SURGICAL | Jaguar Matthews, | | | 2018 | Requisition | PATHOLOGY [address] | MD [place] | | | | | [address] | Ortho & Fractur | | | | | [place], [place] | [address] | | | | | [address] | [place] [address] | | | | | | [phone] | | | | | | | [...] PathologistPathology, | | | | | | [facility] | | | | | | [facility] electronic | | | | | | [...] [facility] | | | Received | Institution: [facility] | | DEPARTMENT | | | | [facility], | | | | | | [place] [id number] | | PATHOLOGY | | | | Accession Number: | | | | | | [id number] | | | | | | Collection [...] | + + + + + | [facility] | [address] | [place] [address] | | | PATHOLOGY | [address] | | | + + + + + documented in this encounter Visit Diagnoses + + | Diagnosis | + + | Neoplasm of uncertain behavior of connective and other soft tissue | + + documented in this encounter"
--- OUTSIDE RECORDS SUMMARY | ~2020-04-05 | XMS | Encounter Summary ---
Demographics + + + | Address | [address] | | | [place] [address] | + + + | Home Phone | | + + + | Preferred Language | Unknown | + + + | Marital Status | Single | + + + | Confucianism Affiliation | 1041 | + + + | Race | Unknown | + + + | Ethnic Group | Unknown | + + + Author + + + | Author | [facility] | | | and [place] | + + + | Organization | [facility] | | | and [place] [...] Team Providers + +------+ + | Care Food And Beverage Outlets Manager Name | Role | Phone | [...] PHYSIATRY [address] | MD [address] | | | | | [address] | [place], [place] | | | | | [place], [place] | [address] | | | | | [address] | | | | | | [phone] | | | +--------+--------+ + + + [...] + + | 04/07/ | Office | [place] | Jim Mckoy | | | 2020 | Visit | | MD Maxime Deng | | | | | | [address] [place] | | | | | | [place] [address] | | | | | | [phone] | | | | | | | | +--------+---------+ + + + | 05/04/ | Office | Neurosurgery | Jim Mckoy | | | 2020 | Visit | | MD Ish [address] | | | | | | [address] [place] | | | | | | [place] [address] | | | | | | [phone] | | | | | | | | +--------+---------+ + + + documented as of this encounter Visit Diagnoses Not on filedocumented in this encounter"
--- OUTSIDE RECORDS SUMMARY | ~2020-04-05 | XMS | Encounter Summary ---
Demographics + + + | Address | [address] | | | [place] [address] | + + + | Home Phone [...] | [facility] | | | and [place] | + + + | Organization | [facility] | | | and [...] Providers + +------+ + | Care Manager Agricultural Name | Role | Phone | + +------+ + | Argelia Lim | PCP | | + +------+ + Reason for Visit + + + | Reason | Comments | + + + | Follow-up | Discuss surgery options | + + + Evaluate & Treat (Routine) + + + + + + + | Status | Reason | Specialty | Diagnoses / | Referred By | Referred To | | | | | Procedures | Contact | Contact | + + + + + + + | Authorized | Specialty | Neurosurgery | Diagnoses | Castillo, | [facility] | | | Services | | Chiari | Robert Norris MD | Neurosurgery | | | Required | | malformation | [address] | | | | | type I | [address] | [address] | | | | | ([facility]) | [place], | [place], | | | | | | [place] [address] | [place] [address] | | | | | | Phone: | Phone: | | | | | | [phone] | [phone] | | | | | | Fax: | Fax: | | | | | | [phone] | [phone] | + + + + + + + Encounter Details +--------+---------+ + + + | Date | Type | Department | Care Team | Description | +--------+---------+ + + + | 09/25/ | Office | [facility] | Jim Mckoy | Sl[place] | | 2019 | Visit | DREW [address] | MD Ish [address] | malformation (HCC) | | | | [address] | [address] [place] | (Primary Dx); | | | | [place], [place] | [place] [address] | Bilateral tinnitus; | | | | [phone] | [phone] | Vertigo | | | | [phone] | | | +--------+---------+ + + + [...] + + + | Blood Pressure | 128/80 | 09/25/2019 9:10 AM | | | | | PST | | + + + + + | Pulse | 86 | 09/25/2019 9:10 AM | | | | | PST | | + + + + + | Temperature | - | - | | + + + + + | Respiratory Rate | - | - | | + + + + + | Oxygen Saturation | 100% | 09/25/2019 9:10 AM | | | | | PST | | + + + + + | Inhaled Oxygen | - | - | | | Concentration | | | | + + + + + | Weight | 75.9 kg (167 lb 5.3 | 09/25/2019 9:10 AM | | | | oz) | PST | | + + + + + | Height | 154.9 cm (5' 1") | 09/25/2019 9:10 AM | | | | | PST | | + + + + + | Body Mass Index | 31.62 | 09/25/2019 9:10 AM | | | | | PST | | + + + + + documented in this encounter Patient Instructions Patient Instructions Gris Buck Cert MA - 09/25/2019 8:30 AM PST - Surgery was discussed today. It would be a decompressive of Arnold Chiari Syndrome to hel p your pain. This may have something to do with your vertigo and ringing in the ears. - Talk to your primary care physician regarding pain medications, try not to take opiates. You can take Tylenol. - Hospital stay is 1-3 days. - You will need to be off work for 2 months. - We will submit for surgery and contact you to schedule once approved. You can schedule at what is convenient for you and your schedule. documented in this encounter Progress Notes Jim Mckoy MD - 09/25/2019 8:30 AM PST Jim Mckoy MD [address] [facility], [address] [place] [address] FAX: [phone] NEUROSURGERY HISTORY AND PHYSICAL EXAMINATION CHIEF COMPLAINT: Chief Complaint Patient presents with Follow-up Discuss surgery options HISTORY OF PRESENT ILLNESS: Marine Lagos is a 39 y.o. female here today to discuss sche duling her surgery for Chiari Malformation. She states she is ready to proceed after having a recent knee surgery. Patient was last seen on 04/28/2019 and advised to follow up after her knee surgery. She is due to stop taking Xarelto within the next 5 days Today the patient complains of a pain level of 9/10. She was in the hospital over [place] with vertigo but unsure what caused it. She notes as well that she has persistent and scott y bilateral tinnitus. 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 PAST MEDICAL HISTORY: Past Medical History: Diagnosis [...] SURGERY Left 12/2017 KNEE SURGERY Right 03/25/2019 [facility] OVARIAN CYST REMOVAL Right 2008 TUBAL LIGATION [...] Systems Constitutional: Negative. HENT: Positive for tinnitus (chronic). Eyes: Positive for blurred vision and photophobia. Respiratory: Negative. Cardiovascular: Negative. Gastrointestinal: Positive for nausea and vomiting. Genitourinary: Negative. Musculoskeletal: Positive for myalgias and neck pain. Skin: Negative. Neurological: Positive for dizziness, tingling (bilateral hands), tremors (right 5th digit) and headaches. Endo/Heme/Allergies: Bruises/bleeds easily. Psychiatric/Behavioral: Positive for depression, hallucinations, memory loss, substance abu se and suicidal ideas. The patient is nervous/anxious (anxious). Has PTSD PHYSICAL EXAMINATION: Blood pressure 128/80, pulse 86, height 1.549 m (5' 1"), weight 75.9 kg (167 lb 5.3 oz), Sp O2 100 %. Body mass index is 31.62 kg/m. GENERAL: Marine Lagos is in no [...] has no apparent deficits with short or prison memory. CRANIAL NERVES: II: Acuity is intact. [...] cord. ASSESSMENT: Symptomatic Arnold-Chiari malformation. NEUROSURGICAL DIAGNOSES: Encounter Diagnoses Name Primary? Arnold-Chiari malformation (HCC) Yes Bilateral tinnitus Vertigo GENERAL DIAGNOSES: Past Medical History: Diagnosis Date [...] vertigo, and asymmetrical nystagmus all relate to this.. We had a lengthy discussion with the [...] completed and off of Xarelto beginning 09/29/2019. I would like this patient to follow up with me or neurosurgery PA for pre op. I, Jim Mckoy MD, personally performed the services described in this documentatio n, as scribed by KRISHNA Meyers in my presence, and it is both accurate and complete. Jim Mckoy MD 09/25/19 ELECTRONICALLY SIGNED BY: Jim Mckoy MD, 09/25/2019 9:47 AM documented in this encounter Plan of Treatment +--------+---------+ + + + | Date | Type | Specialty | Care Team | Description | +--------+---------+ + + + | 04/07/ | Office | Neurosurgery | Jim Mckoy | | 2019 | Visit | | MD Maxime Deng | | | | | | [place] [address] [place] | | | | | | [place] [address] | | | | | | [phone] | | | | | | | | +--------+---------+ + + + | 05/04/ | Office | Neurosurgery | Jim Mckoy | | 2019 | Visit | | MD Maxime Deng | | | | | | [facility] [address] [place] | | | | | | [place] [address] | | | | | | [phone] | | | | | | | | +--------+---------+ + + + documented as of this encounter Visit Diagnoses + + | Diagnosis | + + | Arnold-Chiari malformation (HCC) - Primary Spina bifida with hydrocephalus, | | unspecified region | + + | Bilateral tinnitus | + + | Vertigo Dizziness and giddiness | + + documented in this encounter
--- OUTSIDE RECORDS SUMMARY | 2020-04-05 21:48 | XMS ---
PreManage Notification: LAURA MAGDALENO Security Staff Occupational Therapist Events No recent Security Events currently on file CRITERIA MET - [facility] [place] 11/10/2018-Current PHONE: [phone] RIYA KUMAR Physician Emergency Spill Response Technician 09/17/2019-Current PHONE: [phone] Guidelines Source: [facility] Guidelines Date: 09/18/2019 Care Coordination: Mental health services are being provided by [facility].\T\nbsp; Please contact [facility] with mental health concerns.\T\nbsp; Kavya/Johan Hung: \T\nbsp; Nettie: [phone]. E.D. VISIT COUNT (12 MO.) [address] [facility] TOTAL 5 NOTE: Visits indicate total known visits. ED/UCC VISIT TRACKING (12 MO.) 04/05/2020 21:46 [facility] [place] TYPE: Emergency COMPLAINT: - POST OP FEVER 12/11/2019 12:25 [facility] [place] TYPE: Emergency COMPLAINT: - ABD PAIN DIAGNOSES: - Epigastric pain 12/01/2019 23:53 [facility] [place] TYPE: Emergency COMPLAINT: - ABD PAIN,VOMITING 11/10/2019 20:33 [facility] [place] TYPE: Emergency COMPLAINT: - CHILLS, NAUSEA 09/16/2019 10:49 [facility] [place] TYPE: Emergency COMPLAINT: - DIZZINESS DIAGNOSES: - Dizziness and giddiness INPATIENT VISIT TRACKING (12 MO.) 03/28/2020 05:41 [facility] [place] TYPE: Surgical Services DIAGNOSES: - Tinnitus, bilateral - 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 12/01/2019 23:54 [facility] [place] TYPE: Observation COMPLAINT: - SBO DIAGNOSES: - Unspecified intestinal obstruction, unspecified as to partial - Other usp (current) drug therapy - Chest pain, unspecified [...] intestine with perforation and absces - Other usp (current) drug therapy - Post-traumatic stress disorder, unspecified - Other usp (current) drug therapy - Body mass index (BMI) 30.0-30.9, adult - Diverticulitis of large intestine without perforation or absc [email or web address]
[2020-04-05] MEDS ORDERED: LAMICTAL25 MG PO (22:07)
[2020-04-05] MEDS ORDERED: TRANSDERM-SCOP1 EACH TD (22:08)
[2020-04-05] MEDS ORDERED: ROBAXIN-750750 MG PO (22:09)
[2020-04-06] MEDS ORDERED: KEFLEX500 MG PO (00:09)
--- NOTE | 2020-04-07 07:40 | NUR ---
RECORDS SENT TO [facility] FOR PTS APT TODAY.
== END 2020-04-06 00:26 | disposition home or self-care (01) ==
LOC: ED 21:45
DX: R50.82 Postprocedural fever (principal); F32.9 Major depressive disorder, single episode, unspecified; F41.9 Anxiety disorder, unspecified; Z79.899 Other long term (current) drug therapy
CPT/HCPCS: 71045; 80053; 81001; 83605; 85025; 85610; 85730; 99284-25

== ENCOUNTER 2020-09-04 14:55 | Emergency (ER) | payer OTHER ==
[~2020-09-04] VITALS: Ht 154.9 cm; Wt 78.9 kg
[~2020-09-04 14:55] MED LIST changes: +HYDROCODON-ACE1 EA10 PO; +KEFLEX500 MG PO; +LAMICTAL25 MG PO; +ROBAXIN-750750 MG PO; +TRANSDERM-SCOP1 EACH TD
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
[2020-09-04] MEDS ORDERED: ROBAXIN-750750 MG PO (15:09)
[2020-09-04] MEDS ORDERED: IBU600 MG PO (16:29)
== END 2020-09-04 16:40 | disposition home or self-care (01) ==
LOC: ED 14:55
DX: G89.18 Other acute postprocedural pain (principal); M79.605 Pain in left leg; Z87.891 Personal history of nicotine dependence; Z79.899 Other long term (current) drug therapy
CPT/HCPCS: 93971; 99283-25; A9270

== ENCOUNTER 2022-01-24 13:39 | Emergency (ER) | payer BC, OTHER ==
[~2022-01-24] VITALS: Ht 154.9 cm; Wt 76.7 kg
[~2022-01-24 13:39] MED LIST changes: +IBU600 MG PO
[2022-01-24] MEDS ORDERED: METRONIDAZOLE500 MG PO (14:09)
[2022-01-24] MEDS ORDERED: DOXYCYCLINE HY100 MG PO (14:09)
[2022-01-24] MEDS ORDERED: TOPIRAMATE25 MG PO (14:09)
[2022-01-24] MEDS ORDERED: OMEPRAZOLE20 MG PO (14:09)
[2022-01-24] MEDS ORDERED: WEGOVY2.4 MG/0.7 SUB-Q (14:10)
== END 2022-01-24 18:04 | disposition home or self-care (01) ==
LOC: ED 13:39
DX: U07.1 COVID-19 (principal); Z87.891 Personal history of nicotine dependence; Z79.899 Other long term (current) drug therapy
CPT/HCPCS: 87502; 96374; 99283-25; A9270; C9803; U0003

== ENCOUNTER 2023-09-02 00:57 | Emergency (ER) | payer BC, OTHER ==
[~2023-09-02] VITALS: Ht 154.9 cm; Wt 100.6 kg
[~2023-09-02 00:57] MED LIST changes: +DOXYCYCLINE HY100 MG PO; +IBU800 MG PO; +METRONIDAZOLE500 MG PO; +OMEPRAZOLE20 MG PO; +TOPIRAMATE25 MG PO; +WEGOVY2.4 MG/0.7 SUB-Q; +ZANAFLEX4 MG PO
[2023-09-02] MEDS ORDERED: ZESTRIL5 MG PO (01:34)
[2023-09-02] MEDS ORDERED: MELOXICAM7.5 MG PO (01:34)
[2023-09-02] MEDS ORDERED: CABERGOLINE0.5 MG PO (01:34)
[2023-09-02 02:18] LABS: BILIRUBIN, URINE NEGATIVE (negative); BLOOD/HGB, URINE TRACE-I (Negative); KETONE, URINE TRACE (Negative); LEUK ESTERASE, URINE NEGATIVE (negative); NITRITE, URINE NEGATIVE (negative)
[2023-09-02 02:18] LABS: BASOPHILS 0.5 % (0-2); EOSINOPHILS 2.7 % (0-6); HEMATOCRIT 43.8 % (35.0-50.0); HEMOGLOBIN 14.6 g/dL (12.0-18.0); LYMPHOCYTES 26.4 % (24-44); MCH 28.6 (27-36); MCHC 33.4 g/dl (30-36); MCV 85.6 fl (81-99); MONOCYTES 9.1 % (0-12); NEUTROPHILS 61.3 % (39-80); PLATELET COUNT 231 K/uL (140-440); RBC 5.11 M/ul (4.3-5.7); RDW 14.1 (10.5-15.0)
[2023-09-02 02:42] LABS: RED BLOOD CELLS, URINE 0-1 /hpf (0-5)
[2023-09-02 02:43] LABS: BACTERIA, URINE 1+ /hpf (negative); EPITHELIAL CELLS, URINE SQUAMOUS 3+ /lpf (0-1+)
[2023-09-02 02:44] LABS: REFLEX CULTURE, URINE Yes (No)
[2023-09-02 02:45] LABS: ALBUMIN 3.9 g/dL (3.4-5.0); ALBUMIN/GLOBULIN RATIO 0.89 (1.1-2.4); ANION GAP 14.6 (7-21); BILIRUBIN, TOTAL 0.3 ng/dL (0.2-1.0); BUN/CREATININE RATIO 18.84 (6.0-28.6); CALCIUM 9.1 mg/dL (8.5-10.1); CREATININE, SERUM 0.69 mg/dL (0.55-1.02); POTASSIUM 3.6 mmol/L (3.5-5.1); PROTEIN, TOTAL 8.3 g/dL (6.4-8.2)
[2023-09-02] MEDS ORDERED: LOMOTIL TABLET1 EACH PO (04:14)
[2023-09-02 04:30] VITALS: BP 119/67
[2023-09-03 14:15] LABS: TRIIODOTHYRONINE,FREE FREE T3 2.9 pg/mL (2.5-4.3)
[2023-09-04 12:40] LABS: C. DIFF TOXIN B GENE TCDB,PCR Not Detected (())
== END 2023-09-02 04:30 | disposition home or self-care (01) ==
LOC: ED 00:57
PROVIDERS: Internal Medicine
DX: R19.7 Diarrhea, unspecified (principal); R11.2 Nausea with vomiting, unspecified; Z87.891 Personal history of nicotine dependence; Z79.899 Other long term (current) drug therapy
CPT/HCPCS: 36415; 80053; 81001; 84439; 84443; 84481; 84703; 85025; 87045; 87046; 87088; 87493; 96360; 96361; 99284-25; J7121

== ENCOUNTER 2024-03-07 10:26 | Emergency (ER) | payer BC, OTHER ==
[~2024-03-07] VITALS: Ht 154.9 cm; Wt 84.8 kg
[~2024-03-07 10:26] MED LIST changes: +CABERGOLINE0.5 MG PO; +LOMOTIL TABLET1 EACH PO; +MELOXICAM7.5 MG PO; +ZESTRIL5 MG PO
--- OUTSIDE RECORDS SUMMARY | 2024-03-07 10:27 | XMS ---
[facility] Notification: LAURA MAGDALENO Security History Card Clerk Events No recent Security Events currently on file CRITERIA MET - [employer] CARE PROVIDERS [facility] 11/10/2018-Current PHONE: [phone] -, [facility] Dentist: Standards Engineer [facility] PHONE: [phone] -Kavya- Dentist: Standards Engineer Current [facility] Dental [facility] PHONE: [phone] Care Guidelines exist for the following facilities: [facility] ([facility] ( 09/18/2019 ) Mark VISIT COUNT (12 MO.) 2 [facility] TOTAL 2 NOTE: Visits indicate total known visits. ED/UCC VISIT TRACKING (12 MO.) 03/07/2024 10:26 [facility] [place] TYPE: Emergency COMPLAINT: - POST OP PROBLEM 09/02/2023 00:[address] [facility] [place] TYPE: Emergency COMPLAINT: - VOMITING,DIARRHEA DIAGNOSES: - Diarrhea, unspecified - Nausea with vomiting, unspecified - Other terminal gauger supervisor (current) drug therapy - Personal history of nicotine dependence INPATIENT VISIT TRACKING (12 MO.) No inpatient visits to display in this time frame [email or web address]
[2024-03-07] MEDS ORDERED: OXYCODONE HCL5 MG PO (10:44)
[2024-03-07] MEDS ORDERED: DOCUSATE SODIU100 MG PO (10:44)
[2024-03-07] MEDS ORDERED: IBUPROFEN600 MG PO (10:44)
[2024-03-07] MEDS ORDERED: VITAMIN D21250 MCG PO (10:45)
[2024-03-07] MEDS ORDERED: OZEMPIC1 MG/0.71 SQ (10:45)
[2024-03-07] MEDS ORDERED: AMITRIPTYLINE H25 MG PO (10:45)
[2024-03-07] MEDS ORDERED: METFORMIN HCL500 M1 PO (10:45)
[2024-03-07] MEDS ORDERED: SODIUM CHLORIDE 0.9% 1,000 ML IV PRN (11:30)
[2024-03-07 11:52] LABS: BASOPHILS 0.2 % (0-2); EOSINOPHILS 3.2 % (0-6); MCH 29.3 (27-36); MCHC 33.5 g/dl (30-36); MCV 87.4 fl (81-99); MONOCYTES 5.9 % (0-12); NEUTROPHILS 73.7 % (39-80); PLATELET COUNT 238 K/uL (140-440); RBC 2.75 M/ul (4.3-5.7); RDW 14.1 (10.5-15.0)
[2024-03-07 12:06] LABS: ALBUMIN 3.3 g/dL (3.4-5.0); ALBUMIN/GLOBULIN RATIO 0.89 (1.1-2.4); BILIRUBIN, TOTAL 0.9 ng/dL (0.2-1.0); BUN/CREATININE RATIO 14.54 (6.0-28.6); CALCIUM 8.6 mg/dL (8.5-10.1); CREATININE, SERUM 0.55 mg/dL (0.55-1.02)
[2024-03-07 12:26] LABS: ABO O; RH POSITIVE
[2024-03-07 12:27] LABS: ANTIBODY SCREEN NEGATIVE
[2024-03-07 13:17] LABS: BILIRUBIN, URINE NEGATIVE (negative); BLOOD/HGB, URINE NEGATIVE (Negative); KETONE, URINE NEGATIVE (Negative); LEUK ESTERASE, URINE NEGATIVE (negative); NITRITE, URINE NEGATIVE (negative); PH, URINE 7.5 (5-7)
[2024-03-07] MEDS ORDERED: HYDROmorphone HCL 1 MG/ML SYR IV ONE (14:30)
[2024-03-07 15:10] VITALS: BP 141/74
== END 2024-03-07 15:19 | disposition home or self-care (01) ==
LOC: ED 10:26
PROVIDERS: Emergency Medicine
DX: G89.18 Other acute postprocedural pain (principal); K66.1 Hemoperitoneum; F43.10 Post-traumatic stress disorder, unspecified; Z87.891 Personal history of nicotine dependence; Z79.899 Other long term (current) drug therapy; Z79.84 Long term (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 oral hypoglycemic drugs
CPT/HCPCS: 36415; 74177; 80053; 81003; 83690; 85025; 86850; 86900; 86901; 99284-25; J1170; J7030; Q9967

== ENCOUNTER 2024-09-25 18:17 | Inpatient (IN) | payer OTHER ==
[~2024-09-25] VITALS: Ht 154.9 cm; Wt 85.1 kg
[~2024-09-25 18:17] MED LIST changes: +AMITRIPTYLINE H25 MG PO; +DOCUSATE SODIU100 MG PO; +METFORMIN HCL500 M1 PO; +OXYCODONE HCL5 MG PO; +OZEMPIC1 MG/0.71 SQ; +VITAMIN D21250 MCG PO
[2024-09-25 18:56] LABS: BASOPHILS 0.5 % (0-2); EOSINOPHILS 2.6 % (0-6); HEMATOCRIT 40.7 % (35.0-50.0); HEMOGLOBIN 14.2 g/dL (12.0-18.0); LYMPHOCYTES 32.5 % (24-44); MCH 30.4 (27-36); MCHC 34.8 g/dl (30-36); MCV 87.2 fl (81-99); MONOCYTES 5.3 % (0-12); NEUTROPHILS 59.1 % (39-80); PLATELET COUNT 214 K/uL (140-440); RBC 4.67 M/ul (4.3-5.7); RDW 13.8 (10.5-15.0)
[2024-09-25 19:10] LABS: ALBUMIN 3.9 g/dL (3.4-5.0); ALBUMIN/GLOBULIN RATIO 0.93 (1.1-2.4); ANION GAP 8.6 (7-21); BILIRUBIN, TOTAL 0.2 ng/dL (0.2-1.0); BUN/CREATININE RATIO 22.58 (6.0-28.6); CALCIUM 9.5 mg/dL (8.5-10.1); CREATININE, SERUM 0.62 mg/dL (0.55-1.02); MAGNESIUM 2.1 mg/dL (1.8-2.4); POTASSIUM 3.6 mmol/L (3.5-5.1); PROTEIN, TOTAL 8.1 g/dL (6.4-8.2)
[2024-09-25] MEDS ORDERED: ondansetron HCL 4 MG/2 ML VIAL IV ONE ×2 (19:30→22:00)
[2024-09-25 20:51] LABS: BILIRUBIN, URINE NEGATIVE (negative); BLOOD/HGB, URINE TRACE-L (Negative); KETONE, URINE SMALL (Negative); LEUK ESTERASE, URINE NEGATIVE (negative); NITRITE, URINE NEGATIVE (negative)
[2024-09-25 20:57] LABS: BACTERIA, URINE NONE SEEN /hpf (negative); CASTS, URINE NONE SEEN \\lpf; COLLECTION TYPE, URINE CLEAN CATCH; CRYSTALS, URINE NONE SEEN (0-1+); EPITHELIAL CELLS, URINE SQUAMOUS 1+ /lpf (0-1+); REFLEX CULTURE, URINE No (No)
[2024-09-25] MEDS ORDERED: SODIUM CHLORIDE 0.9% 1,000 ML IV SCH ×2 (22:00→22:45)
[2024-09-25] MEDS ORDERED: HYDROmorphone HCL 1 MG/ML SYR IV PRN (22:00)
[2024-09-25] MEDS ORDERED: metroNIDAZOLE/SODIUM CHLORIDE 500 MG/100 ML PIGGYBACK IV ONE (22:45)
[2024-09-25] MEDS ORDERED: CEFAZOLIN SODIUM 2 GM/20 ML SYR IV ONE (22:45)
[2024-09-25] MEDS ORDERED: FAMOTIDINE 20 MG/ 2 ML VIAL IV ONE (23:00)
[2024-09-26] VITALS (12 sets, daily range): BP systolic 109–138; BP diastolic 63–84
[2024-09-26] MEDS ORDERED: ondansetron HCL 4 MG/2 ML VIAL ONE (00:18)
[2024-09-26] MEDS ORDERED: KETOROLAC TROMETHAMINE 30 MG/ML VIAL ONE (00:18)
[2024-09-26] MEDS ORDERED: ROCURONIUM BROMIDE 50 MG/5 ML SYR ONE (00:18)
[2024-09-26] MEDS ORDERED: DEXAMETHASONE SOD PHOS 4 MG/ML VIAL ONE ×2 (00:18→02:06)
[2024-09-26] MEDS ORDERED: dexmedeTOMIDine HCl 200 MCG/2 ML VIAL ONE (00:18)
[2024-09-26] MEDS ORDERED: LIDOCAINE HCL 2% 5 ML SDV ONE (00:18)
[2024-09-26] MEDS ORDERED: ACETAMINOPHEN 1,000 MG/100 ML VIAL ONE (00:18)
[2024-09-26] MEDS ORDERED: LIDOCAINE HCL 1% 30 ML SDV ONE (00:18)
[2024-09-26] MEDS ORDERED: propofoL 200 MG/20 ML VIAL ONE (00:18)
[2024-09-26] MEDS ORDERED: MIDAZOLAM HCL 2 MG/2 ML VIAL ONE (00:28)
[2024-09-26] MEDS ORDERED: fentaNYL citrate 100 MCG/2 ML VIAL ONE (00:29)
[2024-09-26] MEDS ORDERED: Ropivacaine HCl 0.5% 30 ML VIAL ONE (01:09)
[2024-09-26] MEDS ORDERED: SODIUM CHLORIDE 0.9% 60 ML IV ONE (01:09)
[2024-09-26] MEDS ORDERED: ePHEDrine sulfate 50 MG/ML AMP ONE (01:19)
[2024-09-26] MEDS ORDERED: SUGAMMADEX SODIUM 200 MG/2 ML ML ONE (02:26)
[2024-09-26] MEDS ORDERED: LACTATED RINGER'S 1,000 ML IV ONE (02:32)
[2024-09-26] MEDS ORDERED: ondansetron HCL 4 MG/2 ML VIAL IV PRN ×3 (03:15→04:45)
[2024-09-26] MEDS ORDERED: KETOROLAC TROMETHAMINE 30 MG/ML VIAL IV PRN (03:15)
[2024-09-26] MEDS ORDERED: LACTATED RINGER'S 1,000 ML IV SCH ×2 (03:15→04:45)
[2024-09-26] MEDS ORDERED: ACETAMINOPHEN 1,000 MG/100 ML VIAL IV PRN (03:15)
[2024-09-26] MEDS ORDERED: HYDROmorphone HCL 1 MG/ML SYR IV PRN ×2 (03:15→04:45)
--- NOTE | 2024-09-26 03:22 | NUR ---
09/26/24 0322 Sheets,Barb 0306 PT ARRIVED TO PACU ON 6L VIA MASK, ORAL AIRWAY IN PLACE. RESP EVEN AND UNLABORED BUT SHALLOW. O2 SAT MID 90S. PT NONAROUSABLE. 0317 PT WOKE TO TACTILE STIMULI AND DEEP BREATHING ENCOURAGED. ORAL AIRWAY REMOVED AND HOB INCREASED SLIGHTLY. PT EYES REMAIN CLOSED AND SMALL AMOUNT ORT SNORING NOTED, O2 INCREASED TO HIGH 90S. NG TUBE TO LOW SUCTION AND BLACK DRAIN EMPTIED DUE TO BEING FULL.
[2024-09-26] MEDS ORDERED: NALOXONE HCL 0.4 MG SYR IV PRN (03:30)
[2024-09-26] MEDS ORDERED: fentaNYL citrate 50 MCG/ML SDV IV PRN (03:30)
[2024-09-26] MEDS ORDERED: IBLOOD GLUCOSE TEST STRIP 1 EA TEST VI PRN (03:30)
[2024-09-26] MEDS ORDERED: droPERidol 5 MG/2 ML VIAL ONE (04:12)
[2024-09-26] MEDS ORDERED: droPERidol 5 MG/2 ML VIAL IV PRN (04:15)
--- NOTE | 2024-09-26 05:18 | NUR ---
PT ADMITTED TO ROOM 144 FROM PACU VIA HOSIPTAL BED. PT'S SISTER AT BEDSIDE. ALL BELONGINGS IN SAH BELONGINGS BAG AT BEDSIDE. PT VERY DROWSY, WAKES BRIEFLY TO VOICE BUT QUICKLY BACK TO SLEEP. APPEARS COMFORTABLE. O2 2L N/C IN PLACE, CPOX AT BEDSIDE. LS DIM TO BASES. HRR. BT ABSENT, ABD TENDER TO PALPATION. NPO. MIDLINE ABD DRSG, BLOODY DRNG MARKED. RLQ SHAVON DRAIN EMPTIED OF 50cc SANG DRNG. ABD BINDER AT BEDSIDE, WILL PLACE WHEN PT AWAKENS. LEFT NARE NGT TO LIWS, NO DRNG NOTED. NPO. CONLEY W/ CLEAR YELLOW URINE. SCD'S TO BLE. LR @ 85MLS/HR TO LAC IV. CALL LIGHT WITHIN REACH.
[2024-09-26 05:31] LABS: BASOPHILS 0.2 % (0-2); EOSINOPHILS 0.1 % (0-6); HEMATOCRIT 39.4 % (35.0-50.0); HEMOGLOBIN 13.5 g/dL (12.0-18.0); LYMPHOCYTES 4.5 % (24-44); MCH 29.7 (27-36); MCHC 34.3 g/dl (30-36); MCV 86.5 fl (81-99); MONOCYTES 4.4 % (0-12); NEUTROPHILS 90.8 % (39-80); PLATELET COUNT 159 K/uL (140-440); RBC 4.56 M/ul (4.3-5.7); RDW 14.1 (10.5-15.0)
[2024-09-26 05:40] LABS: ANION GAP 12.6 (7-21); BUN/CREATININE RATIO 11.59 (6.0-28.6); CALCIUM 8.1 mg/dL (8.5-10.1); CREATININE, SERUM 0.69 mg/dL (0.55-1.02); POTASSIUM 3.6 mmol/L (3.5-5.1)
[2024-09-26] MEDS ORDERED: CEFAZOLIN SODIUM 2 GM/20 ML SYR IV SCH (06:00)
[2024-09-26] MEDS ORDERED: metroNIDAZOLE/SODIUM CHLORIDE 500 MG/100 ML PIGGYBACK IV SCH ×2 (06:00)
[2024-09-26] MEDS ORDERED: CEFAZOLIN SODIUM 1 GM/10 ML SYR IV SCH (06:00)
--- NOTE | 2024-09-26 06:30 | NUR ---
PT AWAKE BRIEFLY, REPORTS 9/10 ABD PAIN. MEDICATED W/ PRN IV DILAUDID. PT QUICKLY BACK TO SLEEP. RLQ SHAVON DRAIN EMPTIED 30cc BLOODY DRNG. IVF INFUSING, IV ATB STARTED PER EMAR. SISTER REMAINS AT BEDSIDE.
--- NOTE | 2024-09-26 06:33 | NUR ---
ABD BINDER PLACED WHILE PT AWAKE.
--- NOTE | 2024-09-26 07:43 | NUR ---
PT REPORT RECIEVED FROM DAMIAN LEE. PT SITTING UP IN BED WITH EYES CLOSED AND CHEST RISE EQUAL BILAT, PT FAMILY MEMEBER IN ROOM WELL ON COUCH. PT CALL LIGHT WITHIN REACH.
--- NOTE | 2024-09-26 08:20 | NUR ---
PT ASSESSMENT COMPLETED, PT NG INTACT AND CORRECT PLACEMENT. PT WAS EXPERIENCING PAIN AND GIVEN DILAUDID (SEE EMAR). PT SHAVON DRAIN INTACT WITH 20ML OF OUTPUT, AND STRIPED. PT WAS COMPLAINING OF CONLEY DISCOMFORT, CONLEY REPOSITIONED AND DISCOMFORT STOPPED. PT HAS NO OTHER CONCERNS AT THIS TIME. CALL LIGHT WITHIN REACH.
[2024-09-26] MEDS ORDERED: FAMOTIDINE 20 MG/ 2 ML VIAL IV SCH (09:00)
[2024-09-26] MEDS ORDERED: ENOXAPARIN SODIUM 40 MG/0.4 ML SYR SUB-Q SCH (09:00)
--- NOTE | 2024-09-26 09:58 | NUR ---
PT LAYING IN BED WITH NG TUBE, SHAVON, AND CONLEY ALL INTACT WITH O2 @ 2LPM, CPOX IN PLACE. PT HAS NO CONCERNS AT THIS TIME CALL LIGHT IN REACH.
--- NOTE | 2024-09-26 11:06 | NUR ---
ASSISTED PT TO THE RECLINER, PT WAS ABLE TO AMBULATE TO THE CHAIR W/O DIFFICULTY. ABD BINDER ADJUSTED, SHAVON DRAIN EMPTIED-30 SANGUINEOUS FLUID. NG REMAINS CONNECTED TO INTERMIT W[place] SUCTION. CONLEY DRAINED, URINE CLEAR. COMPLAINS OF BACK DISCOMFORT. HEAT PAD PROVIDED. CALL LIGHT IN REACH. FAMILY AT BEDSIDE.
--- NOTE | 2024-09-26 11:34 | NUR ---
PT BEGAN TO VOMIT AFTER BEING IN THE CHAIR. DAMIAN CROFT ADMINISTERED PAIN MEDICATION AND ANTINAUSEA MEDICATION (SEE EMAR).
--- NOTE | 2024-09-26 11:36 | NUR ---
PT RESTING IN BED, NG IN PLACE TO LIS. PT C/O 05/02 PAIN TO ABDOMEN W/ NAUSEA. IV ZOFRAN/DILAUDID GIVEN, SEE MAR. PT DENIES ANY FURTHER NEEDS AT THIS TIME. CALL LIGHT WITHIN REACH.
--- NOTE | 2024-09-26 12:06 | NUR ---
LIVAN OUT OF ROOM. VERBALIZED THE THAT PT HAD AN EPISODE OF EMESIS, WITH NG PLACED, TOLD THIS RN AND DAMIAN GONZALEZ TO FLUSH NG DUE TO NO OUTPUT. ALSO TO PULL CONLEY CATHETER TO ENCOURAGE MOBILITY.
--- NOTE | 2024-09-26 13:00 | NUR ---
REMOVED CONLEY CATHETER PER FACILITY PROTOCOL. PT TOLERATED WELL. PT REPORTS THAT THE PAIN MEDICATION DID NOT DO MUCH FOR HER PAIN AND WOULD LIKE TO TRY SOMETHING DIFFERENT IF POSSIBLE. RN AWARE. CALL LIGHT IN HAND, BED LOWERED, SIDE RAILS UP X 3, NO FURTHER NEEDS AT THIS TIME.
[2024-09-26] MEDS ORDERED: SEVOFLURANE 250 ML BTL INH ONE (14:15)
--- NOTE | 2024-09-26 14:47 | NUR ---
IN PT ROOM, RECIEVED NURSE NOTIFY ORDER FROM MD LICONA TO FLUSH PT NG TUBE FOR PATENTCY. THIS RN FLUSHED 10ML OF WATER INTO PT NG TUBE. PT BEGAN DRY HEAVING AND DEVELOPED NAUSEA. 40ML OF STOMACH CONTENT WAS SUCTIONED INTO CANISTER. RN ADJUSTED NG TUBE AND ADVANCED SLIGHTLY TO HELP WITH PLACEMENT. 20ML WAS THEN FLUSHED INTO NG TUBE BUT NO CONTENTS WAS SUCTIONED INTO CANISTER. PT DID NOT EXPEREINCE ANY MORE NAUSEA AFTER ADVANCEMENT AND SECUREMENT OF NG. MD LICONA WAS THEN ATTEMPTED TO BE CONTACTED BUT CALL WAS FORWARDED TO VOICENJIL. WILL ATTEMPT TO CONTACT MD LICONA AGAIN.
--- NOTE | 2024-09-26 15:07 | NUR ---
PT SINGLE VIEW CHEST XRAY ORDER VIA RN INITIATED ORDER DUE TO PT NG TUBE BEING IMPROPERLY LABLED AND PT HAVING DECREASED NG TUBE OUTPUT AFTER BEING FLUSHED. MD LICONA WAS UNABLE TO BE CONTACTED AND MACHINE FIXER WAS MADE AWARE OF INITIATED ORDER.
[2024-09-26] MEDS ORDERED: IBUPROFEN800 MG PO (15:16)
--- NOTE | 2024-09-26 15:37 | NUR ---
PT INFORMED THAT XRAY WAS ORDERED TO CHECK PLACEMENT OF NG TUBE PT WAS AGREEABLE AND HAVE NO FURTHER CONCERNS AT THE MOMENT. PT CLOSED EYES AND IS RESTING AGAIN WITH CHEST RISE EQUAL BILAT. CALL LIGHT WITHIN REACH.
--- NOTE | 2024-09-26 15:52 | NUR ---
PT SITTING IN BED WITH NO CONCERNS AT THIS TIME CALL LIGHT IN REACH. IMAGING JUST FINISHIED TAKING A SINGLE VIEW CHEST XRAY TO VERIFY NG TUBE PLACEMENT.
--- NOTE | 2024-09-26 16:33 | HP ---
[facility] [address] [place], [place] [address] Signed ADMISSION DATE: 09/25/2024 TIME: 11:30 p.m. PROBLEM: Small bowel obstruction, probable closed loop obstruction. 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 Operation included sigmoid resection with a side-to-end coloproctostomy. The lesion was initially thought to be a neoplasm, but in fact was only intussusception. Yesterday, she began having vague abdominal pain and later today presented to the emergency room, where she was evaluated by Dr. Camacho at approximately 2139 and found to have abdominal tenderness. A CT scan of the abdomen was performed showing a small bowel obstruction with a transition point associated with twisting of the mesentery centrally within the lower abdomen concerning for closed loop bowel obstruction. Quite remarkably, her lab studies are normal including a normal white count of 9.0, hematocrit of 40.7, and platelets of 214,000. Electrolytes normal and a creatinine normal at 0.62. Her urinalysis is also normal. She is not systemically toxic, but she is persistently painful. PAST MEDICAL HISTORY: Notable for history of tubal ligation, right ovarian cyst resection, vocal cord surgery, sigmoid resection as noted, right knee surgery, sinus surgery, and decompression of foramen magnum with duraplasty as well as hysterectomy. She has had brain tumor in the past accounting for her central nervous system operation as well. She has had vertigo, depression, anxiety as well as PTSD. CURRENT MEDICATIONS: Include ibuprofen, semaglutide, metformin, amitriptyline, tizanidine, cabergoline, and DSS. ALLERGIES: She has no known drug allergies. SOCIAL HISTORY: She is accompanied by her mother. She lives in [place] and she has two grown sons, 21 Electronically Signed By: BESSY LICONA MD 09/26/24 2941 PATIENT NAME: LAURA MAGDALENO HISTORY AND PHYSICAL DATE OF : 80 REPORT #: [id number] PHYSICIAN: BESSY LICONA MD PCP: RIYA KUMAR PA-C REPORT IS CONFIDENTIAL AND NOT TO BE RELEASED WITHOUT AUTHORIZATION [facility] [address] [place], [place] [address] Signed and 23, who live in the home as well. REVIEW OF SYSTEMS: She denies any shortness of breath or chest pain, but does have persistent abdominal pain in the mid abdomen. PHYSICAL EXAMINATION: GENERAL: Pleasant, obese white woman, who looks uncomfortable. VITAL SIGNS: Temperature currently is 98.3, pulse 67, blood pressure 131/79. NECK: Trachea is midline. CHEST: Shows normal respiratory excursion. HEART: Regular. ABDOMEN: Obese. She has tenderness in the central abdomen and somewhat to the right as well. This represents low-grade peritonitis clinically. A nasogastric tube is in place draining some bilious fluid. EXTREMITIES: Obese, but showed no sign of clubbing, cyanosis, or edema. LABORATORY STUDIES: As previously noted and CT scan findings also as described. ASSESSMENT: The patient clearly has a small bowel obstruction on the CT scan review. Whether or not this is a closed loop obstruction or not is uncertain, though there are some mesenteric vessels that appear to have some "swirling." A closed loop obstruction is unlikely to resolve itself and more importantly leads to progressive ischemic change. Quite remarkably, her lab studies are normal. However, I think it most prudent at this time to continue fluid administration and proceed to the operating room promptly in hopes of detorsing bowel that may or may not have a closed loop obstruction pattern. The risks of bleeding, infection, need for bowel resection, need for other indicated procedures, she understands this and she wishes to proceed. MD HUE Corbett/MODL /[id number] Electronically Signed By: BESSY LICONA MD 09/26/24 1633 PATIENT NAME: LAURA MAGDALENO HISTORY AND PHYSICAL DATE OF : 80 REPORT #: [id number] PHYSICIAN: BESSY LICONA MD PCP: RIYA KUMAR PA-C REPORT IS CONFIDENTIAL AND NOT TO BE RELEASED WITHOUT AUTHORIZATION [facility] [address] [place] [id number] Signed cc: Suki Camacho MD Copies: SUKI CAMACHO MD ~ Electronically Signed By: BESSY LICONA MD 09/26/24 1633 PATIENT NAME: LAURA MAGDALENO HISTORY AND PHYSICAL DATE OF : 80 REPORT #: [id number] PHYSICIAN: BESSY LICONA MD PCP: RIYA KUMAR PA-C REPORT IS CONFIDENTIAL AND NOT TO BE RELEASED WITHOUT AUTHORIZATION
--- NOTE | 2024-09-26 16:35 | NUR ---
DAMIAN GONZALEZ CALLED LIVAN TO DISCUSS XRAY FINDINGS WITH NG TUBE. LIVAN WILL CALL BACK AFTER LOOKING AT XRAY.
--- NOTE | 2024-09-26 16:39 | NUR ---
LIVAN CALLED VERBAL TO PULL BACK 6IN ON NG TUBE AND REPEAT XRAY IF NO OUTPUT. NO OUTPUT VISUALIZED. XRAY ORDERED.
--- NOTE | 2024-09-26 17:34 | NUR ---
PT GIVEN NAUSEA PRN MED (SEE EMAR). PT NG TUBE RETRACTED 6IN PER VERBAL ORDER FROM MD LICONA. PT AMBULATED FROM BED TO RESTROOM AND VOIDED 150ML OF YELLOW URINE, PT BEDDING CHANGED AND GOWN. PT THEN AMBULATED FROM ROOM 114 TO THE CCU DOORS AND BACK. PT DID NEED TO TAKE BREAKS TO REST DUE TO FATIGUE AND LIGHT HEADEDNESS. PT THEN RETURN TO THEIR ROOM AND RETURNED TO BED TO EAT ICE CHIPS. PT CALL LIGHT WITHIN REACH.
--- NOTE | 2024-09-26 18:59 | NUR ---
AFTER XR CONFIRMATION, REAPPLIED A NEW NG SECUREMENT DEVICE, RECONNECTED TO LOW INTERMIT WALL SUCTION.
--- NOTE | 2024-09-26 19:29 | NUR ---
RECEIVED REPORT FROM LISA AND AMAURY RN'S. PT RESTING QUIETLY IN BED, DROWSY. DENIES ANY NEEDS AT THIS TIME.
--- NOTE | 2024-09-26 21:00 | NUR ---
PT SLEEPING, AWAKENS EASILY BUT IS DROWSY. REPORTS PAIN TO MIDLINE ABD 9/10, MEDICATED W/ PRN IV TORADOL PER EMAR. PT DECLINED IV DILAUDID AT THIS TIME. VSS. PT ASSISTED TO BR W/ SBA FOR LINE MANAGEMENT. VOIDS W/O DIFFICULTY. TO SINK FOR ORAL CARE AND GOWN CHANGE. PT SAT EOB FOR SHORT TIME. LSC DIM T/O. ENC DB & C. HRR. SCD'S TO BLE. BT HYPO X 4. ABD TENDER. MILD DISTENTION, OBESE. ABD BINDER IN PLACE. REPORTS NAUSEA DESPITE NGT TO LEFT NARE. NGT TO LIWS, CLEAR FROTHY OUTPUT 250CC. MIDLINE ABD INC W/ BLOODY DRNG (MARKED). RLQ SHAVON DRAIN W/ SOME LEAKAGE AROUND TUBE, OUTPUT SEROSANG. LAC IV W/ LR INFUSING + IV ATB. SISTER AT BEDSIDE, SUPPORTIVE. CALL LIGHT WITHIN REACH.
--- NOTE | 2024-09-26 22:15 | NUR ---
PT RESTING ON LEFT SIDE. ABD PAIN CONTINUES /, MEDICATED W/ IV TYLENOL PER EMAR.
[2024-09-27] VITALS (11 sets, daily range): BP systolic 107–133; BP diastolic 65–77
--- NOTE | 2024-09-27 00:26 | NUR ---
PT SLEEPING SOUNDLY, APPEARS COMFORTABLE AT THIS TIME. IVF INFUSING. NGT TO LIWS. SISTER ASLEEP AT BEDSIDE.
--- NOTE | 2024-09-27 02:04 | NUR ---
PT ASSISTED TO BR, VOIDED W/O DIFFICULTY. WHEN STANDING AT THE SINK, SHAVON DRAINAGE NOTED ON FLOOR, DRNG LEAKING AROUND TUBE. SHAVON DRAIN DRSG SATURATED-NEW DRAIN SPONGE APPLIED. ABD BINDER REPLACED R/T WET DRNG. PT REPORTED ABD PAIN AFTER ACTIVITY, MEDICATED W/ PRN IV DILAUDID PER EMAR. VSS.
--- NOTE | 2024-09-27 04:57 | NUR ---
PT SLEEPING SOUNDLY, APPEARS COMFORTABLE. SISTER ASLEEP AT BEDSIDE.
[2024-09-27 05:18] LABS: BASOPHILS 0.2 % (0-2); EOSINOPHILS 0.9 % (0-6); HEMATOCRIT 33.7 % (35.0-50.0); HEMOGLOBIN 11.5 g/dL (12.0-18.0); LYMPHOCYTES 20.1 % (24-44); MCHC 34.2 g/dl (30-36); MCV 87.8 fl (81-99); MONOCYTES 7.8 % (0-12); PLATELET COUNT 168 K/uL (140-440); RBC 3.83 M/ul (4.3-5.7); RDW 13.7 (10.5-15.0)
[2024-09-27 05:37] LABS: ALBUMIN 2.7 g/dL (3.4-5.0); ALBUMIN/GLOBULIN RATIO 0.79 (1.1-2.4); ANION GAP 8.6 (7-21); BILIRUBIN, TOTAL 0.4 ng/dL (0.2-1.0); BUN/CREATININE RATIO 20.4 (6.0-28.6); CALCIUM 8.4 mg/dL (8.5-10.1); CREATININE, SERUM 0.49 mg/dL (0.55-1.02); POTASSIUM 3.6 mmol/L (3.5-5.1); PROTEIN, TOTAL 6.1 g/dL (6.4-8.2)
--- NOTE | 2024-09-27 06:06 | NUR ---
PT AMBULATED TO BR, SBA FOR LINE & TUBE MANAGEMENT. VOIDS WNL. SHAVON DRAIN EMPTIED-30CC SEROSANG DRNG. NGT EMPTIED FOR 150 LIGHT GREEN, THICK OUTPUT. PT GIVEN PRN IV TORADOL FOR C/O ABD PAIN AND HEADACHE. IV ATB INFUSING PER EMAR. CALL LIGHT WITHIN REACH.
--- NOTE | 2024-09-27 07:40 | NUR ---
MORNING REPORT RECIEVED FROM DAMIAN LEE. PT LAYING IN BED AWAKE WITH SISTER IN ROOM. PT REPORTS NO CURRENT NEEDS AT THIS TIME CALL LIGHT WITHIN REACH.
--- NOTE | 2024-09-27 08:35 | NUR ---
PT WAS COMPLAINING OF A HEADACHE WITH GENERALIZED ABD PAIN PT WAS GIVEN IV OFERMEV (SEE EMAR). PT HAS NO COMPLAINED OF ANY CURRENT PAIN AND IS SITTING IN BED COMFORTABLY. PT HAS CALL LIGHT WITHIN REACH.
--- NOTE | 2024-09-27 10:54 | NUR ---
PT LAYING IN BED WITH EYES CLSOED AND SHET RISE EQUAL BILAT. PT HAS BEEN UP MULTIPLE TIMES TO VOID. PT INFORMED THAT SHE WILL NEED TO AMBULATE THE HALLS BEFORE 1200. PT AGREEABLE. PT CALL LIGHT WITHIN REACH.
--- NOTE | 2024-09-27 11:27 | NUR ---
THIS RN HELPED PT AMBULATE TWO LAPS AROUND MED/SURG FLOOR. PT WAS A SBA WITH A FWW AND TOLERATED AMBULATION VERY WELL. PT WAS THEN RETURNED TO THEIR ROOM TO THE CHAIR WHERE NG TUBE WAS RECONECTED AT INTERMITENET SUCTION AT 75. PT IV LR FLUIDS RUNNING AT 85ML/HR. PT HAS NO CONCERNS AT THIS TIME. CALL LIGHT WITHIN REACH.
--- NOTE | 2024-09-27 12:09 | NUR ---
PT MOVED FROM CHAIR TO BED BY HERSELF WHICH SHE WAS TOLD WAS ALLOWED BY THIS RN. PT HAS NO CONCERNS AT THIS TIME CALL LIGHT WITHIN REACH.
--- NOTE | 2024-09-27 12:50 | NUR ---
PT COMPLAINED OF PAIN GENERALIZED IN THE ABD. PT REQUESTED THEIR PRN DILAUDID (SEE EMAR). PT TOLERATED WELL AND HAS NO CONCERNS AT THIS TIME CALL LIGHT WITHIN REACH.
--- NOTE | 2024-09-27 14:11 | NUR ---
PT RESTING IN BED WITH HEAD OF BED ELEVATED WITH EYES CLOSED AND CHEST RISE EQUAL BILAT. PT HAS CALL LIGHT WITHIN REACH AND NO CONCERNS AT THIS TIME.
--- NOTE | 2024-09-27 14:38 | NUR ---
PT AMBULATED FROM BBED TO RESTROOM AND VOIDED. PT RETURNED FROM RESTROOM TO CHAIR WITH FLAGYL RUNNING (SEE EMAR). PT HAS CALL LIGHT WITHIN REACH NO CONCERNS AT THIS TIME
--- NOTE | 2024-09-27 14:58 | NUR ---
PT NG TUBE REMOVED BY MD LICONA. PT NOW AVAILIBLE TO EAT FULL LIQUID DIET. PT REQUESTED APPLE JUICE AND A JELLO. PT HAS NO CURRENT NEEDS AT THIS TIME. CALL LIGHT IN REACH
[2024-09-27] MEDS ORDERED: ACETAMINOPHEN 1,000 MG/100 ML VIAL IV PRN (15:00)
[2024-09-27] MEDS ORDERED: OXYCODONE HCL 5 MG TAB PO PRN (15:00)
--- NOTE | 2024-09-27 15:20 | OR ---
[facility] [address] [place], [place] [address] Signed DATE OF OPERATION: 09/26/2024 SURGEON: Bessy Licona MD TIME: 2:46 a.m. PREOPERATIVE DIAGNOSES: 1. Small bowel obstruction, likely related to closed loop obstructive process. 2. Morbid obesity. 3. Distant history of sigmoid resection for sigmoid intussusception. POSTOPERATIVE DIAGNOSES: 1. Distinct dense adhesive band causing closed loop obstruction with a segment of ischemic bowel (recovered). 2. Extensive intraabdominal adhesions including to abdominal wall. PROCEDURES: 1. Exploration of abdomen with division of thick band causing closed loop obstruction. 2. Extensive lysis of adhesions freeing entire bowel. 3. Segmental small bowel resection with [id number]-sw-[id number] functional end-to-end anastomosis (stapled). ANESTHESIA: General endotracheal; Nona Erum, POT PUSHER and postoperative bilateral TAP blocks. INDICATIONS: This 44-year-old morbidly obese woman is known to me from the past having undergone resection of sigmoid colon for what proved to be unusual intussusception there. There was no sign of neoplasm as was postulated. She tolerated procedure well. She began having vague abdominal pain yesterday and presented to the emergency room where she was evaluated by Dr. Das. A CT scan of the abdomen is performed and she has significant tenderness and abdominal pain, though normal studies including CBC and Chem profile. A CT scan showed what appeared to be a closed loop bowel obstruction. On that basis, I was called at approximately 11 p.m. and prompt evaluation confirmed a high probability of significant obstructive process as she did have peritoneal signs. On that basis, urgent exploration was recommended. She understands the risk of bleeding, infection, need for possible bowel resection and other unforeseen complications related to operation and wished to proceed. Electronically Signed By: BESSY LICONA MD 09/27/24 1520 PATIENT NAME: LAURA MAGDALENO OPERATIVE REPORT DATE OF : 80 REPORT #: [id number] PHYSICIAN: BESSY LICONA MD PCP: RIYA KUMAR PA-C REPORT IS CONFIDENTIAL AND NOT TO BE RELEASED WITHOUT AUTHORIZATION [facility] [address] [place], [place] [address] Signed FINDINGS: Indeed there was a closed loop obstruction of bowel with ischemic changes, but no evidence of actual necrosis. A dense adhesive band was noted in the depths of the pelvis. The adhesive band was freed up allowing for further exploration of the abdomen. The segment that was obstructed, recovered its vascular supply readily. There were multiple interloop adhesions, though the abdomen is not densely troubled particularly. All of the adhesions were freed up entirely. One segment of bowel was in a particularly unusual configuration and densely adherent to the lower aspect of the previous low midline incision. Portion of fascia was excised in continuity with that segment of bowel. Once the bowel was entirely freed up and proven to be viable, the area with the dense adhesions and partial resection of abdominal fascia associated with it was evaluated fully. It had an unusual configuration and it is somewhat surprising it had not been obstructed already. On that basis, it was segmentally resected. A fmaz-lu-yjna anastomosis was undertaken. She tolerated procedure well. DESCRIPTION OF PROCEDURE: The patient was brought to the operating room, given a general endotracheal anesthetic. Preoperative antibiotic Ancef and Flagyl were given. Sequential compression device stockings were used as well. The abdomen was prepared with a chlorhexidine solution after satisfactory general endotracheal anesthesia. Incision was made above the umbilicus. Given her dystrophic and morbidly obese abdominal pannus, incision was maintained above the abdominal pannus roll for postoperative benefit. Dissection was carried through the thick abdominal wall pannus, which measured approximately 5 inches, ultimately encountering the midline fascia. This was incised and the abdomen was entered. A few adhesions of omentum were noted to the undersurface, but the fascial incision was easily extended proximally and distally. In the most distal portion near the umbilicus and previous laparotomy incision was an area of small bowel densely adherent. This was avoided initially. The abdomen was explored and small bowel loops were delivered out of the abdomen. Some of them having interloop adhesions. In the depths of the pelvis and retroperitoneum, found the ischemic segment of bowel. It was not infarcted. A dense adhesive band was identified with various manipulations. Index finger was placed beneath it and it was divided with electrocautery freeing the bowel entirely. That segment of bowel promptly returned to its normal vascularity. Bowel loops were densely adherent to the lower abdomen and somewhat contorted in their configuration. They were freed with sharp, blunt electrocautery dissection taking special care to avoid enterotomy. A certain segment of bowel was densely adherent inferiorly to the abdominal incision from the past. The only way to free this entirely was to excise a small portion of fascia in continuity. This allowed for delivery of all the small bowel out of the Electronically Signed By: BESSY LICONA MD 09/27/24 1520 PATIENT NAME: LAURA MAGDALENO OPERATIVE REPORT DATE OF : 80 REPORT #: [id number] PHYSICIAN: BESSY LICONA MD PCP: RIYA KUMAR PA-C REPORT IS CONFIDENTIAL AND NOT TO BE RELEASED WITHOUT AUTHORIZATION [facility] [address] [place], [place] [address] Signed abdomen. Irrigation was undertaken in the retroperitoneum and elsewhere showing no sign of pathologic problem. The colon on the left side and the cecum on the right side were normal. The appendix was normal as well. Interloop adhesiolysis was then undertaken as there were number of areas involved with adhesions. Once the bowel was completely freed from ligament of Treitz to the terminal ileum, the segment of bowel that was densely adherent to the fascia and with some adherent fascia to it was further examined. This was small and friable and although viable, was deemed more appropriately resected as would almost certainly be a cause for problem in the future. Mesentery to the segment of bowel was incised with electrocautery and secured with 0 silk ties to the mesenteric vessels. The LEON stapling device was used to transect the bowel segment, approximately 6 inches in total was taken. A ucou-vd-pecs functional end-to-end stapled anastomosis was undertaken with a LEON stapling device, 80 mm in length. The stapled ends of the bowel had been oversewn with interrupted 3-0 silk and both origins were oversewn in two-layer technique of interrupted 3-0 Vicryl and interrupted 3-0 silk. Good viability was noted to the anastomosis in both segments and wide patency of the anastomosis was assured. Prior to closure, the staple line was assured to be hemostatic and special care was taken to avoid incorporation of the mesentery as always. The abdomen was completely irrigated with sterile warm saline and plans made for closure. The midline fascia was reapproximated with running bidirectional #1 PDS suture. A drain had been placed in the depths of the pelvis prior to closure, 7 mm in size and of the Bowen variety. It was attached to bulb suction. Irrigation was undertaken in subcutaneous space and the skin was closed with running subcuticular 3-0 Vicryl. Steri-Strips were applied as were Acticoat dressings. The patient then underwent bilateral TAP block for postoperative analgesic benefit. Bessy Licona MD JM/MODL /[id number] cc: EARLENE Christensen MD Electronically Signed By: BESSY LICONA MD 09/27/24 1520 PATIENT NAME: LAURA MAGDALENO OPERATIVE REPORT DATE OF : 80 REPORT #: [id number] PHYSICIAN: BESSY LICONA MD PCP: RIYA KUMAR PA-C REPORT IS CONFIDENTIAL AND NOT TO BE RELEASED WITHOUT AUTHORIZATION [address] [address] Signed Copies: RIYA KUMAR PA-C, KELLY MD ~ Electronically Signed By: BESSY LICONA MD 09/27/24 1520 PATIENT NAME: LAURA MAGDALENO OPERATIVE REPORT DATE OF : 80 REPORT #: [id number] PHYSICIAN: BESSY LICONA MD PCP: RIYA KUMAR PA-C REPORT IS CONFIDENTIAL AND NOT TO BE RELEASED WITHOUT AUTHORIZATION
--- NOTE | 2024-09-27 16:23 | NUR ---
PT SITTING UPRIGHT IN BED WITH FAMILY IN ROOM. PT STATES " SHE IS FEELING BETTER AFTER THE NG TUBE REMOVAL AND HAS NOT EXPERIENCED ANY NAUSEA SINCE THE REMOVAL. PT HAS CALL LIGHT WITH IN REACH NO CONCERNS AT THIS TIME.
--- NOTE | 2024-09-27 16:48 | NUR ---
PT UNHOOKED FROM IVF AND SCDS TO WALK THE HALLWAY. PT IS USING A WALKER TOLERATING WELL.
--- NOTE | 2024-09-27 19:41 | NUR ---
C/O 05/02 ABD PAIN, MEDICATED WITH TYLENOL IV
[2024-09-27] MEDS ORDERED: FAMOTIDINE 20 MG TAB PO SCH (21:00)
--- NOTE | 2024-09-27 22:20 | NUR ---
on room air, cooperative with assessments. SL at thist melissa, tolerating iquids well, no n/v. Abd binder in place, midline abdincision with opticot dressing in place, old drainage at base. REZA, soft, tender. denies passing gas. Medicated with toradol per abd pain. Independent in room.
[2024-09-28] VITALS (10 sets, daily range): BP systolic 102–117; BP diastolic 64–73
--- NOTE | 2024-09-28 00:27 | NUR ---
RESTING, NO SS/X DISTRESS, ABD BINDER, SCDS IN PLACE
--- NOTE | 2024-09-28 01:49 | NUR ---
Resting, eyes closed, no s/sx distress
--- NOTE | 2024-09-28 04:58 | NUR ---
Pt used call light, has been sleeping most of this shift. Up to BRp, voiding dark yellow urine. QS, backa to bed, 1PSBA/FWW, tolerated well. Abd soft tender, dressing inplace w old drainage at base. REZA, staed she is passing gas. abd binder in place. c/o abd pain, medicated with 5mg Oxycodone. Tolerating liquids well, no c/o n/v. scds off at this time.
--- NOTE | 2024-09-28 07:20 | NUR ---
MORNING REPORT RECIEVED FROM DAMIAN ROWE. PT IN BED WITH EYES CLOSED CHEST RISE EQUAL BILAT. PT IS OCCOMPANIED BY FRIEND WHO IS SLEEPING ON COUCH. PT CALL LIGHT WITHIN REACH.
--- NOTE | 2024-09-28 07:41 | NUR ---
PT IS AWAKE AND AMBULATING THE HALLS OF THE MED/SURG FLOOR WITH FWW PT HAS NO CONCERNS AT THIS TIME AND IS VERY INDEPENDANT.
--- NOTE | 2024-09-28 09:32 | NUR ---
PATIENT AMBULATED IN HALLWAY IND. EARLIER. PATIENT NOW IN CHAIR, VISITOR IN ROOM. VITALS AND I&O'S DONE AND CHARTED, CLL LIGHT IN REACH. NO FURTHER NEEDS AT THIS TIME.
--- NOTE | 2024-09-28 09:35 | NUR ---
PT CONTINUES TO AMBULATE THE HALLS INDEPENDANTLY. PT HAS NO CONCERNS AT THIS TIME AND TOLERATING FLUID DIET WELL. PT HAS NO CURRENT CONCERNS AT THIS TIME.
--- NOTE | 2024-09-28 09:54 | NUR ---
ALERT AND ORIENTED UP IN RECLINER. LIVES IN HOUSE. HAS STAIRS, IS PLANNING TO PUT IN A RAMP TO GET INSIDE. STATES SHE HAS A CPAP. SHE DRIVES AT [place]. SHE HAS NO FINANCIAL HARDSHIP. SHE IS ABLE TO PAY UTILITIES, OBTAIN FOOD AND MEDICATIONS WITHOUT ISSUES. STATES SHE PLANS TO DC TO HOME WHEN MEDICALLY CLEARED. NO CM NEEDS AT THIS TIME.
--- NOTE | 2024-09-28 12:02 | NUR ---
IV PRN MEDICATION INFUSION COMPLETE. THIS RN IN ROOM, PT IS RESTING IN BED, AWAKE. FAMILY AT BEDSIDE. DENIES NEEDS AT THIS TIME. CALL LIGHT IN REACH.
--- NOTE | 2024-09-28 12:56 | NUR ---
THIS RN RECIEVED VERBAL ORDER OVER PHONE FROM MD LICONA TO CHANGE PT DIET FROM FULL LIX TO REGULAR DIET. PT POSSIBLE DC DEPENDING ON HOW DIET CHANGE IS TOLERATED LATER TODAY.
--- NOTE | 2024-09-28 13:47 | NUR ---
VISITED DURING SPIRITUAL CARE ROUNDS. PT IN OVERALL GOOD SPIRITS, NO IMMEDIATE NEEDS. FUR POINTER PROVIDED SUPPORTIVE PRESENCE, HOSPITALITY, PRAYER, FACILITATED INTERACTION WITH THERAPY ANIMAL. PT EXPRESSED GRATITUDE.
--- NOTE | 2024-09-28 13:55 | NUR ---
UR CLINICAL REVIEW: [facility]ME[facility] INPT FOR SBO BASIC DMAP INPT 09/26/24 @ 0306 WILL UPDATE REG NO AUTH REQUIRED PER MEDICAID GUIDELINES DISCHARGE TO HOME WHEN STABLE 09/29/24
--- NOTE | 2024-09-28 15:00 | NUR ---
PT SEEN BY MD LICONA. PT SHAVON WAS REMOVED AND PT DID REQUEST PAIN MEDICATION AFTER (SEE EMAR). PT THEN DECIDED TO AMBULATE THE RICO INDEPENDANTLY. PT TOLERATING IT WELL. PT HAS NO CONCERNS AT THIS TIME
--- NOTE | 2024-09-28 16:39 | NUR ---
PT AMBULATED THE HALLS INDEPENDANTLY FOR 4 LAPS PT SAYS SHE DOES NOT HAVE ANY PAIN AT THIS TIME. PT HAS NO CONCERNS AT THIS TIME CALL LIGHT WITHIN REACH.
--- NOTE | 2024-09-28 17:12 | NUR ---
medications reconciled
--- NOTE | 2024-09-28 17:36 | NUR ---
PT SITTING IN CHAIR PT CONTINUES TO SAFELY AMBULATE INDEPENDANTLY. PT IS TOLERATING A REGULAR DIET WELL WITH NO INCREASED PAIN. PT HAS NO CONCERNS AT THIS TIME CALL LIGHT WITHIN REACH.
--- NOTE | 2024-09-28 18:26 | NUR ---
PT AMBULATING THE HALLS WITH MOTHER PT HAS NO CONCERNS AT THIS TIME.
--- NOTE | 2024-09-28 21:09 | NUR ---
pt awake, alert andoriented, ambulating independently in room. on room air. abd REZA, soft, passing gas and had a bm today. midline abd incision with steri strips in place, old drainage at base. abd binder in place. SL LAC patent. c/o abd pain. Toraldol 30mg IV given. Tolerating diet well, no c/o n/v.
--- NOTE | 2024-09-28 23:43 | NUR ---
RESTING, EYES CLOSED, NO S/SX DISTRESS. TURNS AND REPOSITIONS SELF IN BED
--- NOTE | 2024-09-29 02:15 | NUR ---
resting eys closed, no s/sx distress, abd binder in place, turns and repositions self in bed
--- NOTE | 2024-09-29 04:33 | NUR ---
Resting, eyes closed, no ss/x distress. abd binder in place.
[2024-09-29 05:21] VITALS: BP 117/84
--- NOTE | 2024-09-29 05:46 | NUR ---
c/o 05/02 abd pain, medicated with oxycodone 5mg po
--- NOTE | 2024-09-29 07:25 | NUR ---
MORNING REPORT RECIEVED FROM DAMIAN ROWE. PT LAYING IN BED AWAKE AND REPORTS NO PAIN CURRENTLY. PT HAS CALL LIGHT WITHIN REACH AND NO CURRENT CONCERNS.
--- NOTE | 2024-09-29 08:00 | NUR ---
PATIENT IN BED AT THIS TIME. ARCHITECTURAL ENGINEERING TEACHER WENT INTO PATIETS ROOM FOR HOURLY ROUNDS. CALL LIGHT WITHIN REACH, NO FURTHER NEEDS AT THIS TIME.
--- NOTE | 2024-09-29 09:15 | NUR ---
PT SITTING UPRIGHT IN CHAIR PT HAS NO CONCERNS AT THIS TIME. PT IS INDEPENDANT IN ROOM AND WAS NOTIFIED BY OF BEING DC'D SOMETIME TODAY. PT HAS CALL LIGHT WITHIN REACH AND NO CONCERNS AT THIS TIME.
[2024-09-29 09:42] VITALS: BP 123/67
[2024-09-29] MEDS ORDERED: OXYCODONE HCL5 MG PO (09:42)
[2024-09-29] MEDS ORDERED: TYLENOL EXTRA500 MG PO (09:43)
--- NOTE | 2024-09-29 11:00 | NUR ---
SPOKE WITH PATIENT REGARDING DC TO HOME TODAY. STATES SHE HAS NO NEEDS. DISCUSSED WALKER, SHE HAS BEEN USING A WALKER TO AMBULATE IN THE HALLWAYS. STATES SHE HAS ONE SHE THINKS WILL WORK AT HOME. INFORMED HER OF [employer] AND THE ABILITY TO GET A LOANER WALKER IF SHE NEEDS ONE FOR RECOVERY. VERBALIZES UNDERSTANDING.
--- NOTE | 2024-09-30 12:28 | PATH ---
[facility] [address] [facility] [place], [place] [address] Signed SPECIMEN(S): A SEGMENT SMALL BOWEL SPECIMEN SOURCE: A. SEGMENT SMALL BOWEL CLINICAL HISTORY: Bowel obstruction FINAL PATHOLOGIC DIAGNOSIS: Segment of small bowel: - Segment of benign small bowel with patchy serosal fibrous adhesions. - Focal perienteric acute soft tissue inflammation. JVR:enma MICROSCOPIC EXAMINATION: Histologic sections of all submitted blocks are examined by light microscopy. These findings, together with the gross examination, support the pathologic diagnosis. GROSS DESCRIPTION: The specimen, labeled and designated "Verito Lagos, segment of small bowel per requisition," is received in formalin and consists of a 4.8 cm in length by 4 in circumference previously opened unoriented segment of bowel. The serosal surface is fountain-purple with scant amount of attached mesentery. There is significant amount of adhesions present measuring 5 x 3 x 0.9 cm. The mucosa is fountain with intact mucosal folds. There are no masses, polyps, or diverticuli. There are no apparent wall defect present. Crowd Controller sections are submitted as follows: Cassette Summary: (A1) unoriented margin #1 (A2) unoriented margin #2 (A3) area mucosa with underlying adhesions AA (under the direct supervision of a pathologist) The Gross Description was prepared using a voice recognition system. The report was reviewed for accuracy; however, sound-alike word errors, addition and/or deletions may occur. If there is any question about this report, please contact Client Services. PERFORMING LABORATORY: PATIENT NAME: LAURA LAGOS PATHOLOGY DATE OF : [birth year] REPORT #: [id number] PHYSICIAN: MARY EGAN PCP: RIYA KUMAR PA-C REPORT IS CONFIDENTIAL AND NOT TO BE RELEASED WITHOUT AUTHORIZATION [facility] [address] [place] [address], [place] [address] Signed Technical component was performed by [facility], [address] [place] [address] (CLIA# [id number]). Professional interpretation was performed by [facility] [address] [address] (CLIA#: [id number]). Diagnostician: Rik Preston MD Pathologist Electronically Signed 09/30/2024 Copies: ~ PATIENT NAME: LAURA LAGOS PATHOLOGY DATE OF : [birth year] REPORT #: [id number] PHYSICIAN: MARY EGAN PCP: RIYA KUMAR PA-C REPORT IS CONFIDENTIAL AND NOT TO BE RELEASED WITHOUT AUTHORIZATION
--- NOTE | 2024-10-01 13:15 | DS ---
[facility] [address] [place], [place] [address] Signed ADMISSION DATE: 09/26/2024 DISCHARGE DATE: 09/29/2024 REASON FOR ADMISSION: Small bowel obstruction. HISTORY OF PRESENT ILLNESS: This 44-year-old morbidly obese woman is known to me from the past having undergone sigmoid resection for what proved to be an unusual intussusception. Under current admission she presented to the emergency room, was evaluated by Dr. Das for rather severe mid abdominal pain and significant tenderness. A CT scan of the abdomen was performed which showed a bowel obstruction with high probability of closed-loop obstruction. I was called approximately at 11 p.m., prompt to have evaluation, confirmed high probability of significant obstructive process with close loop. She was admitted for emergency operation and further care. PERTINENT PHYSICAL EXAMINATION: GENERAL: Showed an obese appearing woman who looks to be in moderate discomfort. HEENT: Trachea is midline. Mucous membranes moist. CHEST: Clear. HEART: Regular. ABDOMEN: Somewhat obese. Palpation revealed tenderness in the epigastric and mid abdomen area. EXTREMITIES: Showed no clubbing, cyanosis, or edema. HOSPITAL COURSE: She was fluid resuscitated and at approximately midnight, underwent laparotomy through a limited incision where she was found to have a thick obstructive band of scar tissue causing a closed loop obstruction of the segment of small bowel. It was quite ischemic, but was viable. Once the band obstruction was relieved, the bowel recovered its appearance and motility. She had extensive intraabdominal adhesions elsewhere including one segment of bowel was densely tethered to her previous low midline incision. Though this was freed from the abdominal wall. By conclusion that segment of bowel was somewhat "beat up" and although viable, would likely provide problems in the future. On that basis segmental resection was undertaken with a [id number]-bl-[id number] functional end-to-end anastomosis. A drain was placed as well. Postoperatively, she was maintained with a nasogastric tube. Bilateral TAP blocks were placed for postoperative analgesic benefit. A nasogastric tube was maintained for approximately 48 hours and ultimately removed when bowel function had returned. She was advanced in her diet from a full liquid to a Electronically Signed By: BESSY LICONA MD 10/01/24 1315 PATIENT NAME: LAURA MAGDALENO DISCHARGE SUMMARY DATE OF : 80 REPORT #: [id number] PHYSICIAN: BESSY LICONA MD PCP: RIYA KUMAR PA-C REPORT IS CONFIDENTIAL AND NOT TO BE RELEASED WITHOUT AUTHORIZATION [facility] [address] [place], [place] [address] Signed regular diet. The drain that was placed showed no sign of enteric drainage and was removed the day prior to discharge. By the time of discharge, she was ambulating well, tolerating a regular diet and has incisional pain well controlled with oral analgesics. We will be seeing her back in followup in a month or so. She was written for a work excuse for three weeks. 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 She was encouraged to walk on a daily basis and should lift no more than 20 pounds for the next four weeks. DISCHARGE MEDICATIONS: Will include: 1. Oxycodone 5 mg tablets one p.o. q.6 hours as needed for pain, #10, no refill. 2. Tylenol Extra Strength 1000 mg p.o. q.6 hours as needed for pain, #60. 3. She will continue with her usual medications including cabergoline 0.5 mg tablets half tab p.o. twice weekly. 4. Semaglutide (Ozempic) 1 mg subcu q.week. 5. Metformin 500 mg p.o. b.i.d. 6. Vitamin D2 1250 mcg p.o. q.week. 7. Ibuprofen 800 mg p.o. q.8 hours as needed for pain additionally. DISCHARGE DIAGNOSES: 1. Acute small bowel obstruction related to closed-loop obstruction from adhesion. 2. Extensive intraabdominal adhesion. 3. Status post exploration of abdomen, release of adhesive band obstruction, extensive lysis of adhesions and segmental small bowel resection x1 with mywq-cd-nfov functional end-to-end anastomosis. 4. Morbid obesity. 5. Distant history of sigmoid resection for segmental intussusception without sign of malignancy. MD HUE Corbett/MODL /[id number] Electronically Signed By: BESSY LICONA MD 10/01/24 1315 PATIENT NAME: LAURA MAGDALENO DISCHARGE SUMMARY DATE OF : 80 REPORT #: [id number] PHYSICIAN: BESSY LICONA MD PCP: RIYA KUMAR PA-C REPORT IS CONFIDENTIAL AND NOT TO BE RELEASED WITHOUT AUTHORIZATION [address] [address] Signed cc: EARLENE Christensen MD Copies: RIYA KUMAR PA-C, KELLY MD ~ Electronically Signed By: BESSY LICONA MD 10/01/24 1315 PATIENT NAME: LAURA MAGDALENO DISCHARGE SUMMARY DATE OF : [birth year] REPORT #: [id number] PHYSICIAN: BESSY LICONA MD PCP: RIYA KUMAR PA-C REPORT IS CONFIDENTIAL AND NOT TO BE RELEASED WITHOUT AUTHORIZATION
== END 2024-09-29 11:32 | disposition home or self-care (01) | DRG 330 ==
LOC: ED 18:17 → MS 23:20
PROVIDERS: Emergency Medicine; ADMIT Surgery; ATTEND Surgery
PROC: 0D9670Z Drainage of Stomach with Drainage Device, Via Natural or Artificial Opening (ICD-10-PCS; 2024-09-25)
PROC: 3E0T3BZ Introduction of Anesthetic Agent into Peripheral Nerves and Plexi, Percutaneous Approach (ICD-10-PCS; 2024-09-26)
PROC: 0DB80ZZ Excision of Small Intestine, Open Approach (ICD-10-PCS; principal; 2024-09-26 00:30)
PROC: 0DN80ZZ Release Small Intestine, Open Approach (ICD-10-PCS; 2024-09-26 00:30)
DX: K56.50 Intestinal adhesions [bands], unspecified as to partial versus complete obstruction (principal); K55.8 Other vascular disorders of intestine; E66.01 Morbid (severe) obesity due to excess calories; F32.A Depression, unspecified; F41.9 Anxiety disorder, unspecified; E65 Localized adiposity; F43.10 Post-traumatic stress disorder, unspecified; Z90.49 Acquired absence of other specified parts of digestive tract; Z87.891 Personal history of nicotine dependence; Z79.84 Long term (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 oral hypoglycemic drugs; Z79.85 Long-term (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 injectable non-insulin antidiabetic drugs; Z79.1 Long term (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 non-steroidal anti-inflammatories (NSAID)
CPT/HCPCS: 00790; 36415; 71045; 74177; 76942; 80048; 80053; 81001; 83690; 83735; 84703; 85025; 94762; 96361; 96375; 96376; 99285-25; A9270; J0131; J0690; J1100; J1171; J1650; J1790; J1885; J2003; J2250; J2405; J2704; J2795; J3010; J3490; J7030; J7121; Q9967

== ENCOUNTER 2024-10-18 19:55 | Emergency (ER) | payer OTHER ==
[~2024-10-18] VITALS: Ht 154.9 cm; Wt 79.8 kg
[~2024-10-18 19:55] MED LIST changes: +IBUPROFEN800 MG PO
--- OUTSIDE RECORDS SUMMARY | 2024-10-18 20:02 | XMS ---
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 PHONE: [phone] CHANDRIKA VALENTIN [facility] Current PHONE: [phone] Care Guidelines exist for the following facilities: [facility] ( 09/18/2019 ) Mark VISIT COUNT (12 MO.) 3 [facility] TOTAL 3 NOTE: Visits indicate total known visits. ED/UCC VISIT TRACKING (12 MO.) 10/18/2024 19:55 [facility] TYPE: Emergency COMPLAINT: - ABD PAIN 09/25/2024 18:17 [facility] TYPE: Emergency COMPLAINT: - ABD PAIN 03/07/2024 10:26 [facility] TYPE: Emergency COMPLAINT: - POST OP PROBLEM DIAGNOSES: - Hemoperitoneum - intermodal customer service (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 oral hypoglycemic drugs - Other acute postprocedural pain - Other senior care (current) drug therapy - Personal history of nicotine dependence - Post-traumatic stress disorder, unspecified INPATIENT VISIT TRACKING (12 MO.) 09/26/2024 03:[address] [facility] TYPE: Medical Surgical COMPLAINT: - SMALL BOWEL OBSTRUCTION DIAGNOSES: - Acquired absence of other specified parts of digestive tract - Acquired absence of other specified parts of digestive tract - Anxiety disorder, unspecified - Anxiety disorder, unspecified - Depression, unspecified - Depression, unspecified - Intestinal adhesions [bands], unspecified as to partial versus complete obstruction - Localized adiposity - Localized adiposity - halfway (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 non-steroidal anti-inflammatories (NSAID) - intermodal customer service (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 non-steroidal anti-inflammatories (NSAID) - halfway (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 oral hypoglycemic drugs - halfway (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 oral hypoglycemic drugs - Long-term (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 injectable non-insulin antidiabetic drugs - Long-term (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 injectable non-insulin antidiabetic drugs - Morbid (severe) obesity due to excess calories - Morbid (severe) obesity due to excess calories - Other vascular disorders of intestine - Other vascular disorders of intestine - Personal history of nicotine dependence - Personal history of nicotine dependence - Post-traumatic stress disorder, unspecified - Post-traumatic stress disorder, unspecified [email or web address]
[2024-10-18 20:20] LABS: BILIRUBIN, URINE NEGATIVE (negative); BLOOD/HGB, URINE NEGATIVE (Negative); KETONE, URINE TRACE (Negative); LEUK ESTERASE, URINE NEGATIVE (negative); NITRITE, URINE NEGATIVE (negative); PH, URINE 6.5 (5-7)
[2024-10-18 20:20] LABS: BASOPHILS 0.5 % (0-2); EOSINOPHILS 6.8 % (0-6); HEMATOCRIT 35.5 % (35.0-50.0); LYMPHOCYTES 36.6 % (24-44); MCH 29.8 (27-36); MCHC 33.8 g/dl (30-36); MCV 88.4 fl (81-99); MONOCYTES 6.6 % (0-12); NEUTROPHILS 49.5 % (39-80); PLATELET COUNT 250 K/uL (140-440); RBC 4.02 M/ul (4.3-5.7); RDW 13.5 (10.5-15.0)
[2024-10-18 20:39] LABS: ALBUMIN 3.6 g/dL (3.4-5.0); ALBUMIN/GLOBULIN RATIO 0.92 (1.1-2.4); ANION GAP 10.7 (7-21); BILIRUBIN, TOTAL 0.2 ng/dL (0.2-1.0); BUN/CREATININE RATIO 12.08 (6.0-28.6); CALCIUM 9.2 mg/dL (8.5-10.1); CREATININE, SERUM 0.91 mg/dL (0.55-1.02); POTASSIUM 3.7 mmol/L (3.5-5.1); PROTEIN, TOTAL 7.5 g/dL (6.4-8.2)
[2024-10-18] MEDS ORDERED: AZITHROMYCIN/DEXTROSE 500 MG/250 ML PIGGYBACK IV ONE (20:45)
[2024-10-18] MEDS ORDERED: KETOROLAC TROMETHAMINE 30 MG/ML VIAL IV ONE (20:45)
[2024-10-18 22:23] VITALS: BP 132/91
== END 2024-10-18 22:25 | disposition home or self-care (01) ==
LOC: ED 19:55
PROVIDERS: Internal Medicine
DX: R10.32 Left lower quadrant pain (principal); R10.33 Periumbilical pain; N20.0 Calculus of kidney; Z79.84 Long term (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 oral hypoglycemic drugs; Z79.899 Other long term (current) drug therapy
CPT/HCPCS: 36415; 74176; 80053; 81003; 83690; 84703; 85025; 96365; 96375; 99284-25; J0456; J1885

== ENCOUNTER 2025-01-22 07:51 | Day surgery (SDC) | payer OTHER ==
[~2025-01-22] VITALS: Ht 154.9 cm; Wt 84.5 kg
[~2025-01-22 07:51] MED LIST changes: +IBLOOD GLUCOSE TEST STRIP 1 EA TEST VI PRN; +LACTATED RINGER'S 1,000 ML IV SCH; +LIDOCAINE HCL 1% 5 ML SDV INJ ONE; +MIDAZOLAM HCL 5 MG/5 ML VIAL IV PRN; +fentaNYL citrate 100 MCG/2 ML VIAL IV PRN
[2025-01-22 08:06] VITALS: BP 122/68
[2025-01-22] MEDS ORDERED: TIZANIDINE HCL4 MG PO (08:11)
[2025-01-22] MEDS ORDERED: MIDAZOLAM HCL 5 MG/5 ML VIAL ONE (08:32)
[2025-01-22] MEDS ORDERED: fentaNYL citrate 100 MCG/2 ML VIAL ONE (08:32)
--- NOTE | 2025-01-22 09:29 | NUR ---
01/22/25 0929 Mary Szymanski 0921- PT PRESENTS TO PACU, LEFT LATERAL POSITION, VERY DROWSY BUT WAKES EASILY TO VOICE. PT DENIES PAIN AND NAUSEA. LR INFUSING TO RH IV, O2 AT 3L PER NC, BREATHING EVEN AND NON LABORED. ABD SOFT, NON DISTENDED, ENCOURAGED TO PASS GAS. ALL MONITORS IN PLACE.
[2025-01-22 11:13] VITALS: BP 109/72
--- NOTE | 2025-01-22 13:23 | OR ---
[facility] [address] [place], [place] [address] Signed DATE OF OPERATION: 01/22/2025 SURGEON: Bessy Licona MD PREOPERATIVE DIAGNOSES: 1. History of sigmoid resection for intussusception in 2019. 2. Episodic left lower abdominal pain. POSTOPERATIVE DIAGNOSIS: Widely patent anastomosis and small polyp low rectum. PROCEDURE: Total colonoscopy to cecum with cold morcellation polypectomy x1. ANESTHESIA: Intravenous sedation, fentanyl 100 mcg, Versed 6 mg. INDICATIONS: This 44-year-old woman is known to me from the past. She is a patient of CORNELL Posey. In October of 2019, she underwent colonoscopy by nd. She had incomplete intussusception of the sigmoid later undergoing sigmoid resection for that. More recently, on September 26, 2024, she had a closed-loop obstruction of small bowel related to adhesions in the left lower abdomen. Operation consisted of exploration, division of the thick band causing the obstruction as well as bowel resection. She still has some episodic left lower abdominal pain. On that basis, she is offered colonoscopy at this time. She understands the risk of bleeding, infection, and perforation related to colonoscopy and wished to proceed. FINDINGS: The prep was good. Complete colonoscopy was undertaken to the cecum. The anastomosis of the colon was widely patent. There was no angulation deformity or other abnormality. She did have a small polyp of the low rectum, which was excised with cold morcellation technique. DESCRIPTION OF PROCEDURE: The patient was brought to the endoscopy suite and placed in lateral decubitus position, given intravenous sedation to the point of slurred speech and nystagmus. Digital rectal examination was normal. An Olympus video colonoscope was passed in the rectum and manipulated throughout the Electronically Signed By: BESSY LICONA MD 01/22/25 1323 PATIENT NAME: LAURA MAGDALENO OPERATIVE REPORT DATE OF : 80 REPORT #: [id number] PHYSICIAN: BESSY LICONA MD PCP: ARGELIA LIM PA-C REPORT IS CONFIDENTIAL AND NOT TO BE RELEASED WITHOUT AUTHORIZATION [facility] [address], [place] [address] Signed colon ultimately intubating the cecum itself. The ileocecal valve, appendiceal orifice was normal. The scope was withdrawn and examination throughout showed no sign of abnormality. The anastomosis in the left lower abdomen was widely patent. The scope was retroflexed and a small polyp was noted of the low rectum. This was excised with cold morcellation technique. The scope was removed. The patient was taken to the recovery room in good condition. CONCLUDING DIAGNOSIS: Small polyp low rectum. No evidence of anastomotic stricture or other abnormality. PLAN: Recommend repeat colonoscopy in 10 years, sooner if symptoms should develop. She will return to the ongoing care of PA. Taty MD HUE Corbett/YARELI /[id number] cc: Argelia Lim PA-C Copies: ARGELIA LIM PA-C ~ Electronically Signed By: BESSY LICONA MD 01/22/25 1323 PATIENT NAME: LAURA MAGDALENO OPERATIVE REPORT DATE OF : [birth year] REPORT #: [id number] PHYSICIAN: BESSY LICONA MD PCP: ARGELIA LIM PA-C REPORT IS CONFIDENTIAL AND NOT TO BE RELEASED WITHOUT AUTHORIZATION
--- NOTE | 2025-01-26 12:20 | PATH ---
[facility] [address] [place], [place] [address] Signed SPECIMEN(S): A LOW RECTAL POLYP SPECIMEN SOURCE: A. LOW RECTAL POLYP CLINICAL HISTORY: S/p closed-loop bowel obstruction with resection FINAL PATHOLOGIC DIAGNOSIS: Low rectal polyp: - Polypoid colonic mucosa with slight hyperplastic features (two fragments). JVR:clv MICROSCOPIC EXAMINATION: Histologic sections of all submitted blocks are examined by light microscopy. These findings, together with the gross examination, support the pathologic diagnosis. GROSS DESCRIPTION: The specimen, labeled and designated "Yolis, low rectal polyp," is received in formalin and consists of two fountain soft tissue fragments, ranging from 0.2-0.3 cm. Entirely submitted in (A1). VB (under the direct supervision of a pathologist) The Gross Description was prepared using a voice recognition system. The report was reviewed for accuracy; however, sound-alike word errors, addition and/or deletions may occur. If there is any question about this report, please contact Client Services. PERFORMING LABORATORY: Technical component was performed by [facility], [address] [place] [id number] (CLIA# [id number]). Professional interpretation was performed by [facility] - [facility], [address] [place] [id number] (CLIA#: [id number]). Diagnostician: Rik Preston MD Pathologist Electronically Signed 01/26/2025 Copies: PATIENT NAME: LAURA MAGDALENO PATHOLOGY DATE OF : [birth year] REPORT #: [id number] PHYSICIAN: MARY PATHOLOGY PCP: RIYA KUMAR PA-C REPORT IS CONFIDENTIAL AND NOT TO BE RELEASED WITHOUT AUTHORIZATION [address] [address] Signed ~ PATIENT NAME: LAURA MAGDALENO PATHOLOGY DATE OF : [birth year] REPORT #: [id number] PHYSICIAN: MARY PATHOLOGY PCP: RIYA KUMAR PA-C REPORT IS CONFIDENTIAL AND NOT TO BE RELEASED WITHOUT AUTHORIZATION
== END 2025-01-22 10:00 | disposition home or self-care (01) ==
LOC: DS 07:51 → OPS 07:51 → DS 09:30 → OPS 10:00
PROVIDERS: ATTEND Surgery
PROC: 0DBP8ZX Excision of Rectum, Via Natural or Artificial Opening Endoscopic, Diagnostic (ICD-10-PCS; principal; 2025-01-22 09:30)
DX: K62.1 Rectal polyp (principal); F32.A Depression, unspecified; K56.1 Intussusception; Z87.19 Personal history of other diseases of the digestive system; Z79.899 Other long term (current) drug therapy
CPT/HCPCS: 84703; 99153; G0500; J2250; J3010; J7121

== ENCOUNTER 2025-05-26 11:07 | Emergency (ER) | payer OTHER ==
[~2025-05-26] VITALS: Ht 154.9 cm; Wt 77.0 kg
[~2025-05-26 11:07] MED LIST changes: -IBLOOD GLUCOSE TEST STRIP 1 EA TEST VI PRN; -LACTATED RINGER'S 1,000 ML IV SCH; -LIDOCAINE HCL 1% 5 ML SDV INJ ONE; -MIDAZOLAM HCL 5 MG/5 ML VIAL IV PRN; +TIZANIDINE HCL4 MG PO; -fentaNYL citrate 100 MCG/2 ML VIAL IV PRN
[2025-05-26 11:57] LABS: BASOPHILS 0.6 % (0.1-1.2); EOSINOPHILS 3.0 % (0.7-5.8); LYMPHOCYTES 40.7 % (19.3-51.7); MCH 28.2 PG (25.6-32.2); MCHC 33.8 g/dL (32.2-35.5); MCV 83.2 fL (79.4-94.8); MONOCYTES 5.9 % (4.7-12.5); NEUTROPHILS 49.5 % (34.0-71.1); RBC 4.76 M/uL (3.93-5.22)
[2025-05-26 12:07] LABS: ALT (SGPT) 13.0 U/L (14-59); AST (SGOT) 11.0 U/L (15-37); GLOMERULAR FILTRATION RATE,EST 117.0 mL/min (>60); PROTEIN, TOTAL 8.1 g/dL (6.4-8.2); UREA NITROGEN 6.0 mg/dL (7-18)
[2025-05-26 13:55] VITALS: BP 126/66
== END 2025-05-26 13:55 | disposition home or self-care (01) ==
LOC: ED 11:07
PROVIDERS: Emergency Medicine
DX: R20.2 Paresthesia of skin (principal); Z87.891 Personal history of nicotine dependence; Z88.1 Allergy status to other antibiotic agents; Z79.84 Long term (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 oral hypoglycemic drugs; Z79.899 Other long term (current) drug therapy
CPT/HCPCS: 36415; 70450; 70496; 70498; 80053; 85025; 99284-25

== ENCOUNTER 2025-07-28 05:39 | Day surgery (SDC) | payer OTHER ==
[2025-07-26 14:52] VITALS: BP 126/80
[~2025-07-28] VITALS: Ht 154.9 cm; Wt 73.6 kg
[~2025-07-28 05:39] MED LIST changes: +CEPHALEXIN500 MG PO; +LACTATED RINGER'S 1,000 ML IV SCH
[2025-07-28 06:06] VITALS: BP 116/70
[2025-07-28] MEDS ORDERED: LIDOCAINE HCL 2% 5 ML SDV ONE (06:25)
[2025-07-28] MEDS ORDERED: DEXAMETHASONE SOD PHOS 4 MG/ML VIAL ONE ×2 (06:37→08:03)
[2025-07-28] MEDS ORDERED: fentaNYL citrate 100 MCG/2 ML VIAL ONE (06:59)
[2025-07-28] MEDS ORDERED: IBLOOD GLUCOSE TEST STRIP 1 EA TEST VI PRN ×2 (07:00→07:45)
[2025-07-28] MEDS ORDERED: LIDOCAINE HCL 1% 5 ML SDV INJ ONE (07:00)
[2025-07-28] MEDS ORDERED: CEFAZOLIN SODIUM 1 GM in SODIUM CHLORIDE 0.9% 100 ML IV SCH (07:00)
[2025-07-28] MEDS ORDERED: fentaNYL citrate 50 MCG/ML SDV IV PRN (07:45)
[2025-07-28] MEDS ORDERED: NALOXONE HCL 0.4 MG SYR IV PRN (07:45)
[2025-07-28] MEDS ORDERED: PHENYLEPHRINE HCL IN 0.9% NACL 1 MG/10 ML SYR ONE (08:03)
[2025-07-28] MEDS ORDERED: GLYCOPYRROLATE 1 MG/5 ML MDV ONE (08:03)
[2025-07-28] MEDS ORDERED: ACETAMINOPHEN 1,000 MG/100 ML VIAL ONE (08:05)
[2025-07-28] MEDS ORDERED: KETOROLAC TROMETHAMINE 30 MG/ML VIAL ONE (08:40)
--- NOTE | 2025-07-28 09:38 | NUR ---
07/28/25 0938 Mary Szymanski 0906- PT PRESENTS TO PACU, SEMI LEAVITT POSTIION, NON REACTIVE TO STIMULUS. BREATHING EVEN AND NON LABORED ON 6L O2 PER MASK. LR INFUSING TO RFA IV. ABD SOFT, NON DISTENDED. DRESSINGS TO B FEET, CDI, ELEVATED AND ICE IN PLACE. ALL MONITORS IN PLACE.
--- NOTE | 2025-07-28 09:58 | NUR ---
4992 PT ARRIVED TO DAY SURGERY FROM PACU VIA [employer]. PT REPORTS 9/10 PAIN, PT RESTING IN BED STILL WITH EYES CLOSED. NO GRIMICING NOTED. PT REPORTS NO NAUSEA AT THIS TIME. PT HAS CALL LIGHT WITHIN REACH. PT RESTING IN BED, AWAITING PAIN MEDCIATION TO BE PUT IN COMPUTER. PT HAS CALL LIGHT AND PERSONAL ITEMS WITHIN REACH.
[2025-07-28] MEDS ORDERED: HYDROCODONE/ACETA 5/325 TAB PO ONE (10:00)
--- NOTE | 2025-07-28 10:25 | NUR ---
1025 pt reports pain is still 05/24 in left foot. pt requests to use bed jaimes to urinate due to pain in foot. bed jaimes provided to pt with assistance. 200 mls of clear yellow urine. pt has call light within reach. bed low and locked
[2025-07-28 10:29] VITALS: BP 120/71
[2025-07-28] MEDS ORDERED: SEVOFLURANE 250 ML BTL INH ONE (10:47)
--- NOTE | 2025-07-28 11:34 | NUR ---
1134 PT ABLE TO AMNBULATE TO BATHROOM AND VOID. PT AMBULATED WITH BOOT AND SHOE IN PLACE. PT REPORTING 8/10 PAIN. PT STATES THAT THIS IS A TOLERABLE NUMBER FOR PT. DISCUSSED ELEVATING FEET AND ICE ALONG WITH STAYING UP WITH AT HOME PAIN MEDICATIONS.
--- NOTE | 2025-07-28 11:53 | NUR ---
1130 DISCHARGE INFORMATION GONE OVER WITH PT. PT HAS NO QUESTIONS AT THIS TIME. PT ABLE TO DRESS WITHOUT ASSISTANCE. PT HAS BOOT AND SHOE IN PLACE. PT ABLE TO AMBULATE TO WHEELCHAIR. 1139 PT DISCHARGED FROM DAY SURGERY VIA WHEELCHAIR TO THE FRONT OF THE HOSPITAL TO PT'S SISTER'S CAR. PT HAS PERSONAL ITEMS AND DISCHARGE INFORMATION IN HAND.
[2025-07-28] MEDS ORDERED: HYDROCODONE/ACETA 5/325 TAB PO PRN (14:00)
--- NOTE | 2025-07-30 17:12 | OR ---
[facility] [address] [place], [place] [address] Signed DATE OF OPERATION: 07/28/2025 SURGEON: Deion Rogel DPM PREOPERATIVE DIAGNOSES: 1. Hallux valgus, left foot. 2. Hammertoe, right 5th digit. 3. Contracture of tendon, right foot. POSTOPERATIVE DIAGNOSES: 1. Hallux valgus, left foot. 2. Hammertoe, right 5th digit. 3. Contracture of tendon, right foot. CANDLE MOLDER HAND SURGEON: Judy Russo DPM ANESTHESIA: General with local block, bilateral foot. GROUND WOOD SUPERVISOR: SPECIMEN TO PATHOLOGY: None. PROCEDURES: 1. Bunionectomy, left foot with distal 1st metatarsal osteotomy. 2. Hammertoe correction, right 5th digit. 3. Extensor tenotomy, right foot. DESCRIPTION OF PROCEDURE: The patient was brought to the operating room and placed on the table in the supine position. Anesthesia Department administered sedation after which a local block was given to each foot using a total of 10 mL 1:1 mixture, 2% lidocaine plain and 0.5% ropivacaine plain with approximately 7 mL used left foot and 3 mL used right foot. The feet were then prepped and draped in the usual sterile manner and an Esmarch was used for hemostasis. The Esmarch was initially only used on the left foot, then later added to the right foot for the 5th digit procedure. Electronically Signed By: DEION ROGEL DPM 07/30/25 1712 PATIENT NAME: LAURA MAGDALENO OPERATIVE REPORT DATE OF : 80 REPORT #: [id number] PHYSICIAN: DEION ROGEL DPM PCP: RIYA KUMAR PA-C REPORT IS CONFIDENTIAL AND NOT TO BE RELEASED WITHOUT AUTHORIZATION [facility] [address] [place], [place] [address] Signed Procedure #1: Bunionectomy, left foot. Attention was initially directed to the dorsal/medial left 1st MTPJ where a linear longitudinal incision was made approximately 6-8 cm in length, full-thickness through the dermis then deepened through the subcutaneous tissue using careful dissection and cautery as necessary for hemostasis. Once at the level of deep fascia, the incision was deepened to bone and soft tissues reflected medially to expose the bony prominence of the 1st metatarsal head. This was then resected using power instrumentation removing 2-3 mm of bone. At this time, attention was directed to the 1st intermetatarsal space where a lateral release was performed. Then, power instrumentation was used to create an osteotomy through the distal 1st metatarsal, creating a long dorsal arm chevron type osteotomy from medial to lateral through the 1st metatarsal, shifting the 1st metatarsal head laterally about 7 mm. This was then secured temporarily with K-wires. Position and alignment checked with intraoperative fluoroscopy. This was deemed to have adequate correction and was then secured with two 3.0 x 10 mm screws. During the process of creating the osteotomy and shifting the metatarsal head, the bone within the 1st metatarsal was noted to be extremely soft, creating a small amount of shortening to the 1st metatarsal. At this time, the remaining shelf of bone medially was resected and any sharp areas of bone smoothed. The surgical site irrigated with normal saline. The bone from the medial shelf was then used to pack within the osteotomy site, which had a small deficit as a result of the soft bone. Surgical site then closed with 3-0 Vicryl for joint capsule and deep fascia, 4-0 Vicryl for subcutaneous closure and skin damir for skin closure. Procedure #2: Hammertoe correction, right 5th digit. Attention was directed to the dorsal PIPJ right 5th digit where a transverse ellipse was made over the joint. With the ellipse of skin removed, the extensor tendon and deep fascia was exposed. This was incised transversely, opening the joint and soft tissues reflected proximally exposing the head of the proximal phalanx, which was then resected using power instrumentation. The surgical site to the right 5th digit then irrigated with normal saline. The extensor tendon and joint capsule closed using 4-0 Vicryl. Skin closed using 5-0 nylon monofilament suture. Then dressings applied to both feet using Adaptic, Betadine-soaked gauze, dry gauze, Flexicon, and Coban for compression, but also to splint the position to the 5th digit as well as the hallux. Procedure #3: The extensor tendon was noted to be extremely tight and contributing to the hammertoe deformity. At this time, an incision was made to the dorsum of the right foot about 2 cm proximal to the MTPJ releasing the extensor tendon for the right 5th digit. This allowed much improved position to the toe. The incision was closed with a single suture. INTRAOPERATIVE COMPLICATIONS: None. Electronically Signed By: DEION ROGEL DPM 07/30/25 1712 PATIENT NAME: LAURA MAGDALENO OPERATIVE REPORT DATE OF : 80 REPORT #: [id number] PHYSICIAN: DEION ROGEL DPM PCP: RIYA KUMAR PA-C REPORT IS CONFIDENTIAL AND NOT TO BE RELEASED WITHOUT AUTHORIZATION [address] [place], [place] [address] Signed ESTIMATED BLOOD LOSS: Less than 5 mL. The patient tolerated the procedure and the anesthesia well and left the operating room with vital signs stable and vascular status intact to both feet as evidenced by hyperemia with removal of the Esmarch. SAHIL Shah/YARELI /[id number] Copies: ~ Electronically Signed By: DEION ROGEL DPM 07/30/25 1712 PATIENT NAME: LAURA MAGDALENO OPERATIVE REPORT DATE OF : 80 REPORT #: [id number] PHYSICIAN: DEION ROGEL DPM PCP: RIYA KUMAR PA-C REPORT IS CONFIDENTIAL AND NOT TO BE RELEASED WITHOUT AUTHORIZATION
== END 2025-07-28 11:39 | disposition home or self-care (01) ==
LOC: DS 05:39
PROVIDERS: ATTEND Podiatrist Foot Surgery
PROC: 0QSP04Z Reposition Left Metatarsal with Internal Fixation Device, Open Approach (ICD-10-PCS; principal; 2025-07-28 07:30)
PROC: 0LNV0ZZ Release Right Foot Tendon, Open Approach (ICD-10-PCS; 2025-07-28 07:30)
DX: M20.12 Hallux valgus (acquired), left foot (principal); M20.41 Other hammer toe(s) (acquired), right foot; M62.471 Contracture of muscle, right ankle and foot
CPT/HCPCS: 01480; 73620; 73630; 84703; C1713; J0131; J0165; J0690; J1100; J1885; J2003; J2405; J2704; J3010; J7121